=== PATIENT | female | born 1960 | race Caucasian/White ===

== ENCOUNTER 2018-04-14 14:31 | Emergency (ER) | payer OTHER, SELFPAY ==
[2018-04-14 14:46] VITALS: BP 150/86; PULSE 71; RESP 16; TEMP 36.5; O2SAT 99
--- NOTE | 2018-04-14 14:57 | ED_ITS ---
HPI - Abdominal Pain General Chief Complaint: Abdominal Pain Stated Complaint: vomiting/abd pain Time Seen by Provider: 04/14/18 14:50 Source: patient Mode of arrival: ambulatory Limitations: no limitations History of Present Illness HPI narrative: Patient is a 57-year-old female who presents with nausea vomiting on abdominal pain. She does have a history of cyclic vomiting gastroparesis. She is well known to this facility and to myself however however after review of records she has not been here since October of 2017. He said this episode started this morning around 9:00 a.m. she can't stop vomiting. He has diffuse overall abdominal pain. This is typical for 1 of her episodes. Related Data Home Medications Medication Instructions Recorded Confirmed Domperidone (#DOMPERIDONE) 10 mg PO ACHS #2 07/29/12 insulin lispro [Humalog U-100 0 unit SQ #0 07/29/12 Insulin] rosuvastatin [Crestor] 10 mg PO HS #0 07/29/12 pantoprazole [Protonix] 40 mg PO QDAY #0 10/06/12 duloxetine [Cymbalta] 20 mg PO BID #0 05/03/17 glucagon (human recombinant) 1 mg IJ SEE INSTRUCTIONS #0 05/03/17 [Glucagon Emergency Kit (human)] hydrocortisone 10 mg NG QDAY #0 05/03/17 insulin glargine [Lantus U-100 SQ #0 05/03/17 Insulin] mirtazapine 1.5 tab PO HS #0 05/03/17 promethazine 25 mg AK BIDP PRN #0 05/03/17 Previous Rx's Medication Instructions Recorded diazepam 5 mg PO TIDP #6 05/04/17 hydromorphone 4 mg PO BID PRN PRN #4 tab 05/04/17 ondansetron 4 mg SUBLINGUAL Q4HP PRN #30 odt 05/04/17 promethazine 25 mg PO Q6HP PRN #15 tab 11/10/17 promethazine [Phenergan] 25 mg R Q6HP PRN #20 11/10/17 Allergies Allergy/AdvReac Type Severity Reaction Status Date / Time amitriptyline Allergy Intermediate SEIZURES Verified 04/14/18 16:07 droperidol Allergy Intermediate CLONIC Verified 04/14/18 16:07 REACTION metoclopramide Allergy Intermediate CLONIC Verified 04/14/18 16:07 REACTION prochlorperazine Allergy Intermediate CLONIC Verified 04/14/18 16:07 REACTION azithromycin AdvReac Mild N/V Verified 04/14/18 16:07 ciprofloxacin AdvReac Mild N/V Verified 04/14/18 16:07 hydrocodone AdvReac Mild N/V Verified 04/14/18 16:07 ketorolac AdvReac Mild N/V Verified 04/14/18 16:07 Review of Systems Review of Systems All systems reviewed & are unremarkable except as noted in HPI and below Constitutional Denies chills, Denies fever(s), Denies lethargy and Denies weakness Cardiovascular Denies chest pain, Denies irregular heart rhythm, Denies lightheadedness, Denies palpitations, Denies dyspnea, Denies dyspnea on exertion and Denies orthopnea Respiratory Denies cough, Denies dyspnea, Denies dyspnea on exertion and Denies wheezing Gastrointestinal Gastrointestinal: Reports as per HPI Integumentary/Breasts Denies pruritus, Denies erythema, Denies rash and Denies wounds Neurologic Denies weakness Endocrine Denies palpitations Allergic/Immunologic Denies wheezing PFSH Medical History Chronic cholecystitis (Acute) Diabetes (Acute) Diabetic retinopathy (Acute) Hyperlipidemia (Acute) Hypothyroid (Acute) Osteomyelitis (Acute) Exam Initial Vital Signs Initial Vital Signs: Vital Signs Temperature 97.7 F 04/14/18 14:46 Pulse Rate 71 04/14/18 14:46 Respiratory Rate 16 04/14/18 14:46 Blood Pressure 150/86 H 04/14/18 14:46 Pulse Oximetry 99 04/14/18 14:46 GENERAL: Ill-appearing persistently nauseated for old in position moaning HEENT: Head atraumatic,EOMI, pupils reactive, dry mucous membranes, neck is supple no JVD CARDIOVASCULAR: Regular rate and rhythm without murmurs, rubs or gallops. RESPIRATORY: Breath sounds equal bilaterally, no wheezes rales or rhonchi. ABDOMEN: Diffuse tenderness, soft, distended EXTREMITIES: Normal range of motion, no clubbing or edema. Neurovascularly intact NEUROLOGICAL: Alert and oriented x4.Normal gait and speech. Cranial nerves II through XII grossly intact. SKIN: Warm, dry, no laceration, no petechiae, no rashes or lesions. Course Orders Ordered: Discontinued Medications Hydromorphone HCl (Dilaudid) 1 mg SUBCUT Q4H PRN PRN Reason: Pain, Severe (7-10) Last Admin: 04/14/18 15:13 Dose: 1 mg Hydromorphone HCl (Dilaudid) 1 mg IV NOW ONE Stop: 04/14/18 17:13 Last Admin: 04/14/18 17:51 Dose: 1 mg Hydromorphone HCl (Dilaudid) 1 mg IV NOW ONE Stop: 04/14/18 19:14 Last Admin: 04/14/18 19:25 Dose: 1 mg Sodium Chloride (Normal Saline 0.9%) 1,000 mls @ 1,000 mls/hr IV CONT ALEX Last Infusion: 04/14/18 17:46 Dose: 0 mls/hr Admin: 04/14/18 15:16 Dose: 1,000 mls/hr Sodium Chloride (Normal Saline 0.9%) 1,000 mls @ 1,000 mls/hr IV BOLUS ONE Stop: 04/14/18 18:02 Last Infusion: 04/14/18 19:53 Dose: 1,000 mls/hr Admin: 04/14/18 17:50 Dose: 1,000 mls/hr Lorazepam (Ativan) 1 mg IV NOW ONE Stop: 04/14/18 15:41 Last Admin: 04/14/18 16:14 Dose: 1 mg Ondansetron HCl (Zofran) 4 mg IV NOW ONE Stop: 04/14/18 15:11 Last Admin: 04/14/18 15:11 Dose: 4 mg Ondansetron HCl (Zofran) 4 mg IV NOW ONE Stop: 04/14/18 15:41 Last Admin: 04/14/18 16:15 Dose: 4 mg Ondansetron HCl (Zofran) 4 mg IV NOW ONE Stop: 04/14/18 19:14 Last Admin: 04/14/18 19:26 Dose: 4 mg Vital Signs - 8 hr 04/14/18 14:46 Temperature 97.7 F Pulse Rate 71 Respiratory Rate 16 Blood Pressure 150/86 H Pulse Oximetry 99 MDM - Abdominal Pain Medical Records Attestation: I reviewed the patient's medical records. Lab Data Attestation: I reviewed the patient's lab results. Result diagrams: 04/14/18 15:38 04/14/18 16:49 Lab Results 04/14/18 04/14/18 04/14/18 Range/Units 15:38 15:38 16:49 WBC 3.7 L (4.5-11.0) X10^3/uL RBC 3.07 L (4.0-5.2) X10^6/uL Hgb 9.4 L (12.0-16.0) g/dL Hct 27.8 L (36-46) % MCV 90.5 (80-100) fL MCH 30.7 (26-34) PG MCHC 33.9 (30-36) % RDW 13.2 (11.6-14.8) % Plt Count 129 L (150-400) X10^3/uL Neut % (Auto) 81.6 H (50-75) % Lymph % (Auto) 9.2 L (25-40) % Gonzales % (Auto) 7.2 (3-14) % Eos % (Auto) 1.5 L (2-4) % Baso % (Auto) 0.5 (0-2) % Neut # (Auto) 3000 (5760-7107) /uL Sodium Cancelled 146 H Potassium Cancelled 4.1 Chloride Cancelled 111 H Carbon Dioxide Cancelled 24 BUN Cancelled 14 Creatinine Cancelled 0.70 Estimated GFR Cancelled > 60.0 BUN/Creatinine Ratio Cancelled 20.0 Glucose Cancelled 129 H Calcium Cancelled 8.8 Total Bilirubin Cancelled 0.5 AST Cancelled 61 H ALT Cancelled 40 Alkaline Phosphatase Cancelled 108 Total Protein Cancelled 7.2 Albumin Cancelled 4.1 Globulin Cancelled 3.1 Albumin/Globulin Ratio Cancelled 1.3 Lipase Cancelled Point of care testing: Point of Care Testing Glucose POC 173 MDM Narrative Medical decision making narrative: Patient is beginning to feel better. She is able to tolerate ice chips and fluids overall feels that she can go home. She has anti nausea medication including suppository Phenergan and Zofran at home. Abdomen is reexamined and is soft and nontender Discharge Plan Departure Patient Disposition: Home Clinical Impression: Cyclic vomiting syndrome Discharge Date/Time: 04/14/18 19:58 Interventions: ED Discharge Assessment Last Done: 04/14/18 19:57 Instructions: DI for Vomiting -- Adult Activity Restrictions/Additional Instructions: *You have been diagnosed with vomiting, cyclic vomiting, gastroparesis *Continue to take medications as directed *Follow up with your primary care provider in 2-3 days *Return to ER if you should have any new, worsening or concerning symptoms Prescriptions: No Action insulin lispro [Humalog U-100 Insulin] 100 UNIT/1 ML solution SQ Qty: 0 RF: 0 Domperidone (#DOMPERIDONE) 10 mg PO ACHS Qty: 2 RF: 0 rosuvastatin [Crestor] 10 MG tablet 10 mg PO HS Qty: 0 RF: 0 pantoprazole [Protonix] 40 MG tablet,delayed release (DR/EC) 40 mg PO QDAY Qty: 0 RF: 0 promethazine 25 MG suppository 25 mg AK BIDP PRNQty: 0 RF: 0 mirtazapine 15 MG tablet 1.5 tab PO HS Qty: 0 RF: 0 duloxetine [Cymbalta] 20 MG capsule,delayed release(DR/EC) 20 mg PO BID Qty: 0 RF: 0 glucagon (human recombinant) [Glucagon Emergency Kit (human)] 1 MG kit 1 mg IJ SEE INSTRUCTIONS Qty: 0 RF: 0 insulin glargine [Lantus U-100 Insulin] 100 UNIT/1 ML solution SQ Qty: 0 RF: 0 hydrocortisone 10 MG tablet 10 mg NG QDAY Qty: 0 RF: 0 hydromorphone 4 MG tablet 4 mg PO BID PRN PRNQty: 4 RF: 0 diazepam 5 MG tablet 5 mg PO TIDP Qty: 6 RF: 0 ondansetron 4 MG tablet,disintegrating 4 mg Sublingual Q4HP PRNQty: 30 RF: 8 promethazine [Phenergan] 25 MG suppository 25 mg R Q6HP PRNQty: 20 RF: 0 promethazine 25 MG tablet 25 mg PO Q6HP PRNQty: 15 RF: 0 Referrals: Salvatore Villegas MD [Primary Care Provider] -
[2018-04-14] MEDS: ONDANSETRON 4 MG/2 ML INJ IV ×3 (15:11→19:26)
[2018-04-14] MEDS: HYDROMORPHONE 2 MG INJ 1 MG SUBCUT (15:13)
[2018-04-14] MEDS: SODIUM CHLORIDE 0.9% 1,000 ML 1000 ML IV ×2 (15:16→17:50)
[2018-04-14 15:50] LABS: Add Manual Diff / Slide Review NO; Basophils Percent Auto 0.5 % (0-2); Eosinophils Percent Auto 1.5 % (2-4); Hematocrit 27.8 % (36-46); Hemoglobin 9.4 g/dL (12.0-16.0); Lymphocytes Percent Auto 9.2 % (25-40); Mean Corpuscular HGB Conc 33.9 % (30-36); Mean Corpuscular Hemoglobin 30.7 PG (26-34); Mean Corpuscular Volume 90.5 fL (80-100); Monocytes Percent Auto 7.2 % (3-14); Neutrophils Absolute Auto 3000 /uL (3000-5900); Neutrophils Percent Auto 81.6 % (50-75); Platelet Count 129 X10^3/uL (150-400); Red Blood Cell Count 3.07 X10^6/uL (4.0-5.2); Red Cell Distribution Width 13.2 % (11.6-14.8); White Blood Cell Count 3.7 X10^3/uL (4.5-11.0)
[2018-04-14] MEDS: LORazepam 2 MG/ML SYRINGE 1 MG IV (16:14)
[2018-04-14 16:20] VITALS: BP 135/65; PULSE 65; RESP 19; TEMP 36.8; O2SAT 97
[2018-04-14 17:00] VITALS: BP 142/73; PULSE 63; RESP 18; O2SAT 98
[2018-04-14 17:13] LABS: Alanine Aminotransferase 40 IU/L (9-52); Albumin 4.1 g/dL (3.5-5.0); Albumin Globulin Ratio 1.3 (1.0-2.8); Alkaline Phosphatase 108 U/L (38-126); Aspartate Aminotransferase 61 IU/L (14-36); Bilirubin Total 0.5 mg/dL (0.2-1.3); Blood Urea Nitrogen 14 mg/dL (7-17); Calcium 8.8 mg/dL (8.4-10.2); Carbon Dioxide 24 mmol/L (22-32); Chloride 111 mmol/L (98-107); Estimated Glomerular Filt Rate > 60.0 mL/min (>60); Globulin 3.1 g/dL (1.7-4.1); Glucose 129 mg/dL (70-100); HEMOLYSIS 41 (0-50); Potassium 4.1 mmol/L (3.4-5.1); Sodium 146 mmol/L (137-145); Total Protein 7.2 g/dL (6.3-8.2)
[2018-04-14] MEDS: HYDROMORPHONE 2 MG INJ 1 MG IV ×2 (17:51→19:25)
[2018-04-14 18:02] VITALS: BP 120/57; PULSE 68; RESP 15; O2SAT 95
[2018-04-14 19:07] VITALS: BP 112/52; PULSE 64; RESP 15; O2SAT 95
== END 2018-04-14 19:58 | disposition home or self-care (01) ==
PROVIDERS: Emergency Provider Emergency Medicine; PCP Internal Medicine
DX: G43.A0 Cyclical vomiting, in migraine, not intractable (principal)
CPT/HCPCS: 80053; 82962; 85025; 96361; 96374; 96375; 96376; 99283; 99284; J1170; J2060; J2405

== ENCOUNTER → 2018-05-17 12:44 | Outpatient (CLI) | payer OTHER, SELFPAY ==
--- NOTE | 2018-05-17 | DI.MG.S_ITS ---
BILATERAL DIGITAL SCREENING MAMMOGRAM 3D/2D WITH CAD: 05/17/2018 CLINICAL: Routine screening. Comparison is made to exam dated: 01/03/2013 [facility]. The tissue of both breasts is heterogeneously dense. This may lower the sensitivity of mammography. Current study was also evaluated with a Computer Aided Detection (CAD) system. No significant masses, calcifications, or other findings are seen in either breast. There has been no significant interval change. IMPRESSION: NEGATIVE There is no mammographic evidence of malignancy. A 1 year screening mammogram is recommended.(05/18/2019) This exam was interpreted at Station ID: [id number]. NOTE: For mammograms, a report in lay terms will be sent to the patient. Approximately 15% of breast malignancies will not be visualized mammographically. In the management of a palpable breast mass, a negative mammogram must not discourage biopsy of a clinically suspicious lesion. Electronically Signed By: Carlos Alberto hernandez/elizabeth:05/17/2018 16:20:15 letter sent: Normal Exam ACR BI-RADS Category 1: Negative [id number]
== END ==
PROVIDERS: PCP Internal Medicine; Visit Provider Internal Medicine
DX: Z12.31 Encounter for screening mammogram for malignant neoplasm of breast (principal); M81.0 Age-related osteoporosis without current pathological fracture; Z78.0 Asymptomatic menopausal state; E07.9 Disorder of thyroid, unspecified; E11.9 Type 2 diabetes mellitus without complications; Z82.62 Family history of osteoporosis
CPT/HCPCS: 77063; 77067; 77080

== ENCOUNTER → 2018-06-10 11:53 | Outpatient (CLI) | payer OTHER, SELFPAY ==
--- NOTE | 2018-06-10 | DI.RAD.S_ITS ---
PROCEDURE: XR FOOT LT MIN 3V INDICATIONS: left foot injury TECHNIQUE: 3 views of the foot were acquired. COMPARISON: None. FINDINGS: Bones: Chronic appearing postsurgical and/or posttraumatic deformity at the second MTP joint. Fracture of the fourth metatarsal neck, although technically this is radiographically age-indeterminate recommend clinical correlation of point tenderness. There is also cortical irregularity involving the lateral cuboid. Mild first MTP joint degeneration. Soft tissues: No tibiotalar joint effusion. Achilles tendon appears normal. IMPRESSION: Age-indeterminate fracture of the distal fourth metatarsal. This is suspected to be acute. Please correlate clinically. Additional acute fracture of the lateral cortex of the cuboid. Chronic appearing postsurgical versus posttraumatic deformity involving the distal second metatarsal. Dictated by: Benjamin Patten M.D. on 06/10/2018 at 12:51 Approved by: Benjamin Patten M.D. on 06/10/2018 at 12:55
== END ==
PROVIDERS: PCP Internal Medicine; Visit Provider Internal Medicine
DX: S92.342A Displaced fracture of fourth metatarsal bone, left foot, initial encounter for closed fracture (principal); S92.212A Displaced fracture of cuboid bone of left foot, initial encounter for closed fracture; M19.072 Primary osteoarthritis, left ankle and foot
CPT/HCPCS: 73630

== ENCOUNTER 2018-06-10 17:57 | Emergency (ER) | payer OTHER, SELFPAY ==
[2018-06-10 18:05] VITALS: BP 159/79; PULSE 74; RESP 18; TEMP 37.1; O2SAT 97; BMI 22.2
--- NOTE | 2018-06-10 20:16 | ED.LOWEXIN ---
HPI - Extremity Injury (Lower) General Chief Complaint: Extremity Injury, Lower Stated Complaint: BROKEN LT FOOT Time Seen by Provider: 06/10/18 19:27 Source: patient and family Mode of arrival: wheelchair Limitations: no limitations History of Present Illness HPI Narrative: 57F non smoker presents at the request of her PCP whom had ordered an outpatient xray for evaluation of a foot injury. She was breaking down boxes and stepped down on a box and slipped, causing an injury to her Left foot. Her pain is worse with ambulation and weight bearing. She denies numbness, tingling or weakness. She denies other injuries. She has no history of left foot injury. She was told she had fractures and needed splinting in the ED> MD complaint: foot injury Onset (ago): hour(s) Type of Injury: inversion Place: home Severity: mild Relieving factors: immobilization Exacerbating factors: weight bearing and movement Context: fall and direct blow Associated symptoms: snap/pop sensation Other symptoms: none Related Data Home Medications Medication Instructions Recorded Confirmed Domperidone (#DOMPERIDONE) 10 mg PO ACHS #2 07/29/12 insulin lispro [Humalog U-100 0 unit SQ #0 07/29/12 Insulin] rosuvastatin [Crestor] 10 mg PO HS #0 07/29/12 pantoprazole [Protonix] 40 mg PO QDAY #0 10/06/12 duloxetine [Cymbalta] 20 mg PO BID #0 05/03/17 glucagon (human recombinant) 1 mg IJ SEE INSTRUCTIONS #0 05/03/17 [Glucagon Emergency Kit (human)] hydrocortisone 10 mg NG QDAY #0 05/03/17 insulin glargine [Lantus U-100 SQ #0 05/03/17 Insulin] mirtazapine 1.5 tab PO HS #0 05/03/17 promethazine 25 mg DC BIDP PRN #0 05/03/17 Previous Rx's Medication Instructions Recorded diazepam 5 mg PO TIDP #6 05/04/17 hydromorphone 4 mg PO BID PRN PRN #4 tab 05/04/17 ondansetron 4 mg SUBLINGUAL Q4HP PRN #30 odt 05/04/17 promethazine 25 mg PO Q6HP PRN #15 tab 11/10/17 promethazine [Phenergan] 25 mg R Q6HP PRN #20 11/10/17 Allergies Allergy/AdvReac Type Severity Reaction Status Date / Time amitriptyline Allergy Intermediate SEIZURES Verified 06/10/18 18:09 droperidol Allergy Intermediate CLONIC Verified 06/10/18 18:09 REACTION metoclopramide Allergy Intermediate CLONIC Verified 06/10/18 18:09 REACTION prochlorperazine Allergy Intermediate CLONIC Verified 06/10/18 18:09 REACTION azithromycin AdvReac Mild N/V Verified 06/10/18 18:09 ciprofloxacin AdvReac Mild N/V Verified 06/10/18 18:09 hydrocodone AdvReac Mild N/V Verified 06/10/18 18:09 ketorolac AdvReac Mild N/V Verified 06/10/18 18:09 Review of Systems Review of Systems All systems reviewed & are unremarkable except as noted in HPI and below Constitutional Denies chills, Denies fever(s), Denies lethargy and Denies weakness Eyes Denies change in vision, Denies eye discharge, Denies irritation and Denies loss of vision ENT Ears, Nose, Mouth, and Throat: Denies change in voice, Denies neck pain and Denies sore throat Cardiovascular Denies chest pain, Denies irregular heart rhythm, Denies lightheadedness, Denies palpitations, Denies dyspnea, Denies dyspnea on exertion and Denies orthopnea Respiratory Denies cough, Denies dyspnea, Denies dyspnea on exertion and Denies wheezing Gastrointestinal Gastrointestinal: Denies abdominal pain, Denies change in bowel habits, Denies diarrhea, Denies nausea and Denies vomiting Genitourinary Denies hematuria, Denies flank pain, Denies urinary incontinence and Denies urinary urgency Musculoskeletal Reports joint swelling, Reports limited range of motion and Denies neck pain Integumentary/Breasts Denies pruritus, Denies erythema, Denies rash and Denies wounds Neurologic Denies confusion, Denies loss of vision and Denies weakness Psychiatric Denies anxiety, Denies confusion, Denies depression, Denies homicidal ideation and Denies suicidal ideation Endocrine Denies palpitations Hematologic/Lymphatic Denies easy bruising Allergic/Immunologic Denies wheezing [facility] Medical History Chronic cholecystitis (Acute) Diabetes (Acute) Diabetic retinopathy (Acute) Hyperlipidemia (Acute) Hypothyroid (Acute) Osteomyelitis (Acute) Social History Smoking Status: Former smoker Exam Narrative Exam Narrative: GEN: AOx3 and in mild distress EYES: Pupils are equal, round, and reactive to light and accommodation. Extraoccular muscles are intact bilaterally. There is no subconjunctival hemorrhage or exudate. CHEST: Lungs are clear to auscultation bilaterally and free of wheezes, rales, or rhonchi. Heart rate is regular rhythm, there are no murmurs, clicks, rubs, or gallops. There is no chest wall tenderness. ABD: Abdomen is soft and nontender. There is no guarding or rebound. Bowel sounds are normal in all 4 quadrants. There is no mass or organomegaly. EXT: Full but painful ROM of L foot with noted ecchymosis at MTP of 3rd and 4th. SKIN: Warm, pink, and dry. No erythema or rash Initial Vital Signs Initial Vital Signs: Vital Signs Temperature 98.8 F 06/10/18 18:05 Pulse Rate 74 06/10/18 18:05 Respiratory Rate 18 06/10/18 18:05 Blood Pressure 159/79 H 06/10/18 18:05 Pulse Oximetry 97 06/10/18 18:05 Procedures Orthopedic Splinting/Casting Injury #1: Side: left Lower Extremity Injury Location: foot Lower Extremity Immobilizer: boot orthosis Other Orthopedic Equipment: crutches Course Orders Ordered: Discontinued Medications Hydromorphone HCl (Dilaudid) 1 mg IM NOW ONE Stop: 06/10/18 20:14 Last Admin: 06/10/18 20:29 Dose: 1 mg Consultations Consultation #1: call to Dr. Zuñiga (ortho) whom states she may weight bear as tolerated and be splinted in a boot orthosis with follow up Vital Signs - 8 hr 06/10/18 18:05 06/10/18 20:28 Temperature 98.8 F 98.7 F Pulse Rate 74 77 Respiratory Rate 18 16 Blood Pressure 159/79 H Blood Pressure [Left Arm] 114/61 Pulse Oximetry 97 99 MDM - Extremity Injury (Lower) Imaging Data Foot Xray: Radiologist's impression: PROCEDURE: XR FOOT LT MIN 3V INDICATIONS: left foot injury TECHNIQUE: 3 views of the foot were acquired. COMPARISON: None. FINDINGS: Bones: Chronic appearing postsurgical and/or posttraumatic deformity at the second MTP joint. Fracture of the fourth metatarsal neck, although technically this is radiographically age-indeterminate recommend clinical correlation of point tenderness. There is also cortical irregularity involving the lateral cuboid. Mild first MTP joint degeneration. Soft tissues: No tibiotalar joint effusion. Achilles tendon appears normal. IMPRESSION: Age-indeterminate fracture of the distal fourth metatarsal. This is suspected to be acute. Please correlate clinically. Additional acute fracture of the lateral cortex of the cuboid. Chronic appearing postsurgical versus posttraumatic deformity involving the distal second metatarsal. Dictated by: Benjamin Patten M.D. on 06/10/2018 at 12:51 Approved by: Benjamin Patten M.D. on 06/10/2018 at 12:55 Discharge Plan Departure Patient Disposition: Home Clinical Impression: Foot fracture, left Discharge Date/Time: 06/10/18 21:06 Interventions: ED Discharge Assessment Last Done: 06/10/18 21:06 Instructions: DI for Foot Fracture Activity Restrictions/Additional Instructions: *You have been diagnosed with [ left foot metatarsal fracture and cuboid bone fracture ] *What to do: I have spoken with Dr. Zuñiga with [facility] and she recommends the boot that we had given you and suggests weight-bearing as tolerated *Take medications as directed *Follow up with Dr. Zuñiga at [facility], call for an appointment. Let them know you were seen in the Emergency Department and that we ask that you be seen in follow up *Return to ER if you should have any new, worsening or concerning symptoms Prescriptions: No Action insulin lispro [Humalog U-100 Insulin] 100 UNIT/1 ML solution SQ Qty: 0 RF: 0 Domperidone (#DOMPERIDONE) 10 mg PO ACHS Qty: 2 RF: 0 rosuvastatin [Crestor] 10 MG tablet 10 mg PO HS Qty: 0 RF: 0 pantoprazole [Protonix] 40 MG tablet,delayed release (DR/EC) 40 mg PO QDAY Qty: 0 RF: 0 promethazine 25 MG suppository 25 mg DC BIDP PRNQty: 0 RF: 0 mirtazapine 15 MG tablet 1.5 tab PO HS Qty: 0 RF: 0 duloxetine [Cymbalta] 20 MG capsule,delayed release(DR/EC) 20 mg PO BID Qty: 0 RF: 0 glucagon (human recombinant) [Glucagon Emergency Kit (human)] 1 MG kit 1 mg IJ SEE INSTRUCTIONS Qty: 0 RF: 0 insulin glargine [Lantus U-100 Insulin] 100 UNIT/1 ML solution SQ Qty: 0 RF: 0 hydrocortisone 10 MG tablet 10 mg NG QDAY Qty: 0 RF: 0 hydromorphone 4 MG tablet 4 mg PO BID PRN PRNQty: 4 RF: 0 diazepam 5 MG tablet 5 mg PO TIDP Qty: 6 RF: 0 ondansetron 4 MG tablet,disintegrating 4 mg Sublingual Q4HP PRNQty: 30 RF: 8 promethazine [Phenergan] 25 MG suppository 25 mg R Q6HP PRNQty: 20 RF: 0 promethazine 25 MG tablet 25 mg PO Q6HP PRNQty: 15 RF: 0 Referrals: Lisa Zuñiga MD [Physician] - Salvatore Villegas MD [Primary Care Provider] -
[2018-06-10 20:28] VITALS: BP 114/61; PULSE 77; RESP 16; TEMP 37.1; O2SAT 99
[2018-06-10] MEDS: HYDROMORPHONE 2 MG INJ 1 MG IM (20:29)
== END 2018-06-10 21:06 | disposition home or self-care (01) ==
PROVIDERS: Emergency Provider Emergency Medicine; PCP Internal Medicine
DX: S92.902A Unspecified fracture of left foot, initial encounter for closed fracture (principal); W01.0XXA Fall on same level from slipping, tripping and stumbling without subsequent striking against object, initial encounter
CPT/HCPCS: 99283; J1170

== ENCOUNTER 2018-08-07 15:36 | Emergency (ER) | payer OTHER, SELFPAY ==
--- NOTE | 2018-08-07 15:51 | ED_ITS ---
HPI - Nausea/Vomiting/Diarrhea <Damon Beckeran, DO - Last Filed: 08/09/18 20:25> General Chief complaint: Nausea/Vomiting/Diarrhea Stated complaint: Throwing up Time Seen by Provider: 08/07/18 15:45 Source: patient and family Mode of arrival: ambulatory Limitations: no limitations History of Present Illness HPI Narrative: 58-year-old nonsmoking female, well known to myself and other staff presents under typical [place] stance is for her including nausea, vomiting and abdominal pain over the course of the day. She has recurrent episodes of cyclic vomiting the present very similar to this. She has taken multiple medications at home with little relief. She denies any significant provocation or palliation of her symptoms and denies any radiation. She has multiple medical allergies as noted. She denies recent travel, fever or chills MD complaint: nausea, vomiting and abdominal pain Onset (ago): hour(s) Description of Vomiting: food contents Associated Abdominal Pain: Yes Location of pain: diffuse Radiation: diffuse Quality: cramping and stabbing Pain Consistency: constant Relieving factors: none Exacerbating factors: none Associated symptoms: other (headache) Related Data Home Medications Medication Instructions Recorded Confirmed Domperidone (#DOMPERIDONE) 10 mg PO ACHS #2 07/29/12 insulin lispro [Humalog U-100 0 unit SQ #0 07/29/12 Insulin] rosuvastatin [Crestor] 10 mg PO HS #0 07/29/12 pantoprazole [Protonix] 40 mg PO QDAY #0 10/06/12 duloxetine [Cymbalta] 20 mg PO BID #0 05/03/17 glucagon (human recombinant) 1 mg IJ SEE INSTRUCTIONS #0 05/03/17 [Glucagon Emergency Kit (human)] hydrocortisone 10 mg NG QDAY #0 05/03/17 insulin glargine [Lantus U-100 SQ #0 05/03/17 Insulin] mirtazapine 1.5 tab PO HS #0 05/03/17 promethazine 25 mg [place] BIDP PRN #0 05/03/17 Previous Rx's Medication Instructions Recorded diazepam 5 mg PO TIDP #6 05/04/17 hydromorphone 4 mg PO BID PRN PRN #4 tab 05/04/17 ondansetron 4 mg SUBLINGUAL Q4HP PRN #30 odt 05/04/17 promethazine 25 mg PO Q6HP PRN #15 tab 11/10/17 promethazine [Phenergan] 25 mg R Q6HP PRN #20 11/10/17 Allergies Allergy/AdvReac Type Severity Reaction Status Date / Time amitriptyline Allergy Intermediate SEIZURES Verified 08/07/18 16:24 droperidol Allergy Intermediate CLONIC Verified 08/07/18 16:24 REACTION metoclopramide Allergy Intermediate CLONIC Verified 08/07/18 16:24 REACTION prochlorperazine Allergy Intermediate CLONIC Verified 08/07/18 16:24 REACTION azithromycin AdvReac Mild N/V Verified 08/07/18 16:24 ciprofloxacin AdvReac Mild N/V Verified 08/07/18 16:24 hydrocodone AdvReac Mild N/V Verified 08/07/18 16:24 ketorolac AdvReac Mild N/V Verified 08/07/18 16:24 Review of Systems <Damon Schreiber, - Last Filed: 08/09/18 20:25> Review of Systems All systems reviewed & are unremarkable except as noted in HPI and below Constitutional Denies chills, Reports fatigue, Denies fever(s), Reports headache(s), Denies lethargy and Denies weakness Eyes Denies change in vision, Denies eye discharge, Denies irritation and Denies loss of vision ENT Ears, Nose, Mouth, and Throat: Denies change in voice, Reports headache(s), Denies neck pain and Denies sore throat Cardiovascular Denies chest pain, Denies irregular heart rhythm, Denies lightheadedness, Denies palpitations, Denies dyspnea, Denies dyspnea on exertion and Denies orthopnea Respiratory Denies cough, Denies dyspnea, Denies dyspnea on exertion and Denies wheezing Gastrointestinal Gastrointestinal: Reports abdominal pain, Denies change in bowel habits, Denies diarrhea, Reports nausea and Reports vomiting Genitourinary Denies hematuria, Denies flank pain, Denies urinary incontinence and Denies urinary urgency Musculoskeletal Denies neck pain Integumentary/Breasts Denies pruritus, Denies erythema, Denies rash and Denies wounds Neurologic Denies confusion, Reports headache(s), Denies loss of vision and Denies weakness Psychiatric Denies anxiety, Denies confusion, Denies depression, Denies homicidal ideation and Denies suicidal ideation Endocrine Reports fatigue and Denies palpitations Hematologic/Lymphatic Denies easy bruising Allergic/Immunologic Denies wheezing Exam <Damon Schreiber DO - Last Filed: 08/09/18 20:25> Narrative Exam Narrative: GENERAL: 50-year-old female, in obvious distress, writhing in pain from her abdomen, sitting in a dark room rubbing her forehead HEAD: Atraumatic. Normocephalic. No temporal or scalp tenderness. EYES: Pupils equal round and reactive. Extraocular motions intact. No scleral icterus. No injection or drainage. ENT: Nose without bleeding, purulent drainage or septal hematoma. Throat without erythema, tonsillar hypertrophy or exudate. Uvula midline. Airway patent. NECK: Trachea midline. No JVD or lymphadenopathy. Supple, nontender, no meningeal signs. CARDIOVASCULAR: Regular rate and rhythm without murmurs, gallops, or rubs. RESPIRATORY: Clear to auscultation. Breath sounds equal bilaterally. No wheezes , rales, or rhonchi. GASTROINTESTINAL: Abdomen soft, non-tender, nondistended. No hepato-splenomegaly , or palpable masses. No guarding. EXTREMITIES: No clubbing, cyanosis, or edema. No joint tenderness, effusion, or edema noted. BACK: Nontender without deformity or crepitance. No flank tenderness. NEURO: AOx3. SKIN: No rash or erythema. Initial Vital Signs Initial Vital Signs: Vital Signs Temperature 97.8 F 08/07/18 16:18 Pulse Rate 72 08/07/18 16:18 Respiratory Rate 18 08/07/18 16:18 Blood Pressure 151/69 H 08/07/18 16:18 Pulse Oximetry 100 08/07/18 16:18 <Mary Ann De La Garza, DO - Last Filed: 08/07/18 21:07> Initial Vital Signs Initial Vital Signs: Vital Signs Temperature 97.8 F 08/07/18 16:18 Pulse Rate 72 08/07/18 16:18 Respiratory Rate 18 08/07/18 16:18 Blood Pressure 151/69 H 08/07/18 16:18 Pulse Oximetry 100 08/07/18 16:18 Course <Damon Schreiber DO - Last Filed: 08/09/18 20:25> Orders Ordered: Discontinued Medications Hydromorphone HCl (Dilaudid) 1 mg IV NOW ONE Stop: 08/07/18 16:45 Last Admin: 08/07/18 16:45 Dose: 1 mg Hydromorphone HCl (Dilaudid) 2 mg IV NOW ONE Stop: 08/07/18 17:37 Last Admin: 08/07/18 17:42 Dose: 2 mg Hydromorphone HCl (Dilaudid) 1 mg IV NOW ONE Stop: 08/07/18 19:39 Last Admin: 08/07/18 19:57 Dose: 1 mg Hydromorphone HCl (Dilaudid) 1 mg IV NOW ONE Stop: 08/07/18 19:41 Last Admin: 08/07/18 19:56 Dose: Not Given Sodium Chloride (Normal Saline 0.9%) 1,000 mls @ 1,000 mls/hr IV BOLUS ONE Stop: 08/07/18 16:44 Last Infusion: 08/07/18 18:21 Dose: 0 mls/hr Admin: 08/07/18 15:58 Dose: 1,000 mls/hr Lorazepam (Ativan) 2 mg IV NOW ONE Stop: 08/07/18 15:46 Last Admin: 08/07/18 15:58 Dose: 2 mg Ondansetron HCl (Zofran) 8 mg IV NOW ONE Stop: 08/07/18 16:03 Last Admin: 08/07/18 16:04 Dose: 8 mg Ondansetron HCl (Zofran) 4 mg IV Q4HR PRN PRN Reason: Nausea And Vomiting Ondansetron HCl (Zofran) 4 mg IV Q4HR PRN PRN Reason: Nausea And Vomiting Last Admin: 08/07/18 19:56 Dose: 4 mg Pantoprazole Sodium (Protonix) 40 mg IV NOW ONE Stop: 08/07/18 16:03 Last Admin: 08/07/18 16:04 Dose: 40 mg Reevaluation(s) Reevaluation #1: Minimal change in symptoms after 1st round of Ativan and Zofran , will add Dilaudid for pain control Reevaluation #2: Patient feeling minimal improvement will attempt 2nd round of medications Reevaluation #3: Patient still having symptoms, will sign out to Dr. Perez for final disposition which is expected discharge Vital Signs - 8 hr 08/07/18 16:18 08/07/18 17:02 08/07/18 18:33 Temperature 97.8 F Pulse Rate 72 69 69 Respiratory Rate 18 20 14 Blood Pressure 151/69 H Blood Pressure [Left Arm] 146/67 H 118/62 Pulse Oximetry 100 97 100 08/07/18 19:47 08/07/18 20:46 Temperature Pulse Rate 69 68 Respiratory Rate 16 16 Blood Pressure Blood Pressure [Left Arm] 141/63 H 134/59 L Pulse Oximetry 100 99 <Mary Ann De La Garza, - Last Filed: 08/07/18 21:07> Orders Ordered: Discontinued Medications Hydromorphone HCl (Dilaudid) 1 mg IV NOW ONE Stop: 08/07/18 16:45 Last Admin: 08/07/18 16:45 Dose: 1 mg Hydromorphone HCl (Dilaudid) 2 mg IV NOW ONE Stop: 08/07/18 17:37 Last Admin: 08/07/18 17:42 Dose: 2 mg Hydromorphone HCl (Dilaudid) 1 mg IV NOW ONE Stop: 08/07/18 19:39 Last Admin: 08/07/18 19:57 Dose: 1 mg Hydromorphone HCl (Dilaudid) 1 mg IV NOW ONE Stop: 08/07/18 19:41 Last Admin: 08/07/18 19:56 Dose: Not Given Sodium Chloride (Normal Saline 0.9%) 1,000 mls @ 1,000 mls/hr IV BOLUS ONE Stop: 08/07/18 16:44 Last Infusion: 08/07/18 18:21 Dose: 0 mls/hr Admin: 08/07/18 15:58 Dose: 1,000 mls/hr Lorazepam (Ativan) 2 mg IV NOW ONE Stop: 08/07/18 15:46 Last Admin: 08/07/18 15:58 Dose: 2 mg Ondansetron HCl (Zofran) 8 mg IV NOW ONE Stop: 08/07/18 16:03 Last Admin: 08/07/18 16:04 Dose: 8 mg Ondansetron HCl (Zofran) 4 mg IV Q4HR PRN PRN Reason: Nausea And Vomiting Ondansetron HCl (Zofran) 4 mg IV Q4HR PRN PRN Reason: Nausea And Vomiting Last Admin: 08/07/18 19:56 Dose: 4 mg Pantoprazole Sodium (Protonix) 40 mg IV NOW ONE Stop: 08/07/18 16:03 Last Admin: 08/07/18 16:04 Dose: 40 mg Vital Signs - 8 hr 08/07/18 16:18 08/07/18 17:02 08/07/18 18:33 Temperature 97.8 F Pulse Rate 72 69 69 Respiratory Rate 18 20 14 Blood Pressure 151/69 H Blood Pressure [Left Arm] 146/67 H 118/62 Pulse Oximetry 100 97 100 08/07/18 19:47 08/07/18 20:46 Temperature Pulse Rate 69 68 Respiratory Rate 16 16 Blood Pressure Blood Pressure [Left Arm] 141/63 H 134/59 L Pulse Oximetry 100 99 MDM - Nausea/Vomiting/Diarrhea <Damon Schreiber DO - Last Filed: 08/09/18 20:25> Lab Data Result diagrams: 08/07/18 15:40 08/07/18 15:40 Lab Results 08/07/18 08/07/18 Range/Units 15:40 15:40 WBC 7.0 (4.5-11.0) X10^3/uL RBC 4.42 (4.0-5.2) X10^6/uL Hgb 13.3 (12.0-16.0) g/dL Hct 40.6 (36-46) % MCV 91.9 (80-100) fL MCH 30.1 (26-34) PG MCHC 32.7 (30-36) % RDW 13.7 (11.6-14.8) % Plt Count 318 (150-400) X10^3/uL Neut % (Auto) 78.5 H (50-75) % Lymph % (Auto) 14.5 L (25-40) % [place] % (Auto) 5.2 (3-14) % Eos % (Auto) 1.4 L (2-4) % Baso % (Auto) 0.4 (0-2) % Neut # (Auto) 5500 (2057-0751) /uL Sodium 141 (137-145) mmol/L Potassium 4.8 (3.4-5.1) mmol/L Chloride 100 (98-107) mmol/L Carbon Dioxide 30 (22-32) mmol/L BUN 20 H (7-17) mg/dL Creatinine 0.70 (0.52-1.04) mg/dL Estimated GFR > 60.0 (>60) mL/min BUN/Creatinine Ratio 28.6 H (6-22) Glucose 151 H (70-100) mg/dL Calcium 9.5 (8.4-10.2) mg/dL Total Bilirubin 0.4 (0.2-1.3) mg/dL AST 41 H (14-36) IU/L ALT 23 (9-52) IU/L Alkaline Phosphatase 191 H (38-126) U/L Total Protein 8.2 (6.3-8.2) g/dL Albumin 4.5 (3.5-5.0) g/dL Globulin 3.7 (1.7-4.1) g/dL Albumin/Globulin Ratio 1.2 (1.0-2.8) <Mary Ann De La Garza, DO - Last Filed: 08/07/18 21:07> Lab Data Lab Results 08/07/18 08/07/18 Range/Units 15:40 15:40 WBC 7.0 (4.5-11.0) X10^3/uL RBC 4.42 (4.0-5.2) X10^6/uL Hgb 13.3 (12.0-16.0) g/dL Hct 40.6 (36-46) % MCV 91.9 (80-100) fL MCH 30.1 (26-34) PG MCHC 32.7 (30-36) % RDW 13.7 (11.6-14.8) % Plt Count 318 (150-400) X10^3/uL Neut % (Auto) 78.5 H (50-75) % Lymph % (Auto) 14.5 L (25-40) % [place] % (Auto) 5.2 (3-14) % Eos % (Auto) 1.4 L (2-4) % Baso % (Auto) 0.4 (0-2) % Neut # (Auto) 5500 (0679-4639) /uL Sodium 141 (137-145) mmol/L Potassium 4.8 (3.4-5.1) mmol/L Chloride 100 (98-107) mmol/L Carbon Dioxide 30 (22-32) mmol/L BUN 20 H (7-17) mg/dL Creatinine 0.70 (0.52-1.04) mg/dL Estimated GFR > 60.0 (>60) mL/min BUN/Creatinine Ratio 28.6 H (6-22) Glucose 151 H (70-100) mg/dL Calcium 9.5 (8.4-10.2) mg/dL Total Bilirubin 0.4 (0.2-1.3) mg/dL AST 41 H (14-36) IU/L ALT 23 (9-52) IU/L Alkaline Phosphatase 191 H (38-126) U/L Total Protein 8.2 (6.3-8.2) g/dL Albumin 4.5 (3.5-5.0) g/dL Globulin 3.7 (1.7-4.1) g/dL Albumin/Globulin Ratio 1.2 (1.0-2.8) MDM Narrative Medical decision making narrative: Patient signed out to myself by Dr. Schreiber, she is known to myself from prior visits also. Patient has not had any additional emesis and is tolerating ice chips. She has had several doses of diludid and ativan and is feeling improved. Labs are in appropriate ranges and patient feels better to return home. Plan to continue current home medications and follow with pcp. Discharge Plan Departure Patient Disposition: Home Clinical Impression: Cyclical vomiting Discharge Date/Time: 08/07/18 21:06 Interventions: ED Discharge Assessment Last Done: 08/07/18 20:55 Activity Restrictions/Additional Instructions: Follow-up with your primary care physician in the next 3-5 days for recheck. Continue home medications as prescribed. Return for fevers greater than 100.4, if you are unable to keep down your medications, persistent vomiting, new shortness of breath, chest pain, passing out or other new or concerning symptoms. Prescriptions: No Action insulin lispro [Humalog U-100 Insulin] 100 UNIT/1 ML solution SQ Qty: 0 RF: 0 Domperidone (#DOMPERIDONE) 10 mg PO ACHS Qty: 2 RF: 0 rosuvastatin [Crestor] 10 MG tablet 10 mg PO HS Qty: 0 RF: 0 pantoprazole [Protonix] 40 MG tablet,delayed release (DR/EC) 40 mg PO QDAY Qty: 0 RF: 0 promethazine 25 MG suppository 25 mg [place] BIDP PRNQty: 0 RF: 0 mirtazapine 15 MG tablet 1.5 tab PO HS Qty: 0 RF: 0 duloxetine [Cymbalta] 20 MG capsule,delayed release(DR/EC) 20 mg PO BID Qty: 0 RF: 0 glucagon (human recombinant) [Glucagon Emergency Kit (human)] 1 MG kit 1 mg IJ SEE INSTRUCTIONS Qty: 0 RF: 0 insulin glargine [Lantus U-100 Insulin] 100 UNIT/1 ML solution SQ Qty: 0 RF: 0 hydrocortisone 10 MG tablet 10 mg NG QDAY Qty: 0 RF: 0 hydromorphone 4 MG tablet 4 mg PO BID PRN PRNQty: 4 RF: 0 diazepam 5 MG tablet 5 mg PO TIDP Qty: 6 RF: 0 ondansetron 4 MG tablet,disintegrating 4 mg Sublingual Q4HP PRNQty: 30 RF: 8 promethazine [Phenergan] 25 MG suppository 25 mg R Q6HP PRNQty: 20 RF: 0 promethazine 25 MG tablet 25 mg PO Q6HP PRNQty: 15 RF: 0 Referrals: Salvatore Villegas MD [Primary Care Provider] -
[2018-08-07 15:56] LABS: Add Manual Diff / Slide Review NO; Basophils Percent Auto 0.4 % (0-2); Eosinophils Percent Auto 1.4 % (2-4); Hematocrit 40.6 % (36-46); Hemoglobin 13.3 g/dL (12.0-16.0); Lymphocytes Percent Auto 14.5 % (25-40); Mean Corpuscular HGB Conc 32.7 % (30-36); Mean Corpuscular Hemoglobin 30.1 PG (26-34); Mean Corpuscular Volume 91.9 fL (80-100); Monocytes Percent Auto 5.2 % (3-14); Neutrophils Absolute Auto 5500 /uL (1500-7000); Neutrophils Percent Auto 78.5 % (50-75); Platelet Count 318 X10^3/uL (150-400); Red Blood Cell Count 4.42 X10^6/uL (4.0-5.2); Red Cell Distribution Width 13.7 % (11.6-14.8)
[2018-08-07] MEDS: SODIUM CHLORIDE 0.9% 1,000 ML 1000 ML IV (15:58)
[2018-08-07] MEDS: LORazepam 2 MG/ML SYRINGE IV (15:58)
[2018-08-07] MEDS: ONDANSETRON 4 MG/2 ML INJ 8 MG IV (16:04)
[2018-08-07] MEDS: PANTOPRAZOLE 40 MG VIAL IV (16:04)
[2018-08-07 16:05] LABS: Alanine Aminotransferase 23 IU/L (9-52); Albumin 4.5 g/dL (3.5-5.0); Albumin Globulin Ratio 1.2 (1.0-2.8); Alkaline Phosphatase 191 U/L (38-126); Aspartate Aminotransferase 41 IU/L (14-36); BUN Creatinine Ratio 28.6 (6-22); Bilirubin Total 0.4 mg/dL (0.2-1.3); Blood Urea Nitrogen 20 mg/dL (7-17); Calcium 9.5 mg/dL (8.4-10.2); Carbon Dioxide 30 mmol/L (22-32); Chloride 100 mmol/L (98-107); Estimated Glomerular Filt Rate > 60.0 mL/min (>60); Globulin 3.7 g/dL (1.7-4.1); Glucose 151 mg/dL (70-100); Sodium 141 mmol/L (137-145); Total Protein 8.2 g/dL (6.3-8.2)
[2018-08-07 16:09] LABS: HEMOLYSIS 82 (0-50); Potassium 4.8 mmol/L (3.4-5.1)
[2018-08-07 16:18] VITALS: BP 151/69; PULSE 72; RESP 18; TEMP 36.6; O2SAT 100; BMI 28.4
[2018-08-07] MEDS: HYDROMORPHONE 1 MG INJ IV ×2 (16:45→19:57)
[2018-08-07 17:02] VITALS: BP 146/67; PULSE 69; RESP 20; O2SAT 97
[2018-08-07] MEDS: HYDROMORPHONE 1 MG INJ 2 MG IV (17:42)
[2018-08-07 18:33] VITALS: BP 118/62; PULSE 69; RESP 14; O2SAT 100
[2018-08-07 19:47] VITALS: BP 141/63; PULSE 69; RESP 16; O2SAT 100
[2018-08-07] MEDS: ONDANSETRON 4 MG/2 ML INJ IV (19:56)
--- NOTE | 2018-08-07 20:45 | PC.NURSE ---
Pt states feels ready to go home, sister is at bedside. Pt tolerated ice chips.
[2018-08-07 20:46] VITALS: BP 134/59; PULSE 68; RESP 16; O2SAT 99
== END 2018-08-07 21:06 | disposition home or self-care (01) ==
PROVIDERS: Emergency Medicine; Emergency Provider Emergency Medicine; PCP Internal Medicine
DX: G43.A0 Cyclical vomiting, in migraine, not intractable (principal)
CPT/HCPCS: 36591; 80053; 85025; 96361; 96374; 96375; 96376; 99283; 99284; C9113; J1170; J2060; J2405

== ENCOUNTER 2019-02-03 08:49 | Emergency (ER) | payer OTHER, SELFPAY ==
[2019-02-03 09:05] VITALS: BP 156/75; PULSE 70; RESP 20; TEMP 36.3; O2SAT 94
--- NOTE | 2019-02-03 09:31 | ED.NAVMDI ---
HPI - Nausea/Vomiting/Diarrhea General Chief complaint: Nausea/Vomiting/Diarrhea Stated complaint: diabetic gastroparisis,migrane Time Seen by Provider: 02/03/19 09:24 Source: patient Mode of arrival: ambulatory Limitations: no limitations History of Present Illness HPI Narrative: The patient is a 58-year-old female who presents with vomiting. She says this started around 3:00 a.m.. She has a history of gastroparesis and cyclic vomiting. She actually has not been here since July. She Zofran Dilaudid and Valium at home she says she has been able to keep any of that down. She has no diarrhea this feels typical to her previous episodes. No fever. He does have pain. MD complaint: nausea, vomiting and abdominal pain Related Data Home Medications Medication Instructions Recorded Confirmed Domperidone (#DOMPERIDONE) 30 mg PO ACHS #2 07/29/12 02/03/19 insulin lispro [Humalog U-100 0 unit CONTINUOUS IV INFUSION 07/29/12 Insulin] DAILY #0 rosuvastatin [Crestor] 10 mg PO BEDTIME #0 07/29/12 02/03/19 pantoprazole [Protonix] 40 mg PO DAILY #0 10/06/12 02/03/19 hydrocortisone 10 mg NG DAILY #0 05/03/17 02/03/19 promethazine 25 mg [place] BIDP PRN #0 05/03/17 02/03/19 alendronate 70 mg PO QWEEK 02/03/19 02/03/19 diazepam 5 mg PO TIDP PRN 02/03/19 02/03/19 glucagon (human recombinant) 1 dose SUBCUT DIRECTED 02/03/19 02/03/19 [Glucagon Emergency Kit (human)] hydromorphone 4 mg PO TID PRN 02/03/19 02/03/19 levothyroxine 75 mcg PO DAILY 02/03/19 02/03/19 ondansetron 4 mg SUBLINGUAL Q4HP PRN 02/03/19 02/03/19 Previous Rx's Medication Instructions Recorded promethazine 25 mg [place] Q6H PRN #12 each 02/03/19 Allergies Allergy/AdvReac Type Severity Reaction Status Date / Time amitriptyline Allergy Intermediate SEIZURES Verified 02/03/19 11:06 droperidol Allergy Intermediate CLONIC Verified 02/03/19 11:06 REACTION metoclopramide Allergy Intermediate CLONIC Verified 02/03/19 11:06 REACTION prochlorperazine Allergy Intermediate CLONIC Verified 02/03/19 11:06 REACTION azithromycin AdvReac Mild N/V Verified 02/03/19 11:06 ciprofloxacin AdvReac Mild N/V Verified 02/03/19 11:06 hydrocodone AdvReac Mild N/V Verified 02/03/19 11:06 ketorolac AdvReac Mild N/V Verified 02/03/19 11:06 Review of Systems Review of Systems ROS Unobtainable: All systems reviewed & are unremarkable except as noted in HPI and below Constitutional Denies chills, Denies fever(s), Denies lethargy and Denies weakness Eyes Denies change in vision, Denies eye discharge, Denies irritation and Denies loss of vision ENT Ears, Nose, Mouth, and Throat: Denies change in voice, Denies neck pain and Denies sore throat Cardiovascular Denies chest pain, Denies irregular heart rhythm, Denies lightheadedness, Denies palpitations, Denies dyspnea, Denies dyspnea on exertion and Denies orthopnea Respiratory Denies cough, Denies dyspnea, Denies dyspnea on exertion and Denies wheezing Gastrointestinal Gastrointestinal: Reports as per HPI Genitourinary Denies hematuria, Denies flank pain, Denies urinary incontinence and Denies urinary urgency Musculoskeletal Denies neck pain Integumentary/Breasts Denies pruritus, Denies erythema, Denies rash and Denies wounds Neurologic Denies loss of vision and Denies weakness Endocrine Denies palpitations Allergic/Immunologic Denies wheezing [facility] Medical History Chronic cholecystitis (Acute) Diabetes (Acute) Diabetic retinopathy (Acute) Hyperlipidemia (Acute) Hypothyroid (Acute) Osteomyelitis (Acute) Social History (Updated 02/03/19 @ 09:35 by Yoanna Watt DO) marital status: Smoking Status: Former smoker Social History marital status: Smoking Status: Former smoker Exam Initial Vital Signs Initial Vital Signs: Vital Signs Temperature 97.4 F L 02/03/19 09:05 Pulse Rate 70 02/03/19 09:05 Respiratory Rate 20 02/03/19 09:05 Blood Pressure 156/75 H 02/03/19 09:05 Pulse Oximetry 94 02/03/19 09:05 GENERAL: Appears in pain sunglasses on HEENT: Head atraumatic,EOMI, pupils reactive, face symmetric, [moist] mucous membranes CARDIOVASCULAR: Regular rate and rhythm without murmurs, rubs or gallops. RESPIRATORY: Breath sounds equal bilaterally, no wheezes rales or rhonchi. ABDOMEN: Soft, mild epigastric tenderness Normoactive bowel sounds all 4 quadrants. No guarding or rebound. EXTREMITIES: Normal range of motion, no clubbing or edema. Neurovascularly intact NEUROLOGICAL: Alert and oriented x4.Normal gait and speech. Cranial nerves II through XII grossly intact. SKIN: Warm, dry, no laceration, no petechiae, no rashes or lesions. Course Orders Ordered: Discontinued Medications Hydromorphone HCl (Dilaudid) 1 mg IV NOW ONE Stop: 02/03/19 09:30 Last Admin: 02/03/19 09:49 Dose: 1 mg Hydromorphone HCl (Dilaudid) 1 mg IV NOW ONE Stop: 02/03/19 12:03 Last Admin: 02/03/19 12:08 Dose: 1 mg Sodium Chloride (Normal Saline 0.9%) 1,000 mls @ 1,000 mls/hr IV BOLUS ONE Stop: 02/03/19 10:28 Last Infusion: 02/03/19 11:08 Dose: 0 mls/hr Admin: 02/03/19 09:49 Dose: 1,000 mls/hr Lorazepam (Ativan) 2 mg IV NOW ONE Stop: 02/03/19 10:11 Last Admin: 02/03/19 10:11 Dose: 2 mg Ondansetron HCl (Zofran) 4 mg IV NOW ONE Stop: 02/03/19 09:30 Last Admin: 02/03/19 09:49 Dose: 4 mg Vital Signs - 8 hr 02/03/19 12:10 02/03/19 13:11 Pulse Rate 74 64 Respiratory Rate 16 20 Blood Pressure 124/66 Blood Pressure [Left Arm] 119/64 Pulse Oximetry 96 97 MDM - Nausea/Vomiting/Diarrhea Lab Data Attestation: I reviewed the patient's lab results. Result diagrams: 02/03/19 09:30 06/21/19 09:30 Lab Results 02/03/19 02/03/19 Range/Units 09:30 09:30 WBC 5.4 (4.5-11.0) X10^3/uL RBC 4.63 (4.0-5.2) X10^6/uL Hgb 14.2 (12.0-16.0) g/dL Hct 43.2 (36-46) % MCV 93.3 (80-100) fL MCH 30.8 (26-34) PG MCHC 33.0 (30-36) % RDW 13.6 (11.6-14.8) % Plt Count 182 (150-400) X10^3/uL Neut % (Auto) 77.7 H (50-75) % Lymph % (Auto) 15.0 L (25-40) % [place] % (Auto) 6.2 (3-14) % Eos % (Auto) 0.6 L (2-4) % Baso % (Auto) 0.5 (0-2) % Neut # (Auto) 4200 (0514-1747) /uL Lymph # (Auto) 800 L (5532-9667) /uL [place] # (Auto) 300 (0-900) /uL Eos # (Auto) 0 (0-450) /uL Baso # (Auto) 0 (0-100) /uL Sodium 140 (137-145) mmol/L Potassium 4.5 (3.4-5.1) mmol/L Chloride 104 (98-107) mmol/L Carbon Dioxide 28 (22-32) mmol/L BUN 11 (7-17) mg/dL Creatinine 0.70 (0.52-1.04) mg/dL Estimated GFR > 60.0 (>60) mL/min BUN/Creatinine Ratio 15.7 (6-22) Glucose 231 H (70-100) mg/dL Calcium 9.4 (8.4-10.2) mg/dL Total Bilirubin 0.9 (0.2-1.3) mg/dL AST 63 H (14-36) IU/L ALT 43 (9-52) IU/L Alkaline Phosphatase 81 (38-126) U/L Total Protein 7.0 (6.3-8.2) g/dL Albumin 4.2 (3.5-5.0) g/dL Globulin 2.8 (1.7-4.1) g/dL Albumin/Globulin Ratio 1.5 (1.0-2.8) Lipase 13 L (23-300) U/L MDM Narrative Medical decision making narrative: Patient overall is feeling much better tolerating fluids. Requesting a prescription for Phenergan suppository. Feels ready and able to go home. Discharge Plan Departure Patient Disposition: Home Clinical Impression: Diabetic gastroparesis Discharge Date/Time: 02/03/19 13:12 Interventions: ED Discharge Assessment Last Done: 02/03/19 13:11 Instructions: Gastroparesis Activity Restrictions/Additional Instructions: *You have been diagnosed with gastroparesis *What to do: Increased fluid intake *Continue to take medications as directed Phenergan suppository every 6 hours if needed for persistent vomiting *Follow up with your primary care provider in 2-3 days *Return to ER if you should have persistent vomiting, increasing pain or any new, worsening or concerning symptoms Prescriptions: New promethazine 25 mg suppository 25 mg [place] Q6H PRN (Reason: nausea and vomiting) Qty: 12 RF: 0 No Action insulin lispro [Humalog U-100 Insulin] 100 UNIT/1 ML solution continuous IV infusion DAILY Qty: 0 RF: 0 Domperidone (#DOMPERIDONE) 30 mg PO ACHS Qty: 2 RF: 0 rosuvastatin [Crestor] 10 MG tablet 10 mg PO BEDTIME Qty: 0 RF: 0 pantoprazole [Protonix] 40 MG tablet,delayed release (DR/EC) 40 mg PO DAILY Qty: 0 RF: 0 promethazine 25 MG suppository 25 mg [place] BIDP PRN (Reason: Nausea) Qty: 0 RF: 0 hydrocortisone 10 MG tablet 10 mg NG DAILY Qty: 0 RF: 0 alendronate 70 mg Tablet 70 mg PO QWEEK RF: 0 levothyroxine 75 mcg Tablet 75 mcg PO DAILY RF: 0 Glucagon Emergency Kit (human) 1 mg Recon Soln 1 dose subcut DIRECTED RF: 0 hydromorphone 4 MG tablet 4 mg PO TID PRN (Reason: PAIN) RF: 0 ondansetron 4 MG tablet,disintegrating 4 mg Sublingual Q4HP PRN (Reason: Nausea) RF: 0 diazepam 5 MG tablet 5 mg PO TIDP PRN (Reason: Anxiety) RF: 0 Referrals: Salvatore Villegas MD [Primary Care Provider] -
--- NOTE | 2019-02-03 09:36 | ED_ITS ---
HPI - Nausea/Vomiting/Diarrhea General Chief complaint: Nausea/Vomiting/Diarrhea Stated complaint: diabetic gastroparisis,migrane Time Seen by Provider: 02/03/19 09:24 Source: patient Mode of arrival: ambulatory Limitations: no limitations History of Present Illness HPI Narrative: The patient is a 58-year-old female who presents with vomiting. She says this started around 3:00 a.m.. She has a history of gastroparesis and cyclic vomiting. She actually has not been here since July. She Zofran Dilaudid and Valium at home she says she has been able to keep any of that down. She has no diarrhea this feels typical to her previous episodes. No fever. He does have pain. MD complaint: nausea, vomiting and abdominal pain Related Data Home Medications Medication Instructions Recorded Confirmed Domperidone (#DOMPERIDONE) 30 mg PO ACHS #2 07/29/12 02/03/19 insulin lispro [Humalog U-100 0 unit CONTINUOUS IV INFUSION 07/29/12 Insulin] DAILY #0 rosuvastatin [Crestor] 10 mg PO BEDTIME #0 07/29/12 02/03/19 pantoprazole [Protonix] 40 mg PO DAILY #0 10/06/12 02/03/19 hydrocortisone 10 mg NG DAILY #0 05/03/17 02/03/19 promethazine 25 mg [place] BIDP PRN #0 05/03/17 02/03/19 alendronate 70 mg PO QWEEK 02/03/19 02/03/19 diazepam 5 mg PO TIDP PRN 02/03/19 02/03/19 glucagon (human recombinant) 1 dose SUBCUT DIRECTED 02/03/19 02/03/19 [Glucagon Emergency Kit (human)] hydromorphone 4 mg PO TID PRN 02/03/19 02/03/19 levothyroxine 75 mcg PO DAILY 02/03/19 02/03/19 ondansetron 4 mg SUBLINGUAL Q4HP PRN 02/03/19 02/03/19 Previous Rx's Medication Instructions Recorded promethazine 25 mg [place] Q6H PRN #12 each 02/03/19 Allergies Allergy/AdvReac Type Severity Reaction Status Date / Time amitriptyline Allergy Intermediate SEIZURES Verified 02/03/19 11:06 droperidol Allergy Intermediate CLONIC Verified 02/03/19 11:06 REACTION metoclopramide Allergy Intermediate CLONIC Verified 02/03/19 11:06 REACTION prochlorperazine Allergy Intermediate CLONIC Verified 02/03/19 11:06 REACTION azithromycin AdvReac Mild N/V Verified 02/03/19 11:06 ciprofloxacin AdvReac Mild N/V Verified 02/03/19 11:06 hydrocodone AdvReac Mild N/V Verified 02/03/19 11:06 ketorolac AdvReac Mild N/V Verified 02/03/19 11:06 Review of Systems Review of Systems ROS Unobtainable: All systems reviewed & are unremarkable except as noted in HPI and below Constitutional Denies chills, Denies fever(s), Denies lethargy and Denies weakness Eyes Denies change in vision, Denies eye discharge, Denies irritation and Denies loss of vision ENT Ears, Nose, Mouth, and Throat: Denies change in voice, Denies neck pain and Denies sore throat Cardiovascular Denies chest pain, Denies irregular heart rhythm, Denies lightheadedness, Denies palpitations, Denies dyspnea, Denies dyspnea on exertion and Denies orthopnea Respiratory Denies cough, Denies dyspnea, Denies dyspnea on exertion and Denies wheezing Gastrointestinal Gastrointestinal: Reports as per HPI Genitourinary Denies hematuria, Denies flank pain, Denies urinary incontinence and Denies urinary urgency Musculoskeletal Denies neck pain Integumentary/Breasts Denies pruritus, Denies erythema, Denies rash and Denies wounds Neurologic Denies loss of vision and Denies weakness Endocrine Denies palpitations Allergic/Immunologic Denies wheezing [facility] Medical History Chronic cholecystitis (Acute) Diabetes (Acute) Diabetic retinopathy (Acute) Hyperlipidemia (Acute) Hypothyroid (Acute) Osteomyelitis (Acute) Social History (Updated 02/03/19 @ 09:35 by Yoanna Watt DO) marital status: Smoking Status: Former smoker Social History marital status: Smoking Status: Former smoker Exam Initial Vital Signs Initial Vital Signs: Vital Signs Temperature 97.4 F L 02/03/19 09:05 Pulse Rate 70 02/03/19 09:05 Respiratory Rate 20 02/03/19 09:05 Blood Pressure 156/75 H 02/03/19 09:05 Pulse Oximetry 94 02/03/19 09:05 GENERAL: Appears in pain sunglasses on HEENT: Head atraumatic,EOMI, pupils reactive, face symmetric, [moist] mucous membranes CARDIOVASCULAR: Regular rate and rhythm without murmurs, rubs or gallops. RESPIRATORY: Breath sounds equal bilaterally, no wheezes rales or rhonchi. ABDOMEN: Soft, mild epigastric tenderness Normoactive bowel sounds all 4 quadrants. No guarding or rebound. EXTREMITIES: Normal range of motion, no clubbing or edema. Neurovascularly intact NEUROLOGICAL: Alert and oriented x4.Normal gait and speech. Cranial nerves II through XII grossly intact. SKIN: Warm, dry, no laceration, no petechiae, no rashes or lesions. Course Orders Ordered: Discontinued Medications Hydromorphone HCl (Dilaudid) 1 mg IV NOW ONE Stop: 02/03/19 09:30 Last Admin: 02/03/19 09:49 Dose: 1 mg Hydromorphone HCl (Dilaudid) 1 mg IV NOW ONE Stop: 02/03/19 12:03 Last Admin: 02/03/19 12:08 Dose: 1 mg Sodium Chloride (Normal Saline 0.9%) 1,000 mls @ 1,000 mls/hr IV BOLUS ONE Stop: 02/03/19 10:28 Last Infusion: 02/03/19 11:08 Dose: 0 mls/hr Admin: 02/03/19 09:49 Dose: 1,000 mls/hr Lorazepam (Ativan) 2 mg IV NOW ONE Stop: 02/03/19 10:11 Last Admin: 02/03/19 10:11 Dose: 2 mg Ondansetron HCl (Zofran) 4 mg IV NOW ONE Stop: 02/03/19 09:30 Last Admin: 02/03/19 09:49 Dose: 4 mg Vital Signs - 8 hr 02/03/19 12:10 02/03/19 13:11 Pulse Rate 74 64 Respiratory Rate 16 20 Blood Pressure 124/66 Blood Pressure [Left Arm] 119/64 Pulse Oximetry 96 97 MDM - Nausea/Vomiting/Diarrhea Lab Data Attestation: I reviewed the patient's lab results. Result diagrams: 02/03/19 09:30 06/21/19 09:30 Lab Results 02/03/19 02/03/19 Range/Units 09:30 09:30 WBC 5.4 (4.5-11.0) X10^3/uL RBC 4.63 (4.0-5.2) X10^6/uL Hgb 14.2 (12.0-16.0) g/dL Hct 43.2 (36-46) % MCV 93.3 (80-100) fL MCH 30.8 (26-34) PG MCHC 33.0 (30-36) % RDW 13.6 (11.6-14.8) % Plt Count 182 (150-400) X10^3/uL Neut % (Auto) 77.7 H (50-75) % Lymph % (Auto) 15.0 L (25-40) % Bath % (Auto) 6.2 (3-14) % Eos % (Auto) 0.6 L (2-4) % Baso % (Auto) 0.5 (0-2) % Neut # (Auto) 4200 (9210-5954) /uL Lymph # (Auto) 800 L (8930-7148) /uL Bath # (Auto) 300 (0-900) /uL Eos # (Auto) 0 (0-450) /uL Baso # (Auto) 0 (0-100) /uL Sodium 140 (137-145) mmol/L Potassium 4.5 (3.4-5.1) mmol/L Chloride 104 (98-107) mmol/L Carbon Dioxide 28 (22-32) mmol/L BUN 11 (7-17) mg/dL Creatinine 0.70 (0.52-1.04) mg/dL Estimated GFR > 60.0 (>60) mL/min BUN/Creatinine Ratio 15.7 (6-22) Glucose 231 H (70-100) mg/dL Calcium 9.4 (8.4-10.2) mg/dL Total Bilirubin 0.9 (0.2-1.3) mg/dL AST 63 H (14-36) IU/L ALT 43 (9-52) IU/L Alkaline Phosphatase 81 (38-126) U/L Total Protein 7.0 (6.3-8.2) g/dL Albumin 4.2 (3.5-5.0) g/dL Globulin 2.8 (1.7-4.1) g/dL Albumin/Globulin Ratio 1.5 (1.0-2.8) Lipase 13 L (23-300) U/L MDM Narrative Medical decision making narrative: Patient overall is feeling much better tolerating fluids. Requesting a prescription for Phenergan suppository. Feels ready and able to go home. Discharge Plan Departure Patient Disposition: Home Clinical Impression: Diabetic gastroparesis Discharge Date/Time: 02/03/19 13:12 Interventions: ED Discharge Assessment Last Done: 02/03/19 13:11 Instructions: Gastroparesis Activity Restrictions/Additional Instructions: *You have been diagnosed with gastroparesis *What to do: Increased fluid intake *Continue to take medications as directed Phenergan suppository every 6 hours if needed for persistent vomiting *Follow up with your primary care provider in 2-3 days *Return to ER if you should have persistent vomiting, increasing pain or any new, worsening or concerning symptoms Prescriptions: New promethazine 25 mg suppository 25 mg NH Q6H PRN (Reason: nausea and vomiting) Qty: 12 RF: 0 No Action insulin lispro [Humalog U-100 Insulin] 100 UNIT/1 ML solution continuous IV infusion DAILY Qty: 0 RF: 0 Domperidone (#DOMPERIDONE) 30 mg PO ACHS Qty: 2 RF: 0 rosuvastatin [Crestor] 10 MG tablet 10 mg PO BEDTIME Qty: 0 RF: 0 pantoprazole [Protonix] 40 MG tablet,delayed release (DR/EC) 40 mg PO DAILY Qty: 0 RF: 0 promethazine 25 MG suppository 25 mg NH BIDP PRN (Reason: Nausea) Qty: 0 RF: 0 hydrocortisone 10 MG tablet 10 mg NG DAILY Qty: 0 RF: 0 alendronate 70 mg Tablet 70 mg PO QWEEK RF: 0 levothyroxine 75 mcg Tablet 75 mcg PO DAILY RF: 0 Glucagon Emergency Kit (human) 1 mg Recon Soln 1 dose subcut DIRECTED RF: 0 hydromorphone 4 MG tablet 4 mg PO TID PRN (Reason: PAIN) RF: 0 ondansetron 4 MG tablet,disintegrating 4 mg Sublingual Q4HP PRN (Reason: Nausea) RF: 0 diazepam 5 MG tablet 5 mg PO TIDP PRN (Reason: Anxiety) RF: 0 Referrals: Salvatore Villegas MD [Primary Care Provider] -
[2019-02-03 09:38] LABS: Add Manual Diff / Slide Review NO; Basophils Absolute Auto 0 /uL (0-100); Basophils Percent Auto 0.5 % (0-2); Eosinophils Absolute Auto 0 /uL (0-450); Eosinophils Percent Auto 0.6 % (2-4); Hematocrit 43.2 % (36-46); Hemoglobin 14.2 g/dL (12.0-16.0); Lymphocytes Absolute Auto 800 /uL (1100-4500); Mean Corpuscular Hemoglobin 30.8 PG (26-34); Mean Corpuscular Volume 93.3 fL (80-100); Monocytes Absolute Auto 300 /uL (0-900); Monocytes Percent Auto 6.2 % (3-14); Neutrophils Absolute Auto 4200 /uL (1500-7000); Neutrophils Percent Auto 77.7 % (50-75); Platelet Count 182 X10^3/uL (150-400); Red Blood Cell Count 4.63 X10^6/uL (4.0-5.2); Red Cell Distribution Width 13.6 % (11.6-14.8); White Blood Cell Count 5.4 X10^3/uL (4.5-11.0)
[2019-02-03 09:48] LABS: Alanine Aminotransferase 43 IU/L (9-52); Albumin 4.2 g/dL (3.5-5.0); Albumin Globulin Ratio 1.5 (1.0-2.8); Alkaline Phosphatase 81 U/L (38-126); Aspartate Aminotransferase 63 IU/L (14-36); BUN Creatinine Ratio 15.7 (6-22); Bilirubin Total 0.9 mg/dL (0.2-1.3); Blood Urea Nitrogen 11 mg/dL (7-17); Calcium 9.4 mg/dL (8.4-10.2); Carbon Dioxide 28 mmol/L (22-32); Chloride 104 mmol/L (98-107); Estimated Glomerular Filt Rate > 60.0 mL/min (>60); Globulin 2.8 g/dL (1.7-4.1); Glucose 231 mg/dL (70-100); HEMOLYSIS 39 (0-50); Lipase 13 U/L (23-300); Potassium 4.5 mmol/L (3.4-5.1); Sodium 140 mmol/L (137-145)
[2019-02-03] MEDS: HYDROMORPHONE 1 MG INJ IV ×2 (09:49→12:08)
[2019-02-03] MEDS: ONDANSETRON 4 MG/2 ML INJ IV (09:49)
[2019-02-03] MEDS: SODIUM CHLORIDE 0.9% 1,000 ML 1000 ML IV (09:49)
[2019-02-03] MEDS: LORazepam 2 MG/ML INJ IV (10:11)
--- NOTE | 2019-02-03 10:30 | PC.NURSE ---
Desats to 82% and per MD placed on O2
[2019-02-03 10:31] VITALS: BP 126/83; PULSE 57; RESP 14; O2SAT 82
--- NOTE | 2019-02-03 11:09 | PC.NURSE ---
MD aware of pts pain and req for pain meds. On oxygen for low sats due to last doses of meds
[2019-02-03 12:10] VITALS: BP 119/64; PULSE 74; RESP 16; O2SAT 96
[2019-02-03 13:11] VITALS: BP 124/66; PULSE 64; RESP 20; O2SAT 97
== END 2019-02-03 13:12 | disposition home or self-care (01) ==
PROVIDERS: Emergency Provider Emergency Medicine; PCP Internal Medicine
DX: E11.43 Type 2 diabetes mellitus with diabetic autonomic (poly)neuropathy (principal)
CPT/HCPCS: 36591; 80053; 83690; 85025; 96361; 96374; 96375; 96376; 99283; 99284; J1170; J2060; J2405

== ENCOUNTER 2019-02-04 12:04 | Emergency (ER) | payer OTHER, SELFPAY ==
[2019-02-04 12:11] VITALS: BP 153/109; PULSE 72; RESP 20; TEMP 36.4; O2SAT 100
--- NOTE | 2019-02-04 12:49 | ED.ABDPAIN ---
HPI - Abdominal Pain General Chief Complaint: Abdominal Pain Stated Complaint: Diabetic Gastroparesis Time Seen by Provider: 02/04/19 12:17 Source: patient Mode of arrival: ambulatory Limitations: no limitations History of Present Illness HPI narrative: Patient is a 58-year-old female with diabetes in history of gastroparesis presenting with vomiting and abdominal pain today. She was here yesterday seen evaluated for the same thing. She was given a prescription of suppository Phenergan which she says she was unable to fill. She started having vomiting and pain again last night it has progressed she has been unable to keep anything down again. MD complaint: abdominal pain Related Data Home Medications Medication Instructions Recorded Confirmed Domperidone (#DOMPERIDONE) 30 mg PO ACHS #2 07/29/12 02/03/19 insulin lispro [Humalog U-100 0 unit CONTINUOUS IV INFUSION 07/29/12 Insulin] DAILY #0 rosuvastatin [Crestor] 10 mg PO BEDTIME #0 07/29/12 02/03/19 pantoprazole [Protonix] 40 mg PO DAILY #0 10/06/12 02/03/19 hydrocortisone 10 mg NG DAILY #0 05/03/17 02/03/19 promethazine 25 mg [place] BIDP PRN #0 05/03/17 02/03/19 alendronate 70 mg PO QWEEK 02/03/19 02/03/19 diazepam 5 mg PO TIDP PRN 02/03/19 02/03/19 glucagon (human recombinant) 1 dose SUBCUT DIRECTED 02/03/19 02/03/19 [Glucagon Emergency Kit (human)] hydromorphone 4 mg PO TID PRN 02/03/19 02/03/19 levothyroxine 75 mcg PO DAILY 02/03/19 02/03/19 ondansetron 4 mg SUBLINGUAL Q4HP PRN 02/03/19 02/03/19 Previous Rx's Medication Instructions Recorded promethazine 25 mg WA Q6H PRN #12 each 02/03/19 Allergies Allergy/AdvReac Type Severity Reaction Status Date / Time amitriptyline Allergy Intermediate SEIZURES Verified 02/04/19 12:13 droperidol Allergy Intermediate CLONIC Verified 02/04/19 12:13 REACTION metoclopramide Allergy Intermediate CLONIC Verified 02/04/19 12:13 REACTION prochlorperazine Allergy Intermediate CLONIC Verified 02/04/19 12:13 REACTION azithromycin AdvReac Mild N/V Verified 02/04/19 12:13 ciprofloxacin AdvReac Mild N/V Verified 02/04/19 12:13 hydrocodone AdvReac Mild N/V Verified 02/04/19 12:13 ketorolac AdvReac Mild N/V Verified 02/04/19 12:13 Review of Systems Review of Systems GENERAL: Denies chills, fatigue, malaise, fever, sweats, travel HEENT: Denies sinus pain, ear pain, sore throat, difficulty swallowing, neck pain RESPIRATORY: Denies dyspnea, cough, wheezing, hemoptysis, sputum. CARDIOVASCULAR: Denies chest pain, palpitations, orthopnea, edema GASTROINTESTINAL: See HPI : Denies dysuria, frequency, incontinence, hematuria, urinary retention, flank pain. MUSCULOSKELETAL: Denies weakness, joint pain, or bony pain SKIN: No rash, no erythema, no pruritus NEUROLOGIC: Denies weakness, dizziness, headache, numbness, change in speech, confusion PSYCHIATRIC: No concerning psychosocial issues. 12 point review of systems is negative except for those stated above and HPI [facility] Social History marital status: Smoking Status: Former smoker Exam Initial Vital Signs Initial Vital Signs: Vital Signs Temperature 97.5 F L 02/04/19 12:11 Pulse Rate 72 02/04/19 12:11 Respiratory Rate 20 02/04/19 12:11 Blood Pressure 153/109 H 02/04/19 12:11 Pulse Oximetry 100 02/04/19 12:11 GENERAL: Appears uncomfortable actively dry heaving appears in pain covering eye eyes sensitive to light HEENT: Head atraumatic,EOMI, pupils reactive CARDIOVASCULAR: Regular rate and rhythm without murmurs, rubs or gallops. RESPIRATORY: Breath sounds equal bilaterally, no wheezes rales or rhonchi. ABDOMEN: Soft, nontender. Normoactive bowel sounds all 4 quadrants. No guarding or rebound. EXTREMITIES: Normal range of motion, no clubbing or edema. Neurovascularly intact NEUROLOGICAL: Alert and oriented x4.Normal gait and speech. Cranial nerves II through XII grossly intact. SKIN: Warm, dry, no laceration, no petechiae, no rashes or lesions. Course Orders Ordered: Discontinued Medications Hydromorphone HCl (Dilaudid) 1 mg IV NOW ONE Stop: 02/04/19 12:18 Last Admin: 02/04/19 13:14 Dose: 1 mg Hydromorphone HCl (Dilaudid) 1 mg IV NOW ONE Stop: 02/04/19 14:16 Last Admin: 02/04/19 14:16 Dose: 1 mg Hydromorphone HCl (Dilaudid) 1 mg IV NOW ONE Stop: 02/04/19 16:59 Last Admin: 02/04/19 17:04 Dose: Not Given Hydromorphone HCl (Dilaudid) 1 mg IV NOW ONE Stop: 02/04/19 17:00 Last Admin: 02/04/19 17:04 Dose: 1 mg Hydroxyzine HCl (Vistaril) 50 mg IM NOW ONE Stop: 02/04/19 14:48 Last Admin: 02/04/19 15:18 Dose: 50 mg Sodium Chloride (Normal Saline 0.9%) 1,000 mls @ 1,000 mls/hr IV CONT ALEX Last Infusion: 02/04/19 15:00 Dose: 0 mls/hr Admin: 02/04/19 13:14 Dose: 1,000 mls/hr Sodium Chloride (Normal Saline 0.9%) 1,000 mls @ 1,000 mls/hr IV BOLUS ONE Stop: 02/04/19 16:09 Last Infusion: 02/04/19 16:23 Dose: 0 mls/hr Admin: 02/04/19 15:18 Dose: 1,000 mls/hr Lorazepam (Ativan) 1 mg IV NOW ONE Stop: 02/04/19 12:18 Last Admin: 02/04/19 13:15 Dose: 1 mg Lorazepam (Ativan) 1 mg IV NOW ONE Stop: 02/04/19 14:16 Last Admin: 02/04/19 14:16 Dose: 1 mg Ondansetron HCl (Zofran) 4 mg IV NOW ONE Stop: 02/04/19 12:18 Last Admin: 02/04/19 13:15 Dose: 4 mg Pantoprazole Sodium (Protonix) 40 mg IV NOW ONE Stop: 02/04/19 12:18 Last Admin: 02/04/19 13:15 Dose: 40 mg Vital Signs - 8 hr 02/04/19 12:11 02/04/19 13:27 02/04/19 15:10 Temperature 97.5 F L Pulse Rate 72 60 67 Respiratory Rate 20 16 18 Blood Pressure 153/109 H Blood Pressure [Left Arm] 157/66 H 121/55 L Pulse Oximetry 100 100 99 02/04/19 16:00 02/04/19 17:30 02/04/19 17:40 Temperature Pulse Rate 63 66 Respiratory Rate 14 Blood Pressure Blood Pressure [Left Arm] 119/58 L 136/68 Pulse Oximetry 100 100 MDM - Abdominal Pain MDM Narrative Medical decision making narrative: Patient is extremely hard stick. She actually did get an IV she is able to get IV fluids pain medication and nausea medication. However labs and myself tried with ultrasound-guided unable to get any blood work. At this time he is no longer vomiting her pain is under control. She had normal blood work yesterday. Her abdomen remains soft. She did request for 1 more dose of the Dilaudid after 2 doses already. He was given a dose of IM Vistaril which seem to have helped very much with her vomiting. I gave her a 3rd dose of Dilaudid she kept down ice chips and is feeling better. At this time I do not think it is imperative that patient have blood work redrawn. She overall is looking much better. Discharge Plan Departure Patient Disposition: Home Clinical Impression: Diabetic gastroparesis Discharge Date/Time: 02/04/19 17:30 Interventions: ED Discharge Assessment Last Done: 02/04/19 17:40 Instructions: Gastroparesis Activity Restrictions/Additional Instructions: 1) You have been diagnosed with gastroparesis 2) What to do: Drink frequent but small amounts of fluids. I recommend Gatorade or a Gatorade-like product, as it has small amounts of sugar and salts that improve fluid retention. 3) Take medications as directed 4) Follow up with your primary care provider in 2-3 days 5) Return to ER if you should have any new or worsening symptoms such as, unable to hold down fluids despite use of anti-nausea medications and the small volume oral rehydration strategy. Prescriptions: No Action insulin lispro [Humalog U-100 Insulin] 100 UNIT/1 ML solution continuous IV infusion DAILY Qty: 0 RF: 0 Domperidone (#DOMPERIDONE) 30 mg PO ACHS Qty: 2 RF: 0 rosuvastatin [Crestor] 10 MG tablet 10 mg PO BEDTIME Qty: 0 RF: 0 pantoprazole [Protonix] 40 MG tablet,delayed release (DR/EC) 40 mg PO DAILY Qty: 0 RF: 0 promethazine 25 MG suppository 25 mg [place] BIDP PRN (Reason: Nausea) Qty: 0 RF: 0 hydrocortisone 10 MG tablet 10 mg NG DAILY Qty: 0 RF: 0 alendronate 70 mg Tablet 70 mg PO QWEEK RF: 0 levothyroxine 75 mcg Tablet 75 mcg PO DAILY RF: 0 Glucagon Emergency Kit (human) 1 mg Recon Soln 1 dose subcut DIRECTED RF: 0 hydromorphone 4 MG tablet 4 mg PO TID PRN (Reason: PAIN) RF: 0 ondansetron 4 MG tablet,disintegrating 4 mg Sublingual Q4HP PRN (Reason: Nausea) RF: 0 diazepam 5 MG tablet 5 mg PO TIDP PRN (Reason: Anxiety) RF: 0 promethazine 25 mg suppository 25 mg WA Q6H PRN (Reason: nausea and vomiting) Qty: 12 RF: 0 Referrals: Salvatore Villegas MD [Primary Care Provider] -
--- NOTE | 2019-02-04 12:55 | ED_ITS ---
HPI - Abdominal Pain General Chief Complaint: Abdominal Pain Stated Complaint: Diabetic Gastroparesis Time Seen by Provider: 02/04/19 12:17 Source: patient Mode of arrival: ambulatory Limitations: no limitations History of Present Illness HPI narrative: Patient is a 58-year-old female with diabetes in history of gastroparesis presenting with vomiting and abdominal pain today. She was here yesterday seen evaluated for the same thing. She was given a prescription of suppository Phenergan which she says she was unable to fill. She started having vomiting and pain again last night it has progressed she has been unable to keep anything down again. MD complaint: abdominal pain Related Data Home Medications Medication Instructions Recorded Confirmed Domperidone (#DOMPERIDONE) 30 mg PO ACHS #2 07/29/12 02/03/19 insulin lispro [Humalog U-100 0 unit CONTINUOUS IV INFUSION 07/29/12 Insulin] DAILY #0 rosuvastatin [Crestor] 10 mg PO BEDTIME #0 07/29/12 02/03/19 pantoprazole [Protonix] 40 mg PO DAILY #0 10/06/12 02/03/19 hydrocortisone 10 mg NG DAILY #0 05/03/17 02/03/19 promethazine 25 mg VA BIDP PRN #0 05/03/17 02/03/19 alendronate 70 mg PO QWEEK 02/03/19 02/03/19 diazepam 5 mg PO TIDP PRN 02/03/19 02/03/19 glucagon (human recombinant) 1 dose SUBCUT DIRECTED 02/03/19 02/03/19 [Glucagon Emergency Kit (human)] hydromorphone 4 mg PO TID PRN 02/03/19 02/03/19 levothyroxine 75 mcg PO DAILY 02/03/19 02/03/19 ondansetron 4 mg SUBLINGUAL Q4HP PRN 02/03/19 02/03/19 Previous Rx's Medication Instructions Recorded promethazine 25 mg VA Q6H PRN #12 each 02/03/19 Allergies Allergy/AdvReac Type Severity Reaction Status Date / Time amitriptyline Allergy Intermediate SEIZURES Verified 02/04/19 12:13 droperidol Allergy Intermediate CLONIC Verified 02/04/19 12:13 REACTION metoclopramide Allergy Intermediate CLONIC Verified 02/04/19 12:13 REACTION prochlorperazine Allergy Intermediate CLONIC Verified 02/04/19 12:13 REACTION azithromycin AdvReac Mild N/V Verified 02/04/19 12:13 ciprofloxacin AdvReac Mild N/V Verified 02/04/19 12:13 hydrocodone AdvReac Mild N/V Verified 02/04/19 12:13 ketorolac AdvReac Mild N/V Verified 02/04/19 12:13 Review of Systems Review of Systems GENERAL: Denies chills, fatigue, malaise, fever, sweats, travel HEENT: Denies sinus pain, ear pain, sore throat, difficulty swallowing, neck p ain RESPIRATORY: Denies dyspnea, cough, wheezing, hemoptysis, sputum. CARDIOVASCULAR: Denies chest pain, palpitations, orthopnea, edema GASTROINTESTINAL: See HPI : Denies dysuria, frequency, incontinence, hematuria, urinary retention, flank pain. MUSCULOSKELETAL: Denies weakness, joint pain, or bony pain SKIN: No rash, no erythema, no pruritus NEUROLOGIC: Denies weakness, dizziness, headache, numbness, change in speech, confusion PSYCHIATRIC: No concerning psychosocial issues. 12 point review of systems is negative except for those stated above and HPI [facility] Social History marital status: Smoking Status: Former smoker Exam Initial Vital Signs Initial Vital Signs: Vital Signs Temperature 97.5 F L 02/04/19 12:11 Pulse Rate 72 02/04/19 12:11 Respiratory Rate 20 02/04/19 12:11 Blood Pressure 153/109 H 02/04/19 12:11 Pulse Oximetry 100 02/04/19 12:11 GENERAL: Appears uncomfortable actively dry heaving appears in pain covering eye eyes sensitive to light HEENT: Head atraumatic,EOMI, pupils reactive CARDIOVASCULAR: Regular rate and rhythm without murmurs, rubs or gallops. RESPIRATORY: Breath sounds equal bilaterally, no wheezes rales or rhonchi. ABDOMEN: Soft, nontender. Normoactive bowel sounds all 4 quadrants. No guarding or rebound. EXTREMITIES: Normal range of motion, no clubbing or edema. Neurovascularly intact NEUROLOGICAL: Alert and oriented x4.Normal gait and speech. Cranial nerves II through XII grossly intact. SKIN: Warm, dry, no laceration, no petechiae, no rashes or lesions. Course Orders Ordered: Discontinued Medications Hydromorphone HCl (Dilaudid) 1 mg IV NOW ONE Stop: 02/04/19 12:18 Last Admin: 02/04/19 13:14 Dose: 1 mg Hydromorphone HCl (Dilaudid) 1 mg IV NOW ONE Stop: 02/04/19 14:16 Last Admin: 02/04/19 14:16 Dose: 1 mg Hydromorphone HCl (Dilaudid) 1 mg IV NOW ONE Stop: 02/04/19 16:59 Last Admin: 02/04/19 17:04 Dose: Not Given Hydromorphone HCl (Dilaudid) 1 mg IV NOW ONE Stop: 02/04/19 17:00 Last Admin: 02/04/19 17:04 Dose: 1 mg Hydroxyzine HCl (Vistaril) 50 mg IM NOW ONE Stop: 02/04/19 14:48 Last Admin: 02/04/19 15:18 Dose: 50 mg Sodium Chloride (Normal Saline 0.9%) 1,000 mls @ 1,000 mls/hr IV CONT ALEX Last Infusion: 02/04/19 15:00 Dose: 0 mls/hr Admin: 02/04/19 13:14 Dose: 1,000 mls/hr Sodium Chloride (Normal Saline 0.9%) 1,000 mls @ 1,000 mls/hr IV BOLUS ONE Stop: 02/04/19 16:09 Last Infusion: 02/04/19 16:23 Dose: 0 mls/hr Admin: 02/04/19 15:18 Dose: 1,000 mls/hr Lorazepam (Ativan) 1 mg IV NOW ONE Stop: 02/04/19 12:18 Last Admin: 02/04/19 13:15 Dose: 1 mg Lorazepam (Ativan) 1 mg IV NOW ONE Stop: 02/04/19 14:16 Last Admin: 02/04/19 14:16 Dose: 1 mg Ondansetron HCl (Zofran) 4 mg IV NOW ONE Stop: 02/04/19 12:18 Last Admin: 02/04/19 13:15 Dose: 4 mg Pantoprazole Sodium (Protonix) 40 mg IV NOW ONE Stop: 02/04/19 12:18 Last Admin: 02/04/19 13:15 Dose: 40 mg Vital Signs - 8 hr 02/04/19 12:11 02/04/19 13:27 02/04/19 15:10 Temperature 97.5 F L Pulse Rate 72 60 67 Respiratory Rate 20 16 18 Blood Pressure 153/109 H Blood Pressure [Left Arm] 157/66 H 121/55 L Pulse Oximetry 100 100 99 02/04/19 16:00 02/04/19 17:30 02/04/19 17:40 Temperature Pulse Rate 63 66 Respiratory Rate 14 Blood Pressure Blood Pressure [Left Arm] 119/58 L 136/68 Pulse Oximetry 100 100 MDM - Abdominal Pain MDM Narrative Medical decision making narrative: Patient is extremely hard stick. She actually did get an IV she is able to get IV fluids pain medication and nausea medication. However labs and myself tried with ultrasound-guided unable to get any blood work. At this time he is no longer vomiting her pain is under control. She had normal blood work yesterday. Her abdomen remains soft. She did request for 1 more dose of the Dilaudid after 2 doses already. He was given a dose of IM Vistaril which seem to have helped very much with her vomiting. I gave her a 3rd dose of Dilaudid she kept down ice chips and is feeling better. At this time I do not think it is imperative that patient have blood work redrawn. She overall is looking much better. Discharge Plan Departure Patient Disposition: Home Clinical Impression: Diabetic gastroparesis Discharge Date/Time: 02/04/19 17:30 Interventions: ED Discharge Assessment Last Done: 02/04/19 17:40 Instructions: Gastroparesis Activity Restrictions/Additional Instructions: 1) You have been diagnosed with gastroparesis 2) What to do: Drink frequent but small amounts of fluids. I recommend Gatorade or a Gatorade-like product, as it has small amounts of sugar and salts that improve fluid retention. 3) Take medications as directed 4) Follow up with your primary care provider in 2-3 days 5) Return to ER if you should have any new or worsening symptoms such as, unable to hold down fluids despite use of anti-nausea medications and the small volume oral rehydration strategy. Prescriptions: No Action insulin lispro [Humalog U-100 Insulin] 100 UNIT/1 ML solution continuous IV infusion DAILY Qty: 0 RF: 0 Domperidone (#DOMPERIDONE) 30 mg PO ACHS Qty: 2 RF: 0 rosuvastatin [Crestor] 10 MG tablet 10 mg PO BEDTIME Qty: 0 RF: 0 pantoprazole [Protonix] 40 MG tablet,delayed release (DR/EC) 40 mg PO DAILY Qty: 0 RF: 0 promethazine 25 MG suppository 25 mg VA BIDP PRN (Reason: Nausea) Qty: 0 RF: 0 hydrocortisone 10 MG tablet 10 mg NG DAILY Qty: 0 RF: 0 alendronate 70 mg Tablet 70 mg PO QWEEK RF: 0 levothyroxine 75 mcg Tablet 75 mcg PO DAILY RF: 0 Glucagon Emergency Kit (human) 1 mg Recon Soln 1 dose subcut DIRECTED RF: 0 hydromorphone 4 MG tablet 4 mg PO TID PRN (Reason: PAIN) RF: 0 ondansetron 4 MG tablet,disintegrating 4 mg Sublingual Q4HP PRN (Reason: Nausea) RF: 0 diazepam 5 MG tablet 5 mg PO TIDP PRN (Reason: Anxiety) RF: 0 promethazine 25 mg suppository 25 mg VA Q6H PRN (Reason: nausea and vomiting) Qty: 12 RF: 0 Referrals: Salvatore Villegas MD [Primary Care Provider] -
[2019-02-04] MEDS: SODIUM CHLORIDE 0.9% 1,000 ML 1000 ML IV ×2 (13:14→15:18)
[2019-02-04] MEDS: HYDROMORPHONE 1 MG INJ IV ×3 (13:14→17:04)
[2019-02-04] MEDS: PANTOPRAZOLE 40 MG VIAL IV (13:15)
[2019-02-04] MEDS: LORazepam 2 MG/ML INJ 1 MG IV ×2 (13:15→14:16)
[2019-02-04] MEDS: ONDANSETRON 4 MG/2 ML INJ IV (13:15)
[2019-02-04 13:27] VITALS: BP 157/66; PULSE 60; RESP 16; O2SAT 100
--- NOTE | 2019-02-04 14:15 | PC.NURSE ---
Patient still in pain and nauseated. Lab was up to draw blood from patient, but unable to get any. Patient has been poked 10 times now. Provider aware.
[2019-02-04 15:10] VITALS: BP 121/55; PULSE 67; RESP 18; O2SAT 99
[2019-02-04] MEDS: hydrOXYzine 50 MG/ML INJ IM (15:18)
[2019-02-04 16:00] VITALS: BP 119/58; PULSE 63; O2SAT 100
[2019-02-04 17:30] VITALS: BP 136/68
[2019-02-04 17:40] VITALS: PULSE 66; RESP 14; O2SAT 100
== END 2019-02-04 17:30 | disposition home or self-care (01) ==
PROVIDERS: Emergency Provider Emergency Medicine; PCP Internal Medicine
DX: E11.43 Type 2 diabetes mellitus with diabetic autonomic (poly)neuropathy (principal)
CPT/HCPCS: 96361; 96372; 96374; 96375; 96376; 99283; 99284; C9113; J1170; J2060; J2405; J3410

== ENCOUNTER 2019-02-14 12:05 | Emergency (ER) | payer OTHER, SELFPAY ==
[2019-02-14 12:09] VITALS: BP 123/55; PULSE 71; RESP 18; TEMP 36.3; O2SAT 98
--- NOTE | 2019-02-14 12:50 | PC.NURSE ---
hx of diabetic gastroparesis, onset vomiting with abdominal pain. arrived photosensitive, dry heaving. doubled over, skin warm dry pink. noted red bruising left catholic. states, fall a month ago.
[2019-02-14] MEDS: SODIUM CHLORIDE 0.9% 1,000 ML 1000 ML IV (12:58)
[2019-02-14] MEDS: HYDROMORPHONE 1 MG INJ IV (12:59)
[2019-02-14] MEDS: ONDANSETRON 4 MG/2 ML INJ IV (12:59)
[2019-02-14 13:00] LABS: Add Manual Diff / Slide Review NO; Basophils Absolute Auto 100 /uL (0-100); Basophils Percent Auto 0.7 % (0-2); Eosinophils Absolute Auto 100 /uL (0-450); Eosinophils Percent Auto 0.7 % (2-4); Hematocrit 45.9 % (36-46); Hemoglobin 15.3 g/dL (12.0-16.0); Lymphocytes Absolute Auto 800 /uL (1100-4500); Lymphocytes Percent Auto 9.8 % (25-40); Mean Corpuscular HGB Conc 33.3 % (30-36); Mean Corpuscular Hemoglobin 31.1 PG (26-34); Mean Corpuscular Volume 93.4 fL (80-100); Monocytes Absolute Auto 400 /uL (0-900); Neutrophils Absolute Auto 6500 /uL (1500-7000); Neutrophils Percent Auto 83.8 % (50-75); Platelet Count 232 X10^3/uL (150-400); Red Blood Cell Count 4.92 X10^6/uL (4.0-5.2); Red Cell Distribution Width 13.7 % (11.6-14.8); White Blood Cell Count 7.8 X10^3/uL (4.5-11.0)
--- NOTE | 2019-02-14 13:14 | ED.ABDPAIN ---
HPI - Abdominal Pain General Chief Complaint: Abdominal Pain Stated Complaint: VOMITING Time Seen by Provider: 02/14/19 12:46 Source: patient and family Mode of arrival: ambulatory Limitations: no limitations History of Present Illness HPI narrative: Patient comes to the emergency department complaining of upper abdominal pain and vomiting since yesterday evening. Patient has a history of diabetic gastroparesis, and has been having more frequent episodes over the last month. Patient states that before this last month, her most recent episode was 6 months ago. Patient states her symptoms are exactly like what she has had before. She denies any fevers or chills. No diaphoresis. No chest pain or shortness of breath. Related Data Home Medications Medication Instructions Recorded Confirmed Domperidone (#DOMPERIDONE) 30 mg PO ACHS #2 07/29/12 02/14/19 insulin lispro [Humalog U-100 0 unit CONTINUOUS IV INFUSION 07/29/12 02/14/19 Insulin] DAILY #0 rosuvastatin [Crestor] 10 mg PO BEDTIME #0 07/29/12 02/14/19 pantoprazole [Protonix] 40 mg PO DAILY #0 10/06/12 02/14/19 hydrocortisone 10 mg NG DAILY #0 05/03/17 02/14/19 alendronate 70 mg PO QWEEK 02/03/19 02/14/19 diazepam 5 mg PO TIDP PRN 02/03/19 02/14/19 glucagon (human recombinant) 1 dose SUBCUT DIRECTED 02/03/19 02/14/19 [Glucagon Emergency Kit (human)] hydromorphone 4 mg PO TID PRN 02/03/19 02/14/19 levothyroxine 75 mcg PO DAILY 02/03/19 02/14/19 ondansetron 4 mg SUBLINGUAL Q4HP PRN 02/03/19 02/14/19 Previous Rx's Medication Instructions Recorded promethazine 25 mg MO Q6H PRN #12 each 02/03/19 ondansetron 4 mg PO Q6H PRN #14 tab 02/14/19 Allergies Allergy/AdvReac Type Severity Reaction Status Date / Time amitriptyline Allergy Intermediate SEIZURES Verified 02/04/19 12:13 droperidol Allergy Intermediate CLONIC Verified 02/04/19 12:13 REACTION metoclopramide Allergy Intermediate CLONIC Verified 02/04/19 12:13 REACTION prochlorperazine Allergy Intermediate CLONIC Verified 02/04/19 12:13 REACTION azithromycin AdvReac Mild N/V Verified 02/04/19 12:13 ciprofloxacin AdvReac Mild N/V Verified 02/04/19 12:13 hydrocodone AdvReac Mild N/V Verified 02/04/19 12:13 ketorolac AdvReac Mild N/V Verified 02/04/19 12:13 Review of Systems Constitutional Denies chills, Denies fever(s), Denies lethargy and Denies weakness Eyes Denies change in vision, Denies eye discharge, Denies irritation and Denies loss of vision ENT Ears, Nose, Mouth, and Throat: Denies change in voice, Denies neck pain and Denies sore throat Cardiovascular Denies chest pain, Denies irregular heart rhythm, Denies lightheadedness, Denies palpitations, Denies dyspnea, Denies dyspnea on exertion and Denies orthopnea Respiratory Denies cough, Denies dyspnea, Denies dyspnea on exertion and Denies wheezing Gastrointestinal Gastrointestinal: Reports abdominal pain, Denies change in bowel habits, Denies diarrhea, Reports nausea and Reports vomiting Genitourinary Denies hematuria, Denies flank pain, Denies urinary incontinence and Denies urinary urgency Musculoskeletal Denies neck pain Integumentary/Breasts Denies pruritus, Denies erythema, Denies rash and Denies wounds Neurologic Denies confusion, Denies loss of vision and Denies weakness Psychiatric Denies anxiety, Denies confusion, Denies depression, Denies homicidal ideation and Denies suicidal ideation Endocrine Denies palpitations Hematologic/Lymphatic Denies easy bruising Allergic/Immunologic Denies wheezing [facility] Medical History Chronic cholecystitis (Acute) Diabetes (Acute) Diabetic retinopathy (Acute) Hyperlipidemia (Acute) Hypothyroid (Acute) Osteomyelitis (Acute) Social History marital status: Smoking Status: Former smoker Exam Initial Vital Signs Initial Vital Signs: Vital Signs Temperature 97.3 F L 02/14/19 12:09 Pulse Rate 71 02/14/19 12:09 Respiratory Rate 18 02/14/19 12:09 Blood Pressure 123/55 L 02/14/19 12:09 Pulse Oximetry 98 02/14/19 12:09 Const General: cooperative and well developed Nutritional Appearance: well nourished Orientation: alert, awake, oriented x3 and not confused Other: Patient appears very uncomfortable, writhing in bed, clutching her emesis bag, and dry heaving. [facility] Head: normocephalic and atraumatic Ears: external ears normal and TM's normal bilaterally Nose: external nose normal and No nasal discharge Face and sinus: sinuses nontender, face symmetric, no sinus tenderness and No dry mucous membranes Mouth: oral mucosae normal and moist mucous membranes Teeth and gingiva: dentition normal Throat: tonsils normal and uvula midline Eyes General: appearance normal, both eyes and all related structures Eyelids: eyelids normal Conjunctivae: conjunctivae normal Sclera: sclerae normal Pupils: PERRL EOM: EOM intact bilaterally Neck Neck: normal visual inspection, trachea midline, No lymphadenopathy, No midline deformity and No JVD Lymphatic: No lymphedema Chest Chest: normal inspection of the chest Resp Effort & Inspection: normal respiratory effort, able to speak in complete sentences, no respiratory distress and no use of accessory muscles Auscultation: clear to auscultation bilaterally, no rales, no rhonchi and no wheezes Cardio Rate: regular rate Rhythm: regular rhythm Heart Sounds: no click, no gallops, no murmurs and no rubs Pulses: normal peripheral pulses GI Inspection: non-distended Palpation: soft, no hepatosplenomegaly, No guarding, No pulsatile mass and tender (Mild, diffuse) Back/Spine/Pelvis Back: No CVA tenderness Cervical Spine: cervical ROM normal and No pain with cervical ROM Thoracic/Lumbar Spine: thoracic and lumbar spine normal to inspection Skin General: no rashes or lesions noted, No jaundice and No petechiae Neuro General: alert, oriented x3, gait normal and no focal motor deficits Speech: speech normal Extrem General: full ROM, no clubbing, cyanosis or edema, no pedal edema and no calf tenderness Psych Appearance: well kempt Mental Status: mental status grossly normal Attitude: cooperative Thought Content: normal and suicidality Judgment: judgment good Course Course Narrative: Patient was worked up with laboratory studies and treated symptomatically with IV fluids and with Dilaudid, Zofran, and Vistaril. Patient reported feeling a little better but stated she was still in pain so she was given another dose of Dilaudid. This helped the pain but then patient stated she was nauseated. She stated that she had been able to hold down some ice chips, but still had this strong urge to vomit. I did discuss with her that we have given her a lot of medicine, and we need to pinpoint what will actually be helpful to her patient stated that lorazepam usually works in conjunction with the other meds we have given. I agreed to give her dose of lorazepam, but given that she has tolerated p.o. for the last 30 minutes, I did explain to her that she will be discharged after this. Patient felt that she was able to be discharged and well enough to go home. We have discussed the usual indications for return, as well as symptomatic management at home. Orders Ordered: ED Orders 02/14/19 12:46 Complete Blood Count AUTO DIFF Stat Comprehensive Metabolic Panel Stat Discontinued Medications Diphenhydramine HCl (Benadryl) 50 mg IV NOW ONE Stop: 02/14/19 12:48 Last Admin: 02/14/19 13:04 Dose: Not Given Hydromorphone HCl (Dilaudid) 1 mg IV NOW ONE Stop: 02/14/19 12:48 Last Admin: 02/14/19 12:59 Dose: 1 mg Hydromorphone HCl (Dilaudid) 2 mg IV NOW ONE Stop: 02/14/19 13:57 Last Admin: 02/14/19 14:32 Dose: 2 mg Hydroxyzine HCl (Vistaril) 25 mg IM NOW ONE Stop: 02/14/19 13:35 Last Admin: 02/14/19 13:49 Dose: 25 mg Sodium Chloride (Normal Saline 0.9%) 1,000 mls @ 1,000 mls/hr IV BOLUS ONE Stop: 02/14/19 13:46 Last Infusion: 02/14/19 14:37 Dose: 0 mls/hr Admin: 02/14/19 12:58 Dose: 1,000 mls/hr Lorazepam (Ativan) 2 mg IV NOW ONE Stop: 02/14/19 15:46 Last Admin: 02/14/19 16:22 Dose: 2 mg Ondansetron HCl (Zofran) 4 mg IV NOW ONE Stop: 02/14/19 12:48 Last Admin: 02/14/19 12:59 Dose: 4 mg Pantoprazole Sodium (Protonix) 40 mg IV NOW ONE Stop: 02/14/19 14:42 Last Admin: 02/14/19 14:43 Dose: 40 mg Vital Signs - 8 hr 02/14/19 13:30 02/14/19 14:30 02/14/19 15:30 Temperature Pulse Rate 68 98 H 69 Respiratory Rate 15 16 Blood Pressure Blood Pressure [Right Arm] 131/52 L 112/64 108/43 L Pulse Oximetry 100 98 98 02/14/19 16:00 02/14/19 16:29 Temperature 98.4 F Pulse Rate 88 88 Respiratory Rate 16 16 Blood Pressure 104/54 L Blood Pressure [Right Arm] 102/64 Pulse Oximetry 98 98 MDM - Abdominal Pain Medical Records Attestation: I reviewed the patient's medical records. Lab Data Attestation: I reviewed the patient's lab results. Result diagrams: 02/14/19 12:46 02/14/19 12:46 Lab Results 02/14/19 02/14/19 Range/Units 12:46 12:46 WBC 7.8 (4.5-11.0) X10^3/uL RBC 4.92 (4.0-5.2) X10^6/uL Hgb 15.3 (12.0-16.0) g/dL Hct 45.9 (36-46) % MCV 93.4 (80-100) fL MCH 31.1 (26-34) PG MCHC 33.3 (30-36) % RDW 13.7 (11.6-14.8) % Plt Count 232 (150-400) X10^3/uL Neut % (Auto) 83.8 H (50-75) % Lymph % (Auto) 9.8 L (25-40) % [place] % (Auto) 5.0 (3-14) % Eos % (Auto) 0.7 L (2-4) % Baso % (Auto) 0.7 (0-2) % Neut # (Auto) 6500 (2826-5976) /uL Lymph # (Auto) 800 L (2750-1218) /uL [place] # (Auto) 400 (0-900) /uL Eos # (Auto) 100 (0-450) /uL Baso # (Auto) 100 (0-100) /uL Sodium 143 (137-145) mmol/L Potassium 3.7 (3.4-5.1) mmol/L Chloride 103 (98-107) mmol/L Carbon Dioxide 30 (22-32) mmol/L BUN 11 (7-17) mg/dL Creatinine 0.80 (0.52-1.04) mg/dL Estimated GFR > 60.0 (>60) mL/min BUN/Creatinine Ratio 13.8 (6-22) Glucose 257 H (70-100) mg/dL Calcium 9.3 (8.4-10.2) mg/dL Total Bilirubin 0.6 (0.2-1.3) mg/dL AST 73 H (14-36) IU/L ALT 43 (9-52) IU/L Alkaline Phosphatase 114 (38-126) U/L Total Protein 8.1 (6.3-8.2) g/dL Albumin 4.7 (3.5-5.0) g/dL Globulin 3.4 (1.7-4.1) g/dL Albumin/Globulin Ratio 1.4 (1.0-2.8) Discharge Plan Departure Patient Disposition: Home Clinical Impression: Diabetic gastroparesis Vomiting Qualifiers: Vomiting type: unspecified Vomiting Intractability: non-intractable Nausea presence: with nausea Qualified Code(s): R11.2 - Nausea with vomiting, unspecified Discharge Date/Time: 02/14/19 16:42 Interventions: ED Discharge Assessment Last Done: 02/14/19 16:29 Instructions: DI for Vomiting -- Adult Prescriptions: New ondansetron 4 mg tablet,disintegrating 4 mg PO Q6H PRN (Reason: nausea and vomiting) Qty: 14 RF: 0 No Action insulin lispro [Humalog U-100 Insulin] 100 UNIT/1 ML solution continuous IV infusion DAILY Qty: 0 RF: 0 Domperidone (#DOMPERIDONE) 30 mg PO ACHS Qty: 2 RF: 0 rosuvastatin [Crestor] 10 MG tablet 10 mg PO BEDTIME Qty: 0 RF: 0 pantoprazole [Protonix] 40 MG tablet,delayed release (DR/EC) 40 mg PO DAILY Qty: 0 RF: 0 hydrocortisone 10 MG tablet 10 mg NG DAILY Qty: 0 RF: 0 alendronate 70 mg Tablet 70 mg PO QWEEK RF: 0 levothyroxine 75 mcg Tablet 75 mcg PO DAILY RF: 0 Glucagon Emergency Kit (human) 1 mg Recon Soln 1 dose subcut DIRECTED RF: 0 hydromorphone 4 MG tablet 4 mg PO TID PRN (Reason: PAIN) RF: 0 ondansetron 4 MG tablet,disintegrating 4 mg Sublingual Q4HP PRN (Reason: Nausea) RF: 0 diazepam 5 MG tablet 5 mg PO TIDP PRN (Reason: Anxiety) RF: 0 promethazine 25 mg suppository 25 mg MO Q6H PRN (Reason: nausea and vomiting) Qty: 12 RF: 0 Referrals: Salvatore Villegas MD [Primary Care Provider] -
[2019-02-14 13:20] LABS: Alanine Aminotransferase 43 IU/L (9-52); Albumin 4.7 g/dL (3.5-5.0); Albumin Globulin Ratio 1.4 (1.0-2.8); Alkaline Phosphatase 114 U/L (38-126); Aspartate Aminotransferase 73 IU/L (14-36); BUN Creatinine Ratio 13.8 (6-22); Bilirubin Total 0.6 mg/dL (0.2-1.3); Blood Urea Nitrogen 11 mg/dL (7-17); Calcium 9.3 mg/dL (8.4-10.2); Carbon Dioxide 30 mmol/L (22-32); Chloride 103 mmol/L (98-107); Estimated Glomerular Filt Rate > 60.0 mL/min (>60); Globulin 3.4 g/dL (1.7-4.1); Glucose 257 mg/dL (70-100); HEMOLYSIS < 15 (0-50); Potassium 3.7 mmol/L (3.4-5.1); Sodium 143 mmol/L (137-145); Total Protein 8.1 g/dL (6.3-8.2)
[2019-02-14 13:30] VITALS: BP 131/52; PULSE 68; RESP 15; O2SAT 100
[2019-02-14] MEDS: hydrOXYzine 50 MG/ML INJ 25 MG IM (13:49)
[2019-02-14 14:30] VITALS: BP 112/64; PULSE 98; RESP 16; O2SAT 98
[2019-02-14] MEDS: HYDROMORPHONE 1 MG INJ 2 MG IV (14:32)
[2019-02-14] MEDS: PANTOPRAZOLE 40 MG VIAL IV (14:43)
[2019-02-14 15:30] VITALS: BP 108/43; PULSE 69; O2SAT 98
[2019-02-14 16:00] VITALS: BP 102/64; PULSE 88; RESP 16; O2SAT 98
[2019-02-14] MEDS: LORazepam 2 MG/ML INJ IV (16:22)
[2019-02-14 16:29] VITALS: BP 104/54; PULSE 88; RESP 16; TEMP 36.9; O2SAT 98
--- NOTE | 2019-02-14 16:32 | PC.NURSE ---
Patient tolerating ice chips;
== END 2019-02-14 16:42 | disposition home or self-care (01) ==
PROVIDERS: Emergency Provider Emergency Medicine; PCP Internal Medicine
DX: E11.43 Type 2 diabetes mellitus with diabetic autonomic (poly)neuropathy (principal); R11.2 Nausea with vomiting, unspecified; Z79.4 Long term (current) use of insulin
CPT/HCPCS: 36591; 80053; 85025; 96361; 96372; 96374; 96375; 96376; 99283; 99284; C9113; J1170; J1200; J2060; J2405; J3410

== ENCOUNTER 2019-02-18 10:58 | Observation (INO) | payer OTHER, SELFPAY ==
[2019-02-18 11:14] VITALS: BP 162/73; PULSE 74; RESP 20; O2SAT 98; BMI 22.6
[2019-02-18] MEDS: ONDANSETRON 4 MG/2 ML INJ IV ×3 (11:54→22:19)
[2019-02-18] MEDS: HYDROMORPHONE 1 MG INJ IV ×3 (11:54→20:58)
[2019-02-18] MEDS: SODIUM CHLORIDE 0.9% 1,000 ML 1000 ML IV (11:54)
[2019-02-18 13:21] LABS: Add Manual Diff / Slide Review NO; Basophils Absolute Auto 0 /uL (0-100); Basophils Percent Auto 0.3 % (0-2); Eosinophils Absolute Auto 0 /uL (0-450); Eosinophils Percent Auto 0.8 % (2-4); Hemoglobin 13.8 g/dL (12.0-16.0); Lymphocytes Absolute Auto 1100 /uL (1100-4500); Lymphocytes Percent Auto 17.1 % (25-40); Mean Corpuscular HGB Conc 33.7 % (30-36); Mean Corpuscular Hemoglobin 31.5 PG (26-34); Mean Corpuscular Volume 93.7 fL (80-100); Monocytes Absolute Auto 400 /uL (0-900); Monocytes Percent Auto 6.9 % (3-14); Neutrophils Absolute Auto 4700 /uL (1500-7000); Neutrophils Percent Auto 74.9 % (50-75); Platelet Count 228 X10^3/uL (150-400); Red Blood Cell Count 4.37 X10^6/uL (4.0-5.2); Red Cell Distribution Width 13.6 % (11.6-14.8); White Blood Cell Count 6.3 X10^3/uL (4.5-11.0)
[2019-02-18 13:33] LABS: Alanine Aminotransferase 55 IU/L (9-52); Albumin 4.1 g/dL (3.5-5.0); Albumin Globulin Ratio 1.4 (1.0-2.8); Alkaline Phosphatase 95 U/L (38-126); Aspartate Aminotransferase 52 IU/L (14-36); BUN Creatinine Ratio 17.1 (6-22); Bilirubin Total 0.6 mg/dL (0.2-1.3); Blood Urea Nitrogen 12 mg/dL (7-17); Calcium 9.3 mg/dL (8.4-10.2); Carbon Dioxide 33 mmol/L (22-32); Chloride 104 mmol/L (98-107); Estimated Glomerular Filt Rate > 60.0 mL/min (>60); Globulin 2.9 g/dL (1.7-4.1); Glucose 159 mg/dL (70-100); HEMOLYSIS < 15 (0-50); Potassium 4.3 mmol/L (3.4-5.1); Sodium 142 mmol/L (137-145)
[2019-02-18] MEDS: LORazepam 2 MG/ML INJ 1 MG IV ×2 (13:50→18:32)
[2019-02-18] MEDS: hydrOXYzine 50 MG/ML INJ IM (13:50)
[2019-02-18 14:26] VITALS: BP 137/76; PULSE 70; RESP 17; O2SAT 96
--- NOTE | 2019-02-18 15:04 | ED_ITS ---
HPI - Nausea/Vomiting/Diarrhea General Chief complaint: Nausea/Vomiting/Diarrhea Stated complaint: Vomiting Time Seen by Provider: 02/18/19 11:25 Source: patient Mode of arrival: ambulatory Limitations: no limitations History of Present Illness HPI Narrative: Patient is a 58-year-old female well known to myself history of gastro paresis. This is now her 4th visit in the about the last 2 weeks. She tried to use a Phenergan suppository at home when this started this morning. However she says it did not work. She has vomited numerous times she has extreme pain. She was seen 2 days ago and really has not felt any better since then. He continues to have abdominal pain and vomiting. This feels similar to all of her previous episodes. Related Data Home Medications Medication Instructions Recorded Confirmed Domperidone (#DOMPERIDONE) 30 mg PO ACHS #2 07/29/12 02/18/19 insulin lispro [Humalog U-100 0 unit CONTINUOUS IV INFUSION 07/29/12 02/18/19 Insulin] DAILY #0 rosuvastatin [Crestor] 10 mg PO BEDTIME #0 07/29/12 02/18/19 pantoprazole [Protonix] 40 mg PO DAILY #0 10/06/12 02/18/19 hydrocortisone 10 mg PO DAILY #0 05/03/17 02/18/19 alendronate 70 mg PO QWEEK 02/03/19 02/18/19 diazepam 5 mg PO TIDP PRN 02/03/19 02/18/19 glucagon (human recombinant) 1 dose SUBCUT DIRECTED 02/03/19 02/18/19 [Glucagon Emergency Kit (human)] hydromorphone 4 mg PO TID PRN 02/03/19 02/18/19 levothyroxine 75 mcg PO DAILY 02/03/19 02/18/19 ondansetron 4 mg SUBLINGUAL Q4HP PRN 02/03/19 02/18/19 Previous Rx's Medication Instructions Recorded promethazine 25 mg SC Q6H PRN #12 each 02/03/19 ondansetron 4 mg PO Q6H PRN #14 tab 02/14/19 Allergies Allergy/AdvReac Type Severity Reaction Status Date / Time amitriptyline Allergy Intermediate SEIZURES Verified 02/18/19 11:17 droperidol Allergy Intermediate CLONIC Verified 02/18/19 11:17 REACTION metoclopramide Allergy Intermediate CLONIC Verified 02/18/19 11:17 REACTION prochlorperazine Allergy Intermediate CLONIC Verified 02/18/19 11:17 REACTION azithromycin AdvReac Mild N/V Verified 02/18/19 11:17 ciprofloxacin AdvReac Mild N/V Verified 02/18/19 11:17 hydrocodone AdvReac Mild N/V Verified 02/18/19 11:17 ketorolac AdvReac Mild N/V Verified 02/18/19 11:17 Review of Systems Review of Systems GENERAL: Denies chills, fatigue, malaise, fever, sweats, travel HEENT: Denies sinus pain, ear pain, sore throat, difficulty swallowing, neck pain RESPIRATORY: Denies dyspnea, cough, wheezing, hemoptysis, sputum. CARDIOVASCULAR: Denies chest pain, palpitations, orthopnea, edema GASTROINTESTINAL: See HPI : Denies dysuria, frequency, incontinence, hematuria, urinary retention, flank pain. MUSCULOSKELETAL: Denies weakness, joint pain, or bony pain SKIN: No rash, no erythema, no pruritus NEUROLOGIC: Denies weakness, dizziness, headache, numbness, change in speech, confusion PSYCHIATRIC: No concerning psychosocial issues. 12 point review of systems is negative except for those stated above and HPI PFSH Medical History Chronic cholecystitis (Acute) Diabetes (Acute) Diabetic retinopathy (Acute) Hyperlipidemia (Acute) Hypothyroid (Acute) Osteomyelitis (Acute) Family History (Updated 02/18/19 @ 17:30 by Ursula Reed MD) Mother Non Hodgkin's lymphoma Social History marital status: household members: spouse Smoking Status: Former smoker Family History Mother Non Hodgkin's lymphoma Social History marital status: household members: spouse Smoking Status: Former smoker Exam Initial Vital Signs Initial Vital Signs: Vital Signs Pulse Rate 74 02/18/19 11:14 Respiratory Rate 20 02/18/19 11:14 Blood Pressure 162/73 H 02/18/19 11:14 Pulse Oximetry 98 02/18/19 11:14 GENERAL: Female appears to be in pain actively dry heaving HEENT: Head atraumatic,EOMI, pupils reactive, face symmetric, dry mucous membranes neck is supple CARDIOVASCULAR: Regular rate and rhythm without murmurs, rubs or gallops. RESPIRATORY: Breath sounds equal bilaterally, no wheezes rales or rhonchi. ABDOMEN: Soft, diffusely tender no distention no guarding no rebound EXTREMITIES: Normal range of motion, no clubbing or edema. Neurovascularly intact NEUROLOGICAL: Alert and oriented x4.Normal gait and speech. Cranial nerves II through XII grossly intact. SKIN: Warm, dry, no laceration, no petechiae, no rashes or lesions. Course Orders Ordered: ED Orders 02/18/19 13:10 Complete Blood Count AUTO DIFF Stat Comprehensive Metabolic Panel Stat Hemoglobin A1C% w Est Avg Glu Routine Lipase Stat 02/18/19 17:13 Consult to Dietitian, Adult Routine Consult to Pastoral Services Routine 02/18/19 17:19 Education, smoking cessation ONGOING 02/18/19 17:36 US abdomen complete Urgent Education, smoking cessation ONGOING 02/19/19 05:00 Complete Blood Count AUTO DIFF Routine Comprehensive Metabolic Panel Routine Dextrose (D50w) 25 gm IV PRN PRN PRN Reason: Hypoglycemia Heparin Sodium (Porcine) (Heparin) 5,000 unit SUBCUT BID ALEX Hydromorphone HCl (Dilaudid) 1 mg IV Q4HRWA PRN PRN Reason: pain Hydroxyzine HCl (Vistaril) 25 mg IM Q4HR PRN PRN Reason: Nausea Dextrose/Sodium Chloride (Dextrose 5%-0.45% Ns) 1,000 mls @ 100 mls/hr IV CONT ALEX Last Admin: 02/18/19 17:35 Dose: 100 mls/hr Insulin Aspart (Novolog Flexpen) 0 unit SUBCUT ACHS ALEX; Protocol Insulin Glargine (Lantus Solostar (Pen)) 8 unit SUBCUT 2100 ALEX Ketorolac Tromethamine (Toradol) 30 mg IV Q6HR PRN PRN Reason: pain Stop: 02/23/19 17:21 Lorazepam (Ativan) 1 mg IV Q4HR PRN PRN Reason: nausea Ondansetron HCl (Zofran) 4 mg IV Q6HR PRN PRN Reason: Nausea And Vomiting Pantoprazole Sodium (Protonix) 40 mg IV DAILY ALEX Last Admin: 02/18/19 17:35 Dose: 40 mg Promethazine HCl (Phenadoz) 25 mg SC Q6HR PRN PRN Reason: Nausea Discontinued Medications Hydromorphone HCl (Dilaudid) 1 mg IV NOW ONE Stop: 02/18/19 11:21 Last Admin: 02/18/19 11:54 Dose: 1 mg Hydromorphone HCl (Dilaudid) 1 mg IV NOW ONE Stop: 02/18/19 14:26 Last Admin: 02/18/19 14:52 Dose: 1 mg Hydromorphone HCl (Dilaudid) 1 mg IV NOW ONE Stop: 02/18/19 17:05 Last Admin: 02/18/19 17:05 Dose: 1 mg Hydroxyzine HCl (Vistaril) 50 mg IM NOW ONE Stop: 02/18/19 12:35 Last Admin: 02/18/19 13:50 Dose: 50 mg Sodium Chloride (Normal Saline 0.9%) 1,000 mls @ 1,000 mls/hr IV BOLUS ONE Stop: 02/18/19 12:18 Last Infusion: 02/18/19 13:58 Dose: 0 mls/hr Admin: 02/18/19 11:54 Dose: 1,000 mls/hr Lorazepam (Ativan) 1 mg IV NOW ONE Stop: 02/18/19 12:35 Last Admin: 02/18/19 13:50 Dose: 1 mg Ondansetron HCl (Zofran) 4 mg IV NOW ONE Stop: 02/18/19 11:20 Last Admin: 02/18/19 11:54 Dose: 4 mg Ondansetron HCl (Zofran) 4 mg IV NOW ONE Stop: 02/18/19 14:26 Last Admin: 02/18/19 14:53 Dose: 4 mg Vital Signs - 8 hr 02/18/19 11:14 02/18/19 14:26 02/18/19 16:26 Temperature Pulse Rate 74 70 59 L Respiratory Rate 20 17 17 Blood Pressure 162/73 H 101/43 L Blood Pressure [Right Arm] 137/76 Pulse Oximetry 98 96 100 02/18/19 16:53 Temperature 97.2 F L Pulse Rate 65 Respiratory Rate 12 Blood Pressure 128/72 Blood Pressure [Right Arm] Pulse Oximetry 100 MDM - Nausea/Vomiting/Diarrhea Lab Data Attestation: I reviewed the patient's lab results. Result diagrams: 02/18/19 13:10 02/18/19 13:10 Lab Results 02/18/19 02/18/19 02/18/19 Range/Units 13:10 13:10 13:10 WBC 6.3 (4.5-11.0) X10^3/uL RBC 4.37 (4.0-5.2) X10^6/uL Hgb 13.8 (12.0-16.0) g/dL Hct 41.0 (36-46) % MCV 93.7 (80-100) fL MCH 31.5 (26-34) PG MCHC 33.7 (30-36) % RDW 13.6 (11.6-14.8) % Plt Count 228 (150-400) X10^3/uL Neut % (Auto) 74.9 (50-75) % Lymph % (Auto) 17.1 L (25-40) % [place] % (Auto) 6.9 (3-14) % Eos % (Auto) 0.8 L (2-4) % Baso % (Auto) 0.3 (0-2) % Neut # (Auto) 4700 (5148-9495) /uL Lymph # (Auto) 1100 (1237-8797) /uL [place] # (Auto) 400 (0-900) /uL Eos # (Auto) 0 (0-450) /uL Baso # (Auto) 0 (0-100) /uL Sodium 142 (137-145) mmol/L Potassium 4.3 (3.4-5.1) mmol/L Chloride 104 (98-107) mmol/L Carbon Dioxide 33 H (22-32) mmol/L BUN 12 (7-17) mg/dL Creatinine 0.70 (0.52-1.04) mg/dL Estimated GFR > 60.0 (>60) mL/min BUN/Creatinine Ratio 17.1 (6-22) Glucose 159 H (70-100) mg/dL Hemoglobin A1c (4.0-6.0) % Calcium 9.3 (8.4-10.2) mg/dL Total Bilirubin 0.6 (0.2-1.3) mg/dL AST 52 H (14-36) IU/L ALT 55 H (9-52) IU/L Alkaline Phosphatase 95 (38-126) U/L Total Protein 7.0 (6.3-8.2) g/dL Albumin 4.1 (3.5-5.0) g/dL Globulin 2.9 (1.7-4.1) g/dL Albumin/Globulin Ratio 1.4 (1.0-2.8) Lipase 17 L (23-300) U/L 02/18/19 Range/Units 13:10 WBC (4.5-11.0) X10^3/uL RBC (4.0-5.2) X10^6/uL Hgb (12.0-16.0) g/dL Hct (36-46) % MCV (80-100) fL MCH (26-34) PG MCHC (30-36) % RDW (11.6-14.8) % Plt Count (150-400) X10^3/uL Neut % (Auto) (50-75) % Lymph % (Auto) (25-40) % [place] % (Auto) (3-14) % Eos % (Auto) (2-4) % Baso % (Auto) (0-2) % Neut # (Auto) (3607-8633) /uL Lymph # (Auto) (1206-4460) /uL [place] # (Auto) (0-900) /uL Eos # (Auto) (0-450) /uL Baso # (Auto) (0-100) /uL Sodium (137-145) mmol/L Potassium (3.4-5.1) mmol/L Chloride (98-107) mmol/L Carbon Dioxide (22-32) mmol/L BUN (7-17) mg/dL Creatinine (0.52-1.04) mg/dL Estimated GFR (>60) mL/min BUN/Creatinine Ratio (6-22) Glucose (70-100) mg/dL Hemoglobin A1c 6.7 H (4.0-6.0) % Calcium (8.4-10.2) mg/dL Total Bilirubin (0.2-1.3) mg/dL AST (14-36) IU/L ALT (9-52) IU/L Alkaline Phosphatase (38-126) U/L Total Protein (6.3-8.2) g/dL Albumin (3.5-5.0) g/dL Globulin (1.7-4.1) g/dL Albumin/Globulin Ratio (1.0-2.8) Lipase (23-300) U/L Point of Care Testing Glucose POC 55 MDM Narrative Medical decision making narrative: Patient has a multiple doses of anti nausea medication and pain medication. She does not appear to be in DKA. Epigastric pain similar to previous episodes. At this time I do not think imaging is requi red. However this is her 4th time not able to keep anything down. Typically she starts resolving at this time. I recommend admission for IV hydration and intractable nausea vomiting. Dr. Reed updated patient's symptoms test results and agrees. Discharge Plan Departure Patient Disposition: Admitted as Observation Clinical Impression: Diabetic gastroparesis Discharge Date/Time: 02/18/19 16:45 Interventions: ED Discharge Assessment Last Done: 02/18/19 16:26 Admit Date/Time: 02/18/19 15:42 Admit Provider: Ursula Reed
[2019-02-18 15:39] LABS: Lipase 17 U/L (23-300)
[2019-02-18 16:26] VITALS: BP 101/43; PULSE 59; RESP 17; O2SAT 100
[2019-02-18 16:40] VITALS: BMI 21.4
[2019-02-18 16:53] VITALS: BP 128/72; PULSE 65; RESP 12; TEMP 36.2; O2SAT 100
[2019-02-18] MEDS: HYDROMORPHONE 2 MG INJ 1 MG IV (17:05)
--- NOTE | 2019-02-18 17:21 | PC.NURSE ---
Addendum entered by Kerri Hoffman R.N. 02/18/19 22:55: Pt rechecks own blood sugar with own monitor and reports value @ 370. Requests insulin as ordered until ANNA Harry sees pt. Administered 2 units novolog at pt's request. ANNA Harry in to see patient shortly thereafter. States pt may use own insulin pump and we are to co-monitor pt. Addendum entered by Kerri Hoffman R.N. 02/18/19 21:24: Pt states feels measurable better since admission to hospital. Rates abdominal and headache pain 04/25. Given 1 mg iv dilaudid as ordered. Discussed with pt meds ordered to treat nausea. Pt reports IM vistaril works best. This was given to pt's right deltoid. Pt's spouse returned and then left again for evening. Pt has ice packs x 3 to back of neck to treat headache pain. Now opens eyes and converses with staff. Blood sugar @ this hour 330. Pt verbalizes displeasure with sliding scale as ordered. States discussed use of own insulin pump with Dr. Reed and pt reports Dr. Reed not agreeable to this use. Pt reports has been diabetic x 50 years and has great knowledge of how to manage own blood sugars. Plan to discuss with ANNA Harry when hospitalist is available. Pt remains NPO. No emesis this shift. Addendum entered by Kerri Hoffman R.N. 02/18/19 19:21: States allergy to toradol and will not accept. Ice to back of neck to treat headache with darkened room. Ativan for nausea per pt request. Now resting quietly in bed with eyes closed. No signs of distress or discomfort. Tele placed as ordered. Addendum entered by Kerri Hoffman R.N. 02/18/19 17:40: Now resting quietly in bed on left side without any signs of restlessness. Eyes closed. Protonix infusing via pump. Spouse has left momentarily. Pt was instructed prior to administration of dilaudid iv not to attempt out of bed without calling for assistance. Bed alarm set. Original Note: Pt to room 211 from E.R. via stretcher with spouse accompanying pt. Pt keeps towel over eyes and emesis bag close. Able to move self fro stretcher into bed. Blood sugar checked and is 55. Dr. Reed informed. Pt's spouse suspends pt's insulin pump. Dr. Reed in to see patient. 1 mg iv dilaudid given for c/o headache and abdominal pain 03/25.
--- NOTE | 2019-02-18 17:22 | PC.ADMIT ---
[id number] [facility] [address] Admission Note: The patient,Jeny Evans,58 y/o, was given written information regarding hospital policies, unit procedures and contact persons. Patient's smoking status: Former smoker. Vital Signs - 8 hr 02/18/19 11:14 02/18/19 14:26 02/18/19 16:26 Temperature Pulse Rate 74 70 59 L Respiratory Rate 20 17 17 Blood Pressure 162/73 H 101/43 L Blood Pressure [Right Arm] 137/76 Pulse Oximetry 98 96 100 02/18/19 16:53 Temperature 97.2 F L Pulse Rate 65 Respiratory Rate 12 Blood Pressure 128/72 Blood Pressure [Right Arm] Pulse Oximetry 100 Pt with spouse at bedside for admission. Oriented to room/call light. A/O, pain reported in head/abdomen. Dr Reed at bedside and orders for 1mg IV dilaudid received/given. Cool cloth to forehead. Insulin pump present, asked pt/spouse to suspend infusion as pt CBG was 55. Iv infusing w/o complications.
--- NOTE | 2019-02-18 17:26 | PM.HP.1 ---
History of Present Illness Date Patient Seen: 02/18/19 Chief complaint: Vomiting Narrative: The patient is a 58-year-old female with a history of type 1 diabetes, hypothyroidism, hyperlipidemia, gastroesophageal reflux disease, adrenal insufficiency with complications to include diabetic gastroparesis. The patient reports no episodes of gastroparesis for at least 6 months. She and her were traveling in December and she developed an episode of nausea vomiting and abdominal pain that resolved. Since that time she has been in the emergency department on 4 separate occasions. Twice at the end of January, and then 2 days ago. The patient reports when she was in the hospital 2 days ago she was discharged home and had no further vomiting but never felt back to normal. She had continued nausea, she has inability to sleep, she was unable to eat. She now has a severe migraine headache. She took sublingual Phenergan which caused her to have nausea and recurrent nausea and vomiting. She was given multiple doses of Zofran, Ativan, Vistaril in the emergency room. Despite that she continued to feel nauseated and have abdominal pain with vomiting. She reports the pain in her abdomen is midepigastric. It does not radiate. It is worse with eating. It gets better when she lies down in with pain and nausea medications. She has not had any hematemesis, melena, or bright red blood per rectum. She denies any fever or chills. She denies any dysuria hematuria or pyuria. She has no joint pains or rashes. Her main complaint is headache nausea vomiting and abdominal pain. Further review of systems is negative. Despite multiple treatments in the emergency room she continues to be symptomatic and she is admitted to the hospital for further evaluation. Patient History Medical History Chronic cholecystitis (Acute) Diabetes (Acute) Diabetic retinopathy (Acute) Hyperlipidemia (Acute) Hypothyroid (Acute) Osteomyelitis (Acute) Social History marital status: household members: spouse Smoking Status: Former smoker Family & Social History Family History (Updated 02/18/19 @ 17:30 by Ursula Reed MD) Mother Non Hodgkin's lymphoma Social History: household members spouse Prior Living Arrangements House Safety & Behavioral: Feels Safe in Current Yes Environment Been Physically Hurt or No Threatened By a Person Suicidal Ideation Description None Tobacco & Substance use: Smoking Status Former smoker alcohol intake frequency holiday/special occasion Substance Use Type does not use Meds Home Medications Medication Instructions Recorded Confirmed Type Domperidone (#DOMPERIDONE) 30 mg PO ACHS #2 07/29/12 02/14/19 History insulin lispro [Humalog U-100 0 unit CONTINUOUS IV INFUSION 07/29/12 02/14/19 History Insulin] DAILY #0 rosuvastatin [Crestor] 10 mg PO BEDTIME #0 07/29/12 02/14/19 History pantoprazole [Protonix] 40 mg PO DAILY #0 10/06/12 02/14/19 History hydrocortisone 10 mg NG DAILY #0 05/03/17 02/14/19 History alendronate 70 mg PO QWEEK 02/03/19 02/14/19 History diazepam 5 mg PO TIDP PRN 02/03/19 02/14/19 History glucagon (human recombinant) 1 dose SUBCUT DIRECTED 02/03/19 02/14/19 History [Glucagon Emergency Kit (human)] hydromorphone 4 mg PO TID PRN 02/03/19 02/14/19 History levothyroxine 75 mcg PO DAILY 02/03/19 02/14/19 History ondansetron 4 mg SUBLINGUAL Q4HP PRN 02/03/19 02/14/19 History promethazine 25 mg PA Q6H PRN #12 each 02/03/19 02/14/19 Rx ondansetron 4 mg PO Q6H PRN #14 tab 02/14/19 Rx Allergies Allergy/AdvReac Type Severity Reaction Status Date / Time amitriptyline Allergy Intermediate SEIZURES Verified 02/18/19 11:17 droperidol Allergy Intermediate CLONIC Verified 02/18/19 11:17 REACTION metoclopramide Allergy Intermediate CLONIC Verified 02/18/19 11:17 REACTION prochlorperazine Allergy Intermediate CLONIC Verified 02/18/19 11:17 REACTION azithromycin AdvReac Mild N/V Verified 02/18/19 11:17 ciprofloxacin AdvReac Mild N/V Verified 02/18/19 11:17 hydrocodone AdvReac Mild N/V Verified 02/18/19 11:17 ketorolac AdvReac Mild N/V Verified 02/18/19 11:17 Review of Systems Review of Systems All systems reviewed & are unremarkable except as noted in HPI and below Exam Vital Signs (past 8 hours): - 02/18/19 11:14 02/18/19 14:26 02/18/19 16:26 Temperature Pulse Rate 74 70 59 L Respiratory Rate 20 17 17 Blood Pressure 162/73 H 101/43 L Blood Pressure [Right Arm] 137/76 Pulse Oximetry 98 96 100 02/18/19 16:53 Temperature 97.2 F L Pulse Rate 65 Respiratory Rate 12 Blood Pressure 128/72 Blood Pressure [Right Arm] Pulse Oximetry 100 Oxygen Delivery Method Nasal Cannula Oxygen Flow Rate 2 Narrative Exam Narrative: Ill-appearing female lying in bed with her eyes covered HEENT: Normocephalic atraumatic, extraocular muscles are intact, oropharynx is clear with moist mucous membranes, her neck is supple without adenopathy Lungs: Clear to auscultation Cardiac exam: Regular rate rhythm normal S1-S2 with a 2/6 systolic ejection murmur Abdomen: Soft, nondistended, without palpable masses, there is no board-like rigidity, there is no specific tenderness, her belly is scaphoid Extremities: No edema Neuro exam: Nonfocal Skin exam: No lesions noted Psychiatric exam: She is awake alert and appropriate, no hallucinations, no obvious tics or delusions Objective Labs Result Diagrams: 02/18/19 13:10 02/18/19 13:10 Labs: Laboratory Results - last 24 hr 02/18/19 02/18/19 02/18/19 13:10 13:10 13:10 WBC 6.3 RBC 4.37 Hgb 13.8 Hct 41.0 MCV 93.7 MCH 31.5 MCHC 33.7 RDW 13.6 Plt Count 228 Neut % (Auto) 74.9 Lymph % (Auto) 17.1 L [place] % (Auto) 6.9 Eos % (Auto) 0.8 L Baso % (Auto) 0.3 Neut # (Auto) 4700 Lymph # (Auto) 1100 [place] # (Auto) 400 Eos # (Auto) 0 Baso # (Auto) 0 Sodium 142 Potassium 4.3 Chloride 104 Carbon Dioxide 33 H BUN 12 Creatinine 0.70 Estimated GFR > 60.0 BUN/Creatinine Ratio 17.1 Glucose 159 H Calcium 9.3 Total Bilirubin 0.6 AST 52 H ALT 55 H Alkaline Phosphatase 95 Total Protein 7.0 Albumin 4.1 Globulin 2.9 Albumin/Globulin Ratio 1.4 Lipase 17 L Assessment & Plan Assessment & Plan narrative: 1. Type 1 diabetes, complicated by diabetic gastroparesis. The patient has had multiple antiemetics including Ativan, Vistaril, Zofran without significant relief. Her white count remains normal. Her LFTs are mildly elevated. She does have a history of chronic cholecystitis. Will repeat abdominal ultrasound given her recurrent symptoms to rule out the possibility of acalculous cholecystitis. The patient has an insulin pump. This is been disconnected. She typically takes 12 units of insulin during the day. She will be started on 8 units at night. The patient will be given D5 half-normal saline, and a very low-dose sliding scale will be administered as well. The patient will remain NPO given her significant nausea. 2. Migraine headache-will continue IV hydration pain medications and antiemetics 3. Hypothyroidism-will hold levothyroxine will resume once patient is able to take p.o. 4. Gastroesophageal reflux disease the patient will continue on IV Protonix. Will resume p.o. Protonix once she is able to take oral again. 5. Hyperlipidemia will hold her statin at this time will resume when she is able to take p.o. 6. History of adrenal insufficiency. Will defer hydrocortisone at this time patient was on 10 mg daily which is sub therapeutic. If she becomes hypotensive with start her on 50 mg IV q.8 of IV hydrocortisone. Patient is here under observation status. She reports she is DNR will note that her record accordingly. Quality VTE Deep Vein Thrombosis/Pulmonary Embolism Present on Admission: No
[2019-02-18] MEDS: PANTOPRAZOLE 40 MG VIAL IV (17:35)
[2019-02-18] MEDS: DEXTROSE 5%-0.45% NS 1,000 ML 100 ML IV (17:35)
[2019-02-18 17:58] LABS: Hemoglobin A1C% w Est Avg Glu 6.7 % (4.0-6.0)
[2019-02-18] MEDS: hydrOXYzine 50 MG/ML INJ 25 MG IM (21:02)
[2019-02-18] MEDS: HEPARIN 5,000 UNIT/ML VIAL 5000 UNIT SUBCUT (21:06)
[2019-02-18 21:33] VITALS: BP 103/52; PULSE 78; RESP 18; TEMP 36.4; O2SAT 96
[2019-02-18] MEDS: INSULIN ASPART 100 UNIT/ML INSULN PEN SUBCUT ×2 (22:26→22:33)
[2019-02-19] VITALS (7 sets, daily range): BP systolic 86–114; BP diastolic 43–59; PULSE 54–64; RESP 16; TEMP 36.5–37; O2SAT 95–99
[2019-02-19] MEDS: HYDROMORPHONE 1 MG INJ IV ×2 (00:43→05:20)
[2019-02-19] MEDS: LORazepam 2 MG/ML INJ 1 MG IV ×2 (03:04→08:04)
[2019-02-19] MEDS: DEXTROSE 5%-0.45% NS 1,000 ML 100 ML IV (03:23)
[2019-02-19 05:45] LABS: Add Manual Diff / Slide Review NO; Basophils Absolute Auto 0 /uL (0-100); Basophils Percent Auto 0.7 % (0-2); Eosinophils Absolute Auto 100 /uL (0-450); Eosinophils Percent Auto 2.2 % (2-4); Hematocrit 37.9 % (36-46); Hemoglobin 12.3 g/dL (12.0-16.0); Lymphocytes Absolute Auto 1900 /uL (1100-4500); Lymphocytes Percent Auto 37.7 % (25-40); Mean Corpuscular HGB Conc 32.5 % (30-36); Mean Corpuscular Hemoglobin 30.7 PG (26-34); Mean Corpuscular Volume 94.3 fL (80-100); Monocytes Absolute Auto 400 /uL (0-900); Monocytes Percent Auto 7.2 % (3-14); Neutrophils Absolute Auto 2600 /uL (1500-7000); Neutrophils Percent Auto 52.2 % (50-75); Platelet Count 196 X10^3/uL (150-400); Red Blood Cell Count 4.02 X10^6/uL (4.0-5.2); Red Cell Distribution Width 13.7 % (11.6-14.8)
[2019-02-19 06:01] LABS: Alanine Aminotransferase 33 IU/L (9-52); Albumin 3.3 g/dL (3.5-5.0); Albumin Globulin Ratio 1.3 (1.0-2.8); Alkaline Phosphatase 51 U/L (38-126); Aspartate Aminotransferase 55 IU/L (14-36); Bilirubin Total 0.6 mg/dL (0.2-1.3); Blood Urea Nitrogen 15 mg/dL (7-17); Carbon Dioxide 27 mmol/L (22-32); Chloride 105 mmol/L (98-107); Estimated Glomerular Filt Rate > 60.0 mL/min (>60); Globulin 2.5 g/dL (1.7-4.1); Glucose 119 mg/dL (70-100); HEMOLYSIS 35 (0-50); Potassium 3.6 mmol/L (3.4-5.1); Sodium 138 mmol/L (137-145); Total Protein 5.8 g/dL (6.3-8.2)
[2019-02-19] MEDS: HEPARIN 5,000 UNIT/ML VIAL 5000 UNIT SUBCUT (09:21)
--- NOTE | 2019-02-19 09:21 | CM.DANOTE ---
DCP: Case received, EMR reviewed and met with patient. Introduced self and role. Obtained baseline health information from patient. DCP template assessment completed with information currently available. Patient is a 58 year old female who admitted yesterday afternoon to the care of the hospitalist team. PCP: Dr. Villegas. [facility] Patient came to the hospital via family vehicle secondary to vomiting and abdominal pain. Patient has history of Diabetes type 1, and wears an insulin pump. She holds diagnosis of diabetic gastroparesis. Met with patient briefly in room, was laying in bed, alert. She resides in [place] with her spouse, Herbert. She is independent at home. P: DCP to continue to follow closely, and will continue to be available for any resources that patient may need before discharge. Ruby Latham RN/Display Fabrication Supervisor
[2019-02-19] MEDS: HYDROMORPHONE 2 MG TABLET 4 MG PO (09:22)
--- NOTE | 2019-02-19 10:27 | PC.NURSE ---
Addendum entered by Ava Hanson R.N. 02/19/19 12:06: DC - pt showered, pain, n/v managed with earlier medications, clear liq tolerated, reviewed dc instructions, no new scripts, belongings gathered, including bag, shoes, clothing, fence installer foreman assisted to wc and escorted to spouse's car. Addendum entered by Ava Hanson R.N. 02/19/19 11:33: GI/CBG-pt has paola water,tea,juice w/o incr nausea, cbg recheck 262 and pt is admin her own bolus via her insulin pump, has rate 4.5 contin that is less than her usual of 5.4/hr. New order rec'd to dc home, ptivf heplocked, plan for fence installer foreman to assist w/shower prior to home, spouse now at bedside. Original Note: AM NOTE - pt is alert, ongoing nausea, abd and headache discomfort, pt cbg checked and 79, has her own monitor and her check was 85, pt suspended her insulin pump, later in and discussed her insulin pump, monitoring and pt will start clear liq and if no addl nausea, vomiting will probably dc home later today as pt is insistent on using her insulin pump, recheck next interval and pt is at 169, taking tea, apple juice, water w/o incr nausea or emesis at this time and will continue to monitor cbg frequently, given 4mg po dilaudid for abd and headache discomfort, ativan earlier to control nausea.
--- NOTE | 2019-02-19 10:58 | P.DS_ITS ---
History of Present Illness Chief complaint: Vomiting Narrative: The patient is a 58-year-old female with a history of type 1 diabetes, hypothyroidism, hyperlipidemia, gastroesophageal reflux disease, adrenal insufficiency with complications to include diabetic gastroparesis. The patient reports no episodes of gastroparesis for at least 6 months. She and her were traveling in December and she developed an episode of nausea vomiting and abdominal pain that resolved. Since that time she has been in the emergency department on 4 separate occasions. Twice at the end of January, and then 2 days ago. The patient reports when she was in the hospital 2 days ago she was discharged home and had no further vomiting but never felt back to normal. She had continued nausea, she has inability to sleep, she was unable to eat. She now has a severe migraine headache. She took sublingual Phenergan which caused her to have nausea and recurrent nausea and vomiting. She was given multiple doses of Zofran, Ativan, Vistaril in the emergency room. Despite that she continued to feel nauseated and have abdominal pain with vomiting. She reports the pain in her abdomen is midepigastric. It does not radiate. It is worse with eating. It gets better when she lies down in with pain and nausea medications. She has not had any hematemesis, melena, or bright red blood per rectum. She denies any fever or chills. She denies any dysuria hematuria or pyuria. She has no joint pains or rashes. Her main complaint is headache nausea vomiting and abdominal pain. Further review of systems is negative. Despite multiple treatments in the emergency room she continues to be symptomatic and she is admitted to the hospital for further evaluation. Discharge Providers Date of admission: 02/18/19 15:42 Discharge Date: 02/19/19 Primary care physician: Salvatore Villegas MD Consults: 02/18/19 17:13 Consult to Dietitian, Adult Routine Comment: Reason For Exam: loss of 10+ lbs Consult to Pastoral Services Routine Comment: would like to talk John Yee if available Discharge provider: Ursula Reed MD Summary Discharge Diagnosis: 1. Diabetic gastroparesis 2. Type 1 diabetes, on an insulin pump 3. Migraine headache 4. Intractable nausea and vomiting 5. Hypothyroidism 6. GERD 7. Hyperlipidemia Hospital Course: The patient is a 58-year-old female who was admitted to the hospital for diabetic gastroparesis. She was made NPO, given antiemetics, and IV fluids. Patient had improvement of her migraine headache. Her insulin pump was resumed and blood sugars were within normal range. The patient was able to tolerate a clear liquid diet. Her abdominal pain nausea and vomiting resolved. She felt significantly improved and was deemed appropriate to discharge home. Status at Discharge Cognitive/behavioral status at discharge: oriented Functional status at discharge: independent ambulation Overall status at discharge: patient is back to baseline Time Spent with Patient Less than 30 minutes Exam Vital Signs (past 8 hours): - 02/19/19 04:30 02/19/19 05:04 02/19/19 06:00 Temperature 98.4 F Pulse Rate 54 L Respiratory Rate 16 Blood Pressure 86/47 L 99/43 L 99/51 L Pulse Oximetry 95 02/19/19 07:00 02/19/19 07:55 Temperature 97.7 F Pulse Rate 61 Respiratory Rate 16 Blood Pressure 100/54 L Pulse Oximetry 99 98 Oxygen Delivery Method Room Air Oxygen Flow Rate 0 Narrative Exam Narrative: Pleasant female resting comfort Lungs: Clear to auscultation Cardiac exam: Regular rate and rhythm normal S1-S2 Abdomen: Soft and nontender Extremities: No edema Objective Labs Result Diagrams: 02/19/19 05:19 02/19/19 05:19 Labs: Laboratory Results - last 24 hr 02/18/19 02/18/19 02/18/19 13:10 13:10 13:10 WBC 6.3 RBC 4.37 Hgb 13.8 Hct 41.0 MCV 93.7 MCH 31.5 MCHC 33.7 RDW 13.6 Plt Count 228 Neut % (Auto) 74.9 Lymph % (Auto) 17.1 L [place] % (Auto) 6.9 Eos % (Auto) 0.8 L Baso % (Auto) 0.3 Neut # (Auto) 4700 Lymph # (Auto) 1100 [place] # (Auto) 400 Eos # (Auto) 0 Baso # (Auto) 0 Sodium 142 Potassium 4.3 Chloride 104 Carbon Dioxide 33 H BUN 12 Creatinine 0.70 Estimated GFR > 60.0 BUN/Creatinine Ratio 17.1 Glucose 159 H Hemoglobin A1c Calcium 9.3 Total Bilirubin 0.6 AST 52 H ALT 55 H Alkaline Phosphatase 95 Total Protein 7.0 Albumin 4.1 Globulin 2.9 Albumin/Globulin Ratio 1.4 Lipase 17 L 02/18/19 02/19/19 02/19/19 13:10 05:19 05:19 WBC 5.0 RBC 4.02 Hgb 12.3 Hct 37.9 MCV 94.3 MCH 30.7 MCHC 32.5 RDW 13.7 Plt Count 196 Neut % (Auto) 52.2 D Lymph % (Auto) 37.7 D [place] % (Auto) 7.2 Eos % (Auto) 2.2 Baso % (Auto) 0.7 Neut # (Auto) 2600 Lymph # (Auto) 1900 [place] # (Auto) 400 Eos # (Auto) 100 Baso # (Auto) 0 Sodium 138 Potassium 3.6 Chloride 105 Carbon Dioxide 27 BUN 15 Creatinine 0.60 Estimated GFR > 60.0 BUN/Creatinine Ratio 25.0 H Glucose 119 H Hemoglobin A1c 6.7 H Calcium 8.0 L Total Bilirubin 0.6 AST 55 H ALT 33 Alkaline Phosphatase 51 Total Protein 5.8 L Albumin 3.3 L Globulin 2.5 Albumin/Globulin Ratio 1.3 Lipase Discharge Plan Discharge Plan Discharge Problem: Diabetic gastroparesis Patient Disposition: Home Discharge Med Rec/Prescriptions Prescriptions: Continued insulin lispro [Humalog U-100 Insulin] 100 UNIT/1 ML solution continuous IV infusion DAILY Qty: 0 RF: 0 Domperidone (#DOMPERIDONE) 30 mg PO ACHS Qty: 2 RF: 0 rosuvastatin [Crestor] 10 MG tablet 10 mg PO BEDTIME Qty: 0 RF: 0 pantoprazole [Protonix] 40 MG tablet,delayed release (DR/EC) 40 mg PO DAILY Qty: 0 RF: 0 hydrocortisone 10 MG tablet 10 mg PO DAILY Qty: 0 RF: 0 alendronate 70 mg Tablet 70 mg PO QWEEK RF: 0 levothyroxine 75 mcg Tablet 75 mcg PO DAILY RF: 0 Glucagon Emergency Kit (human) 1 mg Recon Soln 1 dose subcut DIRECTED RF: 0 hydromorphone 4 MG tablet 4 mg PO TID PRN (Reason: PAIN) RF: 0 ondansetron 4 MG tablet,disintegrating 4 mg Sublingual Q4HP PRN (Reason: Nausea) RF: 0 diazepam 5 MG tablet 5 mg PO TIDP PRN (Reason: Anxiety) RF: 0 promethazine 25 mg suppository 25 mg MT Q6H PRN (Reason: nausea and vomiting) Qty: 12 RF: 0 ondansetron 4 mg tablet,disintegrating 4 mg PO Q6H PRN (Reason: nausea and vomiting) Qty: 14 RF: 0 Follow up/Referrals: Salvatore Villegas MD [Primary Care Provider] - Provider Discharge Instructions Diet: Diet as Tolerated Activity: aS tolerated Discharge Data Primary Care Provider: Salvatore Villegas Attending Provider: Ursula Reed Admit Date/Time: 02/18/19 15:42 Quality VTE Deep Vein Thrombosis/Pulmonary Embolism Present on Admission: No
== END 2019-02-19 12:10 | disposition home or self-care (01) ==
LOC: ED 15:21 → AC 15:42
PROVIDERS: Admitting Provider Internal Medicine; Emergency Provider Emergency Medicine; PCP Internal Medicine; Visit Provider Internal Medicine
DX: E10.43 Type 1 diabetes mellitus with diabetic autonomic (poly)neuropathy (principal); K31.84 Gastroparesis; R11.2 Nausea with vomiting, unspecified; E10.319 Type 1 diabetes mellitus with unspecified diabetic retinopathy without macular edema; R19.7 Diarrhea, unspecified; E03.9 Hypothyroidism, unspecified; E78.5 Hyperlipidemia, unspecified; Z79.4 Long term (current) use of insulin; Z87.891 Personal history of nicotine dependence; K21.9 Gastro-esophageal reflux disease without esophagitis; E27.40 Unspecified adrenocortical insufficiency; E86.0 Dehydration; G43.909 Migraine, unspecified, not intractable, without status migrainosus
CPT/HCPCS: 36415; 80053; 82962; 83036; 83690; 85025; 96361; 96372; 96374; 96375; 96376; 99283; 99284; G0378; C9113; J1170; J1644; J2060; J2405; J3410

== ENCOUNTER 2019-03-21 12:53 | Emergency (ER) | payer OTHER, SELFPAY ==
[2019-03-21 13:03] VITALS: BP 164/72; PULSE 24; RESP 59; TEMP 36.7; O2SAT 97
--- NOTE | 2019-03-21 13:20 | ED.GENADULT ---
HPI - General Adult General Chief complaint: Diabetic Problem Stated complaint: DIABETIC NAUSEA Time Seen by Provider: 03/21/19 13:15 Source: patient Mode of arrival: ambulatory Limitations: no limitations History of Present Illness HPI narrative: 58-year-old female. Is an insulin-dependent diabetic also with a diagnosis of gastroparesis here for evaluation of her usual gastroparesis situation. States she woke up this morning and took her blood sugar and it was low. States she was not feeling well at the time. She stop the insulin pump. She drank some juice. She then had an elevated blood sugar and redosed herself with insulin. She is here with nausea and vomiting and abdominal pain. Related Data Home Medications Medication Instructions Recorded Confirmed Domperidone (#DOMPERIDONE) 30 mg PO ACHS #2 07/29/12 03/21/19 insulin lispro [Humalog U-100 0 unit CONTINUOUS IV INFUSION 07/29/12 03/21/19 Insulin] DAILY #0 rosuvastatin [Crestor] 10 mg PO BEDTIME #0 07/29/12 03/21/19 pantoprazole [Protonix] 40 mg PO DAILY #0 10/06/12 03/21/19 hydrocortisone 10 mg PO DAILY #0 05/03/17 03/21/19 Glucagon Emergency Kit (human) 1 dose SUBCUT DIRECTED 02/03/19 03/21/19 alendronate 70 mg PO QWEEK 02/03/19 03/21/19 diazepam 5 mg PO TIDP PRN 02/03/19 03/21/19 hydromorphone 4 mg PO TID PRN 02/03/19 03/21/19 levothyroxine 75 mcg PO DAILY 02/03/19 03/21/19 ondansetron 4 mg SUBLINGUAL Q4HP PRN 02/03/19 03/21/19 Previous Rx's Medication Instructions Recorded promethazine 25 mg NJ Q6H PRN #12 each 02/03/19 Allergies Allergy/AdvReac Type Severity Reaction Status Date / Time amitriptyline Allergy Intermediate SEIZURES Verified 02/18/19 11:17 droperidol Allergy Intermediate CLONIC Verified 02/18/19 11:17 REACTION metoclopramide Allergy Intermediate CLONIC Verified 02/18/19 11:17 REACTION prochlorperazine Allergy Intermediate CLONIC Verified 02/18/19 11:17 REACTION azithromycin AdvReac Mild N/V Verified 02/18/19 11:17 ciprofloxacin AdvReac Mild N/V Verified 02/18/19 11:17 hydrocodone AdvReac Mild N/V Verified 02/18/19 11:17 ketorolac AdvReac Mild N/V Verified 02/18/19 11:17 Review of Systems Constitutional Denies fever(s) and Reports headache(s) ENT Ears, Nose, Mouth, and Throat: Reports headache(s) Cardiovascular Denies chest pain and Denies dyspnea Respiratory Denies dyspnea Gastrointestinal Gastrointestinal: Reports abdominal pain, Denies change in stool character, Reports nausea and Reports vomiting Genitourinary Denies dysuria Musculoskeletal Denies abnormal gait, Denies back pain and Denies arthralgias Integumentary/Breasts Denies new lesions and Denies rash Neurologic Denies abnormal gait and Reports headache(s) Hematologic/Lymphatic Denies easy bleeding and Denies easy bruising Allergic/Immunologic Denies urticaria FOR[facility]LY [facility] Medical History Chronic cholecystitis (Acute) Diabetes (Acute) Diabetic retinopathy (Acute) Hyperlipidemia (Acute) Hypothyroid (Acute) Osteomyelitis (Acute) Social History marital status: household members: spouse Smoking Status: Former smoker Exam Initial Vital Signs Initial Vital Signs: Vital Signs Temperature 98.1 F 03/21/19 13:03 Pulse Rate 24 L 03/21/19 13:03 Respiratory Rate 59 H 03/21/19 13:03 Blood Pressure 164/72 H 03/21/19 13:03 Pulse Oximetry 97 03/21/19 13:03 Const General: cooperative, healthy appearing, well developed and well groomed Orientation: alert and awake [facility] Head: normal to inspection and normocephalic Resp Effort & Inspection: normal respiratory effort Auscultation: clear to auscultation bilaterally Cardio Rate: regular rate Pulses: radial pulses present GI Inspection: non-distended Palpation: soft, No firm and tender (Diffusely tender without rebound or guarding) Skin Lesions: no lesions Rashes: no rashes Neuro General: alert and awake Cognition: normal cognition Speech: speech normal Extrem General: normal to inspection and capillary refill normal Psych Appearance: grossly normal and well kempt Course Orders Ordered: ED Orders 03/21/19 13:07 EKG-12 Lead Stat 03/21/19 13:29 VBG [Venous Blood Gas] Stat 03/21/19 13:35 Complete Blood Count AUTO DIFF Stat Comprehensive Metabolic Panel Stat Ketones (Beta-Hydroxybutyrate) Stat Lactate (Lactic Acid) Stat Magnesium Stat Phosphorous Stat Procalcitonin Stat 03/21/19 14:05 Blood Culture Stat Discontinued Medications Hydromorphone HCl (Dilaudid) 1 mg IV NOW ONE Stop: 03/21/19 13:22 Last Admin: 03/21/19 13:33 Dose: 1 mg Hydromorphone HCl (Dilaudid) 1 mg IV NOW ONE Stop: 03/21/19 14:47 Last Admin: 03/21/19 14:55 Dose: 1 mg Hydromorphone HCl (Dilaudid) 0.5 mg IV NOW ONE Stop: 03/21/19 16:30 Last Admin: 03/21/19 16:58 Dose: 0.5 mg Hydroxyzine HCl (Vistaril) 25 mg IM NOW ONE Stop: 03/21/19 17:21 Last Admin: 03/21/19 17:46 Dose: 25 mg Sodium Chloride (Normal Saline 0.9%) 1,000 mls @ 1,000 mls/hr IV BOLUS ONE Stop: 03/21/19 14:05 Last Infusion: 03/21/19 14:40 Dose: 0 mls/hr Admin: 03/21/19 13:33 Dose: 1,000 mls/hr Sodium Chloride (Normal Saline 0.9%) 1,000 mls @ 1,000 mls/hr IV BOLUS ONE Stop: 03/21/19 15:45 Last Infusion: 03/21/19 16:03 Dose: 0 mls/hr Admin: 03/21/19 14:58 Dose: 1,000 mls/hr Lorazepam (Ativan) 1 mg IV NOW ONE Stop: 03/21/19 13:22 Last Admin: 03/21/19 13:33 Dose: 1 mg Lorazepam (Ativan) 1 mg IV NOW ONE Stop: 03/21/19 14:07 Last Admin: 03/21/19 14:40 Dose: 1 mg Ondansetron HCl (Zofran) 4 mg IV NOW ONE Stop: 03/21/19 13:21 Last Admin: 03/21/19 13:33 Dose: 4 mg Ondansetron HCl (Zofran) 4 mg IV NOW ONE Stop: 03/21/19 14:19 Last Admin: 03/21/19 14:40 Dose: 4 mg Pantoprazole Sodium (Protonix) 40 mg IV NOW ONE Stop: 03/21/19 14:47 Last Admin: 03/21/19 14:55 Dose: 40 mg Vital Signs - 8 hr 03/21/19 13:03 03/21/19 13:46 03/21/19 15:05 Temperature 98.1 F Pulse Rate 24 L 64 63 Respiratory Rate 59 H 18 20 Blood Pressure 164/72 H Blood Pressure [Right Arm] 135/74 158/71 H Pulse Oximetry 97 97 98 03/21/19 16:13 03/21/19 17:58 Temperature Pulse Rate 64 65 Respiratory Rate 18 16 Blood Pressure Blood Pressure [Right Arm] 113/70 133/78 Pulse Oximetry 100 97 Medical Decision Making Medical Records Medical records reviewed: Yes I reviewed the patient's medical records. Lab Data Lab results reviewed: Yes I reviewed the patient's lab results. Result diagrams: 03/21/19 13:35 03/21/19 13:35 Lab Results 03/21/19 03/21/19 03/21/19 Range/Units 13:29 13:35 13:35 WBC 5.6 (4.5-11.0) X10^3/uL RBC 4.31 (4.0-5.2) X10^6/uL Hgb 13.4 (12.0-16.0) g/dL Hct 40.1 (36-46) % MCV 93.1 (80-100) fL MCH 31.2 (26-34) PG MCHC 33.5 (30-36) % RDW 13.2 (11.6-14.8) % Plt Count 194 (150-400) X10^3/uL Neut % (Auto) 79.4 H (50-75) % Lymph % (Auto) 14.2 L (25-40) % [place] % (Auto) 4.7 (3-14) % Eos % (Auto) 1.3 L (2-4) % Baso % (Auto) 0.4 (0-2) % Neut # (Auto) 4500 (6998-4908) /uL Lymph # (Auto) 800 L (4243-8528) /uL [place] # (Auto) 300 (0-900) /uL Eos # (Auto) 100 (0-450) /uL Baso # (Auto) 0 (0-100) /uL VBG pH 7.44 H (7.33-7.43) VBG pCO2 36.2 L (45-50) mmHg VBG pO2 49 H (35-45) mmHg VBG HCO3 25 (23-28) mmol/L VBG Total CO2 26 (24-29) mmol/L VBG O2 Saturation 86 H (70-75) % VBG Base Excess 0.0 (0-4) mmol/L Sodium (137-145) mmol/L Potassium (3.4-5.1) mmol/L Chloride (98-107) mmol/L Carbon Dioxide (22-32) mmol/L BUN (7-17) mg/dL Creatinine (0.52-1.04) mg/dL Estimated GFR (>60) mL/min BUN/Creatinine Ratio (6-22) Glucose (70-100) mg/dL Lactate (0.7-2.1) mmol/L Calcium (8.4-10.2) mg/dL Phosphorus (2.5-4.5) mg/dL Magnesium (1.6-2.3) mg/dL Total Bilirubin (0.2-1.3) mg/dL AST (14-36) IU/L ALT (9-52) IU/L Alkaline Phosphatase (38-126) U/L Total Protein (6.3-8.2) g/dL Albumin (3.5-5.0) g/dL Globulin (1.7-4.1) g/dL Albumin/Globulin Ratio (1.0-2.8) Procalcitonin < 0.05 (<0.5) ng/mL Ketones (<0.27) mmol/L 03/21/19 03/21/19 Range/Units 13:35 13:35 WBC (4.5-11.0) X10^3/uL RBC (4.0-5.2) X10^6/uL Hgb (12.0-16.0) g/dL Hct (36-46) % MCV (80-100) fL MCH (26-34) PG MCHC (30-36) % RDW (11.6-14.8) % Plt Count (150-400) X10^3/uL Neut % (Auto) (50-75) % Lymph % (Auto) (25-40) % [place] % (Auto) (3-14) % Eos % (Auto) (2-4) % Baso % (Auto) (0-2) % Neut # (Auto) (4005-6144) /uL Lymph # (Auto) (4741-6326) /uL [place] # (Auto) (0-900) /uL Eos # (Auto) (0-450) /uL Baso # (Auto) (0-100) /uL VBG pH (7.33-7.43) VBG pCO2 (45-50) mmHg VBG pO2 (35-45) mmHg VBG HCO3 (23-28) mmol/L VBG Total CO2 (24-29) mmol/L VBG O2 Saturation (70-75) % VBG Base Excess (0-4) mmol/L Sodium 136 L (137-145) mmol/L Potassium 4.1 (3.4-5.1) mmol/L Chloride 103 (98-107) mmol/L Carbon Dioxide 28 (22-32) mmol/L BUN 10 (7-17) mg/dL Creatinine 0.70 (0.52-1.04) mg/dL Estimated GFR > 60.0 (>60) mL/min BUN/Creatinine Ratio 14.3 (6-22) Glucose 309 H (70-100) mg/dL Lactate 1.1 (0.7-2.1) mmol/L Calcium 9.1 (8.4-10.2) mg/dL Phosphorus 2.6 (2.5-4.5) mg/dL Magnesium 1.8 (1.6-2.3) mg/dL Total Bilirubin 0.7 (0.2-1.3) mg/dL AST 40 H (14-36) IU/L ALT 31 (9-52) IU/L Alkaline Phosphatase 91 (38-126) U/L Total Protein 6.9 (6.3-8.2) g/dL Albumin 4.0 (3.5-5.0) g/dL Globulin 2.9 (1.7-4.1) g/dL Albumin/Globulin Ratio 1.4 (1.0-2.8) Procalcitonin (<0.5) ng/mL Ketones 0.49 H (<0.27) mmol/L Point of Care Testing Glucose POC 192 Point of care testing: Point of Care Testing Glucose POC 192 ECG Data Attestation: I personally reviewed and interpreted this ECG as follows: Prior ECG tracings: not available for review Interpretation: Sinus rhythm Ventricular rate is 62 Normal axis Normal QRS Normal QTC No ST T wave changes MDM Narrative Medical decision making narrative: Patient is here with which he describes as her normal gastroparesis pain was given multiple doses of medications which did seem to improve her symptoms somewhat. She did tolerate small amounts of ice chips. Patient initially was okay with going home however then was asking for admission. I discussed the case with Dr. Campa who stated that since the patient has been given 2 L of fluid, is tolerating small amounts of intake and also has medications at home to include Phenergan suppositories and sublingual Zofran that the patient would not meet admission criteria. I did discuss this with the patient. Both her and her expressed understanding and agreement. Patient not in DKA. Hold on further workup for now. Patient was given return precautions and follow-up instructions. She expressed understanding and agreement with plan. Discharge Plan Departure Patient Disposition: Home Clinical Impression: Diabetic gastroparesis Discharge Date/Time: 03/21/19 17:59 Interventions: ED Discharge Assessment Last Done: 03/21/19 17:59 Instructions: DI for Gastroparesis Activity Restrictions/Additional Instructions: Continue all of your medications as directed. Recommend you contact your primary provider for follow-up. Return to the emergency department for any new or worsening symptoms Prescriptions: No Action insulin lispro [Humalog U-100 Insulin] 100 UNIT/1 ML solution continuous IV infusion DAILY Qty: 0 RF: 0 Domperidone (#DOMPERIDONE) 30 mg PO ACHS Qty: 2 RF: 0 rosuvastatin [Crestor] 10 MG tablet 10 mg PO BEDTIME Qty: 0 RF: 0 pantoprazole [Protonix] 40 MG tablet,delayed release (DR/EC) 40 mg PO DAILY Qty: 0 RF: 0 hydrocortisone 10 MG tablet 10 mg PO DAILY Qty: 0 RF: 0 alendronate 70 mg Tablet 70 mg PO QWEEK RF: 0 levothyroxine 75 mcg Tablet 75 mcg PO DAILY RF: 0 Glucagon Emergency Kit (human) 1 mg Recon Soln 1 dose subcut DIRECTED RF: 0 hydromorphone 4 MG tablet 4 mg PO TID PRN (Reason: PAIN) RF: 0 ondansetron 4 MG tablet,disintegrating 4 mg Sublingual Q4HP PRN (Reason: Nausea) RF: 0 diazepam 5 MG tablet 5 mg PO TIDP PRN (Reason: Anxiety) RF: 0 promethazine 25 mg suppository 25 mg [place] Q6H PRN (Reason: nausea and vomiting) Qty: 12 RF: 0 Referrals: Salvatore Villegas MD [Primary Care Provider] -
[2019-03-21] MEDS: LORazepam 2 MG/ML INJ 1 MG IV ×2 (13:33→14:40)
[2019-03-21] MEDS: SODIUM CHLORIDE 0.9% 1,000 ML 1000 ML IV ×2 (13:33→14:58)
[2019-03-21] MEDS: HYDROMORPHONE 1 MG INJ IV ×2 (13:33→14:55)
[2019-03-21] MEDS: ONDANSETRON 4 MG/2 ML INJ IV ×2 (13:33→14:40)
[2019-03-21 13:46] VITALS: BP 135/74; PULSE 64; RESP 18; O2SAT 97
[2019-03-21 13:54] LABS: Add Manual Diff / Slide Review NO; Basophils Absolute Auto 0 /uL (0-100); Basophils Percent Auto 0.4 % (0-2); Eosinophils Absolute Auto 100 /uL (0-450); Eosinophils Percent Auto 1.3 % (2-4); Hematocrit 40.1 % (36-46); Hemoglobin 13.4 g/dL (12.0-16.0); Lymphocytes Absolute Auto 800 /uL (1100-4500); Lymphocytes Percent Auto 14.2 % (25-40); Mean Corpuscular HGB Conc 33.5 % (30-36); Mean Corpuscular Hemoglobin 31.2 PG (26-34); Mean Corpuscular Volume 93.1 fL (80-100); Monocytes Absolute Auto 300 /uL (0-900); Monocytes Percent Auto 4.7 % (3-14); Neutrophils Absolute Auto 4500 /uL (1500-7000); Neutrophils Percent Auto 79.4 % (50-75); Platelet Count 194 X10^3/uL (150-400); Red Blood Cell Count 4.31 X10^6/uL (4.0-5.2); Red Cell Distribution Width 13.2 % (11.6-14.8); White Blood Cell Count 5.6 X10^3/uL (4.5-11.0)
[2019-03-21 13:59] LABS: HCO3 VBG 25 mmol/L (23-28); PCO2 VBG 36.2 mmHg (45-50); PO2 VBG 49 mmHg (35-45); Total CO2 VBG 26 mmol/L (24-29); pH VBG 7.44 (7.33-7.43)
[2019-03-21 14:00] LABS: Oxygen Saturation VBG 86 % (70-75)
[2019-03-21 14:06] LABS: Alanine Aminotransferase 31 IU/L (9-52); Albumin Globulin Ratio 1.4 (1.0-2.8); Alkaline Phosphatase 91 U/L (38-126); Aspartate Aminotransferase 40 IU/L (14-36); BUN Creatinine Ratio 14.3 (6-22); Bilirubin Total 0.7 mg/dL (0.2-1.3); Blood Urea Nitrogen 10 mg/dL (7-17); Calcium 9.1 mg/dL (8.4-10.2); Carbon Dioxide 28 mmol/L (22-32); Chloride 103 mmol/L (98-107); Estimated Glomerular Filt Rate > 60.0 mL/min (>60); Globulin 2.9 g/dL (1.7-4.1); Glucose 309 mg/dL (70-100); HEMOLYSIS < 15 (0-50); Lactate (Lactic Acid) 1.1 mmol/L (0.7-2.1); Magnesium 1.8 mg/dL (1.6-2.3); Phosphorous 2.6 mg/dL (2.5-4.5); Potassium 4.1 mmol/L (3.4-5.1); Sodium 136 mmol/L (137-145); Total Protein 6.9 g/dL (6.3-8.2)
[2019-03-21 14:35] LABS: Procalcitonin < 0.05 ng/mL (<0.5)
[2019-03-21 14:47] LABS: Ketones (Beta-Hydroxybutyrate) 0.49 mmol/L (<0.27)
[2019-03-21] MEDS: PANTOPRAZOLE 40 MG VIAL IV (14:55)
[2019-03-21 15:05] VITALS: BP 158/71; PULSE 63; RESP 20; O2SAT 98
[2019-03-21 16:13] VITALS: BP 113/70; PULSE 64; RESP 18; O2SAT 100
[2019-03-21] MEDS: HYDROMORPHONE 1 MG INJ 0.5 MG IV (16:58)
[2019-03-21] MEDS: hydrOXYzine 50 MG/ML INJ 25 MG IM (17:46)
[2019-03-21 17:58] VITALS: BP 133/78; PULSE 65; RESP 16; O2SAT 97
== END 2019-03-21 17:59 | disposition home or self-care (01) ==
PROVIDERS: Emergency Provider Emergency Medicine; PCP Internal Medicine
DX: E11.43 Type 2 diabetes mellitus with diabetic autonomic (poly)neuropathy (principal)
CPT/HCPCS: 36415; 80053; 82009; 82805; 82962; 83605; 83735; 84100; 84145; 85025; 87040; 93005; 93010; 96361; 96372; 96374; 96375; 99284; C9113; J1170; J2060; J2405; J3410

== ENCOUNTER 2019-03-22 13:46 | Emergency (ER) | payer OTHER, SELFPAY ==
[2019-03-22 13:53] VITALS: BP 151/69; PULSE 67; RESP 20; TEMP 36.9; O2SAT 99
[2019-03-22 14:11] LABS: Add Manual Diff / Slide Review NO; Basophils Absolute Auto 0 /uL (0-100); Basophils Percent Auto 0.4 % (0-2); Eosinophils Absolute Auto 100 /uL (0-450); Eosinophils Percent Auto 1.5 % (2-4); Hematocrit 40.1 % (36-46); Hemoglobin 13.5 g/dL (12.0-16.0); Lymphocytes Absolute Auto 900 /uL (1100-4500); Lymphocytes Percent Auto 13.9 % (25-40); Mean Corpuscular HGB Conc 33.6 % (30-36); Mean Corpuscular Hemoglobin 31.6 PG (26-34); Mean Corpuscular Volume 94.1 fL (80-100); Monocytes Absolute Auto 400 /uL (0-900); Monocytes Percent Auto 6.1 % (3-14); Neutrophils Absolute Auto 5100 /uL (1500-7000); Neutrophils Percent Auto 78.1 % (50-75); Platelet Count 200 X10^3/uL (150-400); Red Blood Cell Count 4.26 X10^6/uL (4.0-5.2); Red Cell Distribution Width 13.6 % (11.6-14.8); White Blood Cell Count 6.6 X10^3/uL (4.5-11.0)
[2019-03-22 14:12] LABS: Prothrombin Time 11.1 SECONDS (10.1-12.7)
[2019-03-22 14:15] LABS: PTT Partial Thromboplastin Tim 29 SECONDS (26.4-36.2)
[2019-03-22 14:17] LABS: Lactate (Lactic Acid) 0.9 mmol/L (0.7-2.1)
[2019-03-22 14:33] LABS: Alanine Aminotransferase 30 IU/L (9-52); Albumin 4.2 g/dL (3.5-5.0); Albumin Globulin Ratio 1.5 (1.0-2.8); Alkaline Phosphatase 79 U/L (38-126); Aspartate Aminotransferase 42 IU/L (14-36); Bilirubin Total 0.8 mg/dL (0.2-1.3); Blood Urea Nitrogen 7 mg/dL (7-17); Calcium 9.7 mg/dL (8.4-10.2); Carbon Dioxide 28 mmol/L (22-32); Chloride 104 mmol/L (98-107); Estimated Glomerular Filt Rate > 60.0 mL/min (>60); Globulin 2.8 g/dL (1.7-4.1); Glucose 154 mg/dL (70-100); Lipase 19 U/L (23-300); Sodium 140 mmol/L (137-145)
[2019-03-22] MEDS: SODIUM CHLORIDE 0.9% 1,000 ML 1000 ML IV ×2 (14:38→17:05)
[2019-03-22] MEDS: ONDANSETRON 4 MG/2 ML INJ IV (14:38)
[2019-03-22] MEDS: LORazepam 2 MG/ML INJ 1 MG IV ×2 (14:38→18:09)
[2019-03-22] MEDS: hydrOXYzine 50 MG/ML INJ 25 MG IM (14:38)
[2019-03-22 15:00] LABS: HEMOLYSIS < 15 (0-50)
[2019-03-22] MEDS: HYDROMORPHONE 1 MG INJ IV ×3 (15:41→18:34)
[2019-03-22 16:08] LABS: Procalcitonin < 0.05 ng/mL (<0.5)
[2019-03-22 16:27] VITALS: BP 154/52; PULSE 71; RESP 17; O2SAT 99
[2019-03-22] MEDS: PANTOPRAZOLE 40 MG VIAL IV (17:04)
[2019-03-22 18:00] VITALS: BP 112/46; PULSE 61; RESP 16; O2SAT 97
[2019-03-22 19:46] VITALS: BP 140/69; PULSE 66; O2SAT 100
--- NOTE | 2019-03-22 20:23 | ED.NAVMDI ---
HPI - Nausea/Vomiting/Diarrhea <Mary Ann Guerrero, [employer] - Last Filed: 03/22/19 20:28> General Chief complaint: Nausea/Vomiting/Diarrhea Stated complaint: diabetic gastroperisis Time Seen by Provider: 03/22/19 14:07 Source: patient and family Mode of arrival: ambulatory Limitations: no limitations History of Present Illness HPI Narrative: The patient is a 58-year-old female former smoker with history of diabetes who presents with her for chief complaint of nausea and vomiting. She has a history of gastroparesis, and was seen at this facility yesterday for the same. She denies any fevers. She states that she woke up at noon, with a migraine and started vomiting. She states she last took her Phenergan suppository at 10:00 a.m.. She states her blood sugar was on 170s prior to arrival. She states her abdominal pain is generalized. She denies any chest pain, cough, shortness of breath. She states that her headache is usual for her. She states that this is a common occurrence for her, which correlates with her presented medical history. Related Data Home Medications Medication Instructions Recorded Confirmed Domperidone (#DOMPERIDONE) 30 mg PO ACHS #2 07/29/12 03/22/19 insulin lispro [Humalog U-100 0 unit CONTINUOUS IV INFUSION 07/29/12 03/22/19 Insulin] DAILY #0 rosuvastatin [Crestor] 10 mg PO BEDTIME #0 07/29/12 03/22/19 pantoprazole [Protonix] 40 mg PO DAILY #0 10/06/12 03/22/19 hydrocortisone 10 mg PO DAILY #0 05/03/17 03/22/19 Glucagon Emergency Kit (human) 1 dose SUBCUT DIRECTED 02/03/19 03/22/19 alendronate 70 mg PO QWEEK 02/03/19 03/22/19 diazepam 5 mg PO TIDP PRN 02/03/19 03/22/19 hydromorphone 4 mg PO TID PRN 02/03/19 03/22/19 levothyroxine 75 mcg PO DAILY 02/03/19 03/22/19 ondansetron HCl [Zofran] 8 mg PO TID PRN 03/22/19 03/22/19 Previous Rx's Medication Instructions Recorded promethazine 25 mg ME Q6H PRN #12 each 02/03/19 Allergies Allergy/AdvReac Type Severity Reaction Status Date / Time amitriptyline Allergy Intermediate SEIZURES Verified 02/18/19 11:17 droperidol Allergy Intermediate CLONIC Verified 02/18/19 11:17 REACTION metoclopramide Allergy Intermediate CLONIC Verified 02/18/19 11:17 REACTION prochlorperazine Allergy Intermediate CLONIC Verified 02/18/19 11:17 REACTION azithromycin AdvReac Mild N/V Verified 02/18/19 11:17 ciprofloxacin AdvReac Mild N/V Verified 02/18/19 11:17 hydrocodone AdvReac Mild N/V Verified 02/18/19 11:17 ketorolac AdvReac Mild N/V Verified 02/18/19 11:17 Review of Systems <MARLEEN Ibrahim - Last Filed: 03/22/19 20:28> Review of Systems GENERAL: Denies chills, fatigue, malaise, fever, sweats. HEENT: Denies sinus pain, ear pain, sore throat, difficulty swallowing, dizziness. RESPIRATORY: Denies dyspnea, cough, wheezing, hemoptysis, sputum. CARDIOVASCULAR: Denies chest pain, palpitations, orthopnea, edema, GASTROINTESTINAL: See HPI : Denies dysuria, frequency, incontinence, hematuria, urinary retention. MUSCULOSKELETAL: denies weakness, joint pain, or bony pain SKIN: Denies rash, skin lesions, or other NEUROLOGIC: See HPI PSYCHIATRIC: No concerning psychosocial issues. 12 point review of systems is negative except for those stated above PFSH <MARLEEN Ibrahim - Last Filed: 03/22/19 20:28> Medical History Chronic cholecystitis (Acute) Diabetes (Acute) Diabetic retinopathy (Acute) Hyperlipidemia (Acute) Hypothyroid (Acute) Osteomyelitis (Acute) Family History Mother Non Hodgkin's lymphoma Social History marital status: household members: spouse Smoking Status: Former smoker Family History Mother Non Hodgkin's lymphoma Social History marital status: household members: spouse Smoking Status: Former smoker Exam <MARLEEN Ibrahim - Last Filed: 03/22/19 20:28> Narrative Exam Narrative: GENERAL: Female lying on stretcher with a vomit bag HEAD: Atraumatic. Normocephalic. No temporal or scalp tenderness. EYES: Pupils equal round and reactive. Extraocular motions intact. No scleral icterus. No injection or drainage. ENT: Nose without bleeding, purulent drainage or septal hematoma. Throat without erythema, tonsillar hypertrophy or exudate. Uvula midline. Airway patent. NECK: Trachea midline. No JVD or lymphadenopathy. Supple, nontender, no meningeal signs. CARDIOVASCULAR: Regular rate and rhythm without murmurs, gallops, or rubs. RESPIRATORY: Clear to auscultation. Breath sounds equal bilaterally. No wheezes, rales, or rhonchi. GASTROINTESTINAL: Abdomen soft, diffusely tender, nondistended. No hepato-splenomegaly, or palpable masses. No guarding. Active bowel sounds all 4 quadrants EXTREMITIES: No clubbing, cyanosis, or edema. No joint tenderness, effusion, or edema noted. BACK: Nontender without deformity or crepitance. No flank tenderness. NEURO: AOx3. SKIN: No rash or erythema. Initial Vital Signs Initial Vital Signs: Vital Signs Temperature 98.4 F 03/22/19 13:53 Pulse Rate 67 03/22/19 13:53 Respiratory Rate 20 03/22/19 13:53 Blood Pressure 151/69 H 03/22/19 13:53 Pulse Oximetry 99 03/22/19 13:53 <Mary Ann De La Garza DO - Last Filed: 03/23/19 07:39> Initial Vital Signs Initial Vital Signs: Vital Signs Temperature 98.4 F 03/22/19 13:53 Pulse Rate 67 03/22/19 13:53 Respiratory Rate 20 03/22/19 13:53 Blood Pressure 151/69 H 03/22/19 13:53 Pulse Oximetry 99 03/22/19 13:53 Course <MARLEEN Ibrahim - Last Filed: 03/22/19 20:28> Orders Ordered: Discontinued Medications Hydromorphone HCl (Dilaudid) 1 mg IV NOW ONE Stop: 03/22/19 15:37 Last Admin: 03/22/19 15:41 Dose: 1 mg Hydromorphone HCl (Dilaudid) 1 mg IV NOW ONE Stop: 03/22/19 16:37 Last Admin: 03/22/19 17:04 Dose: 1 mg Hydromorphone HCl (Dilaudid) 1 mg IV NOW ONE Stop: 03/22/19 18:28 Last Admin: 03/22/19 18:34 Dose: 1 mg Hydroxyzine HCl (Vistaril) 25 mg IM NOW ONE Stop: 03/22/19 14:33 Last Admin: 03/22/19 14:38 Dose: 25 mg Sodium Chloride (Normal Saline 0.9%) 1,000 mls @ 1,000 mls/hr IV BOLUS ONE Stop: 03/22/19 15:26 Last Infusion: 03/22/19 15:35 Dose: 0 mls/hr Admin: 03/22/19 14:38 Dose: 1,000 mls/hr Sodium Chloride (Normal Saline 0.9%) 1,000 mls @ 1,000 mls/hr IV BOLUS ONE Stop: 03/22/19 16:37 Last Infusion: 03/22/19 18:35 Dose: 0 mls/hr Admin: 03/22/19 17:05 Dose: 1,000 mls/hr Lorazepam (Ativan) 1 mg IV NOW ONE Stop: 03/22/19 14:28 Last Admin: 03/22/19 14:38 Dose: 1 mg Lorazepam (Ativan) 1 mg IV NOW ONE Stop: 03/22/19 18:01 Last Admin: 03/22/19 18:09 Dose: 1 mg Ondansetron HCl (Zofran) 4 mg IV NOW ONE Stop: 03/22/19 14:04 Last Admin: 03/22/19 14:38 Dose: 4 mg Pantoprazole Sodium (Protonix) 40 mg IV NOW ONE Stop: 03/22/19 16:37 Last Admin: 03/22/19 17:04 Dose: 40 mg Vital Signs - 8 hr 03/22/19 13:53 03/22/19 16:27 03/22/19 18:00 Temperature 98.4 F Pulse Rate 67 71 61 Respiratory Rate 20 17 16 Blood Pressure 151/69 H Blood Pressure [Left Arm] 154/52 H 112/46 L Pulse Oximetry 99 99 97 03/22/19 19:46 Temperature Pulse Rate 66 Respiratory Rate Blood Pressure Blood Pressure [Left Arm] 140/69 Pulse Oximetry 100 <Mary Ann De La Garza, - Last Filed: 03/23/19 07:39> Orders Ordered: Discontinued Medications Hydromorphone HCl (Dilaudid) 1 mg IV NOW ONE Stop: 03/22/19 15:37 Last Admin: 03/22/19 15:41 Dose: 1 mg Hydromorphone HCl (Dilaudid) 1 mg IV NOW ONE Stop: 03/22/19 16:37 Last Admin: 03/22/19 17:04 Dose: 1 mg Hydromorphone HCl (Dilaudid) 1 mg IV NOW ONE Stop: 03/22/19 18:28 Last Admin: 03/22/19 18:34 Dose: 1 mg Hydroxyzine HCl (Vistaril) 25 mg IM NOW ONE Stop: 03/22/19 14:33 Last Admin: 03/22/19 14:38 Dose: 25 mg Sodium Chloride (Normal Saline 0.9%) 1,000 mls @ 1,000 mls/hr IV BOLUS ONE Stop: 03/22/19 15:26 Last Infusion: 03/22/19 15:35 Dose: 0 mls/hr Admin: 03/22/19 14:38 Dose: 1,000 mls/hr Sodium Chloride (Normal Saline 0.9%) 1,000 mls @ 1,000 mls/hr IV BOLUS ONE Stop: 03/22/19 16:37 Last Infusion: 03/22/19 18:35 Dose: 0 mls/hr Admin: 03/22/19 17:05 Dose: 1,000 mls/hr Lorazepam (Ativan) 1 mg IV NOW ONE Stop: 03/22/19 14:28 Last Admin: 03/22/19 14:38 Dose: 1 mg Lorazepam (Ativan) 1 mg IV NOW ONE Stop: 03/22/19 18:01 Last Admin: 03/22/19 18:09 Dose: 1 mg Ondansetron HCl (Zofran) 4 mg IV NOW ONE Stop: 03/22/19 14:04 Last Admin: 08/07/19 14:38 Dose: 4 mg Pantoprazole Sodium (Protonix) 40 mg IV NOW ONE Stop: 03/22/19 16:37 Last Admin: 03/22/19 17:04 Dose: 40 mg Vital Signs - 8 hr 03/22/19 13:53 03/22/19 16:27 03/22/19 18:00 Temperature 98.4 F Pulse Rate 67 71 61 Respiratory Rate 20 17 16 Blood Pressure 151/69 H Blood Pressure [Left Arm] 154/52 H 112/46 L Pulse Oximetry 99 99 97 03/22/19 19:46 Temperature Pulse Rate 66 Respiratory Rate Blood Pressure Blood Pressure [Left Arm] 140/69 Pulse Oximetry 100 MDM - Nausea/Vomiting/Diarrhea <OSKAR Ibrahim- - Last Filed: 03/22/19 20:28> Lab Data Result diagrams: 03/22/19 14:00 03/22/19 14:00 Lab Results 03/22/19 03/22/19 03/22/19 Range/Units 14:00 14:00 14:00 WBC 6.6 (4.5-11.0) X10^3/uL RBC 4.26 (4.0-5.2) X10^6/uL Hgb 13.5 (12.0-16.0) g/dL Hct 40.1 (36-46) % MCV 94.1 (80-100) fL MCH 31.6 (26-34) PG MCHC 33.6 (30-36) % RDW 13.6 (11.6-14.8) % Plt Count 200 (150-400) X10^3/uL Neut % (Auto) 78.1 H (50-75) % Lymph % (Auto) 13.9 L (25-40) % Bath % (Auto) 6.1 (3-14) % Eos % (Auto) 1.5 L (2-4) % Baso % (Auto) 0.4 (0-2) % Neut # (Auto) 5100 (2664-0223) /uL Lymph # (Auto) 900 L (6221-9023) /uL Bath # (Auto) 400 (0-900) /uL Eos # (Auto) 100 (0-450) /uL Baso # (Auto) 0 (0-100) /uL PT 11.1 (10.1-12.7) SECONDS INR 1.0 (0.9-1.3) APTT 29 (26.4-36.2) SECONDS Sodium 140 (137-145) mmol/L Potassium 4.0 (3.4-5.1) mmol/L Chloride 104 (98-107) mmol/L Carbon Dioxide 28 (22-32) mmol/L BUN 7 (7-17) mg/dL Creatinine 0.70 (0.52-1.04) mg/dL Estimated GFR > 60.0 (>60) mL/min BUN/Creatinine Ratio 10.0 (6-22) Glucose 154 H D (70-100) mg/dL Lactate (0.7-2.1) mmol/L Calcium 9.7 (8.4-10.2) mg/dL Total Bilirubin 0.8 (0.2-1.3) mg/dL AST 42 H (14-36) IU/L ALT 30 (9-52) IU/L Alkaline Phosphatase 79 (38-126) U/L Total Protein 7.0 (6.3-8.2) g/dL Albumin 4.2 (3.5-5.0) g/dL Globulin 2.8 (1.7-4.1) g/dL Albumin/Globulin Ratio 1.5 (1.0-2.8) Lipase 19 L (23-300) U/L Procalcitonin (<0.5) ng/mL Ketones 0.50 H (<0.27) mmol/L 03/22/19 03/22/19 Range/Units 14:00 14:00 WBC (4.5-11.0) X10^3/uL RBC (4.0-5.2) X10^6/uL Hgb (12.0-16.0) g/dL Hct (36-46) % MCV (80-100) fL MCH (26-34) PG MCHC (30-36) % RDW (11.6-14.8) % Plt Count (150-400) X10^3/uL Neut % (Auto) (50-75) % Lymph % (Auto) (25-40) % Bath % (Auto) (3-14) % Eos % (Auto) (2-4) % Baso % (Auto) (0-2) % Neut # (Auto) (8704-2363) /uL Lymph # (Auto) (3137-6539) /uL Bath # (Auto) (0-900) /uL Eos # (Auto) (0-450) /uL Baso # (Auto) (0-100) /uL PT (10.1-12.7) SECONDS INR (0.9-1.3) APTT (26.4-36.2) SECONDS Sodium (137-145) mmol/L Potassium (3.4-5.1) mmol/L Chloride (98-107) mmol/L Carbon Dioxide (22-32) mmol/L BUN (7-17) mg/dL Creatinine (0.52-1.04) mg/dL Estimated GFR (>60) mL/min BUN/Creatinine Ratio (6-22) Glucose (70-100) mg/dL Lactate 0.9 (0.7-2.1) mmol/L Calcium (8.4-10.2) mg/dL Total Bilirubin (0.2-1.3) mg/dL AST (14-36) IU/L ALT (9-52) IU/L Alkaline Phosphatase (38-126) U/L Total Protein (6.3-8.2) g/dL Albumin (3.5-5.0) g/dL Globulin (1.7-4.1) g/dL Albumin/Globulin Ratio (1.0-2.8) Lipase (23-300) U/L Procalcitonin < 0.05 (<0.5) ng/mL Ketones (<0.27) mmol/L Urine Dip Bedside Urine Glucose 100 mg/dl Bedside Urine Bilirubin - Negative Bedside Urine Ketone - Negative Urine Specific Spreckels 1.015 Bedside Urine Occult Blood - Negative Bedside Urine pH 7.5 Bedside Urine Protein - Negative Bedside Urine Urobilinogen - Negative Bedside Urine Nitrite - Negative Bedside Urine Leukocytes - Negative Esterase MDM Narrative Medical decision making narrative: The patient is a 58-year-old female with history of gastroparesis related to type 1 diabetes who presents with a chief complaint of cyclic vomiting. She received IV medications in the emergency department, as well as IV fluids. She is not in DKA as carbon dioxide is 28 on her lab work and her electrolytes are within normal limits. Her blood sugars are in the 170s. Her lactate is 0.9. She has a negative procalcitonin. After receiving IV fluids and medications, the patient was able to tolerate p.o. trial. I discussed that she is a bounce-back, and offered to try to arrange admission. She declined this and states she wants to go home. The patient repeatedly stated she did not want to be admitted would prefer to go home. I encouraged her to follow up with her PCP. Discussed at length return precautions the emergency department including fever with abdominal pain, inability keep down fluids etc. No questions or concerns upon discharge. <Mary Ann De La Garza, DO - Last Filed: 03/23/19 07:39> Lab Data Lab Results 03/22/19 03/22/19 03/22/19 Range/Units 14:00 14:00 14:00 WBC 6.6 (4.5-11.0) X10^3/uL RBC 4.26 (4.0-5.2) X10^6/uL Hgb 13.5 (12.0-16.0) g/dL Hct 40.1 (36-46) % MCV 94.1 (80-100) fL MCH 31.6 (26-34) PG MCHC 33.6 (30-36) % RDW 13.6 (11.6-14.8) % Plt Count 200 (150-400) X10^3/uL Neut % (Auto) 78.1 H (50-75) % Lymph % (Auto) 13.9 L (25-40) % Bath % (Auto) 6.1 (3-14) % Eos % (Auto) 1.5 L (2-4) % Baso % (Auto) 0.4 (0-2) % Neut # (Auto) 5100 (0203-1379) /uL Lymph # (Auto) 900 L (2823-8519) /uL Bath # (Auto) 400 (0-900) /uL Eos # (Auto) 100 (0-450) /uL Baso # (Auto) 0 (0-100) /uL PT 11.1 (10.1-12.7) SECONDS INR 1.0 (0.9-1.3) APTT 29 (26.4-36.2) SECONDS Sodium 140 (137-145) mmol/L Potassium 4.0 (3.4-5.1) mmol/L Chloride 104 (98-107) mmol/L Carbon Dioxide 28 (22-32) mmol/L BUN 7 (7-17) mg/dL Creatinine 0.70 (0.52-1.04) mg/dL Estimated GFR > 60.0 (>60) mL/min BUN/Creatinine Ratio 10.0 (6-22) Glucose 154 H D (70-100) mg/dL Lactate (0.7-2.1) mmol/L Calcium 9.7 (8.4-10.2) mg/dL Total Bilirubin 0.8 (0.2-1.3) mg/dL AST 42 H (14-36) IU/L ALT 30 (9-52) IU/L Alkaline Phosphatase 79 (38-126) U/L Total Protein 7.0 (6.3-8.2) g/dL Albumin 4.2 (3.5-5.0) g/dL Globulin 2.8 (1.7-4.1) g/dL Albumin/Globulin Ratio 1.5 (1.0-2.8) Lipase 19 L (23-300) U/L Procalcitonin (<0.5) ng/mL Ketones 0.50 H (<0.27) mmol/L 03/22/19 03/22/19 Range/Units 14:00 14:00 WBC (4.5-11.0) X10^3/uL RBC (4.0-5.2) X10^6/uL Hgb (12.0-16.0) g/dL Hct (36-46) % MCV (80-100) fL MCH (26-34) PG MCHC (30-36) % RDW (11.6-14.8) % Plt Count (150-400) X10^3/uL Neut % (Auto) (50-75) % Lymph % (Auto) (25-40) % Bath % (Auto) (3-14) % Eos % (Auto) (2-4) % Baso % (Auto) (0-2) % Neut # (Auto) (2226-8798) /uL Lymph # (Auto) (5529-0769) /uL Bath # (Auto) (0-900) /uL Eos # (Auto) (0-450) /uL Baso # (Auto) (0-100) /uL PT (10.1-12.7) SECONDS INR (0.9-1.3) APTT (26.4-36.2) SECONDS Sodium (137-145) mmol/L Potassium (3.4-5.1) mmol/L Chloride (98-107) mmol/L Carbon Dioxide (22-32) mmol/L BUN (7-17) mg/dL Creatinine (0.52-1.04) mg/dL Estimated GFR (>60) mL/min BUN/Creatinine Ratio (6-22) Glucose (70-100) mg/dL Lactate 0.9 (0.7-2.1) mmol/L Calcium (8.4-10.2) mg/dL Total Bilirubin (0.2-1.3) mg/dL AST (14-36) IU/L ALT (9-52) IU/L Alkaline Phosphatase (38-126) U/L Total Protein (6.3-8.2) g/dL Albumin (3.5-5.0) g/dL Globulin (1.7-4.1) g/dL Albumin/Globulin Ratio (1.0-2.8) Lipase (23-300) U/L Procalcitonin < 0.05 (<0.5) ng/mL Ketones (<0.27) mmol/L Urine Dip Bedside Urine Glucose 100 mg/dl Bedside Urine Bilirubin - Negative Bedside Urine Ketone - Negative Urine Specific Spreckels 1.015 Bedside Urine Occult Blood - Negative Bedside Urine pH 7.5 Bedside Urine Protein - Negative Bedside Urine Urobilinogen - Negative Bedside Urine Nitrite - Negative Bedside Urine Leukocytes - Negative Esterase Discharge Plan Departure Patient Disposition: Home Clinical Impression: Diabetic gastroparesis Abdominal pain Qualifiers: Abdominal location: generalized Qualified Code(s): R10.84 - Generalized abdominal pain Discharge Date/Time: 03/22/19 20:09 Interventions: ED Discharge Assessment Last Done: 03/22/19 20:09 Instructions: DI for Nausea -- Adult, DI for Vomiting -- Adult, DI for Gastroparesis Activity Restrictions/Additional Instructions: Today we gave you fluids and nausea medication. Please follow up with your primary care provider. Please come back to the emergency department for any acute concerns such as inability keep down fluids. Prescriptions: No Action insulin lispro [Humalog U-100 Insulin] 100 UNIT/1 ML solution continuous IV infusion DAILY Qty: 0 RF: 0 Domperidone (#DOMPERIDONE) 30 mg PO ACHS Qty: 2 RF: 0 rosuvastatin [Crestor] 10 MG tablet 10 mg PO BEDTIME Qty: 0 RF: 0 pantoprazole [Protonix] 40 MG tablet,delayed release (DR/EC) 40 mg PO DAILY Qty: 0 RF: 0 hydrocortisone 10 MG tablet 10 mg PO DAILY Qty: 0 RF: 0 alendronate 70 mg Tablet 70 mg PO QWEEK RF: 0 levothyroxine 75 mcg Tablet 75 mcg PO DAILY RF: 0 Glucagon Emergency Kit (human) 1 mg Recon Soln 1 dose subcut DIRECTED RF: 0 hydromorphone 4 MG tablet 4 mg PO TID PRN (Reason: PAIN) RF: 0 diazepam 5 MG tablet 5 mg PO TIDP PRN (Reason: Anxiety) RF: 0 promethazine 25 mg suppository 25 mg ME Q6H PRN (Reason: nausea and vomiting) Qty: 12 RF: 0 ondansetron HCl [Zofran] 8 mg Tablet 8 mg PO TID PRN (Reason: Nausea) RF: 0 Referrals: Salvatore Villegas MD [Primary Care Provider] - <Mary Ann De La Garza DO - Last Filed: 03/23/19 07:39> Cosign ED Attending Cosignature Attestation: I was immediately available in the department for consultation. This documentation has been reviewed and I agree with assessment and plan. Supervised by Mary Ann De La Garza DO
--- NOTE | 2019-03-22 20:28 | ED_ITS ---
HPI - Nausea/Vomiting/Diarrhea <Mary Ann Guerrero, MANAGER [employer] - Last Filed: 03/22/19 20:28> General Chief complaint: Nausea/Vomiting/Diarrhea Stated complaint: diabetic gastroperisis Time Seen by Provider: 03/22/19 14:07 Source: patient and family Mode of arrival: ambulatory Limitations: no limitations History of Present Illness HPI Narrative: The patient is a 58-year-old female former smoker with history of diabetes who presents with her for chief complaint of nausea and vomiting. She has a history of gastroparesis, and was seen at this facility yesterday for the same. She denies any fevers. She states that she woke up at noon, with a migraine and started vomiting. She states she last took her Phenergan suppository at 10:00 a.m.. She states her blood sugar was on 170s prior to arrival. She states her abdominal pain is generalized. She denies any chest pain, cough, shortness of breath. She states that her headache is usual for her. She states that this is a common occurrence for her, which correlates with her presented medical history. Related Data Home Medications Medication Instructions Recorded Confirmed Domperidone (#DOMPERIDONE) 30 mg PO ACHS #2 07/29/12 03/22/19 insulin lispro [Humalog U-100 0 unit CONTINUOUS IV INFUSION 07/29/12 03/22/19 Insulin] DAILY #0 rosuvastatin [Crestor] 10 mg PO BEDTIME #0 07/29/12 03/22/19 pantoprazole [Protonix] 40 mg PO DAILY #0 10/06/12 03/22/19 hydrocortisone 10 mg PO DAILY #0 05/03/17 03/22/19 Glucagon Emergency Kit (human) 1 dose SUBCUT DIRECTED 02/03/19 03/22/19 alendronate 70 mg PO QWEEK 02/03/19 03/22/19 diazepam 5 mg PO TIDP PRN 02/03/19 03/22/19 hydromorphone 4 mg PO TID PRN 02/03/19 03/22/19 levothyroxine 75 mcg PO DAILY 02/03/19 03/22/19 ondansetron HCl [Zofran] 8 mg PO TID PRN 03/22/19 03/22/19 Previous Rx's Medication Instructions Recorded promethazine 25 mg ND Q6H PRN #12 each 02/03/19 Allergies Allergy/AdvReac Type Severity Reaction Status Date / Time amitriptyline Allergy Intermediate SEIZURES Verified 02/18/19 11:17 droperidol Allergy Intermediate CLONIC Verified 02/18/19 11:17 REACTION metoclopramide Allergy Intermediate CLONIC Verified 02/18/19 11:17 REACTION prochlorperazine Allergy Intermediate CLONIC Verified 02/18/19 11:17 REACTION azithromycin AdvReac Mild N/V Verified 02/18/19 11:17 ciprofloxacin AdvReac Mild N/V Verified 02/18/19 11:17 hydrocodone AdvReac Mild N/V Verified 02/18/19 11:17 ketorolac AdvReac Mild N/V Verified 02/18/19 11:17 Review of Systems <MARLEEN Ibrahim - Last Filed: 03/22/19 20:28> Review of Systems GENERAL: Denies chills, fatigue, malaise, fever, sweats. HEENT: Denies sinus pain, ear pain, sore throat, difficulty swallowing, dizziness. RESPIRATORY: Denies dyspnea, cough, wheezing, hemoptysis, sputum. CARDIOVASCULAR: Denies chest pain, palpitations, orthopnea, edema, GASTROINTESTINAL: See HPI : Denies dysuria, frequency, incontinence, hematuria, urinary retention. MUSCULOSKELETAL: denies weakness, joint pain, or bony pain SKIN: Denies rash, skin lesions, or other NEUROLOGIC: See HPI PSYCHIATRIC: No concerning psychosocial issues. 12 point review of systems is negative except for those stated above PFSH <MARLEEN Ibrahim - Last Filed: 03/22/19 20:28> Medical History Chronic cholecystitis (Acute) Diabetes (Acute) Diabetic retinopathy (Acute) Hyperlipidemia (Acute) Hypothyroid (Acute) Osteomyelitis (Acute) Family History Mother Non Hodgkin's lymphoma Social History marital status: household members: spouse Smoking Status: Former smoker Family History Mother Non Hodgkin's lymphoma Social History marital status: household members: spouse Smoking Status: Former smoker Exam <MARLEEN Ibrahim - Last Filed: 03/22/19 20:28> Narrative Exam Narrative: GENERAL: Female lying on stretcher with a vomit bag HEAD: Atraumatic. Normocephalic. No temporal or scalp tenderness. EYES: Pupils equal round and reactive. Extraocular motions intact. No scleral icterus. No injection or drainage. ENT: Nose without bleeding, purulent drainage or septal hematoma. Throat without erythema, tonsillar hypertrophy or exudate. Uvula midline. Airway patent. NECK: Trachea midline. No JVD or lymphadenopathy. Supple, nontender, no meningeal signs. CARDIOVASCULAR: Regular rate and rhythm without murmurs, gallops, or rubs. RESPIRATORY: Clear to auscultation. Breath sounds equal bilaterally. No wheezes, rales, or rhonchi. GASTROINTESTINAL: Abdomen soft, diffusely tender, nondistended. No hepato- splenomegaly, or palpable masses. No guarding. Active bowel sounds all 4 quadrants EXTREMITIES: No clubbing, cyanosis, or edema. No joint tenderness, effusion, or edema noted. BACK: Nontender without deformity or crepitance. No flank tenderness. NEURO: AOx3. SKIN: No rash or erythema. Initial Vital Signs Initial Vital Signs: Vital Signs Temperature 98.4 F 03/22/19 13:53 Pulse Rate 67 03/22/19 13:53 Respiratory Rate 20 03/22/19 13:53 Blood Pressure 151/69 H 03/22/19 13:53 Pulse Oximetry 99 03/22/19 13:53 <Mary Ann De La Garza DO - Last Filed: 03/23/19 07:39> Initial Vital Signs Initial Vital Signs: Vital Signs Temperature 98.4 F 03/22/19 13:53 Pulse Rate 67 03/22/19 13:53 Respiratory Rate 20 03/22/19 13:53 Blood Pressure 151/69 H 03/22/19 13:53 Pulse Oximetry 99 03/22/19 13:53 Course <MARLEEN Ibrahim - Last Filed: 03/22/19 20:28> Orders Ordered: Discontinued Medications Hydromorphone HCl (Dilaudid) 1 mg IV NOW ONE Stop: 03/22/19 15:37 Last Admin: 03/22/19 15:41 Dose: 1 mg Hydromorphone HCl (Dilaudid) 1 mg IV NOW ONE Stop: 03/22/19 16:37 Last Admin: 03/22/19 17:04 Dose: 1 mg Hydromorphone HCl (Dilaudid) 1 mg IV NOW ONE Stop: 03/22/19 18:28 Last Admin: 03/22/19 18:34 Dose: 1 mg Hydroxyzine HCl (Vistaril) 25 mg IM NOW ONE Stop: 03/22/19 14:33 Last Admin: 03/22/19 14:38 Dose: 25 mg Sodium Chloride (Normal Saline 0.9%) 1,000 mls @ 1,000 mls/hr IV BOLUS ONE Stop: 03/22/19 15:26 Last Infusion: 03/22/19 15:35 Dose: 0 mls/hr Admin: 03/22/19 14:38 Dose: 1,000 mls/hr Sodium Chloride (Normal Saline 0.9%) 1,000 mls @ 1,000 mls/hr IV BOLUS ONE Stop: 03/22/19 16:37 Last Infusion: 03/22/19 18:35 Dose: 0 mls/hr Admin: 03/22/19 17:05 Dose: 1,000 mls/hr Lorazepam (Ativan) 1 mg IV NOW ONE Stop: 03/22/19 14:28 Last Admin: 03/22/19 14:38 Dose: 1 mg Lorazepam (Ativan) 1 mg IV NOW ONE Stop: 03/22/19 18:01 Last Admin: 03/22/19 18:09 Dose: 1 mg Ondansetron HCl (Zofran) 4 mg IV NOW ONE Stop: 03/22/19 14:04 Last Admin: 03/22/19 14:38 Dose: 4 mg Pantoprazole Sodium (Protonix) 40 mg IV NOW ONE Stop: 03/22/19 16:37 Last Admin: 03/22/19 17:04 Dose: 40 mg Vital Signs - 8 hr 03/22/19 13:53 03/22/19 16:27 03/22/19 18:00 Temperature 98.4 F Pulse Rate 67 71 61 Respiratory Rate 20 17 16 Blood Pressure 151/69 H Blood Pressure [Left Arm] 154/52 H 112/46 L Pulse Oximetry 99 99 97 03/22/19 19:46 Temperature Pulse Rate 66 Respiratory Rate Blood Pressure Blood Pressure [Left Arm] 140/69 Pulse Oximetry 100 <Mary Ann De La Garza, - Last Filed: 03/23/19 07:39> Orders Ordered: Discontinued Medications Hydromorphone HCl (Dilaudid) 1 mg IV NOW ONE Stop: 03/22/19 15:37 Last Admin: 03/22/19 15:41 Dose: 1 mg Hydromorphone HCl (Dilaudid) 1 mg IV NOW ONE Stop: 03/22/19 16:37 Last Admin: 03/22/19 17:04 Dose: 1 mg Hydromorphone HCl (Dilaudid) 1 mg IV NOW ONE Stop: 03/22/19 18:28 Last Admin: 03/22/19 18:34 Dose: 1 mg Hydroxyzine HCl (Vistaril) 25 mg IM NOW ONE Stop: 03/22/19 14:33 Last Admin: 03/22/19 14:38 Dose: 25 mg Sodium Chloride (Normal Saline 0.9%) 1,000 mls @ 1,000 mls/hr IV BOLUS ONE Stop: 03/22/19 15:26 Last Infusion: 03/22/19 15:35 Dose: 0 mls/hr Admin: 03/22/19 14:38 Dose: 1,000 mls/hr Sodium Chloride (Normal Saline 0.9%) 1,000 mls @ 1,000 mls/hr IV BOLUS ONE Stop: 03/22/19 16:37 Last Infusion: 03/22/19 18:35 Dose: 0 mls/hr Admin: 03/22/19 17:05 Dose: 1,000 mls/hr Lorazepam (Ativan) 1 mg IV NOW ONE Stop: 03/22/19 14:28 Last Admin: 03/22/19 14:38 Dose: 1 mg Lorazepam (Ativan) 1 mg IV NOW ONE Stop: 03/22/19 18:01 Last Admin: 03/22/19 18:09 Dose: 1 mg Ondansetron HCl (Zofran) 4 mg IV NOW ONE Stop: 03/22/19 14:04 Last Admin: 08/07/19 14:38 Dose: 4 mg Pantoprazole Sodium (Protonix) 40 mg IV NOW ONE Stop: 03/22/19 16:37 Last Admin: 03/22/19 17:04 Dose: 40 mg Vital Signs - 8 hr 03/22/19 13:53 03/22/19 16:27 03/22/19 18:00 Temperature 98.4 F Pulse Rate 67 71 61 Respiratory Rate 20 17 16 Blood Pressure 151/69 H Blood Pressure [Left Arm] 154/52 H 112/46 L Pulse Oximetry 99 99 97 03/22/19 19:46 Temperature Pulse Rate 66 Respiratory Rate Blood Pressure Blood Pressure [Left Arm] 140/69 Pulse Oximetry 100 MDM - Nausea/Vomiting/Diarrhea <OSKAR Ibrahim- - Last Filed: 03/22/19 20:28> Lab Data Result diagrams: 03/22/19 14:00 03/22/19 14:00 Lab Results 03/22/19 03/22/19 03/22/19 Range/Units 14:00 14:00 14:00 WBC 6.6 (4.5-11.0) X10^3/uL RBC 4.26 (4.0-5.2) X10^6/uL Hgb 13.5 (12.0-16.0) g/dL Hct 40.1 (36-46) % MCV 94.1 (80-100) fL MCH 31.6 (26-34) PG MCHC 33.6 (30-36) % RDW 13.6 (11.6-14.8) % Plt Count 200 (150-400) X10^3/uL Neut % (Auto) 78.1 H (50-75) % Lymph % (Auto) 13.9 L (25-40) % [place] % (Auto) 6.1 (3-14) % Eos % (Auto) 1.5 L (2-4) % Baso % (Auto) 0.4 (0-2) % Neut # (Auto) 5100 (2473-6106) /uL Lymph # (Auto) 900 L (9702-2907) /uL [place] # (Auto) 400 (0-900) /uL Eos # (Auto) 100 (0-450) /uL Baso # (Auto) 0 (0-100) /uL PT 11.1 (10.1-12.7) SECONDS INR 1.0 (0.9-1.3) APTT 29 (26.4-36.2) SECONDS Sodium 140 (137-145) mmol/L Potassium 4.0 (3.4-5.1) mmol/L Chloride 104 (98-107) mmol/L Carbon Dioxide 28 (22-32) mmol/L BUN 7 (7-17) mg/dL Creatinine 0.70 (0.52-1.04) mg/dL Estimated GFR > 60.0 (>60) mL/min BUN/Creatinine Ratio 10.0 (6-22) Glucose 154 H D (70-100) mg/dL Lactate (0.7-2.1) mmol/L Calcium 9.7 (8.4-10.2) mg/dL Total Bilirubin 0.8 (0.2-1.3) mg/dL AST 42 H (14-36) IU/L ALT 30 (9-52) IU/L Alkaline Phosphatase 79 (38-126) U/L Total Protein 7.0 (6.3-8.2) g/dL Albumin 4.2 (3.5-5.0) g/dL Globulin 2.8 (1.7-4.1) g/dL Albumin/Globulin Ratio 1.5 (1.0-2.8) Lipase 19 L (23-300) U/L Procalcitonin (<0.5) ng/mL Ketones 0.50 H (<0.27) mmol/L 03/22/19 03/22/19 Range/Units 14:00 14:00 WBC (4.5-11.0) X10^3/uL RBC (4.0-5.2) X10^6/uL Hgb (12.0-16.0) g/dL Hct (36-46) % MCV (80-100) fL MCH (26-34) PG MCHC (30-36) % RDW (11.6-14.8) % Plt Count (150-400) X10^3/uL Neut % (Auto) (50-75) % Lymph % (Auto) (25-40) % [place] % (Auto) (3-14) % Eos % (Auto) (2-4) % Baso % (Auto) (0-2) % Neut # (Auto) (5278-6819) /uL Lymph # (Auto) (3972-2472) /uL [place] # (Auto) (0-900) /uL Eos # (Auto) (0-450) /uL Baso # (Auto) (0-100) /uL PT (10.1-12.7) SECONDS INR (0.9-1.3) APTT (26.4-36.2) SECONDS Sodium (137-145) mmol/L Potassium (3.4-5.1) mmol/L Chloride (98-107) mmol/L Carbon Dioxide (22-32) mmol/L BUN (7-17) mg/dL Creatinine (0.52-1.04) mg/dL Estimated GFR (>60) mL/min BUN/Creatinine Ratio (6-22) Glucose (70-100) mg/dL Lactate 0.9 (0.7-2.1) mmol/L Calcium (8.4-10.2) mg/dL Total Bilirubin (0.2-1.3) mg/dL AST (14-36) IU/L ALT (9-52) IU/L Alkaline Phosphatase (38-126) U/L Total Protein (6.3-8.2) g/dL Albumin (3.5-5.0) g/dL Globulin (1.7-4.1) g/dL Albumin/Globulin Ratio (1.0-2.8) Lipase (23-300) U/L Procalcitonin < 0.05 (<0.5) ng/mL Ketones (<0.27) mmol/L Urine Dip Bedside Urine Glucose 100 mg/dl Bedside Urine Bilirubin - Negative Bedside Urine Ketone - Negative Urine Specific [place] 1.015 Bedside Urine Occult Blood - Negative Bedside Urine pH 7.5 Bedside Urine Protein - Negative Bedside Urine Urobilinogen - Negative Bedside Urine Nitrite - Negative Bedside Urine Leukocytes - Negative Esterase MDM Narrative Medical decision making narrative: The patient is a 58-year-old female with history of gastroparesis related to type 1 diabetes who presents with a chief complaint of cyclic vomiting. She received IV medications in the emergency department, as well as IV fluids. She is not in DKA as carbon dioxide is 28 on her lab work and her electrolytes are within normal limits. Her blood sugars are in the 170s. Her lactate is 0.9. She has a negative procalcitonin. After receiving IV fluids and medications, the patient was able to tolerate p.o. trial. I discussed that she is a bounce-back, and offered to try to arrange admission. She declined this and states she wants to go home. The patient repeatedly stated she did not want to be admitted would prefer to go home. I encouraged her to follow up with her PCP. Discussed at length return precautions the emergency department including fever with abdominal pain, inability keep down fluids etc. No questions or concerns upon discharge. <Mary Ann De La Garza, DO - Last Filed: 03/23/19 07:39> Lab Data Lab Results 03/22/19 03/22/19 03/22/19 Range/Units 14:00 14:00 14:00 WBC 6.6 (4.5-11.0) X10^3/uL RBC 4.26 (4.0-5.2) X10^6/uL Hgb 13.5 (12.0-16.0) g/dL Hct 40.1 (36-46) % MCV 94.1 (80-100) fL MCH 31.6 (26-34) PG MCHC 33.6 (30-36) % RDW 13.6 (11.6-14.8) % Plt Count 200 (150-400) X10^3/uL Neut % (Auto) 78.1 H (50-75) % Lymph % (Auto) 13.9 L (25-40) % [place] % (Auto) 6.1 (3-14) % Eos % (Auto) 1.5 L (2-4) % Baso % (Auto) 0.4 (0-2) % Neut # (Auto) 5100 (7514-6534) /uL Lymph # (Auto) 900 L (6464-5682) /uL [place] # (Auto) 400 (0-900) /uL Eos # (Auto) 100 (0-450) /uL Baso # (Auto) 0 (0-100) /uL PT 11.1 (10.1-12.7) SECONDS INR 1.0 (0.9-1.3) APTT 29 (26.4-36.2) SECONDS Sodium 140 (137-145) mmol/L Potassium 4.0 (3.4-5.1) mmol/L Chloride 104 (98-107) mmol/L Carbon Dioxide 28 (22-32) mmol/L BUN 7 (7-17) mg/dL Creatinine 0.70 (0.52-1.04) mg/dL Estimated GFR > 60.0 (>60) mL/min BUN/Creatinine Ratio 10.0 (6-22) Glucose 154 H D (70-100) mg/dL Lactate (0.7-2.1) mmol/L Calcium 9.7 (8.4-10.2) mg/dL Total Bilirubin 0.8 (0.2-1.3) mg/dL AST 42 H (14-36) IU/L ALT 30 (9-52) IU/L Alkaline Phosphatase 79 (38-126) U/L Total Protein 7.0 (6.3-8.2) g/dL Albumin 4.2 (3.5-5.0) g/dL Globulin 2.8 (1.7-4.1) g/dL Albumin/Globulin Ratio 1.5 (1.0-2.8) Lipase 19 L (23-300) U/L Procalcitonin (<0.5) ng/mL Ketones 0.50 H (<0.27) mmol/L 03/22/19 03/22/19 Range/Units 14:00 14:00 WBC (4.5-11.0) X10^3/uL RBC (4.0-5.2) X10^6/uL Hgb (12.0-16.0) g/dL Hct (36-46) % MCV (80-100) fL MCH (26-34) PG MCHC (30-36) % RDW (11.6-14.8) % Plt Count (150-400) X10^3/uL Neut % (Auto) (50-75) % Lymph % (Auto) (25-40) % [place] % (Auto) (3-14) % Eos % (Auto) (2-4) % Baso % (Auto) (0-2) % Neut # (Auto) (4895-4653) /uL Lymph # (Auto) (4046-5392) /uL [place] # (Auto) (0-900) /uL Eos # (Auto) (0-450) /uL Baso # (Auto) (0-100) /uL PT (10.1-12.7) SECONDS INR (0.9-1.3) APTT (26.4-36.2) SECONDS Sodium (137-145) mmol/L Potassium (3.4-5.1) mmol/L Chloride (98-107) mmol/L Carbon Dioxide (22-32) mmol/L BUN (7-17) mg/dL Creatinine (0.52-1.04) mg/dL Estimated GFR (>60) mL/min BUN/Creatinine Ratio (6-22) Glucose (70-100) mg/dL Lactate 0.9 (0.7-2.1) mmol/L Calcium (8.4-10.2) mg/dL Total Bilirubin (0.2-1.3) mg/dL AST (14-36) IU/L ALT (9-52) IU/L Alkaline Phosphatase (38-126) U/L Total Protein (6.3-8.2) g/dL Albumin (3.5-5.0) g/dL Globulin (1.7-4.1) g/dL Albumin/Globulin Ratio (1.0-2.8) Lipase (23-300) U/L Procalcitonin < 0.05 (<0.5) ng/mL Ketones (<0.27) mmol/L Urine Dip Bedside Urine Glucose 100 mg/dl Bedside Urine Bilirubin - Negative Bedside Urine Ketone - Negative Urine Specific [place] 1.015 Bedside Urine Occult Blood - Negative Bedside Urine pH 7.5 Bedside Urine Protein - Negative Bedside Urine Urobilinogen - Negative Bedside Urine Nitrite - Negative Bedside Urine Leukocytes - Negative Esterase Discharge Plan Departure Patient Disposition: Home Clinical Impression: Diabetic gastroparesis Abdominal pain Qualifiers: Abdominal location: generalized Qualified Code(s): R10.84 - Generalized abdominal pain Discharge Date/Time: 03/22/19 20:09 Interventions: ED Discharge Assessment Last Done: 03/22/19 20:09 Instructions: DI for Nausea -- Adult, DI for Vomiting -- Adult, DI for Gastroparesis Activity Restrictions/Additional Instructions: Today we gave you fluids and nausea medication. Please follow up with your primary care provider. Please come back to the emergency department for any acute concerns such as inability keep down fluids. Prescriptions: No Action insulin lispro [Humalog U-100 Insulin] 100 UNIT/1 ML solution continuous IV infusion DAILY Qty: 0 RF: 0 Domperidone (#DOMPERIDONE) 30 mg PO ACHS Qty: 2 RF: 0 rosuvastatin [Crestor] 10 MG tablet 10 mg PO BEDTIME Qty: 0 RF: 0 pantoprazole [Protonix] 40 MG tablet,delayed release (DR/EC) 40 mg PO DAILY Qty: 0 RF: 0 hydrocortisone 10 MG tablet 10 mg PO DAILY Qty: 0 RF: 0 alendronate 70 mg Tablet 70 mg PO QWEEK RF: 0 levothyroxine 75 mcg Tablet 75 mcg PO DAILY RF: 0 Glucagon Emergency Kit (human) 1 mg Recon Soln 1 dose subcut DIRECTED RF: 0 hydromorphone 4 MG tablet 4 mg PO TID PRN (Reason: PAIN) RF: 0 diazepam 5 MG tablet 5 mg PO TIDP PRN (Reason: Anxiety) RF: 0 promethazine 25 mg suppository 25 mg ND Q6H PRN (Reason: nausea and vomiting) Qty: 12 RF: 0 ondansetron HCl [Zofran] 8 mg Tablet 8 mg PO TID PRN (Reason: Nausea) RF: 0 Referrals: Salvatore Villegas MD [Primary Care Provider] - <Mary Ann De La Garza DO - Last Filed: 03/23/19 07:39> Cosign ED Attending Cosignature Attestation: I was immediately available in the department for consultation. This doc umentation has been reviewed and I agree with assessment and plan. Supervised by Mary Ann De La Garza DO
== END 2019-03-22 20:09 | disposition home or self-care (01) ==
PROVIDERS: Emergency Medicine; Emergency Provider Nurse Practitioner Family; PCP Internal Medicine
DX: E11.43 Type 2 diabetes mellitus with diabetic autonomic (poly)neuropathy (principal); K31.84 Gastroparesis; R10.84 Generalized abdominal pain
CPT/HCPCS: 36591; 80053; 81003; 82009; 83605; 83690; 84145; 85025; 85610; 85730; 96361; 96372; 96374; 96375; 96376; 99283; 99284; C9113; J1170; J2060; J2405; J3410

== ENCOUNTER → 2019-06-19 13:56 | Outpatient (CLI) | payer OTHER, SELFPAY ==
--- NOTE | 2019-06-19 | DI.MG.S_ITS ---
BILATERAL DIGITAL SCREENING MAMMOGRAM 3D/2D WITH CAD: 06/19/2019 CLINICAL: Routine screening. Comparison is made to exams dated: 05/17/2018 mammogram and 01/03/2013 mammogram - [facility]. The tissue of both breasts is heterogeneously dense. This may lower the sensitivity of mammography. Current study was also evaluated with a Computer Aided Detection (CAD) system. No significant masses, calcifications, or other findings are seen in either breast. There has been no significant interval change. IMPRESSION: NEGATIVE There is no mammographic evidence of malignancy. A 1 year screening mammogram is recommended. This exam was interpreted at Station ID: [id number]. NOTE: For mammograms, a report in lay terms will be sent to the patient. Approximately 15% of breast malignancies will not be visualized mammographically. In the management of a palpable breast mass, a negative mammogram must not discourage biopsy of a clinically suspicious lesion. Electronically Signed By: Breezy bledsoe/elizabeth:06/19/2019 14:31:54 letter sent: Normal Exam ACR BI-RADS Category 1: Negative [id number]
== END ==
PROVIDERS: PCP Internal Medicine; Visit Provider Internal Medicine
DX: Z12.31 Encounter for screening mammogram for malignant neoplasm of breast (principal); M81.0 Age-related osteoporosis without current pathological fracture; Z78.0 Asymptomatic menopausal state; E07.9 Disorder of thyroid, unspecified; E11.9 Type 2 diabetes mellitus without complications; K92.9 Disease of digestive system, unspecified; Z82.62 Family history of osteoporosis
CPT/HCPCS: 77063; 77067; 77080; 77081

== ENCOUNTER 2019-08-31 04:26 | Emergency (ER) | payer OTHER, SELFPAY ==
[2019-08-31 04:37] VITALS: BP 133/86; PULSE 75; RESP 15; TEMP 36.8; O2SAT 99; BMI 21.7
--- NOTE | 2019-08-31 04:43 | ED.NAVMDI ---
HPI - Nausea/Vomiting/Diarrhea <Mary Ann De La Garza, - Last Filed: 08/31/19 07:02> General Chief complaint: Nausea/Vomiting/Diarrhea Stated complaint: N/V, migraine Time Seen by Provider: 08/31/19 04:29 Source: patient, family and old records reviewed Mode of arrival: Family Vehicle Limitations: no limitations History of Present Illness HPI Narrative: This is a 59-year-old female who comes in with complaint of nausea and vomiting, abdominal pain as well as migraine. Patient has a history of diabetic gastroparesis. She has had multiple visits in the past for this. She states and her is at bedside and also states that symptoms started about 11:00 a.m. this evening. Patient began feeling nauseated. She states that her symptoms feel similar to her gastroparesis. She has been having bowel movements and states they have been normal. She has been afebrile. About an hour prior to arrival she developed migraine. She does have a history of migraine and states that the pattern is typical. She does have photophobia. Patient denies any chest pain or shortness of breath. She has had fevers a couple weeks ago with some upper respiratory nasal congestion which has been resolving. She has not had any fevers for least 1 week. Patient denies any numbness, weakness or other neurologic symptoms. She states no new medications or dosage changes. Patient follows with Dr. Villegas is her primary care. She is accompanied by her . Related Data Home Medications Medication Instructions Recorded Confirmed Domperidone (#DOMPERIDONE) 30 mg PO ACHS #2 07/29/12 03/22/19 insulin lispro [Humalog U-100 0 unit CONTINUOUS IV INFUSION 07/29/12 03/22/19 Insulin] DAILY #0 rosuvastatin [Crestor] 10 mg PO BEDTIME #0 07/29/12 03/22/19 pantoprazole [Protonix] 40 mg PO DAILY #0 10/06/12 03/22/19 hydrocortisone 10 mg PO DAILY #0 05/03/17 03/22/19 Glucagon Emergency Kit (human) 1 dose SUBCUT DIRECTED 02/03/19 03/22/19 alendronate 70 mg PO QWEEK 02/03/19 03/22/19 diazepam 5 mg PO TIDP PRN 02/03/19 03/22/19 hydromorphone 4 mg PO TID PRN 02/03/19 03/22/19 levothyroxine 75 mcg PO DAILY 02/03/19 03/22/19 ondansetron HCl [Zofran] 8 mg PO TID PRN 03/22/19 03/22/19 Previous Rx's Medication Instructions Recorded promethazine 25 mg CO Q6H PRN #12 each 02/03/19 promethazine 25 mg CO Q4-6H PRN #1 each 08/31/19 Allergies Allergy/AdvReac Type Severity Reaction Status Date / Time amitriptyline Allergy Intermediate SEIZURES Verified 02/18/19 11:17 droperidol Allergy Intermediate CLONIC Verified 02/18/19 11:17 REACTION metoclopramide Allergy Intermediate CLONIC Verified 02/18/19 11:17 REACTION prochlorperazine Allergy Intermediate CLONIC Verified 02/18/19 11:17 REACTION azithromycin AdvReac Mild N/V Verified 02/18/19 11:17 ciprofloxacin AdvReac Mild N/V Verified 02/18/19 11:17 hydrocodone AdvReac Mild N/V Verified 02/18/19 11:17 ketorolac AdvReac Mild N/V Verified 02/18/19 11:17 Review of Systems <Mary Ann De La Garza DO - Last Filed: 08/31/19 07:02> Review of Systems ROS Unobtainable: All systems reviewed & are unremarkable except as noted in HPI and below Patient History <Mary Ann De La Garza DO - Last Filed: 08/31/19 07:02> Medical History Chronic cholecystitis (Acute) Diabetes (Acute) Diabetic retinopathy (Acute) Hyperlipidemia (Acute) Hypothyroid (Acute) Osteomyelitis (Acute) Social History marital status: household members: spouse Smoking Status: Former smoker Smoking Status: Former smoker alcohol intake frequency: a few times a week Substance Use Type: does not use Exam <Mary Ann De La Garza DO - Last Filed: 08/31/19 07:02> Narrative Exam Narrative: GEN: well nourished, female, alert and oriented x 3, patient appears to be in moderate distress. HEENT: Atraumatic, pupils are equal round reactive to light, extraocular movements are intact, positive for photophobia, nares are clear. No facial droop. No meningeal signs. HEART: Regular rate and rhythm without murmur, clicks, rubs. LUNGS:Lungs clear to auscultation, no wheezes, rales, crackles, chest moves symmetrically. No tachypnea or accessory muscle use. ABD:bowel sounds normal, soft, generalized tenderness, no guarding, rebound, rigidity, no masses noted, no hepatosplenomegaly :No CVA tenderness. MSCL: Non-tender, no muscle atrophy, muscles strength 5/5 upper and lower extremities, full range of motion. NEURO:CN 2-12 intact, sensation normal SKIN: No rash, erythema or other skin changes. Initial Vital Signs Initial Vital Signs: Vital Signs Temperature 98.3 F 08/31/19 04:37 Pulse Rate 75 08/31/19 04:37 Respiratory Rate 15 08/31/19 04:37 Blood Pressure 133/86 08/31/19 04:37 Pulse Oximetry 99 08/31/19 04:37 <Dory Sanabria MD - Last Filed: 08/31/19 19:37> Initial Vital Signs Initial Vital Signs: Vital Signs Temperature 98.3 F 08/31/19 04:37 Pulse Rate 75 08/31/19 04:37 Respiratory Rate 15 08/31/19 04:37 Blood Pressure 133/86 08/31/19 04:37 Pulse Oximetry 99 08/31/19 04:37 Scores <Mary Ann De La Garza DO - Last Filed: 08/31/19 07:02> GCS [place] coma scale eye opening: Spontaneous [place] coma scale verbal response: Orientated [place] coma scale motor response: Obey commands [place] coma scale total score: 15 Course <Mary Ann De La Garza DO - Last Filed: 08/31/19 07:02> Orders Ordered: Discontinued Medications Hydromorphone HCl (Dilaudid) 1 mg IV NOW ONE Stop: 08/31/19 04:40 Last Admin: 08/31/19 04:48 Dose: 1 mg Documented by: MMCFARL Hydromorphone HCl (Dilaudid) 1 mg IV NOW ONE Stop: 08/31/19 05:32 Last Admin: 08/31/19 05:36 Dose: 1 mg Documented by: MMCFARL Hydromorphone HCl (Dilaudid) 1 mg IV NOW ONE Stop: 08/31/19 08:16 Last Admin: 08/31/19 08:55 Dose: 0.5 mg Documented by: ZAHIDA Hydroxyzine HCl (Vistaril) 25 mg IM NOW ONE Stop: 08/31/19 04:40 Last Admin: 08/31/19 04:49 Dose: 25 mg Documented by: YAHAIRA Sodium Chloride (Normal Saline 0.9%) 1,000 mls @ 1,000 mls/hr IV BOLUS ONE Stop: 08/31/19 05:38 Last Infusion: 08/31/19 06:08 Dose: 550 mls/hr Documented by: Admin: 08/31/19 04:49 Dose: 1,000 mls/hr Documented by: YAHAIRA Sodium Chloride (Normal Saline 0.9%) 1,000 mls @ 1,000 mls/hr IV BOLUS ONE Stop: 08/31/19 07:21 Last Infusion: 08/31/19 09:00 Dose: 0 mls/hr Documented by: Admin: 08/31/19 06:30 Dose: 1,000 mls/hr Documented by: YAHAIRA Lorazepam (Ativan) 1 mg IV NOW ONE Stop: 08/31/19 05:32 Last Admin: 08/31/19 05:36 Dose: 1 mg Documented by: YAHAIRA Lorazepam (Ativan) 1 mg IV NOW ONE Stop: 08/31/19 08:16 Last Admin: 08/31/19 08:56 Dose: 0.5 mg Documented by: ZAHIDA Ondansetron HCl (Zofran) 4 mg IV NOW ONE Stop: 08/31/19 04:40 Last Admin: 08/31/19 04:49 Dose: 4 mg Documented by: YAHAIRA Pantoprazole Sodium (Protonix) 40 mg IV NOW ONE Stop: 08/31/19 04:40 Last Admin: 08/31/19 04:49 Dose: 40 mg Documented by: YAHAIRA Vital Signs Vital signs: Vital Signs - 8 hr 08/31/19 04:37 08/31/19 05:30 Temperature 98.3 F Pulse Rate 75 70 Respiratory Rate 15 13 Blood Pressure 133/86 Blood Pressure [Right Arm] 110/79 Pulse Oximetry 99 97 <Dory Sanabria MD - Last Filed: 08/31/19 19:37> Course Course Narrative: Elly note: Patient was signed out to me by Dr. De La Garza, pending symptomatic relief after presenting for an exacerbation of her diabetic gastroparesis. The patient had been treated extensively already with Dilaudid and Ativan, as well as Vistaril, Protonix, IV fluids, and Zofran. The patient was found to be feeling somewhat better, but did still complain of some nausea and headache. However, she was somewhat drowsy. I discussed with her that I would give her 1.5 mg of Dilaudid and the same of Ativan. However, this would be the last of the medication doses in the emergency department, as patient has not vomited a single time but since sign-out of the patient to me. The patient did state that because of the snow, she was unable to get her medication refills. However, she does have an appointment her primary care physician's office to get her medications refilled. Patient was deemed stable for discharge home, and was found to be doing much better overall. Orders Ordered: Discontinued Medications Hydromorphone HCl (Dilaudid) 1 mg IV NOW ONE Stop: 08/31/19 04:40 Last Admin: 08/31/19 04:48 Dose: 1 mg Documented by: MMCFARL Hydromorphone HCl (Dilaudid) 1 mg IV NOW ONE Stop: 08/31/19 05:32 Last Admin: 08/31/19 05:36 Dose: 1 mg Documented by: MMCFARL Hydromorphone HCl (Dilaudid) 1 mg IV NOW ONE Stop: 08/31/19 08:16 Last Admin: 08/31/19 08:55 Dose: 0.5 mg Documented by: MEISENB Hydroxyzine HCl (Vistaril) 25 mg IM NOW ONE Stop: 08/31/19 04:40 Last Admin: 08/31/19 04:49 Dose: 25 mg Documented by: MMCFARL Sodium Chloride (Normal Saline 0.9%) 1,000 mls @ 1,000 mls/hr IV BOLUS ONE Stop: 08/31/19 05:38 Last Infusion: 08/31/19 06:08 Dose: 550 mls/hr Documented by: Admin: 08/31/19 04:49 Dose: 1,000 mls/hr Documented by: YAHAIRA Sodium Chloride (Normal Saline 0.9%) 1,000 mls @ 1,000 mls/hr IV BOLUS ONE Stop: 08/31/19 07:21 Last Infusion: 08/31/19 09:00 Dose: 0 mls/hr Documented by: Admin: 08/31/19 06:30 Dose: 1,000 mls/hr Documented by: YAHAIRA Lorazepam (Ativan) 1 mg IV NOW ONE Stop: 08/31/19 05:32 Last Admin: 08/31/19 05:36 Dose: 1 mg Documented by: YAHAIRA Lorazepam (Ativan) 1 mg IV NOW ONE Stop: 08/31/19 08:16 Last Admin: 08/31/19 08:56 Dose: 0.5 mg Documented by: ZAHIDA Ondansetron HCl (Zofran) 4 mg IV NOW ONE Stop: 08/31/19 04:40 Last Admin: 08/31/19 04:49 Dose: 4 mg Documented by: YAHAIRA Pantoprazole Sodium (Protonix) 40 mg IV NOW ONE Stop: 08/31/19 04:40 Last Admin: 08/31/19 04:49 Dose: 40 mg Documented by: YAHAIRA Vital Signs Vital signs: Vital Signs - 8 hr 08/31/19 04:37 08/31/19 05:30 Temperature 98.3 F Pulse Rate 75 70 Respiratory Rate 15 13 Blood Pressure 133/86 Blood Pressure [Right Arm] 110/79 Pulse Oximetry 99 97 MDM - Nausea/Vomiting/Diarrhea <Mary Ann De La Garza DO - Last Filed: 08/31/19 07:02> Lab Data Result diagrams: 08/31/19 04:58 08/31/19 04:58 Labs: Lab Results 08/31/19 08/31/19 08/31/19 Range/Units 04:58 04:58 04:58 WBC 5.8 (4.5-11.0) X10^3/uL RBC 4.47 (4.0-5.2) X10^6/uL Hgb 13.9 (12.0-16.0) g/dL Hct 41.0 (36-46) % MCV 91.7 (80-100) fL MCH 31.1 (26-34) PG MCHC 33.9 (30-36) % RDW 13.5 (11.6-14.8) % Plt Count 280 (150-400) X10^3/uL Neut % (Auto) 66.1 (50-75) % Lymph % (Auto) 24.0 L (25-40) % [place] % (Auto) 5.5 (3-14) % Eos % (Auto) 3.6 (2-4) % Baso % (Auto) 0.8 (0-2) % Neut # (Auto) 3800 (3369-4961) /uL Lymph # (Auto) 1400 (5041-0127) /uL [place] # (Auto) 300 (0-900) /uL Eos # (Auto) 200 (0-450) /uL Baso # (Auto) 0 (0-100) /uL Sodium 139 (137-145) mmol/L Potassium 4.3 (3.4-5.1) mmol/L Chloride 101 (98-107) mmol/L Carbon Dioxide 31 (22-32) mmol/L BUN 16 (7-17) mg/dL Creatinine 0.90 (0.52-1.04) mg/dL Estimated GFR > 60.0 (>60) mL/min BUN/Creatinine Ratio 17.8 (6-22) Glucose 146 H (70-100) mg/dL Calcium 10.2 (8.4-10.2) mg/dL Total Bilirubin 0.7 (0.2-1.3) mg/dL AST 59 H (14-36) IU/L ALT 65 H (<35) IU/L Alkaline Phosphatase 102 (38-126) U/L Total Protein 7.9 (6.3-8.2) g/dL Albumin 4.6 (3.5-5.0) g/dL Globulin 3.3 (1.7-4.1) g/dL Albumin/Globulin Ratio 1.4 (1.0-2.8) Lipase 20 L (23-300) U/L Urine RBC (0-5/HPF) Urine WBC (0-5/HPF) Amorphous Sediment Urine Bacteria (None) Ur Culture Indicated? 08/31/19 Range/Units 06:50 WBC (4.5-11.0) X10^3/uL RBC (4.0-5.2) X10^6/uL Hgb (12.0-16.0) g/dL Hct (36-46) % MCV (80-100) fL MCH (26-34) PG MCHC (30-36) % RDW (11.6-14.8) % Plt Count (150-400) X10^3/uL Neut % (Auto) (50-75) % Lymph % (Auto) (25-40) % [place] % (Auto) (3-14) % Eos % (Auto) (2-4) % Baso % (Auto) (0-2) % Neut # (Auto) (6610-4455) /uL Lymph # (Auto) (2384-8210) /uL [place] # (Auto) (0-900) /uL Eos # (Auto) (0-450) /uL Baso # (Auto) (0-100) /uL Sodium (137-145) mmol/L Potassium (3.4-5.1) mmol/L Chloride (98-107) mmol/L Carbon Dioxide (22-32) mmol/L BUN (7-17) mg/dL Creatinine (0.52-1.04) mg/dL Estimated GFR (>60) mL/min BUN/Creatinine Ratio (6-22) Glucose (70-100) mg/dL Calcium (8.4-10.2) mg/dL Total Bilirubin (0.2-1.3) mg/dL AST (14-36) IU/L ALT (<35) IU/L Alkaline Phosphatase (38-126) U/L Total Protein (6.3-8.2) g/dL Albumin (3.5-5.0) g/dL Globulin (1.7-4.1) g/dL Albumin/Globulin Ratio (1.0-2.8) Lipase (23-300) U/L Urine RBC None seen (0-5/HPF) Urine WBC None seen (0-5/HPF) Amorphous Sediment 2+ Urine Bacteria Many (>30) H (None) Ur Culture Indicated? Specimen cultured Urine Dip Bedside Urine Glucose Negative Bedside Urine Bilirubin - Negative Bedside Urine Ketone - Negative Urine Specific [place] 1.015 Bedside Urine Occult Blood - Negative Bedside Urine pH 8.0 Bedside Urine Protein - Negative Bedside Urine Urobilinogen - Negative Bedside Urine Nitrite - Negative Bedside Urine Leukocytes +/- 15 Esterase MDM Narrative Medical decision making narrative: Patient arrives with complaint of nausea and vomiting and diabetic gastroparesis as the most likely cause. Patient has been seen multiple times in the past for this. She states that about an hour prior to arrival she then developed a migraine. She has had these in the past and it feels similar in she is unable to keep any medication down. Patient was given fluids, pain medication and antinausea medication. Labs show no anion gap, no signs of DKA on labs. Bicarb is normal. AST and ALT are mildly elevated. Glucose is 146. CBC shops no leukocytosis, normal hemoglobin. Patient still quite nauseated and uncomfortable after first round of medications. No active vomiting. Given second dose. Patient signed out to Dr. Sanabria for final disposition while awaiting urine and second liter of fluids to finish. <Dory Sanabria MD - Last Filed: 08/31/19 19:37> Lab Data Labs: Lab Results 08/31/19 08/31/19 08/31/19 Range/Units 04:58 04:58 04:58 WBC 5.8 (4.5-11.0) X10^3/uL RBC 4.47 (4.0-5.2) X10^6/uL Hgb 13.9 (12.0-16.0) g/dL Hct 41.0 (36-46) % MCV 91.7 (80-100) fL MCH 31.1 (26-34) PG MCHC 33.9 (30-36) % RDW 13.5 (11.6-14.8) % Plt Count 280 (150-400) X10^3/uL Neut % (Auto) 66.1 (50-75) % Lymph % (Auto) 24.0 L (25-40) % [place] % (Auto) 5.5 (3-14) % Eos % (Auto) 3.6 (2-4) % Baso % (Auto) 0.8 (0-2) % Neut # (Auto) 3800 (2315-3291) /uL Lymph # (Auto) 1400 (6667-3216) /uL [place] # (Auto) 300 (0-900) /uL Eos # (Auto) 200 (0-450) /uL Baso # (Auto) 0 (0-100) /uL Sodium 139 (137-145) mmol/L Potassium 4.3 (3.4-5.1) mmol/L Chloride 101 (98-107) mmol/L Carbon Dioxide 31 (22-32) mmol/L BUN 16 (7-17) mg/dL Creatinine 0.90 (0.52-1.04) mg/dL Estimated GFR > 60.0 (>60) mL/min BUN/Creatinine Ratio 17.8 (6-22) Glucose 146 H (70-100) mg/dL Calcium 10.2 (8.4-10.2) mg/dL Total Bilirubin 0.7 (0.2-1.3) mg/dL AST 59 H (14-36) IU/L ALT 65 H (<35) IU/L Alkaline Phosphatase 102 (38-126) U/L Total Protein 7.9 (6.3-8.2) g/dL Albumin 4.6 (3.5-5.0) g/dL Globulin 3.3 (1.7-4.1) g/dL Albumin/Globulin Ratio 1.4 (1.0-2.8) Lipase 20 L (23-300) U/L Urine RBC (0-5/HPF) Urine WBC (0-5/HPF) Amorphous Sediment Urine Bacteria (None) Ur Culture Indicated? 08/31/19 Range/Units 06:50 WBC (4.5-11.0) X10^3/uL RBC (4.0-5.2) X10^6/uL Hgb (12.0-16.0) g/dL Hct (36-46) % MCV (80-100) fL MCH (26-34) PG MCHC (30-36) % RDW (11.6-14.8) % Plt Count (150-400) X10^3/uL Neut % (Auto) (50-75) % Lymph % (Auto) (25-40) % [place] % (Auto) (3-14) % Eos % (Auto) (2-4) % Baso % (Auto) (0-2) % Neut # (Auto) (9467-7684) /uL Lymph # (Auto) (2665-3816) /uL [place] # (Auto) (0-900) /uL Eos # (Auto) (0-450) /uL Baso # (Auto) (0-100) /uL Sodium (137-145) mmol/L Potassium (3.4-5.1) mmol/L Chloride (98-107) mmol/L Carbon Dioxide (22-32) mmol/L BUN (7-17) mg/dL Creatinine (0.52-1.04) mg/dL Estimated GFR (>60) mL/min BUN/Creatinine Ratio (6-22) Glucose (70-100) mg/dL Calcium (8.4-10.2) mg/dL Total Bilirubin (0.2-1.3) mg/dL AST (14-36) IU/L ALT (<35) IU/L Alkaline Phosphatase (38-126) U/L Total Protein (6.3-8.2) g/dL Albumin (3.5-5.0) g/dL Globulin (1.7-4.1) g/dL Albumin/Globulin Ratio (1.0-2.8) Lipase (23-300) U/L Urine RBC None seen (0-5/HPF) Urine WBC None seen (0-5/HPF) Amorphous Sediment 2+ Urine Bacteria Many (>30) H (None) Ur Culture Indicated? Specimen cultured Urine Dip Bedside Urine Glucose Negative Bedside Urine Bilirubin - Negative Bedside Urine Ketone - Negative Urine Specific [place] 1.015 Bedside Urine Occult Blood - Negative Bedside Urine pH 8.0 Bedside Urine Protein - Negative Bedside Urine Urobilinogen - Negative Bedside Urine Nitrite - Negative Bedside Urine Leukocytes +/- 15 Esterase Discharge Plan Departure Patient Disposition: Home Clinical Impression: Diabetic gastroparesis Discharge Date/Time: 08/31/19 09:19 Instructions: DI for Gastroparesis Activity Restrictions/Additional Instructions: Please keep your appointment at 2:00 a.m. this afternoon with your primary care doctor's office. Prescriptions: New promethazine 25 mg suppository 25 mg CO Q4-6H PRN (Reason: nausea and vomiting) Qty: 1 RF: 0 No Action insulin lispro [Humalog U-100 Insulin] 100 UNIT/1 ML solution 0 unit continuous IV infusion DAILY Qty: 0 RF: 0 Domperidone (#DOMPERIDONE) 30 mg PO ACHS Qty: 2 RF: 0 rosuvastatin [Crestor] 10 MG tablet 10 mg PO BEDTIME Qty: 0 RF: 0 pantoprazole [Protonix] 40 MG tablet,delayed release (DR/EC) 40 mg PO DAILY Qty: 0 RF: 0 hydrocortisone 10 MG tablet 10 mg PO DAILY Qty: 0 RF: 0 alendronate 70 mg Tablet 70 mg PO QWEEK RF: 0 levothyroxine 75 mcg Tablet 75 mcg PO DAILY RF: 0 Glucagon Emergency Kit (human) 1 mg Recon Soln 1 dose subcut DIRECTED RF: 0 hydromorphone 4 MG tablet 4 mg PO TID PRN (Reason: PAIN) RF: 0 diazepam 5 MG tablet 5 mg PO TIDP PRN (Reason: Anxiety) RF: 0 promethazine 25 mg suppository 25 mg CO Q6H PRN (Reason: nausea and vomiting) Qty: 12 RF: 0 ondansetron HCl [Zofran] 8 mg Tablet 8 mg PO TID PRN (Reason: Nausea) RF: 0 Referrals: Salvatore Villegas MD [Primary Care Provider] -
[2019-08-31] MEDS: HYDROMORPHONE 1 MG INJ IV ×3 (04:48→08:55)
[2019-08-31] MEDS: ONDANSETRON 4 MG/2 ML INJ IV (04:49)
[2019-08-31] MEDS: hydrOXYzine 50 MG/ML INJ 25 MG IM (04:49)
[2019-08-31] MEDS: SODIUM CHLORIDE 0.9% 1,000 ML 1000 ML IV ×2 (04:49→06:30)
[2019-08-31] MEDS: PANTOPRAZOLE 40 MG VIAL IV (04:49)
[2019-08-31 05:18] LABS: Add Manual Diff / Slide Review NO; Basophils Absolute Auto 0 /uL (0-100); Basophils Percent Auto 0.8 % (0-2); Eosinophils Absolute Auto 200 /uL (0-450); Eosinophils Percent Auto 3.6 % (2-4); Hemoglobin 13.9 g/dL (12.0-16.0); Lymphocytes Absolute Auto 1400 /uL (1100-4500); Mean Corpuscular HGB Conc 33.9 % (30-36); Mean Corpuscular Hemoglobin 31.1 PG (26-34); Mean Corpuscular Volume 91.7 fL (80-100); Monocytes Absolute Auto 300 /uL (0-900); Monocytes Percent Auto 5.5 % (3-14); Neutrophils Absolute Auto 3800 /uL (1500-7000); Neutrophils Percent Auto 66.1 % (50-75); Platelet Count 280 X10^3/uL (150-400); Red Blood Cell Count 4.47 X10^6/uL (4.0-5.2); Red Cell Distribution Width 13.5 % (11.6-14.8); White Blood Cell Count 5.8 X10^3/uL (4.5-11.0)
[2019-08-31 05:23] LABS: Alanine Aminotransferase 65 IU/L (<35); Albumin 4.6 g/dL (3.5-5.0); Albumin Globulin Ratio 1.4 (1.0-2.8); Alkaline Phosphatase 102 U/L (38-126); Aspartate Aminotransferase 59 IU/L (14-36); BUN Creatinine Ratio 17.8 (6-22); Bilirubin Total 0.7 mg/dL (0.2-1.3); Blood Urea Nitrogen 16 mg/dL (7-17); Calcium 10.2 mg/dL (8.4-10.2); Carbon Dioxide 31 mmol/L (22-32); Chloride 101 mmol/L (98-107); Estimated Glomerular Filt Rate > 60.0 mL/min (>60); Globulin 3.3 g/dL (1.7-4.1); Glucose 146 mg/dL (70-100); HEMOLYSIS 22 (0-50); Lipase 20 U/L (23-300); Potassium 4.3 mmol/L (3.4-5.1); Sodium 139 mmol/L (137-145); Total Protein 7.9 g/dL (6.3-8.2)
[2019-08-31 05:30] VITALS: BP 110/79; PULSE 70; RESP 13; O2SAT 97
[2019-08-31] MEDS: LORazepam 2 MG/ML INJ 1 MG IV ×2 (05:36→08:56)
[2019-08-31 06:51] LABS: RBC Urine None Seen (0-5/HPF); WBC Urine None Seen (0-5/HPF)
[2019-08-31 07:02] LABS: Amorphous Sediment Urine 2+; Bacteria Urine Many (>30)
[2019-08-31 07:03] LABS: Culture Indicated Urine Specimen Cultured
[2019-08-31 07:27] VITALS: BP 121/61; PULSE 63; RESP 18; O2SAT 97
[2019-08-31 09:10] VITALS: BP 139/75; PULSE 63; RESP 18; O2SAT 100
--- NOTE | 2019-08-31 09:18 | PC.NURSE ---
to soon to given , its only been 4 hours. pt verbal understanding, will follow up with her appt today at 1400. spouse at bs.
== END 2019-08-31 09:19 | disposition home or self-care (01) ==
PROVIDERS: Emergency Medicine; Emergency Provider Emergency Medicine; PCP Internal Medicine
DX: E11.43 Type 2 diabetes mellitus with diabetic autonomic (poly)neuropathy (principal); K31.84 Gastroparesis; R11.2 Nausea with vomiting, unspecified; G43.909 Migraine, unspecified, not intractable, without status migrainosus
CPT/HCPCS: 36415; 80053; 81003; 81015; 83690; 85025; 87086; 96361; 96372; 96374; 96375; 96376; 99284; 99285; C9113; J1170; J2060; J2405; J3410

== ENCOUNTER → 2019-09-04 16:18 | Outpatient (CLI) | payer OTHER, SELFPAY ==
[2019-09-04 17:31] LABS: Add Manual Diff / Slide Review NO; Basophils Absolute Auto 0 /uL (0-100); Basophils Percent Auto 0.8 % (0-2); Eosinophils Absolute Auto 200 /uL (0-450); Eosinophils Percent Auto 3.3 % (2-4); Hematocrit 40.4 % (36-46); Hemoglobin 13.5 g/dL (12.0-16.0); Lymphocytes Absolute Auto 1600 /uL (1100-4500); Lymphocytes Percent Auto 29.4 % (25-40); Mean Corpuscular HGB Conc 33.5 % (30-36); Mean Corpuscular Volume 92.6 fL (80-100); Monocytes Absolute Auto 400 /uL (0-900); Monocytes Percent Auto 7.8 % (3-14); Neutrophils Absolute Auto 3300 /uL (1500-7000); Neutrophils Percent Auto 58.7 % (50-75); Platelet Count 232 X10^3/uL (150-400); Red Blood Cell Count 4.36 X10^6/uL (4.0-5.2); Red Cell Distribution Width 13.4 % (11.6-14.8); White Blood Cell Count 5.6 X10^3/uL (4.5-11.0)
[2019-09-04 17:42] LABS: Hemoglobin A1C% w Est Avg Glu 7.5 % (4.0-6.0)
[2019-09-04 18:28] LABS: Alanine Aminotransferase 36 IU/L (<35); Albumin 4.4 g/dL (3.5-5.0); Albumin Globulin Ratio 1.4 (1.0-2.8); Alkaline Phosphatase 102 U/L (38-126); Aspartate Aminotransferase 38 IU/L (14-36); BUN Creatinine Ratio 26.7 (6-22); Bilirubin Total 0.5 mg/dL (0.2-1.3); Blood Urea Nitrogen 16 mg/dL (7-17); Calcium 9.2 mg/dL (8.4-10.2); Carbon Dioxide 29 mmol/L (22-32); Chloride 100 mmol/L (98-107); Cholesterol 174 mg/dL (140-199); Estimated Glomerular Filt Rate > 60.0 mL/min (>60); Globulin 3.1 g/dL (1.7-4.1); Glucose 168 mg/dL (70-100); HEMOLYSIS < 15 (0-50); Potassium 4.8 mmol/L (3.4-5.1); Sodium 137 mmol/L (137-145); Total Protein 7.5 g/dL (6.3-8.2); Triglycerides 78 mg/dL (35-150)
[2019-09-04 18:37] LABS: HDL Cholesterol 115 mg/dL (40-60); LDL Cholesterol Calculated 43 mg/dL (<100)
[2019-09-04 18:59] LABS: TSH w/ Reflex to FT4 1.54 uIU/mL (0.47-4.68)
== END ==
PROVIDERS: PCP Internal Medicine; Visit Provider Internal Medicine
DX: E10.311 Type 1 diabetes mellitus with unspecified diabetic retinopathy with macular edema (principal); I10 Essential (primary) hypertension
CPT/HCPCS: 36415; 80053; 80061; 83036; 84443; 85025

== ENCOUNTER 2019-10-28 18:41 | Emergency (ER) | payer OTHER, SELFPAY ==
[2019-10-28 18:58] VITALS: BP 148/71; PULSE 67; RESP 20; TEMP 36.7; O2SAT 99
--- NOTE | 2019-10-28 19:01 | ED_ITS ---
HPI - General Adult General Chief complaint: Nausea/Vomiting/Diarrhea Stated complaint: Migraine, gastroparesis, vomiting Time Seen by Provider: 10/28/19 18:58 Source: patient Mode of arrival: Ambulatory Limitations: no limitations History of Present Illness HPI narrative: Patient is a 59-year-old female. Is an insulin-dependent diabetic. Also has a history of gastroparesis. Also has a history of migraine headaches. Here for evaluation of vomiting that started this afternoon in progressed throughout the rest of the day triggering a migraine headache. Patient states that headache is she is having now is 1 of her typical migraines. It is not uncommon for her to get migraines when she starts having quite a bit of vomiting. No recent travel. No recent antibiotic use. No urinary symptoms. No changes in bowel habits. Tried her her nausea medication at home without any improvement. Related Data Home Medications Medication Instructions Recorded Confirmed Domperidone (#DOMPERIDONE) 30 mg PO ACHS #2 07/29/12 03/22/19 insulin lispro [Humalog U-100 0 unit CONTINUOUS IV INFUSION 07/29/12 03/22/19 Insulin] DAILY #0 rosuvastatin [Crestor] 10 mg PO BEDTIME #0 07/29/12 03/22/19 pantoprazole [Protonix] 40 mg PO DAILY #0 10/06/12 03/22/19 hydrocortisone 10 mg PO DAILY #0 05/03/17 03/22/19 Glucagon Emergency Kit (human) 1 dose SUBCUT DIRECTED 02/03/19 03/22/19 alendronate 70 mg PO QWEEK 02/03/19 03/22/19 diazepam 5 mg PO TIDP PRN 02/03/19 03/22/19 hydromorphone 4 mg PO TID PRN 02/03/19 03/22/19 levothyroxine 75 mcg PO DAILY 02/03/19 03/22/19 ondansetron HCl [Zofran] 8 mg PO TID PRN 03/22/19 03/22/19 Previous Rx's Medication Instructions Recorded promethazine 25 mg ME Q6H PRN #12 each 02/03/19 promethazine 25 mg ME Q4-6H PRN #1 each 08/31/19 Allergies Allergy/AdvReac Type Severity Reaction Status Date / Time amitriptyline Allergy Intermediate SEIZURES Verified 03/14/20 19:02 droperidol Allergy Intermediate CLONIC Verified 10/28/19 19:02 REACTION metoclopramide Allergy Intermediate CLONIC Verified 10/28/19 19:02 REACTION prochlorperazine Allergy Intermediate CLONIC Verified 10/28/19 19:02 REACTION azithromycin AdvReac Mild N/V Verified 10/28/19 19:02 ciprofloxacin AdvReac Mild N/V Verified 10/28/19 19:02 hydrocodone AdvReac Mild N/V Verified 10/28/19 19:02 ketorolac AdvReac Mild N/V Verified 10/28/19 19:02 Review of Systems Constitutional Constitutional: Denies fever(s) and Reports headache(s) Eyes Eyes: Reports photophobia ENT Ears, Nose, Mouth, and Throat: Reports headache(s) and Denies disequilibrium Cardiovascular Cardiovascular: Denies chest pain and Denies dyspnea Respiratory Respiratory: Denies dyspnea Gastrointestinal Gastrointestinal: Reports abdominal pain, Denies change in stool character, R eports nausea and Reports vomiting Genitourinary Genitourinary: Denies dysuria and Denies vaginal discharge Musculoskeletal Musculoskeletal: Denies myalgias and Denies arthralgias Integumentary/Breasts Skin/Breast: Denies lesions and Denies rash Neurologic Neurologic: Denies behavioral changes, Reports headache(s) and Denies disequilibrium Psychiatric Psychiatric: Denies behavioral changes Hematologic/Lymphatic Hematologic/Lymphatic: Denies easy bleeding and Denies easy bruising Patient History Medical History Chronic cholecystitis (Acute) Diabetes (Acute) Diabetic retinopathy (Acute) Hyperlipidemia (Acute) Hypothyroid (Acute) Osteomyelitis (Acute) Social History marital status: household members: spouse Smoking Status: Former smoker Smoking Status: Former smoker alcohol intake frequency: a few times a week Substance Use Type: does not use Exam Initial Vital Signs Initial Vital Signs: Vital Signs Temperature 98.1 F 10/28/19 18:58 Pulse Rate 67 10/28/19 18:58 Respiratory Rate 20 10/28/19 18:58 Blood Pressure 148/71 H 10/28/19 18:58 Pulse Oximetry 99 10/28/19 18:58 Const General: No comfortable (Uncomfortable) and well groomed Limitations: mental status not altered HENAZ Head: normal to inspection and normocephalic Resp Effort & Inspection: normal respiratory effort Cardio Rate: regular rate GI Palpation: soft and tender (Diffuse) Skin Lesions: no lesions Rashes: no rashes Neuro General: alert, awake and oriented x3 Speech: speech normal Extrem General: normal to inspection and capillary refill normal Psych Appearance: grossly normal and well kempt Course Orders Ordered: ED Orders 10/28/19 20:20 Comprehensive Metabolic Panel Stat Ethanol (ETOH) Stat Ketones (Beta-Hydroxybutyrate) Stat Lipase Stat Magnesium Stat Partial Thromboplastin Time Stat Phosphorous Stat Prothrombin Time INR Stat 10/28/19 20:24 Complete Blood Count AUTO DIFF Stat 10/28/19 22:23 Consult After Hours PICC Line RN Stat 10/28/19 23:06 CT head/brain wo con Stat Discontinued Medications Diphenhydramine HCl (Benadryl) 25 mg IV NOW ONE Stop: 10/28/19 20:33 Last Admin: 10/28/19 20:44 Dose: 25 mg Documented by: LYNETTE Haloperidol (Haldol) 2.5 mg IV NOW ONE Stop: 10/28/19 23:07 Last Admin: 10/28/19 23:24 Dose: 2.5 mg Documented by: KRISTEN Hydromorphone HCl (Dilaudid) 1 mg IV NOW ONE Stop: 10/28/19 20:33 Last Admin: 10/28/19 20:40 Dose: 1 mg Documented by: LYNETTE Hydromorphone HCl (Dilaudid) 1 mg IV NOW ONE Stop: 10/28/19 21:47 Last Admin: 10/28/19 22:07 Dose: 1 mg Documented by: THONY Hydroxyzine HCl (Vistaril) 25 mg IM NOW ONE Stop: 10/28/19 23:07 Last Admin: 10/28/19 23:25 Dose: 25 mg Documented by: KRISTEN Sodium Chloride (Normal Saline 0.9%) 1,000 mls @ 1,000 mls/hr IV BOLUS ONE Stop: 10/28/19 20:01 Last Infusion: 10/29/19 00:44 Dose: 0 mls/hr Documented by: Admin: 10/28/19 20:17 Dose: 1,000 mls/hr Documented by: LYNETTE Lorazepam (Ativan) 1 mg IV NOW ONE Stop: 10/28/19 21:47 Last Admin: 10/28/19 22:08 Dose: 1 mg Documented by: THONY Metoclopramide HCl (Reglan) 10 mg IV NOW ONE Stop: 10/28/19 20:33 Last Admin: 10/29/19 01:14 Dose: Not Given Documented by: KRISTEN Ondansetron HCl (Zofran) 4 mg IV NOW ONE Stop: 10/28/19 19:03 Last Admin: 10/28/19 20:17 Dose: 4 mg Documented by: LYNETTE Pantoprazole Sodium (Protonix) 40 mg IV NOW ONE Stop: 10/28/19 19:03 Last Admin: 10/28/19 20:17 Dose: 40 mg Documented by: LYNETTE Vital Signs Vital signs: Vital Signs - 8 hr 10/28/19 21:00 10/28/19 22:00 10/29/19 00:51 Pulse Rate 72 74 77 Respiratory Rate 12 Blood Pressure [Left Arm] 153/72 H 152/69 H 185/74 H Pulse Oximetry 97 97 98 10/29/19 01:00 Pulse Rate 64 Respiratory Rate 18 Blood Pressure [Left Arm] 151/73 H Pulse Oximetry 94 Medical Decision Making Medical Records Medical records reviewed: Yes I reviewed the patient's medical records. Lab Data Lab results reviewed: Yes I reviewed the patient's lab results. Result diagrams: 10/28/19 20:24 10/28/19 20:20 Labs: Lab Results 10/28/19 10/28/19 10/28/19 Range/Units 20:20 20:20 20:20 WBC (4.5-11.0) X10^3/uL RBC (4.0-5.2) X10^6/uL Hgb (12.0-16.0) g/dL Hct (36-46) % MCV (80-100) fL MCH (26-34) PG MCHC (30-36) % RDW (11.6-14.8) % Plt Count (150-400) X10^3/uL Neut % (Auto) (50-75) % Lymph % (Auto) (25-40) % [place] % (Auto) (3-14) % Eos % (Auto) (2-4) % Baso % (Auto) (0-2) % Neut # (Auto) (8859-7068) /uL Lymph # (Auto) (5321-6602) /uL [place] # (Auto) (0-900) /uL Eos # (Auto) (0-450) /uL Baso # (Auto) (0-100) /uL PT 11.1 (10.1-12.7) SECONDS INR 1.0 (0.9-1.3) APTT 29 (26.4-36.2) SECONDS Sodium 137 (137-145) mmol/L Potassium 4.0 (3.4-5.1) mmol/L Chloride 105 (98-107) mmol/L Carbon Dioxide 27 (22-32) mmol/L BUN 13 (7-17) mg/dL Creatinine 0.82 (0.52-1.04) mg/dL Estimated GFR > 60.0 (>60) mL/min BUN/Creatinine Ratio 15.9 (6-22) Glucose 186 H (70-100) mg/dL Calcium 9.5 (8.4-10.2) mg/dL Phosphorus 2.9 (2.5-4.5) mg/dL Magnesium 2.1 (1.6-2.3) mg/dL Total Bilirubin 0.6 (0.2-1.3) mg/dL AST 40 H (14-36) IU/L ALT 32 (<35) IU/L Alkaline Phosphatase 107 (38-126) U/L Total Protein 8.1 (6.3-8.2) g/dL Albumin 4.6 (3.5-5.0) g/dL Globulin 3.5 (1.7-4.1) g/dL Albumin/Globulin Ratio 1.3 (1.0-2.8) Lipase < 10 L (23-300) U/L Ethyl Alcohol < 10 ( - 10) mg/dL Ketones (<0.27) mmol/L 10/28/19 10/28/19 Range/Units 20:20 20:24 WBC 6.5 (4.5-11.0) X10^3/uL RBC 4.74 (4.0-5.2) X10^6/uL Hgb 14.6 (12.0-16.0) g/dL Hct 43.5 (36-46) % MCV 91.8 (80-100) fL MCH 30.9 (26-34) PG MCHC 33.6 (30-36) % RDW 12.7 (11.6-14.8) % Plt Count 247 (150-400) X10^3/uL Neut % (Auto) 80.1 H (50-75) % Lymph % (Auto) 13.3 L (25-40) % [place] % (Auto) 4.9 (3-14) % Eos % (Auto) 1.2 L (2-4) % Baso % (Auto) 0.5 (0-2) % Neut # (Auto) 5200 (4622-0634) /uL Lymph # (Auto) 900 L (2299-9221) /uL [place] # (Auto) 300 (0-900) /uL Eos # (Auto) 100 (0-450) /uL Baso # (Auto) 0 (0-100) /uL PT (10.1-12.7) SECONDS INR (0.9-1.3) APTT (26.4-36.2) SECONDS Sodium (137-145) mmol/L Potassium (3.4-5.1) mmol/L Chloride (98-107) mmol/L Carbon Dioxide (22-32) mmol/L BUN (7-17) mg/dL Creatinine (0.52-1.04) mg/dL Estimated GFR (>60) mL/min BUN/Creatinine Ratio (6-22) Glucose (70-100) mg/dL Calcium (8.4-10.2) mg/dL Phosphorus (2.5-4.5) mg/dL Magnesium (1.6-2.3) mg/dL Total Bilirubin (0.2-1.3) mg/dL AST (14-36) IU/L ALT (<35) IU/L Alkaline Phosphatase (38-126) U/L Total Protein (6.3-8.2) g/dL Albumin (3.5-5.0) g/dL Globulin (1.7-4.1) g/dL Albumin/Globulin Ratio (1.0-2.8) Lipase (23-300) U/L Ethyl Alcohol ( - 10) mg/dL Ketones 0.43 H (<0.27) mmol/L Point of Care Testing Glucose POC 177 Point of care testing: Point of Care Testing Glucose POC [address] scan - head: Radiologist's Impression: No acute intracranial process Acute right maxillary sinusitis. Nonspecific sphenoid, ethmoid, and left maxillary sinus disease Nonspecific white matter changes likely sequela of a road small vessel disease ECG Data Attestation: I personally reviewed and interpreted this ECG as follows: Prior ECG tracings: not available for review Interpretation: Sinus rhythm Ventricular rate is 69 Normal QRS Normal QTC No ST T wave changes MDM Narrative Medical decision making narrative: Patient has been seen in the emergency department multiple times in the past for same symptoms that she comes in with today. Has multiple allergies to most of the conventional medications used to treat gastroparesis and also migraine headaches. Patient lab results not consistent with DKA. Patient received multiple doses of medication for which she initially stated she was getting no relief. I informed the patient that since she was not getting any relief with pain medication and other remedies for her headache up felt that a CT scan was warranted to evaluate for other etiologies. This CT scan was unremarkable for acute pathology. Patient has multiple times for pain and nausea medication. She stated that other ER providers in the past have provided her with ?as much Dilaudid as I needed ?to help her headaches. I informed her that it was not my practice to keep dosing patients with multiple rounds of pain medication especially since it did not seem to be working in her scenario. Patient stated that she had a ?tolerance ?to pain medication and needed more event. I informed her that I was not willing to give her more opioid pain medication than what I have already given her. Informed her that we would try 1 other medication and if this did not help her symptoms that we would eat to admit her to the hospital for uncontrolled migraine headache. I gave her 2.5 mg of Haldol. This is when she left for the CT scan when she came back from the CT scan she stated that her headache felt much better. She stated that she was still feeling nauseous however she had no actual vomiting while here in the ER. Informed patient that she should continue to take all of her medications as directed. In the future I would very much limit the amount of opioid pain medication that the patient receives in the emergency department. Discharge Plan Departure Patient Disposition: Home Clinical Impression: Nausea Migraine Qualifiers: Migraine type: unspecified Status migrainosus presence: without status migrainosus Intractability: not intractable Qualified Code(s): G43.909 - Migraine, unspecified, not intractable, without status migrainosus Abdominal pain Qualifiers: Abdominal location: unspecified location Qualified Code(s): R10.9 - Unspecified abdominal pain Discharge Date/Time: 10/29/19 01:16 Instructions: DI for Nausea -- Adult, DI for Headache Activity Restrictions/Additional Instructions: Recommend you take all of your medications as directed. On Wednesday contact your primary provider for a follow-up. Return to the emergency department for any new symptoms Prescriptions: No Action insulin lispro [Humalog U-100 Insulin] 100 UNIT/1 ML solution 0 unit continuous IV infusion DAILY Qty: 0 RF: 0 Domperidone (#DOMPERIDONE) 30 mg PO ACHS Qty: 2 RF: 0 rosuvastatin [Crestor] 10 MG tablet 10 mg PO BEDTIME Qty: 0 RF: 0 pantoprazole [Protonix] 40 MG tablet,delayed release (DR/EC) 40 mg PO DAILY Qty: 0 RF: 0 hydrocortisone 10 MG tablet 10 mg PO DAILY Qty: 0 RF: 0 alendronate 70 mg Tablet 70 mg PO QWEEK RF: 0 levothyroxine 75 mcg Tablet 75 mcg PO DAILY RF: 0 Glucagon Emergency Kit (human) 1 mg Recon Soln 1 dose subcut DIRECTED RF: 0 hydromorphone 4 MG tablet 4 mg PO TID PRN (Reason: PAIN) RF: 0 diazepam 5 MG tablet 5 mg PO TIDP PRN (Reason: Anxiety) RF: 0 promethazine 25 mg suppository 25 mg ME Q6H PRN (Reason: nausea and vomiting) Qty: 12 RF: 0 promethazine 25 mg suppository 25 mg ME Q4-6H PRN (Reason: nausea and vomiting) Qty: 1 RF: 0 ondansetron HCl [Zofran] 8 mg Tablet 8 mg PO TID PRN (Reason: Nausea) RF: 0 Referrals: Salvatore Villegas MD [Primary Care Provider] -
[2019-10-28 19:30] VITALS: BP 148/70; PULSE 69; RESP 22; O2SAT 99
[2019-10-28] MEDS: PANTOPRAZOLE 40 MG VIAL IV (20:17)
[2019-10-28] MEDS: SODIUM CHLORIDE 0.9% 1,000 ML 1000 ML IV (20:17)
[2019-10-28] MEDS: ONDANSETRON 4 MG/2 ML INJ IV (20:17)
--- NOTE | 2019-10-28 20:29 | PC.NURSE ---
states vomiting started about 1000 which is not unusual for patient. patient's states they can usually get the vomiting under conrtoll with out it turning into a headache. Today the headache started at 1600 and and around 1900 states he knew they would not get this dealt with at home and brought patient into Ed.
[2019-10-28] MEDS: HYDROMORPHONE 1 MG INJ IV ×2 (20:40→22:07)
[2019-10-28] MEDS: diphenhydrAMINE 50 MG/ML VIAL 25 MG IV (20:44)
[2019-10-28 20:54] LABS: Add Manual Diff / Slide Review NO; Basophils Absolute Auto 0 /uL (0-100); Basophils Percent Auto 0.5 % (0-2); Eosinophils Absolute Auto 100 /uL (0-450); Eosinophils Percent Auto 1.2 % (2-4); Hematocrit 43.5 % (36-46); Hemoglobin 14.6 g/dL (12.0-16.0); Lymphocytes Absolute Auto 900 /uL (1100-4500); Lymphocytes Percent Auto 13.3 % (25-40); Mean Corpuscular HGB Conc 33.6 % (30-36); Mean Corpuscular Hemoglobin 30.9 PG (26-34); Mean Corpuscular Volume 91.8 fL (80-100); Monocytes Absolute Auto 300 /uL (0-900); Monocytes Percent Auto 4.9 % (3-14); Neutrophils Absolute Auto 5200 /uL (1500-7000); Neutrophils Percent Auto 80.1 % (50-75); Platelet Count 247 X10^3/uL (150-400); Red Blood Cell Count 4.74 X10^6/uL (4.0-5.2); Red Cell Distribution Width 12.7 % (11.6-14.8); White Blood Cell Count 6.5 X10^3/uL (4.5-11.0)
--- NOTE | 2019-10-28 20:54 | PC.NURSE ---
patient monitor alarmed for tachy, ekg notified and at bedside. Provider aware. Patient now resting calmly with medications on board.
[2019-10-28 20:57] LABS: Ethanol (ETOH) < 10 mg/dL; Magnesium 2.1 mg/dL (1.6-2.3); Phosphorous 2.9 mg/dL (2.5-4.5)
[2019-10-28 21:00] VITALS: BP 153/72; PULSE 72; O2SAT 97
[2019-10-28 21:02] LABS: Prothrombin Time 11.1 SECONDS (10.1-12.7)
[2019-10-28 21:05] LABS: PTT Partial Thromboplastin Tim 29 SECONDS (26.4-36.2)
[2019-10-28 21:17] LABS: Alanine Aminotransferase 32 IU/L (<35); Albumin 4.6 g/dL (3.5-5.0); Albumin Globulin Ratio 1.3 (1.0-2.8); Alkaline Phosphatase 107 U/L (38-126); Aspartate Aminotransferase 40 IU/L (14-36); BUN Creatinine Ratio 15.9 (6-22); Bilirubin Total 0.6 mg/dL (0.2-1.3); Blood Urea Nitrogen 13 mg/dL (7-17); Calcium 9.5 mg/dL (8.4-10.2); Carbon Dioxide 27 mmol/L (22-32); Chloride 105 mmol/L (98-107); Estimated Glomerular Filt Rate > 60.0 mL/min (>60); Globulin 3.5 g/dL (1.7-4.1); Glucose 186 mg/dL (70-100); HEMOLYSIS 18 (0-50); Lipase < 10 U/L (23-300); Sodium 137 mmol/L (137-145); Total Protein 8.1 g/dL (6.3-8.2)
[2019-10-28 21:19] LABS: Ketones (Beta-Hydroxybutyrate) 0.43 mmol/L (<0.27)
[2019-10-28 22:00] VITALS: BP 152/69; PULSE 74; O2SAT 97
[2019-10-28] MEDS: LORazepam 2 MG/ML INJ 1 MG IV (22:08)
--- NOTE | 2019-10-28 22:25 | PC.NURSE ---
after hours PICC nurse at bedside. Provider asking for a midline. PICC nurse to place midline.
--- NOTE | 2019-10-28 23:06 | DI.CT.S_ITS ---
PROCEDURE: CT HEAD/BRAIN WO CON INDICATIONS: Intractable migraine TECHNIQUE: Noncontrast 4.5 mm thick angled axial sections acquired from the foramen magnum to the vertex, with coronal and sagittal reformats. For radiation dose reduction, the following was used: automated exposure control, adjustment of mA and/or kV according to patient size. COMPARISON: [facility], CT, HEAD WITHOUT CONTRAST, 05/06/2011, 17:18. FINDINGS: Image quality: Excellent. CSF spaces: Basal cisterns are patent. No extra-axial fluid collections. The ventricles are symmetric in size and shape. Brain: No intracranial bleeds or masses. There is cerebral volume loss for age, with resultant ventricular and sulcal prominence. There are mild periventricular and deep white matter chronic small vessel ischemic changes. There is intracranial internal carotid artery atherosclerosis. Skull and face: Calvarium and visualized facial bones appear intact, without suspicious lesions. Sinuses: Air-fluid level, right maxillary sinus. Left maxillary sinus mucosal thickening. Patchy bilateral ethmoid disease. IMPRESSION: 1. Acute right maxillary sinusitis, chronic sinus disease. 2. Age related volume loss and mild small vessel ischemic change. 3. No evidence acute stroke, hemorrhage, or mass. Comment: Final report is concordant with preliminary interpretation provided by [facility]. Dictated by: Andre Chase M.D. on 10/29/2019 at 7:02 Approved by: Andre Chase M.D. on 10/29/2019 at 7:04
[2019-10-28] MEDS: HALOPERIDOL 5 MG/ML VIAL 2.5 MG IV (23:24)
[2019-10-28] MEDS: hydrOXYzine 50 MG/ML INJ 25 MG IM (23:25)
[2019-10-29 00:51] VITALS: BP 185/74; PULSE 77; RESP 12; O2SAT 98
[2019-10-29 01:00] VITALS: BP 151/73; PULSE 64; RESP 18; O2SAT 94
== END 2019-10-29 01:16 | disposition home or self-care (01) ==
PROVIDERS: Emergency Provider Emergency Medicine; PCP Internal Medicine; Referring Provider Internal Medicine
DX: G43.909 Migraine, unspecified, not intractable, without status migrainosus (principal); R10.9 Unspecified abdominal pain; R11.0 Nausea; E11.43 Type 2 diabetes mellitus with diabetic autonomic (poly)neuropathy; Z79.4 Long term (current) use of insulin; K31.84 Gastroparesis
CPT/HCPCS: 36415; 70450; 80053; 80320; 82009; 82962; 83690; 83735; 84100; 85025; 85610; 85730; 93005; 93010; 96361; 96372; 96374; 96375; 96376; 99284; C9113; J1170; J1200; J1630; J2060; J2405; J3410

== ENCOUNTER 2020-07-14 03:52 | Emergency (ER) | payer OTHER, SELFPAY ==
--- NOTE | 2020-07-14 04:01 | ED_ITS ---
HPI - Abdominal Pain General Chief Complaint: Abdominal Pain Stated Complaint: Vomitting with headache x 9 hours Time Seen by Provider: 07/14/20 03:53 Source: patient and family Mode of arrival: Ambulatory Limitations: no limitations History of Present Illness HPI narrative: 60-year-old female former smoker with extensive history complications of diabetes including abdominal pain, gastroparesis and headaches presents with a chief complaint of multiple episodes of vomiting over the past 6 or 7 hours despite using her normal regimen of home medications including pain control antiemetics etc.. She denies any medication change or change in diet. She has become a bit fatigued and lightheaded with all of the vomiting. She denies any runny nose, sore throat or cough. She has had no chest pain or shortness of breath. She denies any fever or chills. She started with generalized abdominal pain and vomiting and over the course of night has developed a headache. She denies any focal neurologic findings such as blurred vision, trouble speech nor numbness, tingling or weakness. She has had some episodes of blood-tinged emesis as the night has wore on. She takes no blood thinners MD complaint: abdominal pain Onset (ago): hour(s) Pain Consistency: constant Location: diffuse Severity: moderate Quality: cramping and aching Radiation: none Relieving factors: nothing Exacerbating factors: nothing Associated symptoms: nausea and vomiting Related Data Patient : No Home Medications Medication Instructions Recorded Confirmed Domperidone (#DOMPERIDONE) 30 mg PO ACHS #2 07/29/12 03/22/19 insulin lispro [Humalog U-100 0 unit CONTINUOUS IV INFUSION 07/29/12 03/22/19 Insulin] DAILY #0 rosuvastatin [Crestor] 10 mg PO BEDTIME #0 07/29/12 03/22/19 pantoprazole [Protonix] 40 mg PO DAILY #0 10/06/12 03/22/19 hydrocortisone 10 mg PO DAILY #0 05/03/17 03/22/19 Glucagon Emergency Kit (human) 1 dose SUBCUT DIRECTED 02/03/19 03/22/19 alendronate 70 mg PO QWEEK 02/03/19 03/22/19 diazepam 5 mg PO TIDP PRN 02/03/19 03/22/19 hydromorphone 4 mg PO TID PRN 02/03/19 03/22/19 levothyroxine 75 mcg PO DAILY 02/03/19 03/22/19 ondansetron HCl [Zofran] 8 mg PO TID PRN 03/22/19 03/22/19 Previous Rx's Medication Instructions Recorded promethazine 25 mg AR Q6H PRN #12 each 02/03/19 promethazine 25 mg AR Q4-6H PRN #1 each 08/31/19 Allergies Allergy/AdvReac Type Severity Reaction Status Date / Time amitriptyline Allergy Intermediate SEIZURES Verified 10/28/19 19:02 droperidol Allergy Intermediate CLONIC Verified 10/28/19 19:02 REACTION metoclopramide Allergy Intermediate CLONIC Verified 10/28/19 19:02 REACTION prochlorperazine Allergy Intermediate CLONIC Verified 10/28/19 19:02 REACTION azithromycin AdvReac Mild N/V Verified 10/28/19 19:02 ciprofloxacin AdvReac Mild N/V Verified 10/28/19 19:02 hydrocodone AdvReac Mild N/V Verified 10/28/19 19:02 ketorolac AdvReac Mild N/V Verified 10/28/19 19:02 Review of Systems Constitutional Constitutional: Denies chills, Denies fatigue, Denies fever(s), Denies frequent falls, Reports headache(s), Denies lethargy and Reports weakness Eyes Eyes: Denies change in vision, Denies eye discharge, Denies irritation and Denie s loss of vision ENT Ears, Nose, Mouth, and Throat: Denies change in voice, Denies dizziness, Reports headache(s), Denies neck pain, Denies sore throat and Denies throat swelling Cardiovascular Cardiovascular: Denies chest pain, Denies irregular heart rhythm, Denies lighthe adedness, Denies palpitations, Denies dyspnea, Denies dyspnea on exertion and Denies orthopnea Respiratory Respiratory: Denies cough, Denies dyspnea, Denies dyspnea on exertion and Denies wheezing Gastrointestinal Gastrointestinal: Reports abdominal pain, Denies change in bowel habits, Denies diarrhea, Reports nausea and Reports vomiting Musculoskeletal Musculoskeletal: Denies neck pain and Denies numbness Integumentary/Breasts Skin/Breast: Denies pruritus, Denies erythema, Denies rash and Denies wounds Neurologic Neurologic: Denies behavioral changes, Denies confusion, Denies dizziness, Denies frequent falls, Reports headache(s), Denies loss of vision, Denies numbness and Reports weakness Psychiatric Psychiatric: Denies anxiety, Denies behavioral changes, Denies confusion, Denies depression, Denies homicidal ideation and Denies suicidal ideation Endocrine Endocrine: Denies fatigue, Denies flushing and Denies palpitations Hematologic/Lymphatic Hematologic/Lymphatic: Denies easy bruising Allergic/Immunologic Allergic/Immunologic: Denies urticaria, Denies throat swelling and Denies wh eezing Patient History Medical History (Updated 07/14/20 @ 06:12 by Damon Schreiber DO) Chronic cholecystitis Diabetes Diabetic retinopathy Hyperlipidemia Hypothyroid Osteomyelitis Family History Mother Non Hodgkin's lymphoma Social History marital status: household members: spouse Smoking Status: Former smoker Smoking Status: Former smoker alcohol intake frequency: a few times a week Substance Use Type: does not use Exam Narrative Exam Narrative: GENERAL: [60] year old patient appears stated age. Well- nourished, well-developed patient, in no obvious distress, clutching her abdomen and holding an emesis bag HEAD: Atraumatic. Normocephalic. EYES: Pupils equal round and reactive. Extraocular motions intact. No scleral icterus. No injection or drainage. ENT: Nose without bleeding, purulent drainage. Throat without erythema, tonsillar hypertrophy or exudate. Airway patent. NECK: Trachea midline. Non tender CARDIOVASCULAR: Regular rate and rhythm without murmurs, gallops, or rubs. RESPIRATORY: Clear to auscultation. Breath sounds equal bilaterally. No wheezes, rales, or rhonchi. GASTROINTESTINAL: Abdomen soft, generalized tenderness, nondistended. EXTREMITIES: No edema or joint tenderness. BACK: Nontender without deformity or crepitance. No flank tenderness. NEURO: AOx3. SKIN: No rash or erythema of visible areas Initial Vital Signs Initial Vital Signs: Vital Signs Temperature 97.7 F 07/14/20 04:03 Pulse Rate 73 07/14/20 04:03 Respiratory Rate 15 07/14/20 04:03 Blood Pressure 148/73 H 07/14/20 04:03 Pulse Oximetry 99 07/14/20 04:03 Course Orders Ordered: Discontinued Medications Diphenhydramine HCl (Diphenhydramine 50 Mg/Ml Vial) 25 mg IV NOW ONE Stop: 07/14/20 06:50 Last Admin: 07/14/20 06:52 Dose: 25 mg Documented by: DWIGHT Haloperidol (Haloperidol 5 Mg/Ml Vial) 2 mg IV NOW ONE Stop: 07/14/20 04:57 Last Admin: 07/14/20 05:04 Dose: 2 mg Documented by: DWIGHT Hydromorphone HCl (Hydromorphone 0.5 Mg Inj) 0.5 mg IV NOW ONE Stop: 07/14/20 04:02 Last Admin: 07/14/20 04:16 Dose: 0.5 mg Documented by: DWIGHT Hydroxyzine HCl (Hydroxyzine 50 Mg/Ml Inj) 25 mg IM NOW ONE Stop: 07/14/20 05:34 Last Admin: 07/14/20 05:42 Dose: 25 mg Documented by: DWIGHT Sodium Chloride (Normal Saline 0.9%) 1,000 mls @ 1,000 mls/hr IV BOLUS ONE Stop: 07/14/20 05:00 Last Infusion: 07/14/20 05:20 Dose: 0 mls/hr Documented by: Admin: 07/14/20 04:16 Dose: 1,000 mls/hr Documented by: DWIGHT Sodium Chloride (Normal Saline 0.9%) 1,000 mls @ 1,000 mls/hr IV BOLUS ONE Stop: 07/14/20 06:32 Last Infusion: 07/14/20 06:57 Dose: 0 mls/hr Documented by: Admin: 07/14/20 05:47 Dose: 1,000 mls/hr Documented by: DWIGHT Lorazepam (Lorazepam 2 Mg/Ml Inj) 1 mg IV NOW ONE Stop: 07/14/20 04:02 Last Admin: 07/14/20 04:17 Dose: 1 mg Documented by: DWIGHT Ondansetron HCl (Ondansetron 4 Mg/2 Ml Inj) 4 mg IV Q4HR PRN PRN Reason: Nausea And Vomiting Last Admin: 07/14/20 06:52 Dose: 4 mg Documented by: Admin: 07/14/20 04:16 Dose: 4 mg Documented by: DWIGHT Pantoprazole Sodium (Pantoprazole 40 Mg Vial) 40 mg IV NOW ONE Stop: 07/14/20 04:02 Last Admin: 07/14/20 04:16 Dose: 40 mg Documented by: DWIGHT Reevaluation(s) Reevaluation #1: patient no longer vomiting, but reports little change in pain after initial round of medications (Dilaudid, Ativan, Protonix) Reevaluation #2: patient resting quietly after Haldol 2.0mg, still reporting pain. Reevaluation #3: patient feeling better, now resting, able to fall asleep Vital Signs Vital signs: Vital Signs - 8 hr 07/14/20 04:03 07/14/20 04:30 07/14/20 05:31 Temperature 97.7 F Pulse Rate 73 82 Respiratory Rate 15 Blood Pressure 148/73 H 154/72 H 142/67 H Pulse Oximetry 99 97 07/14/20 06:00 Temperature Pulse Rate Respiratory Rate Blood Pressure 150/74 H Pulse Oximetry MDM - Abdominal Pain Lab Data Result diagrams: 07/14/20 04:15 07/14/20 04:15 Labs: Lab Results 07/14/20 07/14/20 07/14/20 Range/Units 04:11 04:15 04:15 WBC 5.7 (4.5-11.0) X10^3/uL RBC 4.48 (4.0-5.2) X10^6/uL Hgb 13.6 (12.0-16.0) g/dL Hct 40.3 (36-46) % MCV 89.9 (80-100) fL MCH 30.4 (26-34) PG MCHC 33.8 (30-36) % RDW 12.8 (11.6-14.8) % Plt Count 217 (150-400) X10^3/uL Neut % (Auto) 83.3 H (50-75) % Lymph % (Auto) 11.6 L (25-40) % [place] % (Auto) 3.9 (3-14) % Eos % (Auto) 0.7 L (2-4) % Baso % (Auto) 0.5 (0-2) % Neut # (Auto) 4700 (3439-6852) /uL Lymph # (Auto) 700 L (5290-2002) /uL [place] # (Auto) 200 (0-900) /uL Eos # (Auto) 0 (0-450) /uL Baso # (Auto) 0 (0-100) /uL VBG pH 7.45 H (7.33-7.43) VBG pCO2 39.0 L (45-50) mmHg VBG pO2 57 H (35-45) mmHg VBG HCO3 27 (23-28) mmol/L VBG Total CO2 28 (24-29) mmol/L VBG O2 Saturation 90 H (70-75) % VBG Base Excess 3.0 (0-4) mmol/L Sodium (137-145) mmol/L Potassium (3.4-5.1) mmol/L Chloride (98-107) mmol/L Carbon Dioxide (22-32) mmol/L BUN (7-17) mg/dL Creatinine (0.52-1.04) mg/dL Estimated GFR (>60) mL/min BUN/Creatinine Ratio (6-22) Glucose (80-110) mg/dL Calcium (8.4-10.2) mg/dL Total Bilirubin (0.2-1.3) mg/dL AST (14-36) IU/L ALT (<35) IU/L Alkaline Phosphatase (38-126) U/L Total Protein (6.3-8.2) g/dL Albumin (3.5-5.0) g/dL Globulin (1.7-4.1) g/dL Albumin/Globulin Ratio (1.0-2.8) Ketones 0.91 H (<0.27) mmol/L 07/14/ Range/Units 04:15 WBC (4.5-11.0) X10^3/uL RBC (4.0-5.2) X10^6/uL Hgb (12.0-16.0) g/dL Hct (36-46) % MCV (80-100) fL MCH (26-34) PG MCHC (30-36) % RDW (11.6-14.8) % Plt Count (150-400) X10^3/uL Neut % (Auto) (50-75) % Lymph % (Auto) (25-40) % [place] % (Auto) (3-14) % Eos % (Auto) (2-4) % Baso % (Auto) (0-2) % Neut # (Auto) (7082-3875) /uL Lymph # (Auto) (8519-6123) /uL [place] # (Auto) (0-900) /uL Eos # (Auto) (0-450) /uL Baso # (Auto) (0-100) /uL VBG pH (7.33-7.43) VBG pCO2 (45-50) mmHg VBG pO2 (35-45) mmHg VBG HCO3 (23-28) mmol/L VBG Total CO2 (24-29) mmol/L VBG O2 Saturation (70-75) % VBG Base Excess (0-4) mmol/L Sodium 137 (137-145) mmol/L Potassium 4.1 (3.4-5.1) mmol/L Chloride 104 (98-107) mmol/L Carbon Dioxide 29 (22-32) mmol/L BUN 16 (7-17) mg/dL Creatinine 0.88 (0.52-1.04) mg/dL Estimated GFR > 60.0 (>60) mL/min BUN/Creatinine Ratio 18.2 (6-22) Glucose 235 H (80-110) mg/dL Calcium 9.6 (8.4-10.2) mg/dL Total Bilirubin 0.7 (0.2-1.3) mg/dL AST 108 H (14-36) IU/L ALT 77 H (<35) IU/L Alkaline Phosphatase 104 (38-126) U/L Total Protein 7.4 (6.3-8.2) g/dL Albumin 4.2 (3.5-5.0) g/dL Globulin 3.2 (1.7-4.1) g/dL Albumin/Globulin Ratio 1.3 (1.0-2.8) Ketones (<0.27) mmol/L MDM Narrative Medical decision making narrative: Patient with significant history of cyclic vomiting, gastroparesis and migraine headaches presents under similar circumstances to prior visits. Her labs are very reassuring as is her physical exam there is no indication of sepsis diabetic ketoacidosis. No indication for advanced imaging. Return precautions given. Questions answered to apparent satisfaction Discharge Plan Departure Patient Disposition: Home Clinical Impression: Diabetic gastroparesis Instructions: DI for Gastroparesis Activity Restrictions/Additional Instructions: *You have been diagnosed with [abdominal pain due to gastroparesis.] *What to do: *Take medications as directed *Follow up with your primary care provider in 2-3 days, call for an appointment. Let them know you were seen in the Emergency Department and that we ask that you be seen in follow up *Return to ER if you should have any new, worsening or concerning symptoms Prescriptions: No Action insulin lispro [Humalog U-100 Insulin] 100 UNIT/1 ML solution 0 unit continuous IV infusion DAILY Qty: 0 RF: 0 Domperidone (#DOMPERIDONE) 30 mg PO ACHS Qty: 2 RF: 0 rosuvastatin [Crestor] 10 MG tablet 10 mg PO BEDTIME Qty: 0 RF: 0 pantoprazole [Protonix] 40 MG tablet,delayed release (DR/EC) 40 mg PO DAILY Qty: 0 RF: 0 hydrocortisone 10 MG tablet 10 mg PO DAILY Qty: 0 RF: 0 alendronate 70 mg Tablet 70 mg PO QWEEK RF: 0 levothyroxine 75 mcg Tablet 75 mcg PO DAILY RF: 0 Glucagon Emergency Kit (human) 1 mg Recon Soln 1 dose subcut DIRECTED RF: 0 hydromorphone 4 MG tablet 4 mg PO TID PRN (Reason: PAIN) RF: 0 diazepam 5 MG tablet 5 mg PO TIDP PRN (Reason: Anxiety) RF: 0 promethazine 25 mg suppository 25 mg AR Q6H PRN (Reason: nausea and vomiting) Qty: 12 RF: 0 promethazine 25 mg suppository 25 mg AR Q4-6H PRN (Reason: nausea and vomiting) Qty: 1 RF: 0 ondansetron HCl [Zofran] 8 mg Tablet 8 mg PO TID PRN (Reason: Nausea) RF: 0 Referrals: Salvatore Villegas MD [Primary Care Provider] -
[2020-07-14 04:03] VITALS: BP 148/73; PULSE 73; RESP 15; TEMP 36.5; O2SAT 99; BMI 21.3
[2020-07-14] MEDS: HYDROMORPHONE 0.5 MG INJ IV (04:16)
[2020-07-14] MEDS: SODIUM CHLORIDE 0.9% 1,000 ML 1000 ML IV ×2 (04:16→05:47)
[2020-07-14] MEDS: PANTOPRAZOLE 40 MG VIAL IV (04:16)
[2020-07-14] MEDS: ONDANSETRON 4 MG/2 ML INJ IV ×2 (04:16→06:52)
[2020-07-14] MEDS: LORazepam 2 MG/ML INJ 1 MG IV (04:17)
[2020-07-14 04:25] LABS: Add Manual Diff / Slide Review NO; Basophils Absolute Auto 0 /uL (0-100); Basophils Percent Auto 0.5 % (0-2); Eosinophils Absolute Auto 0 /uL (0-450); Eosinophils Percent Auto 0.7 % (2-4); Hematocrit 40.3 % (36-46); Hemoglobin 13.6 g/dL (12.0-16.0); Lymphocytes Absolute Auto 700 /uL (1100-4500); Lymphocytes Percent Auto 11.6 % (25-40); Mean Corpuscular HGB Conc 33.8 % (30-36); Mean Corpuscular Hemoglobin 30.4 PG (26-34); Mean Corpuscular Volume 89.9 fL (80-100); Monocytes Absolute Auto 200 /uL (0-900); Monocytes Percent Auto 3.9 % (3-14); Neutrophils Absolute Auto 4700 /uL (1500-7000); Neutrophils Percent Auto 83.3 % (50-75); Platelet Count 217 X10^3/uL (150-400); Red Blood Cell Count 4.48 X10^6/uL (4.0-5.2); Red Cell Distribution Width 12.8 % (11.6-14.8); White Blood Cell Count 5.7 X10^3/uL (4.5-11.0)
[2020-07-14 04:30] VITALS: BP 154/72; PULSE 82; O2SAT 97
[2020-07-14 04:31] LABS: pH VBG 7.45 (7.33-7.43)
[2020-07-14 04:32] LABS: HCO3 VBG 27 mmol/L (23-28); Oxygen Saturation VBG 90 % (70-75); PO2 VBG 57 mmHg (35-45); Total CO2 VBG 28 mmol/L (24-29)
[2020-07-14 04:34] LABS: Alanine Aminotransferase 77 IU/L (<35); Albumin 4.2 g/dL (3.5-5.0); Albumin Globulin Ratio 1.3 (1.0-2.8); Alkaline Phosphatase 104 U/L (38-126); Aspartate Aminotransferase 108 IU/L (14-36); BUN Creatinine Ratio 18.2 (6-22); Bilirubin Total 0.7 mg/dL (0.2-1.3); Blood Urea Nitrogen 16 mg/dL (7-17); Calcium 9.6 mg/dL (8.4-10.2); Carbon Dioxide 29 mmol/L (22-32); Chloride 104 mmol/L (98-107); Estimated Glomerular Filt Rate > 60.0 mL/min (>60); Globulin 3.2 g/dL (1.7-4.1); Glucose 235 mg/dL (80-110); HEMOLYSIS 15 (0-50); Potassium 4.1 mmol/L (3.4-5.1); Sodium 137 mmol/L (137-145); Total Protein 7.4 g/dL (6.3-8.2)
[2020-07-14 04:37] LABS: Ketones (Beta-Hydroxybutyrate) 0.91 mmol/L (<0.27)
[2020-07-14] MEDS: HALOPERIDOL 5 MG/ML VIAL 2 MG IV (05:04)
[2020-07-14 05:31] VITALS: BP 142/67
[2020-07-14] MEDS: hydrOXYzine 50 MG/ML INJ 25 MG IM (05:42)
[2020-07-14 06:00] VITALS: BP 150/74
--- NOTE | 2020-07-14 06:04 | PC.NURSE ---
After Haldol and Vistaril admin patient is now sleeping and no longer dry-heaving
[2020-07-14] MEDS: diphenhydrAMINE 50 MG/ML VIAL 25 MG IV (06:52)
[2020-07-14 06:57] VITALS: BP 142/68; PULSE 71; RESP 16; O2SAT 98
== END 2020-07-14 06:57 | disposition home or self-care (01) ==
PROVIDERS: Emergency Provider Emergency Medicine; PCP Internal Medicine
DX: E11.43 Type 2 diabetes mellitus with diabetic autonomic (poly)neuropathy (principal); K31.84 Gastroparesis; Z79.4 Long term (current) use of insulin; R51.9 Headache, unspecified; R10.9 Unspecified abdominal pain; R11.2 Nausea with vomiting, unspecified
CPT/HCPCS: 36415; 80053; 82009; 82805; 85025; 96361; 96372; 96374; 96375; 99283; 99284; STOP; C9113; J1170; J1200; J1630; J2060; J2405; J3410

== ENCOUNTER 2021-07-02 15:59 | Emergency (ER) | payer OTHER, SELFPAY ==
[2021-07-02 16:05] VITALS: BP 147/98; PULSE 95; RESP 20; TEMP 36.3; O2SAT 99; BMI 20.9
[2021-07-02] MEDS: SODIUM CHLORIDE 0.9% 1,000 ML 1000 ML IV (18:33)
[2021-07-02] MEDS: ONDANSETRON 4 MG/2 ML INJ IV (18:39)
--- NOTE | 2021-07-02 18:49 | ED_ITS ---
HPI - Headache General Chief Complaint: Headache Stated Complaint: vominting, diabetic Time Seen by Provider: 07/02/21 18:10 Mode of arrival: Ambulatory Limitations: no limitations History of Present Illness HPI Narrative: 60F former smoker known well to myself and other staff with frequent visits for diabetic gastroparesis and cyclic vomiting. She has been taking her medications as directed and denies any dietary change. This afternoon she started having generalized abdominal pain with nausea and vomiting in the aftermath started g etting 1 of her typical generalized headaches. Her headache seems to be worse when actively vomiting. She denies any focal neurologic findings such as blurred vision, trouble speech or ambulation difficulty. Her abdominal pain is generalized and without obvious provocation or palliation. She has had no fever or chills, denies any neck pain or trauma. She has no focal neurologic findings such as numbness, tingling or weakness. She has taken her medications at home which have provided little relief Related Data Home Medications Medication Instructions Recorded Confirmed Domperidone (#DOMPERIDONE) 30 mg PO ACHS #2 07/29/12 03/22/19 insulin lispro 100 unit/mL 0 unit CONTINUOUS IV INFUSION 07/29/12 03/22/19 subcutaneous solution (Humalog DAILY #0 U-100 Insulin) rosuvastatin 10 mg tablet (Crestor) 10 mg PO BEDTIME #0 07/29/12 03/22/19 pantoprazole 40 mg tablet,delayed 40 mg PO DAILY #0 10/06/12 03/22/19 release (Protonix) hydrocortisone 10 mg tablet 10 mg PO DAILY #0 05/03/17 03/22/19 alendronate 70 mg tablet 70 mg PO QWEEK 02/03/19 03/22/19 diazepam 5 mg tablet 5 mg PO TIDP PRN 02/03/19 03/22/19 glucagon (human recombinant) 1 mg 1 dose SUBCUT DIRECTED 02/03/19 03/22/19 solution for injection (Glucagon Emergency Kit) hydromorphone 4 mg tablet 4 mg PO TID PRN 02/03/19 03/22/19 levothyroxine 75 mcg tablet 75 mcg PO DAILY 02/03/19 03/22/19 ondansetron HCl 8 mg tablet 8 mg PO TID PRN 03/22/19 03/22/19 (Zofran) Previous Rx's Medication Instructions Recorded promethazine 25 mg rectal 25 mg KS Q6H PRN #12 each 02/03/19 suppository promethazine 25 mg rectal 25 mg KS Q4-6H PRN #1 each 08/31/19 suppository Allergies Allergy/AdvReac Type Severity Reaction Status Date / Time amitriptyline Allergy Intermediate SEIZURES Verified 07/02/21 16:05 droperidol Allergy Intermediate CLONIC Verified 07/02/21 16:05 REACTION metoclopramide Allergy Intermediate CLONIC Verified 07/02/21 16:05 REACTION prochlorperazine Allergy Intermediate CLONIC Verified 07/02/21 16:05 REACTION azithromycin AdvReac Mild N/V Verified 07/02/21 16:05 ciprofloxacin AdvReac Mild N/V Verified 07/02/21 16:05 hydrocodone AdvReac Mild N/V Verified 07/02/21 16:05 ketorolac AdvReac Mild N/V Verified 07/02/21 16:05 Review of Systems Review of Systems Narrative: GENERAL: See HPI HEENT: Denies sinus pain, ear pain, sore throat, difficulty swallowing, dizziness. RESPIRATORY: Denies dyspnea, cough, wheezing, hemoptysis, sputum. CARDIOVASCULAR: Denies chest pain, palpitations, orthopnea, edema, GASTROINTESTINAL: See HPI : Denies dysuria, frequency, incontinence, hematuria, urinary retention. MUSCULOSKELETAL: denies weakness, joint pain, or bony pain SKIN: Denies rash, skin lesions, or other NEUROLOGIC: See HPI PSYCHIATRIC: No concerning psychosocial issues. 12 point review of systems is negative except for those stated above Patient History Medical History Chronic cholecystitis Diabetes Diabetic retinopathy Hyperlipidemia Hypothyroid Osteomyelitis Family History Mother Non Hodgkin's lymphoma Social History marital status: household members: spouse Smoking Status: Former smoker Smoking Status: Former smoker alcohol intake frequency: holidays/special occasions only Substance Use Type: does not use Exam Narrative Exam Narrative: GENERAL: [60 year old patient appears stated age. Well-developed patient, in mild distress. Lying on her side, rubbing her abdomen HEAD: Atraumatic. Normocephalic. EYES: Pupils equal round and reactive. Extraocular motions intact. No scleral icterus. No injection or drainage. ENT: Nose without bleeding, purulent drainage. Throat without erythema, tonsillar hypertrophy or exudate. Airway patent. NECK: Trachea midline. Non tender CARDIOVASCULAR: Regular rate and rhythm without murmurs, gallops, or rubs. RESPIRATORY: Clear to auscultation. Breath sounds equal bilaterally. No wheezes, rales, or rhonchi. GASTROINTESTINAL: Abdomen soft, non-tender, nondistended. EXTREMITIES: No edema or joint tenderness. BACK: Nontender without deformity or crepitance. No flank tenderness. NEURO: AOx3. SKIN: No rash or erythema of visible areas Initial Vital Signs Initial Vital Signs: Vital Signs Temperature 97.4 F L 07/02/21 16:05 Pulse Rate 95 H 07/02/21 16:05 Respiratory Rate 20 07/02/21 16:05 Blood Pressure 147/98 H 07/02/21 16:05 Pulse Oximetry 99 07/02/21 16:05 Course Orders Ordered: ED Orders 07/02/21 18:41 COVID19 - ADMIT ([employer]ELOPER swab/PCR) Stat 07/02/21 19:29 Complete Blood Count AUTO DIFF Stat Comprehensive Metabolic Panel Stat Discontinued Medications Haloperidol (Haloperidol 5 Mg/Ml Vial) 2 mg IV NOW ONE Stop: 07/02/21 20:43 Last Admin: 07/02/21 21:12 Dose: 2 mg Documented by: SAWYER Hydromorphone HCl (Hydromorphone 1 Mg Inj) 1 mg IV NOW ONE Stop: 07/02/21 18:54 Last Admin: 07/02/21 19:16 Dose: 1 mg Documented by: SAWYER Sodium Chloride (Normal Saline 0.9%) 1,000 mls @ 1,000 mls/hr IV BOLUS ONE Stop: 07/02/21 19:11 Last Infusion: 07/02/21 19:34 Dose: 0 mls/hr Documented by: Admin: 07/02/21 18:33 Dose: 1,000 mls/hr Documented by: CRISPIN Ondansetron HCl (Ondansetron 4 Mg/2 Ml Inj) 4 mg IV NOW ONE Stop: 07/02/21 18:37 Last Admin: 07/02/21 18:39 Dose: 4 mg Documented by: CRISPIN Pantoprazole Sodium (Pantoprazole 40 Mg Vial) 40 mg IV NOW ONE Stop: 07/02/21 18:54 Last Admin: 07/02/21 19:16 Dose: 40 mg Documented by: SAWYER Vital Signs Vital signs: Vital Signs - 8 hr 07/02/21 16:05 Temperature 97.4 F L Pulse Rate 95 H Respiratory Rate 20 Blood Pressure 147/98 H Pulse Oximetry 99 MDM - Headache Lab Data Result diagrams: 07/02/21 19:29 07/02/21 19:29 Labs: Lab Results 07/02/21 07/02/21 07/02/21 Range/Units 18:41 19:29 19:29 WBC 7.4 (4.5-11.0) X10^3/uL RBC 4.67 (4.0-5.2) X10^6/uL Hgb 13.8 (12.0-16.0) g/dL Hct 41.7 (36-46) % MCV 89.3 (80-100) fL MCH 29.7 (26-34) PG MCHC 33.2 (30-36) % RDW 13.5 (11.6-14.8) % Plt Count 259 (150-400) X10^3/uL Neut % (Auto) 89.0 H (50-75) % Lymph % (Auto) 6.7 L (25-40) % [place] % (Auto) 3.9 (3-14) % Eos % (Auto) 0.1 L (2-4) % Baso % (Auto) 0.3 (0-2) % Neut # (Auto) 6600 (9266-4307) /uL Lymph # (Auto) 500 L (1085-1517) /uL [place] # (Auto) 300 (0-900) /uL Eos # (Auto) 0 (0-450) /uL Baso # (Auto) 0 (0-100) /uL Sodium 140 (137-145) mmol/L Potassium 4.1 (3.4-5.1) mmol/L Chloride 102 (98-107) mmol/L Carbon Dioxide 29 (22-32) mmol/L BUN 16 (7-17) mg/dL Creatinine 0.90 (0.52-1.04) mg/dL Estimated GFR > 60.0 (>60) mL/min BUN/Creatinine Ratio 17.8 (6-22) Glucose 283 H (80-110) mg/dL Calcium 10.4 H (8.4-10.2) mg/dL Total Bilirubin 0.8 (0.2-1.3) mg/dL AST 30 (14-36) IU/L ALT 24 (<35) IU/L Alkaline Phosphatase 76 (38-126) U/L Total Protein 7.6 (6.3-8.2) g/dL Albumin 4.5 (3.5-5.0) g/dL Globulin 3.1 (1.7-4.1) g/dL Albumin/Globulin Ratio 1.5 (1.0-2.8) SARS-CoV-2 (PCR) Negative (Negative) Discharge Plan Departure Patient Disposition: Left Against Medical Advice Clinical Impression: Left against medical advice Prescriptions: No Action insulin lispro [Humalog U-100 Insulin] 100 UNIT/1 ML solution 0 unit continuous IV infusion DAILY Qty: 0 0RF Domperidone (#DOMPERIDONE) 30 mg PO ACHS Qty: 2 0RF Label Comments: NOT ON PATIENT HOME MED LIST PROVIDED BY SPOUSE 02/14/19 rosuvastatin [Crestor] 10 MG tablet 10 mg PO BEDTIME Qty: 0 0RF pantoprazole [Protonix] 40 MG tablet,delayed release (DR/EC) 40 mg PO DAILY Qty: 0 0RF hydrocortisone 10 MG tablet 10 mg PO DAILY Qty: 0 0RF alendronate 70 mg Tablet 70 mg PO QWEEK 0RF levothyroxine 75 mcg Tablet 75 mcg PO DAILY 0RF Glucagon Emergency Kit (human) 1 mg Recon Soln 1 dose subcut DIRECTED 0RF hydromorphone 4 MG tablet 4 mg PO TID PRN (Reason: PAIN) 0RF diazepam 5 MG tablet 5 mg PO TIDP PRN (Reason: Anxiety) 0RF Label Comments: spouse states probably took this am but vomited after. 02/14/19 promethazine 25 mg suppository 25 mg KS Q6H PRN (Reason: nausea and vomiting) Qty: 12 0RF promethazine 25 mg suppository 25 mg KS Q4-6H PRN (Reason: nausea and vomiting) Qty: 1 0RF ondansetron HCl [Zofran] 8 mg Tablet 8 mg PO TID PRN (Reason: Nausea) 0RF Referrals: Salvatore Villegas MD [Primary Care Provider] -
[2021-07-02] MEDS: HYDROMORPHONE 1 MG INJ IV (19:16)
[2021-07-02] MEDS: PANTOPRAZOLE 40 MG VIAL IV (19:16)
[2021-07-02 19:37] LABS: Add Manual Diff / Slide Review NO; Basophils Absolute Auto 0 /uL (0-100); Basophils Percent Auto 0.3 % (0-2); Eosinophils Absolute Auto 0 /uL (0-450); Eosinophils Percent Auto 0.1 % (2-4); Hematocrit 41.7 % (36-46); Hemoglobin 13.8 g/dL (12.0-16.0); Lymphocytes Absolute Auto 500 /uL (1100-4500); Lymphocytes Percent Auto 6.7 % (25-40); Mean Corpuscular HGB Conc 33.2 % (30-36); Mean Corpuscular Hemoglobin 29.7 PG (26-34); Mean Corpuscular Volume 89.3 fL (80-100); Monocytes Absolute Auto 300 /uL (0-900); Monocytes Percent Auto 3.9 % (3-14); Neutrophils Absolute Auto 6600 /uL (1500-7000); Platelet Count 259 X10^3/uL (150-400); Red Blood Cell Count 4.67 X10^6/uL (4.0-5.2); Red Cell Distribution Width 13.5 % (11.6-14.8); White Blood Cell Count 7.4 X10^3/uL (4.5-11.0)
[2021-07-02 19:44] LABS: Alanine Aminotransferase 24 IU/L (<35); Albumin 4.5 g/dL (3.5-5.0); Albumin Globulin Ratio 1.5 (1.0-2.8); Alkaline Phosphatase 76 U/L (38-126); Aspartate Aminotransferase 30 IU/L (14-36); BUN Creatinine Ratio 17.8 (6-22); Bilirubin Total 0.8 mg/dL (0.2-1.3); Blood Urea Nitrogen 16 mg/dL (7-17); Calcium 10.4 mg/dL (8.4-10.2); Carbon Dioxide 29 mmol/L (22-32); Chloride 102 mmol/L (98-107); Estimated Glomerular Filt Rate > 60.0 mL/min (>60); Globulin 3.1 g/dL (1.7-4.1); Glucose 283 mg/dL (80-110); HEMOLYSIS < 15 (0-50); Potassium 4.1 mmol/L (3.4-5.1); Sodium 140 mmol/L (137-145); Total Protein 7.6 g/dL (6.3-8.2)
[2021-07-02 19:49] LABS: COVID19 - ADMIT (NP swab/PCR) Negative (Negative)
[2021-07-02] MEDS: HALOPERIDOL 5 MG/ML VIAL 2 MG IV (21:12)
== END 2021-07-02 21:29 | disposition left against medical advice (07) ==
PROVIDERS: Emergency Provider Emergency Medicine; PCP Internal Medicine
DX: R10.84 Generalized abdominal pain (principal); R11.2 Nausea with vomiting, unspecified; Z20.822 Contact with and (suspected) exposure to COVID-19; Z53.29 Procedure and treatment not carried out because of patient's decision for other reasons
CPT/HCPCS: 36415; 80053; 85025; 87635; 96361; 96374; 96375; 99283; 99284; C9803; C9113; J1170; J1630; J2405

== ENCOUNTER 2021-09-09 03:55 | Emergency (ER) | payer OTHER, SELFPAY ==
[2021-09-09 04:09] VITALS: BP 177/74; PULSE 93; RESP 25; TEMP 36.4; O2SAT 99; BMI 20.6
--- NOTE | 2021-09-09 04:31 | ED_ITS ---
HPI - Nausea/Vomiting/Diarrhea <Santosh Fishman MD - Last Filed: 09/10/21 00:26> General Chief complaint: Nausea/Vomiting/Diarrhea Stated complaint: vomiting x6 hours Time Seen by Provider: 09/09/21 04:24 Source: patient and family Mode of arrival: Ambulatory History of Present Illness HPI Narrative: Patient here with . Complaints of exacerbation of gastroparesis. Onset 6 hours ago with nausea and vomiting. No diarrhea. Has associated typical abdominal pain with this. No recent illness fever chills. Usually gets Dilaudid Zofran Benadryl Ativan for these episodes. Patient has been worked up by [facility] for endoscopy in the past. Otherwise no new foods or medications Related Data Home Medications Medication Instructions Recorded Confirmed Domperidone (#DOMPERIDONE) 30 mg PO ACHS #2 07/29/12 03/22/19 insulin lispro 100 unit/mL 0 unit CONTINUOUS IV INFUSION 07/29/12 03/22/19 subcutaneous solution (Humalog DAILY #0 U-100 Insulin) rosuvastatin 10 mg tablet (Crestor) 10 mg PO BEDTIME #0 07/29/12 03/22/19 pantoprazole 40 mg tablet,delayed 40 mg PO DAILY #0 10/06/12 03/22/19 release (Protonix) hydrocortisone 10 mg tablet 10 mg PO DAILY #0 05/03/17 03/22/19 alendronate 70 mg tablet 70 mg PO QWEEK 02/03/19 03/22/19 diazepam 5 mg tablet 5 mg PO TIDP PRN 02/03/19 03/22/19 glucagon (human recombinant) 1 mg 1 dose SUBCUT DIRECTED 02/03/19 03/22/19 solution for injection (Glucagon Emergency Kit) hydromorphone 4 mg tablet 4 mg PO TID PRN 02/03/19 03/22/19 levothyroxine 75 mcg tablet 75 mcg PO DAILY 02/03/19 03/22/19 ondansetron HCl 8 mg tablet 8 mg PO TID PRN 03/22/19 03/22/19 (Zofran) Previous Rx's Medication Instructions Recorded promethazine 25 mg rectal 25 mg OK Q6H PRN #12 each 02/03/19 suppository promethazine 25 mg rectal 25 mg OK Q4-6H PRN #1 each 08/31/19 suppository Allergies Allergy/AdvReac Type Severity Reaction Status Date / Time amitriptyline Allergy Intermediate SEIZURES Verified 07/02/21 16:05 droperidol Allergy Intermediate CLONIC Verified 07/02/21 16:05 REACTION metoclopramide Allergy Intermediate CLONIC Verified 07/02/21 16:05 REACTION prochlorperazine Allergy Intermediate CLONIC Verified 07/02/21 16:05 REACTION azithromycin AdvReac Mild N/V Verified 07/02/21 16:05 ciprofloxacin AdvReac Mild N/V Verified 07/02/21 16:05 hydrocodone AdvReac Mild N/V Verified 07/02/21 16:05 ketorolac AdvReac Mild N/V Verified 07/02/21 16:05 Review of Systems <Santosh Fishman MD - Last Filed: 09/10/21 00:26> Review of Systems Narrative: GENERAL: Denies chills, fatigue, malaise, fever, sweats. HEENT: Denies sinus pain, ear pain, sore throat RESPIRATORY: Denies dyspnea, cough CARDIOVASCULAR: Denies chest pain, palpitations GASTROINTESTINAL: Positive nausea, vomiting, abdominal pain : Denies dysuria, frequency, hematuria MUSCULOSKELETAL: denies muscle or bony pain SKIN: Denies rash, skin lesions NEUROLOGIC: Denies weakness, numbness ROS Unobtainable: All systems reviewed & are unremarkable except as noted in HPI and below Patient History <Santosh Fishman MD - Last Filed: 09/10/21 00:26> Medical History (Updated 09/09/21 @ 10:25 by Yoanna Hernandez DO) Chronic cholecystitis Diabetes Diabetic retinopathy Hyperlipidemia Hypothyroid Osteomyelitis Family History Mother Non Hodgkin's lymphoma Social History marital status: household members: spouse Smoking Status: Former smoker Smoking Status: Former smoker alcohol intake frequency: holidays/special occasions only Substance Use Type: does not use Exam <Santosh Fishman MD - Last Filed: 09/10/21 00:26> Narrative Exam Narrative: GENERAL: in no distress, not toxic not dyspneic, does appear uncomfortable HEAD: Normocephalic. NECK: Trachea midline. CARDIOVASCULAR: Regular rate and rhythm without murmurs RESPIRATORY: Clear to auscultation. Breath sounds equal bilaterally. No wheezes, rales, or rhonchi. GASTROINTESTINAL: Abdomen soft, mild diffuse tenderness but no peritoneal signs bowel sounds present EXTREMITIES: No gross deformities. NEURO: AOx4. SKIN: Warm and dry PSYCH: Slightly anxious, is cooperative Initial Vital Signs Initial Vital Signs: Vital Signs Temperature 97.5 F L 09/09/21 04:09 Pulse Rate 93 H 09/09/21 04:09 Respiratory Rate 25 H 09/09/21 04:09 Blood Pressure 177/74 H 09/09/21 04:09 Pulse Oximetry 99 09/09/21 04:09 <Yoanna Hernandez DO - Last Filed: 09/09/21 10:28> Initial Vital Signs Initial Vital Signs: Vital Signs Temperature 97.5 F L 09/09/21 04:09 Pulse Rate 93 H 09/09/21 04:09 Respiratory Rate 25 H 09/09/21 04:09 Blood Pressure 177/74 H 09/09/21 04:09 Pulse Oximetry 99 09/09/21 04:09 Course <Santosh Fishman MD - Last Filed: 09/10/21 00:26> Course Course Narrative: 7:00 a.m.. Sign out to Dr hernandez, labs pending Orders Ordered: Discontinued Medications Diphenhydramine HCl (Diphenhydramine 50 Mg/Ml Vial) 25 mg IV NOW ONE Stop: 09/09/21 04:31 Last Admin: 09/09/21 04:38 Dose: 25 mg Documented by: JOSELIN Haloperidol (Haloperidol 5 Mg/Ml Vial) 2 mg IV NOW ONE Stop: 09/09/21 06:53 Last Admin: 09/09/21 07:04 Dose: 2 mg Documented by: JOSELIN Hydromorphone HCl (Hydromorphone 1 Mg Inj) 1 mg IV Q15MIN PRN PRN Reason: Pain, Severe (7-10) Last Admin: 09/09/21 04:52 Dose: 1 mg Documented by: Admin: 09/09/21 04:38 Dose: 1 mg Documented by: JOSELIN Hydromorphone HCl (Hydromorphone 1 Mg Inj) 1 mg IV NOW ONE Stop: 09/09/21 06:53 Last Admin: 09/09/21 07:04 Dose: 1 mg Documented by: JOSELIN Hydroxyzine HCl (Hydroxyzine 50 Mg/Ml Inj) 50 mg IM NOW ONE Stop: 09/09/21 06:15 Last Admin: 09/09/21 06:40 Dose: 50 mg Documented by: JOSELIN Sodium Chloride (Normal Saline 0.9%) 1,000 mls @ 1,000 mls/hr IV BOLUS ONE Stop: 09/09/21 05:29 Last Infusion: 09/09/21 06:15 Dose: 0 mls/hr Documented by: Admin: 09/09/21 04:38 Dose: 1,000 mls/hr Documented by: JOSELIN Sodium Chloride (Normal Saline 0.9%) 1,000 mls @ 1,000 mls/hr IV BOLUS ONE Stop: 09/09/21 09:40 Last Infusion: 09/09/21 10:19 Dose: 0 mls/hr Documented by: Admin: 09/09/21 09:14 Dose: 1,000 mls/hr Documented by: SANIYA Lorazepam (Lorazepam 2 Mg/Ml Inj) 1 mg IV NOW ONE Stop: 09/09/21 05:15 Last Admin: 09/09/21 05:19 Dose: 1 mg Documented by: JOSELIN Ondansetron HCl (Ondansetron 4 Mg/2 Ml Inj) 4 mg IV NOW ONE Stop: 09/09/21 04:31 Last Admin: 09/09/21 04:38 Dose: 4 mg Documented by: JOSELIN Pantoprazole Sodium (Pantoprazole 40 Mg Vial) 40 mg IV NOW ONE Stop: 09/09/21 05:56 Last Admin: 09/09/21 06:08 Dose: 40 mg Documented by: JOSELIN Vital Signs Vital signs: Vital Signs - 8 hr 09/09/21 04:09 09/09/21 06:41 Temperature 97.5 F L Pulse Rate 93 H 75 Respiratory Rate 25 H 16 Blood Pressure 177/74 H 143/77 H Pulse Oximetry 99 98 <Yoanna Hernandez DO - Last Filed: 09/09/21 10:28> Orders Ordered: Discontinued Medications Diphenhydramine HCl (Diphenhydramine 50 Mg/Ml Vial) 25 mg IV NOW ONE Stop: 09/09/21 04:31 Last Admin: 09/09/21 04:38 Dose: 25 mg Documented by: JOSELIN Haloperidol (Haloperidol 5 Mg/Ml Vial) 2 mg IV NOW ONE Stop: 09/09/21 06:53 Last Admin: 09/09/21 07:04 Dose: 2 mg Documented by: JOSELIN Hydromorphone HCl (Hydromorphone 1 Mg Inj) 1 mg IV Q15MIN PRN PRN Reason: Pain, Severe (7-10) Last Admin: 09/09/21 04:52 Dose: 1 mg Documented by: Admin: 09/09/21 04:38 Dose: 1 mg Documented by: JOSELIN Hydromorphone HCl (Hydromorphone 1 Mg Inj) 1 mg IV NOW ONE Stop: 09/09/21 06:53 Last Admin: 09/09/21 07:04 Dose: 1 mg Documented by: JOSELIN Hydroxyzine HCl (Hydroxyzine 50 Mg/Ml Inj) 50 mg IM NOW ONE Stop: 09/09/21 06:15 Last Admin: 09/09/21 06:40 Dose: 50 mg Documented by: JOSELIN Sodium Chloride (Normal Saline 0.9%) 1,000 mls @ 1,000 mls/hr IV BOLUS ONE Stop: 09/09/21 05:29 Last Infusion: 09/09/21 06:15 Dose: 0 mls/hr Documented by: Admin: 09/09/21 04:38 Dose: 1,000 mls/hr Documented by: JOSELIN Sodium Chloride (Normal Saline 0.9%) 1,000 mls @ 1,000 mls/hr IV BOLUS ONE Stop: 09/09/21 09:40 Last Infusion: 09/09/21 10:19 Dose: 0 mls/hr Documented by: Admin: 09/09/21 09:14 Dose: 1,000 mls/hr Documented by: SANIYA Lorazepam (Lorazepam 2 Mg/Ml Inj) 1 mg IV NOW ONE Stop: 09/09/21 05:15 Last Admin: 09/09/21 05:19 Dose: 1 mg Documented by: JOSELIN Ondansetron HCl (Ondansetron 4 Mg/2 Ml Inj) 4 mg IV NOW ONE Stop: 09/09/21 04:31 Last Admin: 01/25/22 04:38 Dose: 4 mg Documented by: JOSELIN Pantoprazole Sodium (Pantoprazole 40 Mg Vial) 40 mg IV NOW ONE Stop: 09/09/21 05:56 Last Admin: 09/09/21 06:08 Dose: 40 mg Documented by: JOSELIN Vital Signs Vital signs: Vital Signs - 8 hr 09/09/21 04:09 09/09/21 06:41 Temperature 97.5 F L Pulse Rate 93 H 75 Respiratory Rate 25 H 16 Blood Pressure 177/74 H 143/77 H Pulse Oximetry 99 98 MDM - Nausea/Vomiting/Diarrhea <Santosh Fishman MD - Last Filed: 09/10/21 00:26> Lab Data Result diagrams: 09/09/21 07:40 09/09/21 07:40 Labs: Lab Results 09/09/21 09/09/21 Range/Units 07:40 07:40 WBC 6.3 (4.5-11.0) X10^3/uL RBC 4.21 (4.0-5.2) X10^6/uL Hgb 12.5 (12.0-16.0) g/dL Hct 37.5 (36-46) % MCV 89.1 (80-100) fL MCH 29.7 (26-34) PG MCHC 33.3 (30-36) % RDW 12.5 (11.6-14.8) % Plt Count TNP Neut % (Auto) 88.6 H (50-75) % Lymph % (Auto) 7.8 L (25-40) % Carlton % (Auto) 2.9 L (3-14) % Eos % (Auto) 0.3 L (2-4) % Baso % (Auto) 0.4 (0-2) % Neut # (Auto) 5600 (7601-2976) /uL Lymph # (Auto) 500 L (6379-1817) /uL Carlton # (Auto) 200 (0-900) /uL Eos # (Auto) 0 (0-450) /uL Baso # (Auto) 0 (0-100) /uL Platelet Estimate Adequate on smear RBC Morphology Normal morphology Sodium 134 L (137-145) mmol/L Potassium 4.5 (3.4-5.1) mmol/L Chloride 102 (98-107) mmol/L Carbon Dioxide 29 (22-32) mmol/L BUN 13 (7-17) mg/dL Creatinine 0.56 (0.52-1.04) mg/dL Estimated GFR > 60.0 (>60) mL/min BUN/Creatinine Ratio 23.2 H (6-22) Glucose 257 H (80-110) mg/dL Calcium 9.2 (8.4-10.2) mg/dL Total Bilirubin 0.6 (0.2-1.3) mg/dL AST 34 (14-36) IU/L ALT 31 (<35) IU/L Alkaline Phosphatase 75 (38-126) U/L Total Protein 6.6 (6.3-8.2) g/dL Albumin 3.8 (3.5-5.0) g/dL Globulin 2.8 (1.7-4.1) g/dL Albumin/Globulin Ratio 1.4 (1.0-2.8) Lipase 22 L (23-300) U/L <Yoanna Hernandez, DO - Last Filed: 09/09/21 10:28> Lab Data Labs: Lab Results 09/09/21 09/09/21 Range/Units 07:40 07:40 WBC 6.3 (4.5-11.0) X10^3/uL RBC 4.21 (4.0-5.2) X10^6/uL Hgb 12.5 (12.0-16.0) g/dL Hct 37.5 (36-46) % MCV 89.1 (80-100) fL MCH 29.7 (26-34) PG MCHC 33.3 (30-36) % RDW 12.5 (11.6-14.8) % Plt Count TNP Neut % (Auto) 88.6 H (50-75) % Lymph % (Auto) 7.8 L (25-40) % Carlton % (Auto) 2.9 L (3-14) % Eos % (Auto) 0.3 L (2-4) % Baso % (Auto) 0.4 (0-2) % Neut # (Auto) 5600 (9047-0686) /uL Lymph # (Auto) 500 L (0467-8495) /uL Carlton # (Auto) 200 (0-900) /uL Eos # (Auto) 0 (0-450) /uL Baso # (Auto) 0 (0-100) /uL Platelet Estimate Adequate on smear RBC Morphology Normal morphology Sodium 134 L (137-145) mmol/L Potassium 4.5 (3.4-5.1) mmol/L Chloride 102 (98-107) mmol/L Carbon Dioxide 29 (22-32) mmol/L BUN 13 (7-17) mg/dL Creatinine 0.56 (0.52-1.04) mg/dL Estimated GFR > 60.0 (>60) mL/min BUN/Creatinine Ratio 23.2 H (6-22) Glucose 257 H (80-110) mg/dL Calcium 9.2 (8.4-10.2) mg/dL Total Bilirubin 0.6 (0.2-1.3) mg/dL AST 34 (14-36) IU/L ALT 31 (<35) IU/L Alkaline Phosphatase 75 (38-126) U/L Total Protein 6.6 (6.3-8.2) g/dL Albumin 3.8 (3.5-5.0) g/dL Globulin 2.8 (1.7-4.1) g/dL Albumin/Globulin Ratio 1.4 (1.0-2.8) Lipase 22 L (23-300) U/L MDM Narrative Medical decision making narrative: I received sign-out from Dr. Fishman Patient is well-known to myself and this facility. Requesting more pain medication she has already see 2 mg of Dilaudid but is chronically on Dilaudid. She is given 1 mg of Dilaudid and 2 mg of Haldol and is now currently sleeping Patient awake tolerating fluids overall feels better ready and able to go home. There is no evidence of DKA or severe dehydration. Discharge Plan Departure Patient Disposition: Home Clinical Impression: Diabetic gastroparesis Instructions: Type 1 Diabetes Activity Restrictions/Additional Instructions: *You have been diagnosed with gastroparesis secondary to diabetes *What to do: Increase fluids as tolerated. Take medications as directed *Continue to take medications as directed *Follow up with your primary care provider in 2-3 days or call [phone] *Return to ER if you should have persistent vomiting, increasing abdominal pain any new, worsening or concerning symptoms Prescriptions: No Action insulin lispro [Humalog U-100 Insulin] 100 UNIT/1 ML solution 0 unit continuous IV infusion DAILY Qty: 0 0RF Domperidone (#DOMPERIDONE) 30 mg PO ACHS Qty: 2 0RF Label Comments: NOT ON PATIENT HOME MED LIST PROVIDED BY SPOUSE 02/14/19 rosuvastatin [Crestor] 10 MG tablet 10 mg PO BEDTIME Qty: 0 0RF pantoprazole [Protonix] 40 MG tablet,delayed release (DR/EC) 40 mg PO DAILY Qty: 0 0RF hydrocortisone 10 MG tablet 10 mg PO DAILY Qty: 0 0RF alendronate 70 mg Tablet 70 mg PO QWEEK 0RF levothyroxine 75 mcg Tablet 75 mcg PO DAILY 0RF Glucagon Emergency Kit (human) 1 mg Recon Soln 1 dose subcut DIRECTED 0RF hydromorphone 4 MG tablet 4 mg PO TID PRN (Reason: PAIN) 0RF diazepam 5 MG tablet 5 mg PO TIDP PRN (Reason: Anxiety) 0RF Label Comments: spouse states probably took this am but vomited after. 02/14/19 promethazine 25 mg suppository 25 mg OK Q6H PRN (Reason: nausea and vomiting) Qty: 12 0RF promethazine 25 mg suppository 25 mg OK Q4-6H PRN (Reason: nausea and vomiting) Qty: 1 0RF ondansetron HCl [Zofran] 8 mg Tablet 8 mg PO TID PRN (Reason: Nausea) 0RF Referrals: Salvatore Villegas MD [Primary Care Provider] -
[2021-09-09] MEDS: ONDANSETRON 4 MG/2 ML INJ IV (04:38)
[2021-09-09] MEDS: SODIUM CHLORIDE 0.9% 1,000 ML 1000 ML IV ×2 (04:38→09:14)
[2021-09-09] MEDS: HYDROMORPHONE 1 MG INJ IV ×3 (04:38→07:04)
[2021-09-09] MEDS: diphenhydrAMINE 50 MG/ML VIAL 25 MG IV (04:38)
[2021-09-09] MEDS: LORazepam 2 MG/ML INJ 1 MG IV (05:19)
[2021-09-09] MEDS: PANTOPRAZOLE 40 MG VIAL IV (06:08)
[2021-09-09] MEDS: hydrOXYzine 50 MG/ML INJ IM (06:40)
[2021-09-09 06:41] VITALS: BP 143/77; PULSE 75; RESP 16; O2SAT 98
[2021-09-09] MEDS: HALOPERIDOL 5 MG/ML VIAL 2 MG IV (07:04)
[2021-09-09 08:00] LABS: Basophils Absolute Auto 0 /uL (0-100); Basophils Percent Auto 0.4 % (0-2); Eosinophils Absolute Auto 0 /uL (0-450); Eosinophils Percent Auto 0.3 % (2-4); Hematocrit 37.5 % (36-46); Hemoglobin 12.5 g/dL (12.0-16.0); Lymphocytes Absolute Auto 500 /uL (1100-4500); Lymphocytes Percent Auto 7.8 % (25-40); Mean Corpuscular HGB Conc 33.3 % (30-36); Mean Corpuscular Hemoglobin 29.7 PG (26-34); Mean Corpuscular Volume 89.1 fL (80-100); Monocytes Absolute Auto 200 /uL (0-900); Monocytes Percent Auto 2.9 % (3-14); Neutrophils Absolute Auto 5600 /uL (1500-7000); Neutrophils Percent Auto 88.6 % (50-75); Red Blood Cell Count 4.21 X10^6/uL (4.0-5.2); Red Cell Distribution Width 12.5 % (11.6-14.8); White Blood Cell Count 6.3 X10^3/uL (4.5-11.0)
[2021-09-09 08:03] LABS: Alanine Aminotransferase 31 IU/L (<35); Albumin 3.8 g/dL (3.5-5.0); Albumin Globulin Ratio 1.4 (1.0-2.8); Alkaline Phosphatase 75 U/L (38-126); Aspartate Aminotransferase 34 IU/L (14-36); BUN Creatinine Ratio 23.2 (6-22); Bilirubin Total 0.6 mg/dL (0.2-1.3); Blood Urea Nitrogen 13 mg/dL (7-17); Calcium 9.2 mg/dL (8.4-10.2); Carbon Dioxide 29 mmol/L (22-32); Chloride 102 mmol/L (98-107); Estimated Glomerular Filt Rate > 60.0 mL/min (>60); Globulin 2.8 g/dL (1.7-4.1); Glucose 257 mg/dL (80-110); HEMOLYSIS 25 (0-50); Lipase 22 U/L (23-300); Potassium 4.5 mmol/L (3.4-5.1); Sodium 134 mmol/L (137-145); Total Protein 6.6 g/dL (6.3-8.2)
[2021-09-09 08:11] LABS: Add Manual Diff / Slide Review SLIDE REVIEW
[2021-09-09 08:36] LABS: RBC Morphology Normal Morphology
[2021-09-09 08:37] LABS: Platelet Estimate Adequate on smear
[2021-09-09 10:29] VITALS: BP 117/61; PULSE 75; O2SAT 97
== END 2021-09-09 10:30 | disposition home or self-care (01) ==
PROVIDERS: Emergency Medicine; Emergency Provider Emergency Medicine; PCP Internal Medicine
DX: E11.43 Type 2 diabetes mellitus with diabetic autonomic (poly)neuropathy (principal); Z79.4 Long term (current) use of insulin
CPT/HCPCS: 36415; 80053; 83690; 85025; 96361; 96372; 96374; 96375; 96376; 99284; C9113; J1170; J1200; J1630; J2060; J2405; J3410

== ENCOUNTER 2021-10-05 19:16 | Emergency (ER) | payer OTHER, SELFPAY ==
[2021-10-05 19:24] VITALS: BP 170/98; PULSE 98; RESP 24; TEMP 36.6; O2SAT 99
--- NOTE | 2021-10-05 19:32 | ED.NAVMDI ---
HPI - Nausea/Vomiting/Diarrhea General Chief complaint: Nausea/Vomiting/Diarrhea Stated complaint: severe vomitimg Time Seen by Provider: 10/05/21 19:21 Source: patient and family Mode of arrival: Ambulatory History of Present Illness HPI Narrative: 61-year-old female former smoker with history of diabetic gastroparesis and cyclic vomiting presents with a chief complaint of generalized abdominal pain and persistent nausea and vomiting over the course of the day. She denies any change in her medications or diet at home. Her pain is worse when she moves in with vomiting. She denies any fever chills. She has had no runny nose, sore throat or cough. She denies any chest pain shortness of breath, dizziness. Related Data Home Medications Medication Instructions Recorded Confirmed Domperidone (#DOMPERIDONE) 30 mg PO ACHS #2 07/29/12 03/22/19 insulin lispro 100 unit/mL 0 unit CONTINUOUS IV INFUSION 07/29/12 03/22/19 subcutaneous solution (Humalog DAILY #0 U-100 Insulin) rosuvastatin 10 mg tablet (Crestor) 10 mg PO BEDTIME #0 07/29/12 03/22/19 pantoprazole 40 mg tablet,delayed 40 mg PO DAILY #0 10/06/12 03/22/19 release (Protonix) hydrocortisone 10 mg tablet 10 mg PO DAILY #0 05/03/17 03/22/19 alendronate 70 mg tablet 70 mg PO QWEEK 02/03/19 03/22/19 diazepam 5 mg tablet 5 mg PO TIDP PRN 02/03/19 03/22/19 glucagon (human recombinant) 1 mg 1 dose SUBCUT DIRECTED 02/03/19 03/22/19 solution for injection (Glucagon Emergency Kit) hydromorphone 4 mg tablet 4 mg PO TID PRN 02/03/19 03/22/19 levothyroxine 75 mcg tablet 75 mcg PO DAILY 02/03/19 03/22/19 ondansetron HCl 8 mg tablet 8 mg PO TID PRN 03/22/19 03/22/19 (Zofran) Previous Rx's Medication Instructions Recorded promethazine 25 mg rectal 25 mg AZ Q6H PRN #12 each 02/03/19 suppository promethazine 25 mg rectal 25 mg AZ Q4-6H PRN #1 each 08/31/19 suppository Allergies Allergy/AdvReac Type Severity Reaction Status Date / Time amitriptyline Allergy Intermediate SEIZURES Verified 07/02/21 16:05 droperidol Allergy Intermediate CLONIC Verified 07/02/21 16:05 REACTION metoclopramide Allergy Intermediate CLONIC Verified 07/02/21 16:05 REACTION prochlorperazine Allergy Intermediate CLONIC Verified 07/02/21 16:05 REACTION azithromycin AdvReac Mild N/V Verified 07/02/21 16:05 ciprofloxacin AdvReac Mild N/V Verified 07/02/21 16:05 hydrocodone AdvReac Mild N/V Verified 07/02/21 16:05 ketorolac AdvReac Mild N/V Verified 07/02/21 16:05 Review of Systems Review of Systems Narrative: GENERAL: Denies chills, fatigue, malaise, fever, sweats. HEENT: Denies sinus pain, ear pain, sore throat, difficulty swallowing, dizziness. RESPIRATORY: Denies dyspnea, cough, wheezing, hemoptysis, sputum. CARDIOVASCULAR: Denies chest pain, palpitations, orthopnea, edema, GASTROINTESTINAL: See HPI : Denies dysuria, frequency, incontinence, hematuria, urinary retention. MUSCULOSKELETAL: denies weakness, joint pain, or bony pain SKIN: Denies rash, skin lesions, or other NEUROLOGIC: Denies weakness, headache, numbness, change in speech, confusion, seizures, incoordination. PSYCHIATRIC: No concerning psychosocial issues. 12 point review of systems is negative except for those stated above Patient History Medical History (Updated 10/06/21 @ 01:49 by Damon Schreiber DO) Chronic cholecystitis Diabetes Diabetic retinopathy Hyperlipidemia Hypothyroid Osteomyelitis Family History Mother Non Hodgkin's lymphoma Social History marital status: household members: spouse Smoking Status: Former smoker Smoking Status: Former smoker alcohol intake frequency: holidays/special occasions only Substance Use Type: does not use Exam Narrative Exam Narrative: GENERAL: [61 year old patient appears stated age. Well-developed patient, in obvious distress, clearly uncomfortable, holding an emesis bag HEAD: Atraumatic. Normocephalic. EYES: Pupils equal round and reactive. Extraocular motions intact. No scleral icterus. No injection or drainage. ENT: Nose without bleeding, purulent drainage. Throat without erythema, tonsillar hypertrophy or exudate. Airway patent. NECK: Trachea midline. Non tender CARDIOVASCULAR: Regular rate and rhythm without murmurs, gallops, or rubs. RESPIRATORY: Clear to auscultation. Breath sounds equal bilaterally. No wheezes, rales, or rhonchi. GASTROINTESTINAL: Abdomen soft, generalized tenderness, nondistended. EXTREMITIES: No edema or joint tenderness. BACK: Nontender without deformity or crepitance. No flank tenderness. NEURO: AOx3. SKIN: No rash or erythema of visible areas Initial Vital Signs Initial Vital Signs: Vital Signs Temperature 97.8 F 10/05/21 19:24 Pulse Rate 98 H 10/05/21 19:24 Respiratory Rate 24 10/05/21 19:24 Blood Pressure 170/98 H 10/05/21 19:24 Pulse Oximetry 99 10/05/21 19:24 Course Orders Ordered: Discontinued Medications Diphenhydramine HCl (Diphenhydramine 50 Mg/Ml Vial) 25 mg IV NOW ONE Stop: 10/05/21 22:04 Last Admin: 10/05/21 22:30 Dose: 25 mg Documented by: MARCO Haloperidol (Haloperidol 5 Mg/Ml Vial) 2 mg IV NOW ONE Stop: 10/05/21 19:30 Last Admin: 10/05/21 20:18 Dose: 2 mg Documented by: LILIAN Hydromorphone HCl (Hydromorphone 0.5 Mg Inj) 0.5 mg IV NOW ONE Stop: 10/05/21 20:55 Last Admin: 10/05/21 21:01 Dose: 0.5 mg Documented by: MARCO Hydromorphone HCl (Hydromorphone 0.5 Mg Inj) 0.5 mg IV NOW ONE Stop: 10/06/21 01:46 Last Admin: 10/06/21 01:50 Dose: 0.5 mg Documented by: LILIAN Hydroxyzine HCl (Hydroxyzine 50 Mg/Ml Inj) 50 mg IM NOW ONE Stop: 10/05/21 21:20 Last Admin: 10/05/21 21:31 Dose: 50 mg Documented by: MARCO Sodium Chloride (Normal Saline 0.9%) 1,000 mls @ 1,000 mls/hr IV BOLUS ONE Stop: 10/05/21 20:23 Last Infusion: 10/05/21 21:31 Dose: 0 mls/hr Documented by: Admin: 10/05/21 20:20 Dose: 1,000 mls/hr Documented by: LILIAN Lorazepam (Lorazepam 2 Mg/Ml Inj) 0.5 mg IV NOW ONE Stop: 10/05/21 23:06 Last Admin: 10/05/21 23:10 Dose: 0.5 mg Documented by: LILIAN Ondansetron HCl (Ondansetron 4 Mg/2 Ml Inj) 4 mg IV NOW ONE Stop: 10/05/21 22:04 Last Admin: 10/05/21 22:30 Dose: 4 mg Documented by: MARCO Pantoprazole Sodium (Pantoprazole 40 Mg Vial) 40 mg IV NOW ONE Stop: 10/05/21 19:30 Last Admin: 10/05/21 20:18 Dose: 40 mg Documented by: LILIAN Vital Signs Vital signs: Vital Signs - 8 hr 10/05/21 19:24 Temperature 97.8 F Pulse Rate 98 H Respiratory Rate 24 Blood Pressure 170/98 H Pulse Oximetry 99 MDM - Nausea/Vomiting/Diarrhea Lab Data Result diagrams: 10/05/21 19:45 10/05/21 19:45 Labs: Lab Results 10/05/21 10/05/21 10/06/21 Range/Units 19:45 19:45 00:45 WBC 5.6 (4.5-11.0) X10^3/uL RBC 4.71 (4.0-5.2) X10^6/uL Hgb 13.9 (12.0-16.0) g/dL Hct 41.5 (36-46) % MCV 88.1 (80-100) fL MCH 29.6 (26-34) PG MCHC 33.6 (30-36) % RDW 13.1 (11.6-14.8) % Plt Count 249 (150-400) X10^3/uL Neut % (Auto) 83.9 H (50-75) % Lymph % (Auto) 11.1 L (25-40) % [place] % (Auto) 4.4 (3-14) % Eos % (Auto) 0.1 L (2-4) % Baso % (Auto) 0.5 (0-2) % Neut # (Auto) 4700 (2646-5136) /uL Lymph # (Auto) 600 L (5807-6544) /uL [place] # (Auto) 200 (0-900) /uL Eos # (Auto) 0 (0-450) /uL Baso # (Auto) 0 (0-100) /uL Sodium 138 (137-145) mmol/L Potassium 4.1 (3.4-5.1) mmol/L Chloride 101 (98-107) mmol/L Carbon Dioxide 32 (22-32) mmol/L BUN 20 H (7-17) mg/dL Creatinine 0.88 (0.52-1.04) mg/dL Estimated GFR > 60.0 (>60) mL/min BUN/Creatinine Ratio 22.7 H (6-22) Glucose 198 H (80-110) mg/dL Calcium 9.5 (8.4-10.2) mg/dL Total Bilirubin 1.0 (0.2-1.3) mg/dL AST 44 H (14-36) IU/L ALT 45 H (<35) IU/L Alkaline Phosphatase 111 (38-126) U/L Total Protein 8.6 H (6.3-8.2) g/dL Albumin 4.9 (3.5-5.0) g/dL Globulin 3.7 (1.7-4.1) g/dL Albumin/Globulin Ratio 1.3 (1.0-2.8) Urine Color Yellow Urine Appearance Cloudy Urine pH 8.5 H (4.5-8.0) Ur Specific [place] 1.015 (1.000-1.035) Urine Protein Negative (Negative) Urine Glucose (UA) 1+ H (Negative) g/dL Urine Ketones 1+ H (NEGATIVE) Urine Occult Blood 1+ H (Negative) Urine Nitrate Negative (Negative) Urine Bilirubin Negative (NEGATIVE) Urine Urobilinogen 0.2 (0.2) E.U./dL Ur Leukocyte Esterase Negative (NEGATIVE) Urine RBC 0-1/hpf (0-5/HPF) Urine WBC 0-1/hpf (0-5/HPF) Ur Squamous Epith Cells 0-1 /hpf (0-5/HPF) Amorphous Sediment 4+ Urine Bacteria None seen (None) Ur Culture Indicated? Cult not indicated MDM Narrative Medical decision making narrative: Patient well known to myself and the facility presents under similar presentation. Her history and physical are well known to her. Labs are reassuring. Eventually pain is well controlled and patient is tolerating orals. She requests discharge for access to medications that she has at home that we do not have here. Extensive return precautions are discussed and questions have been answered to her apparent satisfaction Discharge Plan Departure Patient Disposition: Home Clinical Impression: Diabetic gastroparesis, Abdominal pain, Cyclic vomiting syndrome Instructions: DI for Abdominal Pain-Adult, Nausea and Vomiting-Adult Activity Restrictions/Additional Instructions: *You have been diagnosed with [diabetic gastroparesis ] *What to do: *Please continue to take your regular medications as directed. [ ] New medication prescriptions sent to your pharmacy: [ ] [ ] New medication written as a paper prescription [ ] No new medications given *Please follow up with your primary care provider in 2-3 days, call for an appointment. Let them know you were seen in the Emergency Department and that we ask that you be seen in follow up. We will electronically transmit a record of today's note if your PCP is in our system *If you do not have a primary care provider please contact the [facility] Resource line at [phone]. They will ask some questions about your medical history and help get you set up with a doctor in the community. *Return to Emergency Department if you should have any new, worsening or concerning symptoms Prescriptions: No Action insulin lispro [Humalog U-100 Insulin] 100 UNIT/1 ML solution 0 unit continuous IV infusion DAILY Qty: 0 0RF Domperidone (#DOMPERIDONE) 30 mg PO ACHS Qty: 2 0RF Label Comments: NOT ON PATIENT HOME MED LIST PROVIDED BY SPOUSE 02/14/19 rosuvastatin [Crestor] 10 MG tablet 10 mg PO BEDTIME Qty: 0 0RF pantoprazole [Protonix] 40 MG tablet,delayed release (DR/EC) 40 mg PO DAILY Qty: 0 0RF hydrocortisone 10 MG tablet 10 mg PO DAILY Qty: 0 0RF alendronate 70 mg Tablet 70 mg PO QWEEK 0RF levothyroxine 75 mcg Tablet 75 mcg PO DAILY 0RF Glucagon Emergency Kit (human) 1 mg Recon Soln 1 dose subcut DIRECTED 0RF hydromorphone 4 MG tablet 4 mg PO TID PRN (Reason: PAIN) 0RF diazepam 5 MG tablet 5 mg PO TIDP PRN (Reason: Anxiety) 0RF Label Comments: spouse states probably took this am but vomited after. 02/14/19 promethazine 25 mg suppository 25 mg AZ Q6H PRN (Reason: nausea and vomiting) Qty: 12 0RF promethazine 25 mg suppository 25 mg AZ Q4-6H PRN (Reason: nausea and vomiting) Qty: 1 0RF ondansetron HCl [Zofran] 8 mg Tablet 8 mg PO TID PRN (Reason: Nausea) 0RF Referrals: Salvatore Villegas MD [Primary Care Provider] -
--- NOTE | 2021-10-05 19:50 | PC.NURSE ---
PIV attempted x 3. Blood obtained for lab, but unable to place IV line.
--- NOTE | 2021-10-05 19:53 | PC.NURSE ---
pt states typical gastroparesis, no vomiting at this time
--- NOTE | 2021-10-05 19:54 | PC.NURSE ---
IV access attempted per SNEHA Gurbbs unsuccessfully another nurse will attempt
[2021-10-05 19:57] LABS: Add Manual Diff / Slide Review NO; Basophils Absolute Auto 0 /uL (0-100); Basophils Percent Auto 0.5 % (0-2); Eosinophils Absolute Auto 0 /uL (0-450); Eosinophils Percent Auto 0.1 % (2-4); Hematocrit 41.5 % (36-46); Hemoglobin 13.9 g/dL (12.0-16.0); Lymphocytes Absolute Auto 600 /uL (1100-4500); Lymphocytes Percent Auto 11.1 % (25-40); Mean Corpuscular HGB Conc 33.6 % (30-36); Mean Corpuscular Hemoglobin 29.6 PG (26-34); Mean Corpuscular Volume 88.1 fL (80-100); Monocytes Absolute Auto 200 /uL (0-900); Monocytes Percent Auto 4.4 % (3-14); Neutrophils Absolute Auto 4700 /uL (1500-7000); Neutrophils Percent Auto 83.9 % (50-75); Platelet Count 249 X10^3/uL (150-400); Red Blood Cell Count 4.71 X10^6/uL (4.0-5.2); Red Cell Distribution Width 13.1 % (11.6-14.8); White Blood Cell Count 5.6 X10^3/uL (4.5-11.0)
[2021-10-05 20:06] LABS: Alanine Aminotransferase 45 IU/L (<35); Albumin 4.9 g/dL (3.5-5.0); Albumin Globulin Ratio 1.3 (1.0-2.8); Alkaline Phosphatase 111 U/L (38-126); Aspartate Aminotransferase 44 IU/L (14-36); BUN Creatinine Ratio 22.7 (6-22); Blood Urea Nitrogen 20 mg/dL (7-17); Calcium 9.5 mg/dL (8.4-10.2); Carbon Dioxide 32 mmol/L (22-32); Chloride 101 mmol/L (98-107); Estimated Glomerular Filt Rate > 60.0 mL/min (>60); Globulin 3.7 g/dL (1.7-4.1); Glucose 198 mg/dL (80-110); Potassium 4.1 mmol/L (3.4-5.1); Sodium 138 mmol/L (137-145); Total Protein 8.6 g/dL (6.3-8.2)
[2021-10-05 20:16] LABS: HEMOLYSIS 81 (0-50)
[2021-10-05] MEDS: HALOPERIDOL 5 MG/ML VIAL 2 MG IV (20:18)
[2021-10-05] MEDS: PANTOPRAZOLE 40 MG VIAL IV (20:18)
[2021-10-05] MEDS: SODIUM CHLORIDE 0.9% 1,000 ML 1000 ML IV (20:20)
[2021-10-05] MEDS: HYDROMORPHONE 0.5 MG INJ IV (21:01)
[2021-10-05] MEDS: hydrOXYzine 50 MG/ML INJ IM (21:31)
--- NOTE | 2021-10-05 22:00 | PC.NURSE ---
pt c/o medication not working, medications being given, no active vomiting noted
[2021-10-05] MEDS: ONDANSETRON 4 MG/2 ML INJ IV (22:30)
[2021-10-05] MEDS: diphenhydrAMINE 50 MG/ML VIAL 25 MG IV (22:30)
[2021-10-05 22:34] VITALS: BP 152/69; PULSE 76; RESP 16; O2SAT 99
[2021-10-05] MEDS: LORazepam 2 MG/ML INJ 0.5 MG IV (23:10)
[2021-10-05 23:17] VITALS: PULSE 72; O2SAT 96
[2021-10-05 23:30] VITALS: PULSE 70; O2SAT 97
[2021-10-06] VITALS: PULSE 68; O2SAT 97
[2021-10-06 00:30] VITALS: PULSE 69; O2SAT 98
[2021-10-06 00:43] VITALS: BP 166/77; PULSE 77; O2SAT 99
[2021-10-06 00:55] LABS: Appearance Urine UA CLOUDY; Bilirubin Urine UA NEGATIVE (NEGATIVE); Color Urine UA YELLOW; Glucose Urine UA 1+ g/dL (Negative); Ketones Urine UA 1+ (NEGATIVE); Leukocyte Esterase Urine UA NEGATIVE (NEGATIVE); Nitrite Urine UA NEGATIVE (Negative); Occult Blood Urine UA 1+ (Negative); Protein Urine UA NEGATIVE (Negative); Specific Gravity Urine UA 1.015 (1.000-1.035); Urobilinogen Urine UA 0.2 E.U./dL (0.2)
[2021-10-06 00:58] LABS: pH Urine UA 8.5 (4.5-8.0)
[2021-10-06 01:00] VITALS: BP 160/74; PULSE 72; RESP 18; O2SAT 99
[2021-10-06 01:02] LABS: RBC Urine 0-1/HPF (0-5/HPF); Squamous Epithelial Cell Urine 0-1 /HPF (0-5/HPF); WBC Urine 0-1/HPF (0-5/HPF)
[2021-10-06 01:03] LABS: Amorphous Sediment Urine 4+; Bacteria Urine None Seen; Culture Indicated Urine Cult Not Indicated
[2021-10-06] MEDS: HYDROMORPHONE 0.5 MG INJ IV (01:50)
== END 2021-10-06 02:27 | disposition home or self-care (01) ==
PROVIDERS: Emergency Provider Emergency Medicine; PCP Internal Medicine
DX: E11.43 Type 2 diabetes mellitus with diabetic autonomic (poly)neuropathy (principal); K31.84 Gastroparesis; Z79.4 Long term (current) use of insulin; R10.84 Generalized abdominal pain; R11.15 Cyclical vomiting syndrome unrelated to migraine; Z87.891 Personal history of nicotine dependence; Z88.5 Allergy status to narcotic agent; Z88.8 Allergy status to other drugs, medicaments and biological substances
CPT/HCPCS: 36415; 80053; 81001; 85025; 96361; 96372; 96374; 96375; 96376; 99284; C9113; J1170; J1200; J1630; J2060; J2405; J3410

== ENCOUNTER 2021-10-18 18:41 | Emergency (ER) | payer OTHER, SELFPAY ==
[2021-10-18] VITALS (12 sets, daily range): BP systolic 95–142; BP diastolic 50–82; PULSE 63–90; RESP 16–27; TEMP 36.6; O2SAT 94–98; BMI 21.9
[2021-10-18] MEDS: HYDROMORPHONE 1 MG INJ IV (18:59)
[2021-10-18] MEDS: SODIUM CHLORIDE 0.9% 1,000 ML 1000 ML IV ×2 (18:59→22:20)
[2021-10-18] MEDS: ONDANSETRON 4 MG/2 ML INJ IV (18:59)
--- NOTE | 2021-10-18 19:23 | PC.NURSE ---
iv took 3 attempts,pt very difficult IV start
[2021-10-18] MEDS: PANTOPRAZOLE 40 MG VIAL IV (19:31)
[2021-10-18 19:54] LABS: HCO3 VBG 33 mmol/L (23-28); PCO2 VBG 50.2 mmHg (45-50); PO2 VBG 33 mmHg (35-45); pH VBG 7.43 (7.33-7.43)
[2021-10-18 19:55] LABS: Oxygen Saturation VBG 64 % (70-75); Total CO2 VBG 35 mmol/L (24-29)
--- NOTE | 2021-10-18 20:38 | ED_ITS ---
HPI - General Adult General Chief complaint: Diabetic Problem Stated complaint: Stomach Issues, Vomiting, Diabetic Time Seen by Provider: 10/18/21 18:50 Source: patient Mode of arrival: Ambulatory Limitations: no limitations History of Present Illness HPI narrative: 61-year-old female. History of diabetes. Has had multiple issues with diabetic gastroparesis. Is here for evaluation of vomiting and abdominal pain. This is been going on for the past 12-24 hours. It feels very similar to her prior issues with gastroparesis. Related Data Home Medications Medication Instructions Recorded Confirmed Domperidone (#DOMPERIDONE) 30 mg PO ACHS #2 07/29/12 03/22/19 insulin lispro 100 unit/mL 0 unit CONTINUOUS IV INFUSION 07/29/12 03/22/19 subcutaneous solution (Humalog DAILY #0 U-100 Insulin) rosuvastatin 10 mg tablet (Crestor) 10 mg PO BEDTIME #0 07/29/12 03/22/19 pantoprazole 40 mg tablet,delayed 40 mg PO DAILY #0 10/06/12 03/22/19 release (Protonix) hydrocortisone 10 mg tablet 10 mg PO DAILY #0 05/03/17 03/22/19 alendronate 70 mg tablet 70 mg PO QWEEK 02/03/19 03/22/19 diazepam 5 mg tablet 5 mg PO TIDP PRN 02/03/19 03/22/19 glucagon (human recombinant) 1 mg 1 dose SUBCUT DIRECTED 02/03/19 03/22/19 solution for injection (Glucagon Emergency Kit) hydromorphone 4 mg tablet 4 mg PO TID PRN 02/03/19 03/22/19 levothyroxine 75 mcg tablet 75 mcg PO DAILY 02/03/19 03/22/19 ondansetron HCl 8 mg tablet 8 mg PO TID PRN 03/22/19 03/22/19 (Zofran) Previous Rx's Medication Instructions Recorded promethazine [address] Q6H PRN #12 each 02/03/19 suppository promethazine 25 mg [address] Q4-6H PRN #1 each 08/31/19 suppository Allergies Allergy/AdvReac Type Severity Reaction Status Date / Time amitriptyline Allergy Intermediate SEIZURES Verified 10/18/21 18:50 droperidol Allergy Intermediate CLONIC Verified 10/18/21 18:50 REACTION metoclopramide Allergy Intermediate CLONIC Verified 10/18/21 18:50 REACTION prochlorperazine Allergy Intermediate CLONIC Verified 10/18/21 18:50 REACTION azithromycin AdvReac Mild N/V Verified 10/18/21 18:50 ciprofloxacin AdvReac Mild N/V Verified 10/18/21 18:50 hydrocodone AdvReac Mild N/V Verified 10/18/21 18:50 ketorolac AdvReac Mild N/V Verified 10/18/21 18:50 Review of Systems Constitutional Constitutional: Denies fever(s) Cardiovascular Cardiovascular: Denies chest pain and Denies dyspnea Respiratory Respiratory: Denies dyspnea Gastrointestinal Gastrointestinal: Reports abdominal pain, Reports nausea and Reports vomiting Genitourinary Genitourinary: Denies dysuria Integumentary/Breasts Skin/Breast: Reports system reviewed and no additional complaints, except as documented Neurologic Neurologic: Reports system reviewed and no additional complaints, except as documented Hematologic/Lymphatic On Anticoagulants: No Patient History Medical History Chronic cholecystitis Diabetes Diabetic retinopathy Hyperlipidemia Hypothyroid Osteomyelitis Family History Mother Non Hodgkin's lymphoma Social History marital status: household members: spouse Smoking Status: Former smoker Smoking Status: Former smoker alcohol intake frequency: holidays/special occasions only Substance Use Type: does not use Exam Initial Vital Signs Initial Vital Signs: Vital Signs Temperature 97.8 F 10/18/21 18:50 Pulse Rate 87 10/18/21 18:50 Respiratory Rate 17 10/18/21 18:50 Blood Pressure 132/82 10/18/21 18:50 Pulse Oximetry 98 10/18/21 18:50 Const General: cooperative and well developed HENMT Head: normal to inspection and normocephalic Resp Effort & Inspection: normal respiratory effort Auscultation: clear to auscultation bilaterally Cardio Rate: regular rate Rhythm: regular rhythm GI Inspection: normal to inspection and non-distended Palpation: tender Skin General: no rashes or lesions noted Neuro General: patient alert, patient awake and moves all extremities Extrem General: normal to inspection and capillary refill normal Psych Appearance: grossly normal Course Orders Ordered: ED Orders 10/18/21 19:25 Venous Blood Gas Stat 10/18/21 20:38 Complete Blood Count AUTO DIFF Stat Comprehensive Metabolic Panel Stat Ethanol (ETOH) Stat Ketones (Beta-Hydroxybutyrate) Stat Lactate (Lactic Acid) Stat Lipase Stat Magnesium Stat Phosphorous Stat Procalcitonin Stat Discontinued Medications Diphenhydramine HCl (Diphenhydramine 50 Mg/Ml Vial) 25 mg IV NOW ONE Stop: 10/18/21 20:40 Last Admin: 10/18/21 20:54 Dose: 25 mg Documented by: LIZA Hydromorphone HCl (Hydromorphone 1 Mg Inj) 1 mg IV NOW ONE Stop: 10/18/21 18:54 Last Admin: 10/18/21 18:59 Dose: 1 mg Documented by: SANIYA Hydromorphone HCl (Hydromorphone 1 Mg Inj) 1 mg IV NOW ONE Stop: 10/18/21 23:51 Last Admin: 10/19/21 00:37 Dose: 1 mg Documented by: NYA Hydroxyzine HCl (Hydroxyzine 50 Mg/Ml Inj) 25 mg IM NOW ONE Stop: 10/18/21 22:15 Last Admin: 10/18/21 22:32 Dose: 25 mg Documented by: LIZA Sodium Chloride (Normal Saline 0.9%) 1,000 mls @ 1,000 mls/hr IV BOLUS ONE Stop: 10/18/21 19:52 Last Infusion: 10/18/21 22:08 Dose: 0 mls/hr Documented by: Admin: 10/18/21 18:59 Dose: 1,000 mls/hr Documented by: SANIYA Sodium Chloride (Normal Saline 0.9%) 1,000 mls @ 1,000 mls/hr IV BOLUS ONE Stop: 10/18/21 23:13 Last Infusion: 10/19/21 00:37 Dose: 0 mls/hr Documented by: Admin: 10/18/21 22:20 Dose: 1,000 mls/hr Documented by: LIZA Lorazepam (Lorazepam 2 Mg/Ml Inj) 1 mg IV NOW ONE Stop: 10/18/21 20:40 Last Admin: 10/18/21 20:48 Dose: 1 mg Documented by: LIZA Ondansetron HCl (Ondansetron 4 Mg/2 Ml Inj) 4 mg IV NOW ONE Stop: 10/18/21 18:54 Last Admin: 10/18/21 18:59 Dose: 4 mg Documented by: SAINYA Pantoprazole Sodium (Pantoprazole 40 Mg Vial) 40 mg IV NOW ONE Stop: 10/18/21 19:27 Last Admin: 10/18/21 19:31 Dose: 40 mg Documented by: SANIYA Vital Signs Vital signs: Vital Signs - 8 hr 10/18/21 18:50 10/18/21 20:25 10/18/21 20:30 Temperature 97.8 F Pulse Rate 87 90 71 Respiratory Rate 17 19 Blood Pressure 132/82 141/66 H Pulse Oximetry 98 97 96 10/18/21 21:00 10/18/21 21:30 10/18/21 22:00 Temperature Pulse Rate 70 65 70 Respiratory Rate 27 H 19 18 Blood Pressure 142/64 H 119/58 L Pulse Oximetry 97 94 95 10/18/21 22:03 10/18/21 22:30 10/18/21 23:00 Temperature Pulse Rate 72 66 75 Respiratory Rate 18 19 17 Blood Pressure 115/56 L Pulse Oximetry 98 97 96 10/18/21 23:01 10/18/21 23:30 10/18/21 23:31 Temperature Pulse Rate 63 69 66 Respiratory Rate 18 18 16 Blood Pressure 123/60 95/50 L Pulse Oximetry 97 95 97 10/19/21 00:00 10/19/21 00:01 10/19/21 00:30 Temperature Pulse Rate 62 61 62 Respiratory Rate 16 17 15 Blood Pressure 125/60 112/55 L Pulse Oximetry 96 98 96 10/19/21 01:00 Temperature Pulse Rate 67 Respiratory Rate 15 Blood Pressure 121/61 Pulse Oximetry 97 Medical Decision Making Lab Data Result diagrams: 10/18/21 20:38 10/18/21 20:38 Labs: Lab Results 10/18/21 10/18/21 10/18/21 Range/Units 19:25 20:38 20:38 WBC 7.1 (4.5-11.0) X10^3/uL RBC 4.54 (4.0-5.2) X10^6/uL Hgb 13.6 (12.0-16.0) g/dL Hct 40.0 (36-46) % MCV 88.1 (80-100) fL MCH 29.9 (26-34) PG MCHC 33.9 (30-36) % RDW 13.2 (11.6-14.8) % Plt Count 234 (150-400) X10^3/uL Neut % (Auto) 82.4 H (50-75) % Lymph % (Auto) 12.0 L (25-40) % [place] % (Auto) 4.7 (3-14) % Eos % (Auto) 0.6 L (2-4) % Baso % (Auto) 0.3 (0-2) % Neut # (Auto) 5900 (2927-5974) /uL Lymph # (Auto) 900 L (3211-2132) /uL [place] # (Auto) 300 (0-900) /uL Eos # (Auto) 0 (0-450) /uL Baso # (Auto) 0 (0-100) /uL Platelet Estimate Adequate on smear RBC Morphology Not Reportable VBG pH 7.43 (7.33-7.43) VBG pCO2 50.2 H (45-50) mmHg VBG pO2 33 L (35-45) mmHg VBG HCO3 33 H (23-28) mmol/L VBG Total CO2 35 H (24-29) mmol/L VBG O2 Saturation 64 L (70-75) % VBG Base Excess 9.0 H (0-4) mmol/L Sodium 139 (137-145) mmol/L Potassium 4.1 (3.4-5.1) mmol/L Chloride 108 H (98-107) mmol/L Carbon Dioxide 28 (22-32) mmol/L BUN 13 (7-17) mg/dL Creatinine 0.73 (0.52-1.04) mg/dL Estimated GFR > 60.0 (>60) mL/min BUN/Creatinine Ratio 17.8 (6-22) Glucose 161 H (80-110) mg/dL Lactate (0.7-2.1) mmol/L Calcium 9.4 (8.4-10.2) mg/dL Phosphorus 3.4 (2.8-4.1) mg/dL Magnesium 1.7 (1.6-2.3) mg/dL Total Bilirubin 0.6 (0.2-1.3) mg/dL AST 34 (14-36) IU/L ALT 29 (<35) IU/L Alkaline Phosphatase 65 (38-126) U/L Total Protein 7.9 (6.3-8.2) g/dL Albumin 4.5 (3.5-5.0) g/dL Globulin 3.4 (1.7-4.1) g/dL Albumin/Globulin Ratio 1.3 (1.0-2.8) Lipase 24 (23-300) U/L Procalcitonin 0.52 H (<0.5) ng/mL Ethyl Alcohol < 10 ( - 10) mg/dL Ketones 0.23 (<0.27) mmol/L 10/18/21 Range/Units 20:38 WBC (4.5-11.0) X10^3/uL RBC (4.0-5.2) X10^6/uL Hgb (12.0-16.0) g/dL Hct (36-46) % MCV (80-100) fL MCH (26-34) PG MCHC (30-36) % RDW (11.6-14.8) % Plt Count (150-400) X10^3/uL Neut % (Auto) (50-75) % Lymph % (Auto) (25-40) % [place] % (Auto) (3-14) % Eos % (Auto) (2-4) % Baso % (Auto) (0-2) % Neut # (Auto) (2162-8412) /uL Lymph # (Auto) (2610-0262) /uL [place] # (Auto) (0-900) /uL Eos # (Auto) (0-450) /uL Baso # (Auto) (0-100) /uL Platelet Estimate RBC Morphology VBG pH (7.33-7.43) VBG pCO2 (45-50) mmHg VBG pO2 (35-45) mmHg VBG HCO3 (23-28) mmol/L VBG Total CO2 (24-29) mmol/L VBG O2 Saturation (70-75) % VBG Base Excess (0-4) mmol/L Sodium (137-145) mmol/L Potassium (3.4-5.1) mmol/L Chloride (98-107) mmol/L Carbon Dioxide (22-32) mmol/L BUN (7-17) mg/dL Creatinine (0.52-1.04) mg/dL Estimated GFR (>60) mL/min BUN/Creatinine Ratio (6-22) Glucose (80-110) mg/dL Lactate 1.0 (0.7-2.1) mmol/L Calcium (8.4-10.2) mg/dL Phosphorus (2.8-4.1) mg/dL Magnesium (1.6-2.3) mg/dL Total Bilirubin (0.2-1.3) mg/dL AST (14-36) IU/L ALT (<35) IU/L Alkaline Phosphatase (38-126) U/L Total Protein (6.3-8.2) g/dL Albumin (3.5-5.0) g/dL Globulin (1.7-4.1) g/dL Albumin/Globulin Ratio (1.0-2.8) Lipase (23-300) U/L Procalcitonin (<0.5) ng/mL Ethyl Alcohol ( - 10) mg/dL Ketones (<0.27) mmol/L Point of Care Testing Glucose POC 90 Point of care testing: Point of Care Testing Glucose POC 90 ECG Data Attestation: I personally reviewed and interpreted this ECG as follows: Interpretation: Sinus rhythm Left axis deviation Normal QRS Normal QTC No ST T wave changes MDM Narrative Medical decision making narrative: Patient is not in DKA. PH of 7.4. Labs relatively unremarkable. Feels better after above therapies. I do feel given her presentation in her history that we can hold on further radiologic studies to include a CT scan. She was advised she needed to contact her primary doctor for follow-up. Discharge Plan Departure Patient Disposition: Home Clinical Impression: Diabetic gastroparesis Instructions: DI for Abdominal Pain-Adult Activity Restrictions/Additional Instructions: I do recommend that you continue all of your medications as directed. Contact your primary doctor for a follow-up. I recommend that you are also under the care of a pharmacist assistant for your chronic symptoms. Return to the emergency department for any new or worsening symptoms Prescriptions: No Action insulin lispro [Humalog U-100 Insulin] 100 UNIT/1 ML solution 0 unit continuous IV infusion DAILY Qty: 0 0RF Domperidone (#DOMPERIDONE) 30 mg PO ACHS Qty: 2 0RF Label Comments: NOT ON PATIENT HOME MED LIST PROVIDED BY SPOUSE 02/14/19 rosuvastatin [Crestor] 10 MG tablet 10 mg PO BEDTIME Qty: 0 0RF pantoprazole [Protonix] 40 MG tablet,delayed release (DR/EC) 40 mg PO DAILY Qty: 0 0RF hydrocortisone 10 MG tablet 10 mg PO DAILY Qty: 0 0RF alendronate 70 mg Tablet 70 mg PO QWEEK 0RF levothyroxine 75 mcg Tablet 75 mcg PO DAILY 0RF Glucagon Emergency Kit (human) 1 mg Recon Soln 1 dose subcut DIRECTED 0RF hydromorphone 4 MG tablet 4 mg PO TID PRN (Reason: PAIN) 0RF diazepam 5 MG tablet 5 mg PO TIDP PRN (Reason: Anxiety) 0RF Label Comments: spouse states probably took this am but vomited after. 02/14/19 promethazine 25 mg suppository [address] Q6H PRN (Reason: nausea and vomiting) Qty: 12 0RF promethazine 25 mg suppository [address] Q4-6H PRN (Reason: nausea and vomiting) Qty: 1 0RF ondansetron HCl [Zofran] 8 mg Tablet 8 mg PO TID PRN (Reason: Nausea) 0RF Referrals: Salvatore Villegas MD [Primary Care Provider] -
[2021-10-18] MEDS: LORazepam 2 MG/ML INJ 1 MG IV (20:48)
[2021-10-18] MEDS: diphenhydrAMINE 50 MG/ML VIAL 25 MG IV (20:54)
[2021-10-18 20:59] LABS: Basophils Absolute Auto 0 /uL (0-100); Basophils Percent Auto 0.3 % (0-2); Eosinophils Absolute Auto 0 /uL (0-450); Eosinophils Percent Auto 0.6 % (2-4); Hemoglobin 13.6 g/dL (12.0-16.0); Lymphocytes Absolute Auto 900 /uL (1100-4500); Mean Corpuscular HGB Conc 33.9 % (30-36); Mean Corpuscular Hemoglobin 29.9 PG (26-34); Mean Corpuscular Volume 88.1 fL (80-100); Monocytes Absolute Auto 300 /uL (0-900); Monocytes Percent Auto 4.7 % (3-14); Neutrophils Absolute Auto 5900 /uL (1500-7000); Neutrophils Percent Auto 82.4 % (50-75); Platelet Count 234 X10^3/uL (150-400); Red Blood Cell Count 4.54 X10^6/uL (4.0-5.2); Red Cell Distribution Width 13.2 % (11.6-14.8); White Blood Cell Count 7.1 X10^3/uL (4.5-11.0)
[2021-10-18 21:03] LABS: Alanine Aminotransferase 29 IU/L (<35); Albumin 4.5 g/dL (3.5-5.0); Albumin Globulin Ratio 1.3 (1.0-2.8); Alkaline Phosphatase 65 U/L (38-126); Aspartate Aminotransferase 34 IU/L (14-36); BUN Creatinine Ratio 17.8 (6-22); Bilirubin Total 0.6 mg/dL (0.2-1.3); Blood Urea Nitrogen 13 mg/dL (7-17); Calcium 9.4 mg/dL (8.4-10.2); Carbon Dioxide 28 mmol/L (22-32); Chloride 108 mmol/L (98-107); Estimated Glomerular Filt Rate > 60.0 mL/min (>60); Globulin 3.4 g/dL (1.7-4.1); Glucose 161 mg/dL (80-110); HEMOLYSIS < 15 (0-50); Lipase 24 U/L (23-300); Magnesium 1.7 mg/dL (1.6-2.3); Phosphorous 3.4 mg/dL (2.8-4.1); Potassium 4.1 mmol/L (3.4-5.1); Sodium 139 mmol/L (137-145); Total Protein 7.9 g/dL (6.3-8.2)
[2021-10-18 21:06] LABS: Ketones (Beta-Hydroxybutyrate) 0.23 mmol/L (<0.27)
[2021-10-18 21:22] LABS: Procalcitonin 0.52 ng/mL (<0.5)
[2021-10-18 21:33] LABS: Add Manual Diff / Slide Review SLIDE REVIEW; Platelet Estimate Adequate on smear
[2021-10-18 21:34] LABS: Ethanol (ETOH) < 10 mg/dL
[2021-10-18] MEDS: hydrOXYzine 50 MG/ML INJ 25 MG IM (22:32)
[2021-10-19] VITALS: PULSE 62; RESP 16; O2SAT 96
[2021-10-19 00:01] VITALS: BP 125/60; PULSE 61; RESP 17; O2SAT 98
[2021-10-19 00:30] VITALS: BP 112/55; PULSE 62; RESP 15; O2SAT 96
[2021-10-19] MEDS: HYDROMORPHONE 1 MG INJ IV (00:37)
[2021-10-19 01:00] VITALS: BP 121/61; PULSE 67; RESP 15; O2SAT 97
[2021-10-19 01:30] VITALS: BP 121/61; PULSE 65; RESP 19; O2SAT 96
== END 2021-10-19 01:34 | disposition home or self-care (01) ==
PROVIDERS: Emergency Provider Emergency Medicine; PCP Internal Medicine
DX: E11.43 Type 2 diabetes mellitus with diabetic autonomic (poly)neuropathy (principal); K31.84 Gastroparesis; Z87.891 Personal history of nicotine dependence; Z79.4 Long term (current) use of insulin
CPT/HCPCS: 36415; 80053; 80320; 82009; 82805; 82962; 83605; 83690; 83735; 84100; 84145; 85025; 93005; 96361; 96374; 96375; 96376; 99284; C9113; J1170; J1200; J2060; J2405; J3410

== ENCOUNTER 2021-11-26 20:13 | Inpatient (IN) | payer OTHER, SELFPAY ==
[2021-11-26] VITALS (8 sets, daily range): BP systolic 131–170; BP diastolic 68–105; PULSE 75–87; RESP 24; TEMP 36.4; O2SAT 95–99
--- NOTE | 2021-11-26 21:44 | ED_ITS ---
HPI - Fall General Chief Complaint: Fall Stated Complaint: reaction to medication, hit head on floor Time Seen by Provider: 11/26/21 21:01 Source: patient and family Mode of arrival: Wheelchair Limitations: no limitations History of Present Illness HPI Narrative: 61-year-old female. Has a longstanding history of insulin-dependent diabetes and also a longstanding history of diabetic gastroparesis. She states she has had gastroparesis for approximately 40 years. She has been seen here in the emergency department multiple times with the symptoms and subsequently been discharged home after symptom control in the ER. She is here today with her . Over the past 24 hours she has had multiple symptoms to include trembling in her arms and legs. Some confusion at times. Abdominal pain. Vomiting. She also had a unwitnessed fall at home where she states she hit the right side of her head. She is not on blood thinners. She was evaluated by EMS earlier in the day and was told that she potentially had a concussion. Was not transported to the ER at that time. Arrives now because of what she describes as her normal gastroparesis pain and nausea and vomiting. Related Data Home Medications Medication Instructions Recorded Confirmed Domperidone (#DOMPERIDONE) 30 mg PO ACHS #2 07/29/12 03/22/19 insulin lispro 100 unit/mL 0 unit CONTINUOUS IV INFUSION 07/29/12 03/22/19 subcutaneous solution (Humalog DAILY #0 U-100 Insulin) rosuvastatin 10 mg tablet (Crestor) 10 mg PO BEDTIME #0 07/29/12 03/22/19 pantoprazole 40 mg tablet,delayed 40 mg PO DAILY #0 10/06/12 03/22/19 release (Protonix) hydrocortisone 10 mg tablet 10 mg PO DAILY #0 05/03/17 03/22/19 alendronate 70 mg tablet 70 mg PO QWEEK 02/03/19 03/22/19 diazepam 5 mg tablet 5 mg PO TIDP PRN 02/03/19 03/22/19 glucagon (human recombinant) 1 mg 1 dose SUBCUT DIRECTED 02/03/19 03/22/19 solution for injection (Glucagon Emergency Kit) hydromorphone 4 mg tablet 4 mg PO TID PRN 02/03/19 03/22/19 levothyroxine 75 mcg tablet 75 mcg PO DAILY 02/03/19 03/22/19 ondansetron HCl 8 mg tablet 8 mg PO TID PRN 03/22/19 03/22/19 (Zofran) Previous Rx's Medication Instructions Recorded promethazine 25 mg rectal 25 mg CO Q6H PRN #12 each 02/03/19 suppository promethazine 25 mg rectal 25 mg CO Q4-6H PRN #1 each 08/31/19 suppository Allergies Allergy/AdvReac Type Severity Reaction Status Date / Time amitriptyline Allergy Intermediate SEIZURES Verified 10/18/21 18:50 droperidol Allergy Intermediate CLONIC Verified 10/18/21 18:50 REACTION metoclopramide Allergy Intermediate CLONIC Verified 10/18/21 18:50 REACTION prochlorperazine Allergy Intermediate CLONIC Verified 10/18/21 18:50 REACTION azithromycin AdvReac Mild N/V Verified 10/18/21 18:50 ciprofloxacin AdvReac Mild N/V Verified 10/18/21 18:50 hydrocodone AdvReac Mild N/V Verified 10/18/21 18:50 ketorolac AdvReac Mild N/V Verified 10/18/21 18:50 Review of Systems Review of Systems ROS Unobtainable: All systems reviewed & are unremarkable except as noted in HPI and below Patient History Medical History Chronic cholecystitis Diabetes Diabetic retinopathy Hyperlipidemia Hypothyroid Osteomyelitis Family History Mother Non Hodgkin's lymphoma Social History marital status: household members: spouse Smoking Status: Former smoker Smoking Status: Former smoker alcohol intake frequency: holidays/special occasions only Substance Use Type: does not use Exam Initial Vital Signs Initial Vital Signs: Vital Signs Temperature 97.5 F L 11/26/21 20:23 Pulse Rate 87 11/26/21 20:23 Respiratory Rate 24 11/26/21 20:23 Pulse Oximetry 97 11/26/21 20:23 Const General: other (Uncomfortable appearing) HENNY Head: normal to inspection, normocephalic, No abrasion, No contusion and No palpable skull fracture Mouth: moist mucous membranes Resp Effort & Inspection: normal respiratory effort Auscultation: clear to auscultation bilaterally Cardio Rate: regular rate Rhythm: regular rhythm GI Inspection: non-distended Palpation: soft and tender (Epigastric region) Skin General: no rashes or lesions noted Neuro General: patient alert, patient awake and moves all extremities Speech: speech normal Extrem General: normal to inspection and capillary refill normal Psych Appearance: grossly normal and well kempt Scores GCS [place] coma scale eye opening: Spontaneous [place] coma scale verbal response: Orientated [place] coma scale motor response: Obey commands Krist[place] coma scale total score: 15 Course Orders Ordered: ED Orders 11/26/21 20:25 Comprehensive Metabolic Panel Stat Lipase Stat 11/26/21 22:20 Complete Blood Count AUTO DIFF Stat Sodium Chloride (Normal Saline 0.9%) 1,000 mls @ 125 mls/hr IV CONT ALEX Discontinued Medications Hydromorphone HCl (Hydromorphone 1 Mg Inj) 1 mg IV NOW ONE Stop: 11/26/21 23:40 Last Admin: 11/26/21 23:48 Dose: 1 mg Documented by: MARCO Hydromorphone HCl (Hydromorphone 1 Mg Inj) 1 mg IV NOW ONE Stop: 11/27/21 00:40 Last Admin: 11/27/21 00:52 Dose: 1 mg Documented by: SUGEY Hydromorphone HCl (Hydromorphone 1 Mg Inj) 1 mg IV NOW ONE Stop: 11/27/21 05:18 Hydroxyzine HCl (Hydroxyzine 50 Mg/Ml Inj) 25 mg IM NOW ONE Stop: 11/27/21 01:27 Last Admin: 11/27/21 02:17 Dose: 25 mg Documented by: SUGEY Sodium Chloride (Normal Saline 0.9%) 1,000 mls @ 1,000 mls/hr IV BOLUS ONE Stop: 11/26/21 22:43 Last Infusion: 11/26/21 23:01 Dose: 0 mls/hr Documented by: Admin: 11/26/21 21:56 Dose: 1,000 mls/hr Documented by: MARCO Lorazepam (Lorazepam 2 Mg/Ml Inj) 1 mg IV NOW ONE Stop: 11/26/21 21:45 Last Admin: 11/26/21 21:56 Dose: 1 mg Documented by: MARCO Pantoprazole Sodium (Pantoprazole 40 Mg Vial) 40 mg IV NOW ONE Stop: 11/26/21 21:56 Last Admin: 11/26/21 21:56 Dose: 40 mg Documented by: MARCO Vital Signs Vital signs: Vital Signs - 8 hr 11/26/21 22:35 11/26/21 22:36 11/26/21 23:00 Pulse Rate 85 77 77 Blood Pressure 131/70 Pulse Oximetry 95 97 97 11/26/21 23:01 11/26/21 23:30 11/26/21 23:31 Pulse Rate 75 84 84 Blood Pressure 156/68 H 147/105 H Pulse Oximetry 99 98 95 11/27/21 00:00 11/27/21 00:30 11/27/21 00:31 Pulse Rate 71 71 73 Blood Pressure 155/69 H 140/65 Pulse Oximetry 94 96 96 11/27/21 01:00 11/27/21 01:30 11/27/21 01:31 Pulse Rate 75 76 79 Blood Pressure 144/83 H 132/62 Pulse Oximetry 96 93 94 MDM - Fall Lab Data Result diagrams: 11/26/21 22:20 11/26/21 20:25 Labs: Lab Results 11/26/21 11/26/21 Range/Units 20:25 22:20 WBC 7.2 (4.5-11.0) X10^3/uL RBC 4.51 (4.0-5.2) X10^6/uL Hgb 13.5 (12.0-16.0) g/dL Hct 40.0 (36-46) % MCV 88.7 (80-100) fL MCH 30.0 (26-34) PG MCHC 33.8 (30-36) % RDW 13.8 (11.6-14.8) % Plt Count Not Reportable Neut % (Auto) 87.5 H (50-75) % Lymph % (Auto) 6.6 L (25-40) % [place] % (Auto) 5.5 (3-14) % Eos % (Auto) 0.2 L (2-4) % Baso % (Auto) 0.2 (0-2) % Neut # (Auto) 6300 (6959-4630) /uL Lymph # (Auto) 500 L (6216-9362) /uL [place] # (Auto) 400 (0-900) /uL Eos # (Auto) 0 (0-450) /uL Baso # (Auto) 0 (0-100) /uL Platelet Estimate Adequate on smear RBC Morphology Normal morphology Sodium 138 (137-145) mmol/L Potassium 4.2 (3.4-5.1) mmol/L Chloride 98 (98-107) mmol/L Carbon Dioxide 30 (22-32) mmol/L BUN 15 (7-17) mg/dL Creatinine 0.94 (0.52-1.04) mg/dL Estimated GFR > 60 (>60) mL/min BUN/Creatinine Ratio 16.0 (6-22) Glucose 256 H (80-110) mg/dL Calcium 10.1 (8.4-10.2) mg/dL Total Bilirubin 0.8 (0.2-1.3) mg/dL AST 70 H (14-36) IU/L ALT 55 H (<35) IU/L Alkaline Phosphatase 113 (38-126) U/L Total Protein 8.2 (6.3-8.2) g/dL Albumin 4.9 (3.5-5.0) g/dL Globulin 3.3 (1.7-4.1) g/dL Albumin/Globulin Ratio 1.5 (1.0-2.8) Lipase 19 L (23-300) U/L [facility] Narrative Medical decision making narrative: Patient has been seen multiple times for gastroparesis and she arrives today for what she describes as symptoms consistent with that. Patient did have a fall earlier however there is no signs of any abrasions on her scalp. No palpable skull fracture. She is alert oriented x3. GCS of 15. Is not on blood thinners. I have low suspicion for intracranial hemorrhage or skull fracture. Cervical spine cleared by nexus criteria. She states that the pain that she is in in the vomiting is more consistent with her gastroparesis so feel that this is unlikely related to any head injury because of this hold on any radiologic studies for now. She reports no other injuries from the fall. Patient is hyperglycemic but not in DKA. Not acidotic per labs. Was given fluids. Multiple doses of pain medication and also other medicine to try to help with her vomiting however we have been unsuccessful a controlling her symptoms. I did discuss the case with Dr. Chacko with Internal Medicine who will admit for further evaluation and treatment. I did discuss the need for admission with the patient. She expressed understanding agreement as well. Discharge Plan Departure Patient Disposition: Admitted as Observation Clinical Impression: Diabetic gastroparesis, Abdominal pain Admit Date/Time: 11/27/21 05:20
[2021-11-26] MEDS: PANTOPRAZOLE 40 MG VIAL IV (21:56)
[2021-11-26] MEDS: SODIUM CHLORIDE 0.9% 1,000 ML 1000 ML IV (21:56)
[2021-11-26] MEDS: LORazepam 2 MG/ML INJ 1 MG IV (21:56)
[2021-11-26 21:58] LABS: Alanine Aminotransferase 55 IU/L (<35); Albumin 4.9 g/dL (3.5-5.0); Albumin Globulin Ratio 1.5 (1.0-2.8); Alkaline Phosphatase 113 U/L (38-126); Aspartate Aminotransferase 70 IU/L (14-36); Bilirubin Total 0.8 mg/dL (0.2-1.3); Blood Urea Nitrogen 15 mg/dL (7-17); Calcium 10.1 mg/dL (8.4-10.2); Carbon Dioxide 30 mmol/L (22-32); Chloride 98 mmol/L (98-107); Estimated Glomerular Filt Rate > 60 mL/min (>60); Globulin 3.3 g/dL (1.7-4.1); Glucose 256 mg/dL (80-110); HEMOLYSIS 16 (0-50); Lipase 19 U/L (23-300); Potassium 4.2 mmol/L (3.4-5.1); Sodium 138 mmol/L (137-145); Total Protein 8.2 g/dL (6.3-8.2)
[2021-11-26 23:20] LABS: Hemoglobin 13.5 g/dL (12.0-16.0); Red Blood Cell Count 4.51 X10^6/uL (4.0-5.2); White Blood Cell Count 7.2 X10^3/uL (4.5-11.0)
[2021-11-26 23:21] LABS: Mean Corpuscular HGB Conc 33.8 % (30-36); Mean Corpuscular Volume 88.7 fL (80-100); Red Cell Distribution Width 13.8 % (11.6-14.8)
[2021-11-26 23:22] LABS: Basophils Percent Auto 0.2 % (0-2); Eosinophils Percent Auto 0.2 % (2-4); Lymphocytes Absolute Auto 500 /uL (1100-4500); Lymphocytes Percent Auto 6.6 % (25-40); Monocytes Percent Auto 5.5 % (3-14); Neutrophils Absolute Auto 6300 /uL (1500-7000); Neutrophils Percent Auto 87.5 % (50-75)
[2021-11-26 23:23] LABS: Add Manual Diff / Slide Review SLIDE REVIEW; Basophils Absolute Auto 0 /uL (0-100); Eosinophils Absolute Auto 0 /uL (0-450); Monocytes Absolute Auto 400 /uL (0-900)
[2021-11-26] MEDS: HYDROMORPHONE 1 MG INJ IV (23:48)
[2021-11-27] VITALS (13 sets, daily range): BP systolic 132–158; BP diastolic 62–83; PULSE 70–79; RESP 14–26; TEMP 36.6–37.7; O2SAT 93–98; BMI 21.2
[2021-11-27] MEDS: HYDROMORPHONE 1 MG INJ IV ×2 (00:52→05:23)
[2021-11-27 01:06] LABS: Platelet Estimate Adequate on smear; RBC Morphology Normal Morphology
[2021-11-27] MEDS: hydrOXYzine 50 MG/ML INJ 25 MG IM ×2 (02:17→20:26)
--- NOTE | 2021-11-27 06:01 | P.HP_ITS ---
History of Present Illness History of Present Illness Date Patient Seen: 11/27/21 Time Patient Seen: 06:00 Chief complaint: reaction to medication, hit head on floor Narrative: Ms. Evans is a 61W with PMH Type 1 DM, hypothyroid, history of adrenal insufficiency, and DM gastroparesis who presents with abdominal pain, vomiting, fall with trembling in her arms/legs. Yesterday she noticed she was having tremors, her has noticed multiple episodes recently of hypoglycemia. She has had intermittent episodes of confusion, unclear if this was related to low blood sugar. She was seen by EMS after the fall and told she may have had a concussion. She came in to the hospital because of worsening nausea, vomiting, and abdominal discomfort which she described as consistent with decades longstanding gastroparesis. She is taking opiates at home and this is l ongstanding. She had no fevers/chills. No chest pain, shortness of breath. No dysuria. In the ED workup was done, vitals notable for mild tachypnea. Labs notable for WBC 7.2, hgb 13.5. creatinine 0.94. Glucose 256. AST/ALT 70/55. She was ordered for IV fluids, she was given pain medications and anti-emetics and unable to keep down liquid. She was admitted for further treatment. Patient History Medical History Chronic cholecystitis Diabetes Diabetic retinopathy Hyperlipidemia Hypothyroid Osteomyelitis Family & Social History Family History Mother Non Hodgkin's lymphoma Social History: household members spouse Tobacco & Substance use: Smoking Status Former smoker alcohol intake frequency holiday/special occasion Substance Use Type does not use Meds Home Medications and Allergies Home Medications Medication Instructions Recorded Confirmed Type Domperidone (#DOMPERIDONE) 30 mg PO ACHS #2 07/29/12 03/22/19 History insulin lispro 100 unit/mL 0 unit CONTINUOUS IV INFUSION 07/29/12 03/22/19 History subcutaneous solution (Humalog DAILY #0 U-100 Insulin) rosuvastatin 10 mg tablet (Crestor) 10 mg PO BEDTIME #0 07/29/12 03/22/19 History pantoprazole 40 mg tablet,delayed 40 mg PO DAILY #0 10/06/12 03/22/19 History release (Protonix) hydrocortisone 10 mg tablet 10 mg PO DAILY #0 05/03/17 03/22/19 History alendronate 70 mg tablet 70 mg PO QWEEK 02/03/19 03/22/19 History diazepam 5 mg tablet 5 mg PO TIDP PRN 02/03/19 03/22/19 History glucagon (human recombinant) 1 mg 1 dose SUBCUT DIRECTED 02/03/19 03/22/19 History solution for injection (Glucagon Emergency Kit) hydromorphone 4 mg tablet 4 mg PO TID PRN 02/03/19 03/22/19 History levothyroxine 75 mcg tablet 75 mcg PO DAILY 02/03/19 03/22/19 History promethazine 25 mg rectal 25 mg PA Q6H PRN #12 each 02/03/19 03/22/19 Rx suppository ondansetron HCl 8 mg tablet 8 mg PO TID PRN 03/22/19 03/22/19 History (Zofran) promethazine 25 mg rectal 25 mg PA Q4-6H PRN #1 each 08/31/19 Rx suppository Allergies Allergy/AdvReac Type Severity Reaction Status Date / Time amitriptyline Allergy Intermediate SEIZURES Verified 10/18/21 18:50 droperidol Allergy Intermediate CLONIC Verified 10/18/21 18:50 REACTION metoclopramide Allergy Intermediate CLONIC Verified 10/18/21 18:50 REACTION prochlorperazine Allergy Intermediate CLONIC Verified 10/18/21 18:50 REACTION azithromycin AdvReac Mild N/V Verified 10/18/21 18:50 ciprofloxacin AdvReac Mild N/V Verified 10/18/21 18:50 hydrocodone AdvReac Mild N/V Verified 10/18/21 18:50 ketorolac AdvReac Mild N/V Verified 10/18/21 18:50 Review of Systems Review of Systems Narrative: 14 systems reviewed and negative aside from what is noted in HPI Exam Vital Signs (past 8 hours): - 11/26/21 22:35 11/26/21 22:36 11/26/21 23:00 Pulse Rate 85 77 77 Respiratory Rate Blood Pressure 131/70 Pulse Oximetry 95 97 97 11/26/21 23:01 11/26/21 23:30 11/26/21 23:31 Pulse Rate 75 84 84 Respiratory Rate Blood Pressure 156/68 H 147/105 H Pulse Oximetry 99 98 95 11/27/21 00:00 11/27/21 00:30 11/27/21 00:31 Pulse Rate 71 71 73 Respiratory Rate Blood Pressure 155/69 H 140/65 Pulse Oximetry 94 96 96 11/27/21 01:00 11/27/21 01:30 11/27/21 01:31 Pulse Rate 75 76 79 Respiratory Rate Blood Pressure 144/83 H 132/62 Pulse Oximetry 96 93 94 11/27/21 05:26 Pulse Rate 75 Respiratory Rate 26 H Blood Pressure 150/65 H Pulse Oximetry 95 Oxygen Delivery Method Room Air Narrative Exam Narrative: GEN: moderate distress, writhing in bed HEENT: moist mucous membranes, PERRL NECK: trachea midline, no JVD CV: regular rate and rhythm, no murmurs PULM: clear bilaterally, no wheezes, rhonchi, rales ABD: soft, nontender, nondistended, no organomegaly, normal bowel sounds EXT: warm and well perfused, no edema NEURO: awake, alert, oriented, no focal deficits Objective Labs Result Diagrams: 11/26/21 22:20 11/26/21 20:25 Labs: Laboratory Results - last 24 hr 11/26/21 11/26/21 20:25 22:20 WBC 7.2 RBC 4.51 Hgb 13.5 Hct 40.0 MCV 88.7 MCH 30.0 MCHC 33.8 RDW 13.8 Plt Count Not Reportable Neut % (Auto) 87.5 H Lymph % (Auto) 6.6 L [place] % (Auto) 5.5 Eos % (Auto) 0.2 L Baso % (Auto) 0.2 Neut # (Auto) 6300 Lymph # (Auto) 500 L [place] # (Auto) 400 Eos # (Auto) 0 Baso # (Auto) 0 Platelet Estimate Adequate on smear RBC Morphology Normal morphology Sodium 138 Potassium 4.2 Chloride 98 Carbon Dioxide 30 BUN 15 Creatinine 0.94 Estimated GFR > 60 BUN/Creatinine Ratio 16.0 Glucose 256 H Calcium 10.1 Total Bilirubin 0.8 AST 70 H ALT 55 H Alkaline Phosphatase 113 Total Protein 8.2 Albumin 4.9 Globulin 3.3 Albumin/Globulin Ratio 1.5 Lipase 19 L Assessment & Plan Assessment & Plan narrative: Ms. Evans is a 61W with PMH DM, gastroparesis who presents wit nausea and vomiting. 1. Nausea and vomiting consistent with known diabetic gastroparesis -careful with PO for now, start on clear fluids -avoid opiates as much as able, likely to make symptoms worse -given pain will continue dilaudid for now -ordered for zofran, ativan, erythromycin, protonix, vistaril -given similarity to previous symptoms do not think abdominal imaging is indicated, but low threshold to further evaluate -will need outpatient close follow up, recommend stopping opiates -will need to keep glucose well controlled, eat small meals, avoid etoh -check UA -low suspicion for ICH given no visualized head injury and symptoms consistent with gastroparesis, but will rule out with CT head -ekg to monitor for qtc prolongation 2. Type 1 Diabetes on insulin, with hyperglycemia -continue insulin pump -check glucose achs, possibly would benefit from improved glycemic control -per patient last a1c 6.8 3. Hypothyroidisim -hold synthroid until can take PO, if not today then switch to IV 4. History of adrenal insufficiency -overall symptoms less consistent with adrenal crisis given normal blood pressure and normal labs -monitor closely and if not improving consider steroids 5. Opiate dependence -recommend not taking opiates as will exacerbate gastroparesis CODE: DNR Proxy: Will Recaitardt, spouse I have utilized all available resources to reconcile the patient's home med ications. Time Spent With Patient Critical Care time: I spent a total of [] minutes of critical care time on this patient's care today; this time is exclusive of procedural time. Quality MIPS - Admit I confirm the patient?s Advance Care Plan is present, Code status is documented, Surrogate decision maker is in patient?s record [If Yes, STOP here]: Yes
[2021-11-27 06:28] LABS: COVID19 -Nasal RAPID Negative (Negative)
[2021-11-27 06:29] LABS: Hemoglobin A1C% w Est Avg Glu 7.6 % (4.0-6.0)
--- NOTE | 2021-11-27 06:40 | DI.CT.S_ITS ---
PROCEDURE: CT HEAD/BRAIN WO CON INDICATIONS: fall, head strike, vomiting TECHNIQUE: Noncontrast 4.5 mm thick angled axial sections acquired from the foramen magnum to the vertex, with coronal and sagittal reformats. For radiation dose reduction, the following was used: automated exposure control, adjustment of mA and/or kV according to patient size. COMPARISON: [facility], CT, CT HEAD/BRAIN WO CON, 10/28/2019, 23:43. FINDINGS: Image quality: Excellent. CSF spaces: Basal cisterns are patent. No extra-axial fluid collections. The ventricles are symmetric in size and shape. Brain: No intracranial bleeds or masses. There is cerebral volume loss for age, with resultant ventricular and sulcal prominence. There are periventricular and deep white matter chronic small vessel ischemic changes. There is intracranial internal carotid artery atherosclerosis. Skull and face: Calvarium and visualized facial bones appear intact, without suspicious lesions. Sinuses: Mild maxillary sinus mucosal thickening bilaterally. Mastoids are clear. IMPRESSION: 1. No acute intracranial abnormalities. 2. Cerebral volume loss and chronic microvascular ischemic changes. 3. Bilateral maxillary sinus disease. No significant discrepancy with the shift leader radiology preliminary report. Dictated by: Babak Archuleta M.D. on 11/27/2021 at 7:53 Approved by: Babak Archuleta M.D. on 11/27/2021 at 7:54
[2021-11-27] MEDS: LORazepam 2 MG/ML INJ 0.5 MG IV ×3 (07:03→18:50)
[2021-11-27] MEDS: SODIUM CHLORIDE 0.9% 1,000 ML 125 ML IV ×3 (07:04→17:53)
[2021-11-27] MEDS: PANTOPRAZOLE 40 MG VIAL IV (08:14)
[2021-11-27] MEDS: HEPARIN 5,000 UNIT/ML VIAL 5000 UNIT SUBCUT ×2 (08:24→20:26)
[2021-11-27] MEDS: LIDOCAINE PATCH 1 EACH ADH..PATCH TOP (08:26)
[2021-11-27] MEDS: SODIUM CHLORIDE 0.9% IV ×2 (10:23→17:51)
[2021-11-27] MEDS: ERYTHROMYCIN IV ×2 (10:23→17:51)
--- NOTE | 2021-11-27 10:28 | CM.DANOTE ---
DCP: Case received, EMR reviewed and met with patient. Introduced self and role. Was able to obtain information regarding patient's baseline activity level at home prior to hospitalization. DCP assessment completed with information currently available. Patient is a 61 year old female who admitted early this morning to the care of the hospitalist team. PCP: Dr. [place] Payer: confirmed: [employer]. Patient came to the hospital via private vehicle secondary to having nausea and vomiting. According to notes, patient has been here before for diabetic gastroparesis, patient is type 1 diabetic. Patient had been noting some trembling to her hands and arms, and had an unwitnessed fall at home where patient indicated she hit the right side of her head. According to notes, patient is hyperglycemic, not in DKA. Her current diagnosis is nausea and vomiting consistent with diabetic gastroparesis During team rounds, Dr. uBstamante indicated that she may be here for another day, she will need EKG today. Met briefly with patient in her room. She was in bed, laying on her side, not feeling well. Confirmed with patient that she resides in [place] with her spouse, Will. She is independent at her baseline. Asked her if she was seeing another provider, since Dr. Villegas retired, and she indicated that she is now seeing Dr. [place]. P: DCP to continue to follow for any needs. Patient should be able to go home when she is deemed medically stable. Ruby Latham RN/Architectural Manager Discharge Planning/Care Management Advanced directive, confirm from FAMILY Start: 11/27/21 06:20 Freq: Q24H Status: Active Protocol: Document 11/27/21 06:20 (Rec: 11/27/21 06:24 [id number]) Advance Directive, confirm on record Time 06:24 Person contacted patient Copy received No CM Discharge Assessment Start: 11/27/21 10:26 Freq: Status: Active Protocol: Document 11/27/21 10:27 (Rec: 11/27/21 10:27 [id number]) Discharge Planning Assessment Assigned Operator Lights Ruby Latham RN/Architectural Manager Advance Directives? Yes Advance Directives on File No History Provided By Patient,Medical Record Household Members spouse Type of transporation used prior to Drives own vehicle admit Independent with ADL's Yes Is patient alert and oriented? Yes Caregiver for Another No Barriers to Discharge No Comment Patient has supportive at home. Discharge Plan Home Transportation Arrangement Spouse Referrals Initiated None needed Whiteboard Updated in Patient Room with Yes name and ext. # of Operator Lights Review Status In Process Next Review Type Continued Stay Review
[2021-11-27] MEDS: ONDANSETRON 4 MG/2 ML INJ IV ×2 (11:50→21:34)
[2021-11-27] MEDS: HYDROMORPHONE 0.5 MG INJ IV ×2 (11:50→19:00)
--- NOTE | 2021-11-27 13:24 | PC.NURSE ---
Addendum entered by Sandee Obrien R.N. 11/27/21 19:17: OUTPUT this shift total 535 ml Addendum entered by Sandee Obrien R.N. 11/27/21 19:07: 1840: BG 153mg/dl - Omnipod admin 0.15 Units Addendum entered by Sandee Obrien R.N. 11/27/21 17:41: 1218: BG 154mg/dl - Omnipod admin 0.15 Units 1640: BG 106mg/dl - Omnipod no administration of Insulin per Insulin pump Original Note: Day shift note: Order obtained for inpatient use of patients own insulin pump per routine/protocol. Patients insulin pump type is Omnipod with Humalog insulin. Agrees to check glucose with [employer] precision Pro, AC/HS and as needed as ordered. Patient will manually add glucose amount obtained by staff into Omnipod. Omnipod will generate insulin amount based on carbohydrate count and entered glucose level. Patients estates 3 Units of Humalog administered continuously in a 24 hour period. Patient will notify amount of insulin administered. Verbalized understanding of s/sx of hypoglycemia. Call light within reach, demonstrated use. Bed alarm active.
[2021-11-27 13:57] LABS: Appearance Urine UA CLOUDY; Bilirubin Urine UA NEGATIVE (NEGATIVE); Color Urine UA YELLOW; Glucose Urine UA 1+ g/dL (Negative); Ketones Urine UA 1+ (NEGATIVE); Leukocyte Esterase Urine UA 1+ (NEGATIVE); Nitrite Urine UA NEGATIVE (Negative); Occult Blood Urine UA 1+ (Negative); Protein Urine UA TRACE (Negative); Specific Gravity Urine UA 1.015 (1.000-1.035); Urobilinogen Urine UA 0.2 E.U./dL (0.2)
[2021-11-27 14:08] LABS: Amorphous Sediment Urine 4+; Bacteria Urine None Seen; RBC Urine 0-1/HPF (0-5/HPF); Squamous Epithelial Cell Urine 1-5 /HPF (0-5/HPF); WBC Urine 0-1/HPF (0-5/HPF)
[2021-11-27 14:09] LABS: Culture Indicated Urine Specimen Cultured
--- NOTE | 2021-11-27 19:23 | PC.NURSE ---
1840: 153 mg/dl via - Omnipod administered 0.15 Units
[2021-11-28] VITALS (7 sets, daily range): BP systolic 137–163; BP diastolic 58–72; PULSE 62–73; RESP 16–18; TEMP 36.6–37.4; O2SAT 95–98
[2021-11-28] MEDS: HYDROMORPHONE 0.5 MG INJ IV ×5 (02:23→21:22)
[2021-11-28] MEDS: ERYTHROMYCIN IV ×3 (02:24→17:16)
[2021-11-28] MEDS: SODIUM CHLORIDE 0.9% IV ×3 (02:24→17:16)
[2021-11-28] MEDS: SODIUM CHLORIDE 0.9% 1,000 ML 125 ML IV ×3 (02:47→21:43)
--- NOTE | 2021-11-28 03:17 | PC.NURSE ---
Addendum entered by Nicol Ghosh R.N. 11/28/21 07:53: Given 1 can of Apple juice as per requested, Pt checked her BG around 3am, was told that was 80's. Original Note: BG 107@ 2054, no insulin was administered per Omnipod at HS.
[2021-11-28] MEDS: HEPARIN 5,000 UNIT/ML VIAL 5000 UNIT SUBCUT ×2 (08:22→21:23)
[2021-11-28] MEDS: ONDANSETRON 4 MG/2 ML INJ IV ×2 (08:22→19:43)
[2021-11-28] MEDS: PANTOPRAZOLE 40 MG VIAL IV (08:22)
[2021-11-28] MEDS: LIDOCAINE PATCH 1 EACH ADH..PATCH TOP (08:22)
[2021-11-28] MEDS: LORazepam 2 MG/ML INJ 0.5 MG IV ×2 (09:47→17:15)
--- NOTE | 2021-11-28 11:11 | CM.DPC ---
DCP Cont: Discussed patient during team rounds. Patient had come in with gastroparesis. Hospitalist indicated that she is improving, but anticipate that she will be here for another day. P: DCP to continue to follow. Patient could be discharged home with spouse if she is medically stable. Ruby Latham RN/Balloon Tester
--- NOTE | 2021-11-28 11:13 | P.PN_ITS ---
Subjective Subjective Interval history: The patient reports continued episodes of n/v throughout the day yesterday. She's been able to keep down some water and juice. She otherwise reports that the meds are helping though. Denies any abd pain, or issues with urination. Exam Vital Signs (past 8 hours): - 11/28/21 03:55 11/28/21 08:00 11/28/21 08:42 Temperature 98.9 F 98.0 F Pulse Rate 73 70 Respiratory Rate 18 16 Blood Pressure 148/68 H 163/72 H Pulse Oximetry 97 98 96 Oxygen Delivery Method Room Air Oxygen Flow Rate 0 Const Other: Patient laying in bed upon my entering the room, somnolent but not in apparent acute distress Eyes Other: No scleral icterus appreciated Neck Other: No carotid bruits appreciated Resp Other: Lungs clear to auscultation bilaterally Cardio Other: RRR, S1 and S2 heart sounds normal, with no extra heart sounds or murmurs appreciated GI Other: Soft, non-distended, non-tender, bowel sounds present Skin Other: No grossly abnormal skin lesions noted Extrem Other: No peripheral edema, palpable dorsalis pedis pulses bilaterally Objective Labs Result Diagrams: 11/26/21 22:20 11/26/21 20:25 Labs: Laboratory Results - last 24 hr 11/27/21 12:45 Urine Color Yellow Urine Appearance Cloudy Urine pH 7.0 Ur Specific [place] 1.015 Urine Protein Trace H Urine Glucose (UA) 1+ H Urine Ketones 1+ H Urine Occult Blood 1+ H Urine Nitrate Negative Urine Bilirubin Negative Urine Urobilinogen 0.2 Ur Leukocyte Esterase 1+ H Urine RBC 0-1/hpf Urine WBC 0-1/hpf Ur Squamous Epith Cells 1-5 /hpf Amorphous Sediment 4+ Urine Bacteria None seen Ur Culture Indicated? Specimen cultured [facility] Medical History Chronic cholecystitis Diabetes Diabetic retinopathy Hyperlipidemia Hypothyroid Osteomyelitis Family History Mother Non Hodgkin's lymphoma Social History marital status: household members: spouse Smoking Status: Former smoker Assessment & Plan Assessment & Plan narrative: Ms. Evans is a 61W with a hx of type 1 DM, gastroparesis who presents wit nausea and vomiting. 1. Nausea and vomiting consistent with known diabetic gastroparesis - Patient is on a trio of medications that she reports helps her the most, IV Dilaudid, erythromycin, and IM hydroxizine - Will have to mindful of potential QTc prolongation given anti-emetic, pro- kinetic regimens 2. Type 1 Diabetes on insulin, with hyperglycemia - A1c 7.6% here, and will continue home insulin pump regimen 3. Hypothyroidisim - Will continue home Synthroid 4. History of adrenal insufficiency - Overall symptoms less consistent with adrenal crisis given normal blood pressure and normal labs 5. Opiate dependence - Discussed with patient the need to limit opiates as much as possible as these can exacerbate gastroparesis CODE: DNR Proxy: Herbert Evans, spouse I have utilized all available resources to reconcile the patient's home medications. Time Spent With Patient Critical Care time: I spent a total of [] minutes of critical care time on this patient's care today; this time is exclusive of procedural time. Quality VTE Deep Vein Thrombosis/Pulmonary Embolism Present on Admission: No MIPS - Admit I confirm the patient?s Advance Care Plan is present, Code status is documented, Surrogate decision maker is in patient?s record [If Yes, STOP here]: Yes
[2021-11-28] MEDS: hydrOXYzine 50 MG/ML INJ 25 MG IM ×2 (12:38→20:19)
--- NOTE | 2021-11-28 15:55 | DIET.CONS ---
Dietary Consultation Note Admission Date: 11/27/2021 05:20 Assessment: 61 y/o F PMH T1Dm and gastroparesis. Very nauseated per report. Not appropriate for education. Also states she is already well educated in gastroparesis. Confirms knowledge of sticking to small frequent meals, low fat, and more liquids. Declines further education at this time. HgA1c 7.6%, higher than previous 6.6-7.5% labs since 2018. Recent BG ranging from 100-160 mg/dL. Currently on clears and poor PO. Using omnipod pump. Ht: 167.64 cm Wt: 59.5 kg BMI: 21.2 Last BM: 11/26/21 (11/27/21 05:24) MNA: 10 Jason Score: 18 Diet: 11/27/21 Breakfast Clear Liquid Diet Diet Modifications: Nutrition Percent Meal Consumed 0% 11/28/21 08:00 Labs: RBC 4.51 X10^6/uL (4.0-5.2) 11/26/21 22:20 Hgb 13.5 g/dL (12.0-16.0) 11/26/21 22:20 Hct 40.0 % (36-46) 11/26/21 22:20 Creatinine 0.94 mg/dL (0.52-1.04) 11/26/21 20:25 Hemoglobin A1c 7.6 % (4.0-6.0) H 11/26/21 22:20 Nutrition Diagnosis: Inadequate PO r/t gastroparesis aeb T1DM hx and nausea/vomiting Interventions: Kitchen will send ensure clear BID Monitoring/Evaluations: Will cont to monitor PO Electronically Signed by: Nuvia Rodriguez 11/28/21 15:55 Clinical Dietitian [address] [address]
[2021-11-29] VITALS (9 sets, daily range): BP systolic 128–155; BP diastolic 59–66; PULSE 57–62; RESP 15–18; TEMP 36.4–37.2; O2SAT 94–99
[2021-11-29] MEDS: LORazepam 2 MG/ML INJ 0.5 MG IV ×2 (00:17→07:02)
[2021-11-29] MEDS: SODIUM CHLORIDE 0.9% IV ×3 (03:40→17:22)
[2021-11-29] MEDS: ERYTHROMYCIN IV ×3 (03:40→17:22)
[2021-11-29] MEDS: hydrOXYzine 50 MG/ML INJ 25 MG IM ×2 (03:41→07:56)
[2021-11-29] MEDS: HYDROMORPHONE 0.5 MG INJ IV ×2 (03:49→07:56)
[2021-11-29] MEDS: SODIUM CHLORIDE 0.9% 1,000 ML 125 ML IV ×2 (07:04→14:54)
--- NOTE | 2021-11-29 07:40 | PC.NURSE ---
Day shift: Dr Reed informed of Pt's BG of 35.
[2021-11-29] MEDS: PANTOPRAZOLE 40 MG VIAL IV (07:56)
[2021-11-29] MEDS: HEPARIN 5,000 UNIT/ML VIAL 5000 UNIT SUBCUT ×2 (07:58→20:34)
[2021-11-29] MEDS: LIDOCAINE PATCH 1 EACH ADH..PATCH TOP (07:58)
[2021-11-29] MEDS: DEXTROSE 10 % IN WATER 250 ML 999 ML IV (07:59)
[2021-11-29] MEDS: ONDANSETRON 4 MG/2 ML INJ IV ×2 (10:14→20:33)
[2021-11-29] MEDS: LORazepam 2 MG/ML INJ 1 MG IV ×3 (11:24→21:10)
[2021-11-29] MEDS: HYDROMORPHONE 1 MG INJ IV ×3 (12:46→21:10)
--- NOTE | 2021-11-29 13:21 | PM.PN.1 ---
Subjective Subjective Date Patient Seen: 11/29/21 Interval history: 61-year-old female admitted to the hospital with gastroparesis. She continues to have nausea and vomiting. He is unable to tolerate anything orally. She continues to feel nauseated. Exam Vital Signs (past 8 hours): - 11/29/21 07:35 11/29/21 08:18 11/29/21 09:03 Temperature 98.4 F Pulse Rate 61 Respiratory Rate 18 Blood Pressure 128/66 Pulse Oximetry 98 96 94 Oxygen Delivery Method Room Air Oxygen Flow Rate 0 Narrative Exam Narrative: Ill-appearing female lying in bed Resp Other: Lungs clear to auscultation Cardio Other: Cardiac exam: Regular rate and rhythm normal S1-S2 GI Other: Abdomen: Soft nontender nondistended Extrem Other: Extremities: No edema Objective Labs Result Diagrams: 11/26/21 22:20 11/26/21 20:25 [facility] Medical History Chronic cholecystitis Diabetes Diabetic retinopathy Hyperlipidemia Hypothyroid Osteomyelitis Family History Mother Non Hodgkin's lymphoma Social History marital status: household members: spouse Smoking Status: Former smoker Assessment & Plan Assessment & Plan narrative: Ms. Evans is a 61W with a hx of type 1 DM, gastroparesis who presents wit nausea and vomiting. 1. Nausea and vomiting consistent with known diabetic gastroparesis ?- Patient is on a trio of medications that she reports helps her the most, IV Dilaudid, erythromycin, and IM hydroxizine ?- Will have to mindful of potential QTc prolongation given anti-emetic, pro-kinetic regimens -will continue IV hydration, continue antiemetics, will slowly advance diet as tolerated 2. Type 1 Diabetes on insulin, with hyperglycemia ?- A1c 7.6% here, and will continue home insulin pump regimen -patient was hypoglycemic this morning, he received half amp of D50, insulin pump was discontinued, and will be restarted 3. Hypothyroidisim ?- Will continue home Synthroid 4. History of adrenal insufficiency ?- Overall symptoms less consistent with adrenal crisis given normal blood pressure and normal labs 5. Opiate dependence ?- Discussed with patient the need to limit opiates as much as possible as these can exacerbate gastroparesis 6. Disposition, home when able to tolerate oral intake CODE: DNR Time Spent With Patient Critical Care time: I spent a total of [] minutes of critical care time on this patient's care today; this time is exclusive of procedural time. Quality VTE Deep Vein Thrombosis/Pulmonary Embolism Present on Admission: No
[2021-11-30] MEDS: SODIUM CHLORIDE 0.9% 1,000 ML 125 ML IV (01:22)
[2021-11-30] MEDS: SODIUM CHLORIDE 0.9% IV (01:22)
[2021-11-30] MEDS: ERYTHROMYCIN IV (01:22)
[2021-11-30 04:25] VITALS: BP 138/60; PULSE 53; RESP 16; TEMP 37.3; O2SAT 97
[2021-11-30] MEDS: HYDROMORPHONE 1 MG INJ IV ×2 (06:16→10:28)
[2021-11-30] MEDS: ONDANSETRON 4 MG/2 ML INJ IV ×2 (06:16→10:34)
[2021-11-30] MEDS: HEPARIN 5,000 UNIT/ML VIAL 5000 UNIT SUBCUT (07:52)
[2021-11-30] MEDS: LIDOCAINE PATCH 1 EACH ADH..PATCH TOP (07:53)
[2021-11-30] MEDS: LORazepam 2 MG/ML INJ 1 MG IV ×2 (07:53→12:16)
[2021-11-30 08:00] VITALS: BP 157/70; PULSE 61; RESP 12; TEMP 36.2; O2SAT 99
--- NOTE | 2021-11-30 09:15 | P.DS_ITS ---
History of Present Illness History of Present Illness Date Patient Seen: 11/30/21 Time Patient Seen: 09:16 Chief complaint: reaction to medication, hit head on floor Narrative: Ms. Evans is a 61W with PMH Type 1 DM, hypothyroid, history of adrenal insufficiency, and DM gastroparesis who presents with abdominal pain, vomiting, fall with trembling in her arms/legs. Yesterday she noticed she was having tremors, her has noticed multiple episodes recently of hypoglycemia. She has had intermittent episodes of confusion, unclear if this was related to low blood sugar. She was seen by EMS after the fall and told she may have had a concussion. She came in to the hospital because of worsening nausea, vomiting, and abdominal discomfort which she described as consistent with decades longstanding gastroparesis. She is taking opiates at home and this is l ongstanding. She had no fevers/chills. No chest pain, shortness of breath. No dysuria. In the ED workup was done, vitals notable for mild tachypnea. Labs notable for WBC 7.2, hgb 13.5. creatinine 0.94. Glucose 256. AST/ALT 70/55. She was ordered for IV fluids, she was given pain medications and anti-emetics and unable to keep down liquid. She was admitted for further treatment. Discharge Providers Provider Date of admission: 11/29/21 16:30 Discharge Date: 11/30/21 Primary care physician: Salvatore Villegas MD Consults: 11/27/21 06:01 Consult to Dietitian, Adult Urgent Comment: Reason For Exam: dm, gastroparesis Discharge provider: Ursula Reed MD Summary Hospital Course Discharge Diagnosis: 1. diabetic gastroparesis 2. hypothyroidism 3. Type 1 diabetes 4. history of adrenal insufficiency 5.hyperlipidemia Hospital Course: Patient was admitted to the hospital of abdominal pain, nausea, and vomiting. She had some tremors associated with hypoglycemia. Patient is on an insulin pump. She has known gastroparesis and reports symptoms are similar to decades of symptoms. She was placed on a clear liquid diet. She had continuous nausea and vomiting. She was placed on IV erythromycin, ativan, zofran, protonix, and vistaril, with fluids. She made slow but steady progress. She was ultimately able to tolerate a clear liquid diet without nausea and vomiting. The patient felt improved and back to her baseline. She was deemed appropriate for discharge home. During her stay she did have one episode of hypoglycemia, her pump was turned off, she recieved one amp of d50 with improvement of her sugars. Overall patient was felt to be well enough for discharge home. Status at Discharge Cognitive/behavioral status at discharge: oriented Functional status at discharge: independent ambulation Overall status at discharge: patient is progressing back to baseline Exam Vital Signs (past 8 hours): - 11/30/21 04:25 11/30/21 08:00 Temperature 99.2 F 97.1 F L Pulse Rate 53 L 61 Respiratory Rate 16 12 Blood Pressure 138/60 157/70 H Pulse Oximetry 97 99 Oxygen Delivery Method Room Air Oxygen Flow Rate 0 Narrative Exam Narrative: ill appearing pleasant female lying in bed in no distress Resp Other: Lungs: clear to auscultation Cardio Other: CV: RRR nl Sl S2 GI Other: Abd: soft/nontender/ non distended Extrem Other: no edema Objective Labs Result Diagrams: 11/26/21 22:20 11/26/21 20:25 [facility] Medical History Chronic cholecystitis Diabetes Diabetic retinopathy Hyperlipidemia Hypothyroid Osteomyelitis Family History Mother Non Hodgkin's lymphoma Social History marital status: household members: spouse Smoking Status: Former smoker Discharge Assessment & Plan Assessment and Plan Assessment: 1.diabetic gastroparesis 2. hypothyroidism 3. Type 1 diabetes 4. history of adrenal insufficiency 5.hyperlipidemia Plan of Treatment: discharge home Discharge Plan Discharge Plan Patient Disposition: Home Discharge orders & Medications Prescriptions: Continued insulin lispro [Humalog U-100 Insulin] 100 UNIT/1 ML solution 0 unit continuous IV infusion DAILY Qty: 0 0RF alendronate 70 mg Tablet 70 mg PO QWEEK 0RF hydromorphone 4 MG tablet 4 mg PO TID PRN (Reason: PAIN) 0RF diazepam 5 MG tablet 5 mg PO TIDP PRN (Reason: Anxiety) 0RF promethazine 25 mg suppository 25 mg CA Q6H PRN (Reason: nausea and vomiting) Qty: 12 0RF Follow up/Referrals: Salvatore Villegas MD [Primary Care Provider] - Discharge Health Status Multidrug resistant organism: No MDRO Diet/Activity/Treatments Diet: Diet as Tolerated Discharge Data Primary Care Provider: Salvatore Villegas VTE Deep Vein Thrombosis/Pulmonary Embolism Present on Admission: No
[2021-11-30 09:58] VITALS: O2SAT 98
--- NOTE | 2021-11-30 10:53 | CM.DPC ---
DCP Discharge Home Per MD, pt is medically stable to d/c home today with no identified barriers to discharge. Per RN, no concerns at this time and d/c instructions to be given. Plan: Patient to d/c home today via POV and no SW needs at this time. PAUL Bowman
[2021-11-30 11:52] VITALS: BP 130/62; PULSE 61; RESP 16; TEMP 36; O2SAT 98
--- NOTE | 2021-11-30 13:04 | PC.NURSE ---
Pt given dilaudid for pain. Ativan and zofran given for nausea. She requested a shower today before leaving. IV removed at time of discharge, pain reported 4/10. Discharge instructions given. arrived to take patient home. No tele on pt. Wheelchair was brought to room to take her downstairs.
== END 2021-11-30 12:55 | disposition home or self-care (01) | DRG 74 ==
LOC: ED 11-27 05:18 → AC 11-27 05:21
PROVIDERS: Admitting Provider Internal Medicine; Emergency Provider Emergency Medicine; PCP Internal Medicine; Referring Provider Emergency Medicine; Visit Provider Internal Medicine
DX: E10.43 Type 1 diabetes mellitus with diabetic autonomic (poly)neuropathy (principal); F11.20 Opioid dependence, uncomplicated; K31.84 Gastroparesis; E10.649 Type 1 diabetes mellitus with hypoglycemia without coma; E10.65 Type 1 diabetes mellitus with hyperglycemia; E03.9 Hypothyroidism, unspecified; R41.0 Disorientation, unspecified; W19.XXXA Unspecified fall, initial encounter; Z66 Do not resuscitate; Z20.822 Contact with and (suspected) exposure to COVID-19; Z79.4 Long term (current) use of insulin; Z87.891 Personal history of nicotine dependence; Z96.41 Presence of insulin pump (external) (internal)
CPT/HCPCS: 70450; 80053; 81001; 82962; 83036; 83690; 85025; 87086; 87635; 93005; 93010; 94760; 96361; 96372; 96374; 96375; 96376; 99284; C9803; G0378; C9113; J1170; J1364; J1644; J2060; J2405; J3410

== ENCOUNTER 2022-01-25 15:20 | Emergency (ER) | payer OTHER, SELFPAY ==
[2021-11-27 05:24] VITALS: BMI 21.2
[2022-01-25 15:23] VITALS: BP 146/80; PULSE 91; RESP 16; TEMP 36; O2SAT 100; BMI 21.3
[2022-01-25 16:57] LABS: Add Manual Diff / Slide Review NO; Basophils Absolute Auto 0 /uL (0-100); Basophils Percent Auto 0.1 % (0-2); Eosinophils Absolute Auto 0 /uL (0-450); Eosinophils Percent Auto 0.1 % (2-4); Hematocrit 42.6 % (36-46); Hemoglobin 14.2 g/dL (12.0-16.0); Lymphocytes Absolute Auto 700 /uL (1100-4500); Lymphocytes Percent Auto 8.2 % (25-40); Mean Corpuscular HGB Conc 33.4 % (30-36); Mean Corpuscular Hemoglobin 29.9 PG (26-34); Mean Corpuscular Volume 89.3 fL (80-100); Monocytes Absolute Auto 300 /uL (0-900); Monocytes Percent Auto 3.1 % (3-14); Neutrophils Absolute Auto 7200 /uL (1500-7000); Neutrophils Percent Auto 88.5 % (50-75); Platelet Count 291 X10^3/uL (150-400); Red Blood Cell Count 4.77 X10^6/uL (4.0-5.2); White Blood Cell Count 8.1 X10^3/uL (4.5-11.0)
[2022-01-25 16:59] LABS: HCO3 VBG 27 mmol/L (23-28); PCO2 VBG 31.6 mmHg (45-50); PO2 VBG 32 mmHg (35-45); pH VBG 7.54 (7.33-7.43)
[2022-01-25 17:00] LABS: Oxygen Saturation VBG 71 % (70-75); Total CO2 VBG 28 mmol/L (24-29)
[2022-01-25 17:04] LABS: Prothrombin Time 11.3 SECONDS (10.1-12.7)
[2022-01-25 17:06] LABS: PTT Partial Thromboplastin Tim 32 SECONDS (26.4-36.2)
[2022-01-25 17:11] LABS: Alanine Aminotransferase 51 IU/L (<35); Albumin 4.6 g/dL (3.5-5.0); Albumin Globulin Ratio 1.2 (1.0-2.8); Alkaline Phosphatase 103 U/L (38-126); Aspartate Aminotransferase 72 IU/L (14-36); BUN Creatinine Ratio 21.9 (6-22); Blood Urea Nitrogen 14 mg/dL (7-17); Calcium 8.6 mg/dL (8.4-10.2); Carbon Dioxide 23 mmol/L (22-32); Chloride 107 mmol/L (98-107); Estimated Glomerular Filt Rate > 60 mL/min (>60); Globulin 3.8 g/dL (1.7-4.1); Glucose 250 mg/dL (80-110); Lipase 20 U/L (23-300); Sodium 136 mmol/L (137-145); Total Protein 8.4 g/dL (6.3-8.2)
[2022-01-25 17:13] LABS: HEMOLYSIS 129 (0-50)
[2022-01-25] MEDS: HYDROMORPHONE 1 MG INJ IV ×2 (17:19→19:51)
[2022-01-25] MEDS: SODIUM CHLORIDE 0.9% 1,000 ML 1000 ML IV (17:20)
[2022-01-25] MEDS: PANTOPRAZOLE 40 MG VIAL IV (17:20)
[2022-01-25] MEDS: ONDANSETRON 4 MG/2 ML INJ IV (17:20)
[2022-01-25 17:49] VITALS: PULSE 78; O2SAT 97
[2022-01-25 17:50] VITALS: BP 175/81; PULSE 79; O2SAT 98
[2022-01-25 18:00] VITALS: BP 171/73; PULSE 78; O2SAT 98
[2022-01-25 18:30] VITALS: BP 164/75; PULSE 86; O2SAT 97
--- NOTE | 2022-01-25 18:48 | ED.NAVMDI ---
HPI - Nausea/Vomiting/Diarrhea <José Berry PA-C - Last Filed: 01/25/22 20:41> General Chief complaint: Nausea/Vomiting/Diarrhea Stated complaint: Vomiting, migraine Time Seen by Provider: 01/25/22 15:50 History of Present Illness HPI Narrative: Patient is a 61-year-old female who with a history type 1 diabetes and gastroparesis presents to the emergency department for evaluation of abdominal pain and headache. Patient explains that she has been evaluated here in the emergency department for similar symptoms, stating that these current symptoms feel similar to those she has experienced during previous visits. She explains that she has been retching and nauseous, stating that they constant retching is exacerbating her headache. She denies any fever, chills, chest pain, cough, shortness of breath, constipation, diarrhea, dysuria, hematuria, or any other concerning symptoms. No further concerns were voiced at this time. Related Data Home Medications Medication Instructions Recorded Confirmed insulin lispro 100 unit/mL 0 unit continuous IV infusion 07/29/12 11/27/21 subcutaneous solution (Humalog DAILY ##0 U-100 Insulin) alendronate 70 mg tablet 70 mg PO QWEEK 02/03/19 11/27/21 diazepam 5 mg tablet 5 mg PO TIDP PRN Anxiety 02/03/19 11/27/21 hydromorphone 4 mg tablet 4 mg PO TID PRN PAIN 02/03/19 11/27/21 Previous Rx's Medication Instructions Recorded promethazine 25 mg rectal 25 mg ND Q6H PRN nausea and 02/03/19 suppository vomiting #12 ea Allergies Allergy/AdvReac Type Severity Reaction Status Date / Time amitriptyline Allergy Intermediate SEIZURES Verified 10/18/21 18:50 droperidol Allergy Intermediate CLONIC Verified 10/18/21 18:50 REACTION metoclopramide Allergy Intermediate CLONIC Verified 10/18/21 18:50 REACTION prochlorperazine Allergy Intermediate CLONIC Verified 10/18/21 18:50 REACTION azithromycin AdvReac Mild N/V Verified 10/18/21 18:50 ciprofloxacin AdvReac Mild N/V Verified 10/18/21 18:50 hydrocodone AdvReac Mild N/V Verified 10/18/21 18:50 ketorolac AdvReac Mild N/V Verified 10/18/21 18:50 Review of Systems <José Berry PA-C - Last Filed: 01/25/22 20:41> Constitutional Constitutional: Denies chills, Denies fatigue, Denies fever(s), Denies frequent falls, Reports headache(s), Denies lethargy and Denies weakness ENT Ears, Nose, Mouth, and Throat: Reports headache(s) and Denies neck pain Cardiovascular Cardiovascular: Denies chest pain, Denies irregular heart rhythm, Denies lightheadedness, Denies palpitations, Denies dyspnea, Denies dyspnea on exertion and Denies orthopnea Respiratory Respiratory: Denies dyspnea and Denies dyspnea on exertion Gastrointestinal Gastrointestinal: Reports abdominal pain, Denies change in bowel habits, Denies diarrhea, Denies nausea and Denies vomiting Genitourinary Genitourinary: Denies hematuria, Denies flank pain, Denies urinary incontinence and Denies urinary urgency Musculoskeletal Musculoskeletal: Denies back pain, Denies muscle weakness, Denies neck pain, Denies numbness and Denies tingling Integumentary/Breasts Skin/Breast: Denies pruritus, Denies erythema, Denies rash and Denies wounds Neurologic Neurologic: Denies frequent falls, Reports headache(s), Denies numbness, Denies tingling and Denies weakness Endocrine Endocrine: Denies fatigue and Denies palpitations Patient History <José Berry PA-C - Last Filed: 01/25/22 20:41> Medical History (Updated 01/25/22 @ 20:29 by José Berry PA-C) Chronic cholecystitis Diabetes Diabetic retinopathy Hyperlipidemia Hypothyroid Osteomyelitis Family History Mother Non Hodgkin's lymphoma Social History marital status: household members: spouse Smoking Status: Former smoker Smoking Status: Former smoker alcohol intake frequency: holidays/special occasions only Substance Use Type: does not use Exam <José Berry PA-C - Last Filed: 01/25/22 20:41> Narrative Exam Narrative: GENERAL: 61 year old patient appears stated age. Well-developed patient, in mild distress. Appears uncomfortable. Wearing sunglasses indoors with a ice pack over her forehead. HEAD: Atraumatic. Normocephalic. EYES: Pupils equal round and reactive. Extraocular motions intact. No scleral icterus. No injection or drainage. ENT: Nose without bleeding, purulent drainage. Throat without erythema, tonsillar hypertrophy or exudate. Airway patent. NECK: Trachea midline. Non tender CARDIOVASCULAR: Regular rate and rhythm without murmurs, gallops, or rubs. RESPIRATORY: Clear to auscultation. Breath sounds equal bilaterally. No wheezes, rales, or rhonchi. GASTROINTESTINAL: Abdomen soft, nondistended. Tenderness to palpation, throughout the abdomen patient clutching at her abdomen on exam. EXTREMITIES: No edema or joint tenderness. BACK: Nontender without deformity or crepitance. No flank tenderness. NEURO: AOx3. SKIN: No rash or erythema of visible areas Initial Vital Signs Initial Vital Signs: Vital Signs Temperature 96.8 F L 01/25/22 15:23 Pulse Rate 91 H 01/25/22 15:23 Respiratory Rate 16 01/25/22 15:23 Blood Pressure 146/80 H 01/25/22 15:23 Pulse Oximetry 100 01/25/22 15:23 Oxygen Delivery Method 01/25/22 15:23 <Renee Gagnon MD - Last Filed: 01/26/22 02:21> Initial Vital Signs Initial Vital Signs: Vital Signs Temperature 96.8 F L 01/25/22 15:23 Pulse Rate 91 H 01/25/22 15:23 Respiratory Rate 16 01/25/22 15:23 Blood Pressure 146/80 H 01/25/22 15:23 Pulse Oximetry 100 01/25/22 15:23 Oxygen Delivery Method 01/25/22 15:23 Course <José Berry PA-C - Last Filed: 01/25/22 20:41> Course Course Narrative: Lab studies within normal limits. Patient explains she is feeling better following course of medications administered here in the emergency department. Orders Ordered: Discontinued Medications Hydromorphone HCl (Hydromorphone 1 Mg Inj) 1 mg IV NOW ONE Stop: 01/25/22 16:57 Last Admin: 01/25/22 17:19 Dose: 1 mg Documented By: KAREN Hydromorphone HCl (Hydromorphone 1 Mg Inj) 1 mg IV NOW ONE Stop: 01/25/22 18:44 Last Admin: 01/25/22 19:51 Dose: 1 mg Documented By: ADALI Hydroxyzine HCl (Hydroxyzine 50 Mg/Ml Inj) 50 mg IM NOW ONE Stop: 01/25/22 16:57 Last Admin: 01/25/22 18:48 Dose: Not Given Documented By: CHEYENNE Sodium Chloride (Normal Saline 0.9%) 1,000 mls @ 1,000 mls/hr IV BOLUS PRN PRN Reason: Fluid replacement Last Infusion: 01/25/22 18:48 Dose: 0 mls/hr Documented By: Admin: 01/25/22 17:20 Dose: 1,000 mls/hr Documented By: KAREN Lorazepam (Lorazepam 2 Mg/Ml Inj) 1 mg IV NOW ONE Stop: 01/25/22 17:53 Last Admin: 01/25/22 18:51 Dose: 1 mg Documented By: CHEYENNE Ondansetron HCl (Ondansetron 4 Mg/2 Ml Inj) 4 mg IV NOW ONE Stop: 01/25/22 16:57 Last Admin: 01/25/22 17:20 Dose: 4 mg Documented By: KAREN Ondansetron HCl (Ondansetron 4 Mg/2 Ml Inj) 4 mg IV NOW ONE Stop: 01/25/22 18:44 Last Admin: 01/25/22 19:19 Dose: Not Given Documented By: KAREN Pantoprazole Sodium (Pantoprazole 40 Mg Vial) 40 mg IV NOW ONE Stop: 01/25/22 16:57 Last Admin: 01/25/22 17:20 Dose: 40 mg Documented By: KAREN Promethazine HCl (Promethazine 25 Mg Tablet) 25 mg PO NOW ONE Stop: 01/25/22 19:42 Last Admin: 01/25/22 20:11 Dose: Not Given Documented By: ADALI Promethazine HCl (Promethazine 25 Mg Supp) 25 mg ND NOW ONE Stop: 01/25/22 19:56 Last Admin: 01/25/22 20:11 Dose: 25 mg Documented By: ADALI Promethazine HCl (Promethazine 25 Mg Supp) 25 mg ND NOW ONE Stop: 01/25/22 20:24 Last Admin: 01/25/22 20:50 Dose: Not Given Documented By: ADALI Vital Signs Vital signs: Vital Signs - 8 hr 01/25/22 18:30 01/25/22 18:30 01/25/22 19:00 Pulse Rate 86 Blood Pressure 164/75 H 199/81 H Pulse Oximetry 97 01/25/22 19:00 Pulse Rate 79 Blood Pressure Pulse Oximetry 99 <Renee Gagnon MD - Last Filed: 01/26/22 02:21> Orders Ordered: Discontinued Medications Hydromorphone HCl (Hydromorphone 1 Mg Inj) 1 mg IV NOW ONE Stop: 01/25/22 16:57 Last Admin: 01/25/22 17:19 Dose: 1 mg Documented By: KAREN Hydromorphone HCl (Hydromorphone 1 Mg Inj) 1 mg IV NOW ONE Stop: 01/25/22 18:44 Last Admin: 01/25/22 19:51 Dose: 1 mg Documented By: ADALI Hydroxyzine HCl (Hydroxyzine 50 Mg/Ml Inj) 50 mg IM NOW ONE Stop: 01/25/22 16:57 Last Admin: 01/25/22 18:48 Dose: Not Given Documented By: CHEYENNE Sodium Chloride (Normal Saline 0.9%) 1,000 mls @ 1,000 mls/hr IV BOLUS PRN PRN Reason: Fluid replacement Last Infusion: 01/25/22 18:48 Dose: 0 mls/hr Documented By: Admin: 01/25/22 17:20 Dose: 1,000 mls/hr Documented By: KAREN Lorazepam (Lorazepam 2 Mg/Ml Inj) 1 mg IV NOW ONE Stop: 01/25/22 17:53 Last Admin: 01/25/22 18:51 Dose: 1 mg Documented By: CHEYENNE Ondansetron HCl (Ondansetron 4 Mg/2 Ml Inj) 4 mg IV NOW ONE Stop: 01/25/22 16:57 Last Admin: 01/25/22 17:20 Dose: 4 mg Documented By: KAREN Ondansetron HCl (Ondansetron 4 Mg/2 Ml Inj) 4 mg IV NOW ONE Stop: 01/25/22 18:44 Last Admin: 01/25/22 19:19 Dose: Not Given Documented By: KAREN Pantoprazole Sodium (Pantoprazole 40 Mg Vial) 40 mg IV NOW ONE Stop: 01/25/22 16:57 Last Admin: 01/25/22 17:20 Dose: 40 mg Documented By: KAREN Promethazine HCl (Promethazine 25 Mg Tablet) 25 mg PO NOW ONE Stop: 01/25/22 19:42 Last Admin: 01/25/22 20:11 Dose: Not Given Documented By: ADALI Promethazine HCl (Promethazine 25 Mg Supp) 25 mg ND NOW ONE Stop: 01/25/22 19:56 Last Admin: 01/25/22 20:11 Dose: 25 mg Documented By: ADALI Promethazine HCl (Promethazine 25 Mg Supp) 25 mg ND NOW ONE Stop: 01/25/22 20:24 Last Admin: 01/25/22 20:50 Dose: Not Given Documented By: ADALI Vital Signs Vital signs: Vital Signs - 8 hr 01/25/22 18:30 01/25/22 18:30 01/25/22 19:00 Pulse Rate 86 Blood Pressure 164/75 H 199/81 H Pulse Oximetry 97 01/25/22 19:00 Pulse Rate 79 Blood Pressure Pulse Oximetry 99 MDM - Nausea/Vomiting/Diarrhea <José Berry PA-C - Last Filed: 01/25/22 20:41> Lab Data Result diagrams: 01/25/22 16:43 01/25/22 16:43 Labs: Lab Results 01/25/22 01/25/22 01/25/22 Range/Units 16:40 16:43 16:43 WBC 8.1 (4.5-11.0) X10^3/uL RBC 4.77 (4.0-5.2) X10^6/uL Hgb 14.2 (12.0-16.0) g/dL Hct 42.6 (36-46) % MCV 89.3 (80-100) fL MCH 29.9 (26-34) PG MCHC 33.4 (30-36) % RDW 13.0 (11.6-14.8) % Plt Count 291 (150-400) X10^3/uL Neut % (Auto) 88.5 H (50-75) % Lymph % (Auto) 8.2 L (25-40) % [place] % (Auto) 3.1 (3-14) % Eos % (Auto) 0.1 L (2-4) % Baso % (Auto) 0.1 (0-2) % Neut # (Auto) 7200 H (5985-3165) /uL Lymph # (Auto) 700 L (4172-9889) /uL [place] # (Auto) 300 (0-900) /uL Eos # (Auto) 0 (0-450) /uL Baso # (Auto) 0 (0-100) /uL PT 11.3 (10.1-12.7) SECONDS INR 1.0 (0.9-1.3) APTT 32 (26.4-36.2) SECONDS VBG pH 7.54 H (7.33-7.43) VBG pCO2 31.6 L (45-50) mmHg VBG pO2 32 L (35-45) mmHg VBG HCO3 27 (23-28) mmol/L VBG Total CO2 28 (24-29) mmol/L VBG O2 Saturation 71 (70-75) % VBG Base Excess 4.0 (0-4) mmol/L Sodium (137-145) mmol/L Potassium (3.4-5.1) mmol/L Chloride (98-107) mmol/L Carbon Dioxide (22-32) mmol/L BUN (7-17) mg/dL Creatinine (0.52-1.04) mg/dL Estimated GFR (>60) mL/min BUN/Creatinine Ratio (6-22) Glucose (80-110) mg/dL Calcium (8.4-10.2) mg/dL Total Bilirubin (0.2-1.3) mg/dL AST (14-36) IU/L ALT (<35) IU/L Alkaline Phosphatase (38-126) U/L Total Protein (6.3-8.2) g/dL Albumin (3.5-5.0) g/dL Globulin (1.7-4.1) g/dL Albumin/Globulin Ratio (1.0-2.8) Lipase (23-300) U/L 01/25/22 Range/Units 16:43 WBC (4.5-11.0) X10^3/uL RBC (4.0-5.2) X10^6/uL Hgb (12.0-16.0) g/dL Hct (36-46) % MCV (80-100) fL MCH (26-34) PG MCHC (30-36) % RDW (11.6-14.8) % Plt Count (150-400) X10^3/uL Neut % (Auto) (50-75) % Lymph % (Auto) (25-40) % [place] % (Auto) (3-14) % Eos % (Auto) (2-4) % Baso % (Auto) (0-2) % Neut # (Auto) (1797-5556) /uL Lymph # (Auto) (0082-9754) /uL [place] # (Auto) (0-900) /uL Eos # (Auto) (0-450) /uL Baso # (Auto) (0-100) /uL PT (10.1-12.7) SECONDS INR (0.9-1.3) APTT (26.4-36.2) SECONDS VBG pH (7.33-7.43) VBG pCO2 (45-50) mmHg VBG pO2 (35-45) mmHg VBG HCO3 (23-28) mmol/L VBG Total CO2 (24-29) mmol/L VBG O2 Saturation (70-75) % VBG Base Excess (0-4) mmol/L Sodium 136 L (137-145) mmol/L Potassium 5.0 (3.4-5.1) mmol/L Chloride 107 (98-107) mmol/L Carbon Dioxide 23 (22-32) mmol/L BUN 14 (7-17) mg/dL Creatinine 0.64 (0.52-1.04) mg/dL Estimated GFR > 60 (>60) mL/min BUN/Creatinine Ratio 21.9 (6-22) Glucose 250 H (80-110) mg/dL Calcium 8.6 (8.4-10.2) mg/dL Total Bilirubin 1.0 (0.2-1.3) mg/dL AST 72 H (14-36) IU/L ALT 51 H (<35) IU/L Alkaline Phosphatase 103 (38-126) U/L Total Protein 8.4 H (6.3-8.2) g/dL Albumin 4.6 (3.5-5.0) g/dL Globulin 3.8 (1.7-4.1) g/dL Albumin/Globulin Ratio 1.2 (1.0-2.8) Lipase 20 L (23-300) U/L Point of Care Testing Glucose POC 266 MDM Narrative Medical decision making narrative: Differential diagnosis to consider but not limited to gastroparesis versus migraine versus ischemic colitis versus cluster headache versus tension headache. Patient symptoms seem to resolve following administration of multiple medication regimens in the emergency department. Urged the patient to follow-up with primary care for further management of her symptoms. She expresses understanding and agrees to plan. Strict return precautions were discussed with the patient prior to discharge. <Renee Gagnon MD - Last Filed: 01/26/22 02:21> Lab Data Labs: Lab Results 01/25/22 01/25/22 01/25/22 Range/Units 16:40 16:43 16:43 WBC 8.1 (4.5-11.0) X10^3/uL RBC 4.77 (4.0-5.2) X10^6/uL Hgb 14.2 (12.0-16.0) g/dL Hct 42.6 (36-46) % MCV 89.3 (80-100) fL MCH 29.9 (26-34) PG MCHC 33.4 (30-36) % RDW 13.0 (11.6-14.8) % Plt Count 291 (150-400) X10^3/uL Neut % (Auto) 88.5 H (50-75) % Lymph % (Auto) 8.2 L (25-40) % [place] % (Auto) 3.1 (3-14) % Eos % (Auto) 0.1 L (2-4) % Baso % (Auto) 0.1 (0-2) % Neut # (Auto) 7200 H (7242-6018) /uL Lymph # (Auto) 700 L (7827-6678) /uL [place] # (Auto) 300 (0-900) /uL Eos # (Auto) 0 (0-450) /uL Baso # (Auto) 0 (0-100) /uL PT 11.3 (10.1-12.7) SECONDS INR 1.0 (0.9-1.3) APTT 32 (26.4-36.2) SECONDS VBG pH 7.54 H (7.33-7.43) VBG pCO2 31.6 L (45-50) mmHg VBG pO2 32 L (35-45) mmHg VBG HCO3 27 (23-28) mmol/L VBG Total CO2 28 (24-29) mmol/L VBG O2 Saturation 71 (70-75) % VBG Base Excess 4.0 (0-4) mmol/L Sodium (137-145) mmol/L Potassium (3.4-5.1) mmol/L Chloride (98-107) mmol/L Carbon Dioxide (22-32) mmol/L BUN (7-17) mg/dL Creatinine (0.52-1.04) mg/dL Estimated GFR (>60) mL/min BUN/Creatinine Ratio (6-22) Glucose (80-110) mg/dL Calcium (8.4-10.2) mg/dL Total Bilirubin (0.2-1.3) mg/dL AST (14-36) IU/L ALT (<35) IU/L Alkaline Phosphatase (38-126) U/L Total Protein (6.3-8.2) g/dL Albumin (3.5-5.0) g/dL Globulin (1.7-4.1) g/dL Albumin/Globulin Ratio (1.0-2.8) Lipase (23-300) U/L 01/25/22 Range/Units 16:43 WBC (4.5-11.0) X10^3/uL RBC (4.0-5.2) X10^6/uL Hgb (12.0-16.0) g/dL Hct (36-46) % MCV (80-100) fL MCH (26-34) PG MCHC (30-36) % RDW (11.6-14.8) % Plt Count (150-400) X10^3/uL Neut % (Auto) (50-75) % Lymph % (Auto) (25-40) % [place] % (Auto) (3-14) % Eos % (Auto) (2-4) % Baso % (Auto) (0-2) % Neut # (Auto) (7921-9891) /uL Lymph # (Auto) (9007-7251) /uL [place] # (Auto) (0-900) /uL Eos # (Auto) (0-450) /uL Baso # (Auto) (0-100) /uL PT (10.1-12.7) SECONDS INR (0.9-1.3) APTT (26.4-36.2) SECONDS VBG pH (7.33-7.43) VBG pCO2 (45-50) mmHg VBG pO2 (35-45) mmHg VBG HCO3 (23-28) mmol/L VBG Total CO2 (24-29) mmol/L VBG O2 Saturation (70-75) % VBG Base Excess (0-4) mmol/L Sodium 136 L (137-145) mmol/L Potassium 5.0 (3.4-5.1) mmol/L Chloride 107 (98-107) mmol/L Carbon Dioxide 23 (22-32) mmol/L BUN 14 (7-17) mg/dL Creatinine 0.64 (0.52-1.04) mg/dL Estimated GFR > 60 (>60) mL/min BUN/Creatinine Ratio 21.9 (6-22) Glucose 250 H (80-110) mg/dL Calcium 8.6 (8.4-10.2) mg/dL Total Bilirubin 1.0 (0.2-1.3) mg/dL AST 72 H (14-36) IU/L ALT 51 H (<35) IU/L Alkaline Phosphatase 103 (38-126) U/L Total Protein 8.4 H (6.3-8.2) g/dL Albumin 4.6 (3.5-5.0) g/dL Globulin 3.8 (1.7-4.1) g/dL Albumin/Globulin Ratio 1.2 (1.0-2.8) Lipase 20 L (23-300) U/L Point of Care Testing Glucose POC 266 Discharge Plan Departure Patient Disposition: Home Clinical Impression: Diabetic gastroparesis, Abdominal pain, Migraine Instructions: DI for Abdominal Pain-Adult Activity Restrictions/Additional Instructions: *You have been diagnosed with diabetic gastroparesis, migraine, abdominal pain *What to do: *Please continue to take your regular medications as directed. [ ] New medication prescriptions sent to your pharmacy: [ ] [ ] New medication written as a paper prescription [X] No new medications given You were evaluated in the emergency department today for abdominal pain and migraine. I am glad that we were able to get her pain under control. Please ensure the follow-up with primary care for further evaluation and management. Please do not hesitate to return to the emergency department if you experience worsening pain, persistent vomiting, fever, or any other concerning symptoms. *Please follow up with your primary care provider in 2-3 days, call for an appointment. Let them know you were seen in the Emergency Department and that we ask that you be seen in follow up. We will electronically transmit a record of today's note if your PCP is in our system *If you do not have a primary care provider please contact the [facility] Resource line at [phone]. They will ask some questions about your medical history and help get you set up with a doctor in the community. *Return to Emergency Department if you should have any new, worsening or concerning symptoms, such as [fever greater than 101 F, shaking chills, worsening pain, persistent vomiting or other bothersome symptoms] Prescriptions: No Action insulin lispro [Humalog U-100 Insulin] 100 UNIT/1 ML solution 0 unit continuous IV infusion DAILY Qty: 0 alendronate 70 mg Tablet 70 mg PO QWEEK hydromorphone 4 MG tablet 4 mg PO TID PRN (Reason: PAIN) diazepam 5 MG tablet 5 mg PO TIDP PRN (Reason: Anxiety) promethazine 25 mg suppository 25 mg ND Q6H PRN (Reason: nausea and vomiting) Qty: 12 0RF Referrals: Salvatore Villegas MD [Primary Care Provider] - Visit Report Forms: Patient Portal/API <Renee Gagnon MD - Last Filed: 01/26/22 02:21> Cosign ED Attending Cosjakeature Attestation: I was immediately available in the department for consultation throughout this patient's visit. I agree with documentation as above. Renee Gagnon MD
[2022-01-25] MEDS: LORazepam 2 MG/ML INJ 1 MG IV (18:51)
[2022-01-25 19:00] VITALS: BP 199/81; PULSE 79; O2SAT 99
--- NOTE | 2022-01-25 19:21 | PC.NURSE ---
Vistaril not avail through Pharm. MARKIE dottie with d/c med order.
[2022-01-25] MEDS: PROMETHAZINE 25 MG SUPP PR (20:11)
== END 2022-01-25 20:58 | disposition home or self-care (01) ==
PROVIDERS: Emergency Provider Physician Assistant; PCP Internal Medicine
DX: E11.43 Type 2 diabetes mellitus with diabetic autonomic (poly)neuropathy (principal); R10.9 Unspecified abdominal pain; G43.909 Migraine, unspecified, not intractable, without status migrainosus
CPT/HCPCS: 36415; 80053; 82805; 82962; 83690; 85025; 85610; 85730; 93005; 93010; 96361; 96374; 96375; 96376; 99284; C9113; J1170; J2060; J2405

== ENCOUNTER 2022-03-24 15:29 | Emergency (ER) | payer OTHER, SELFPAY ==
[2021-11-27 05:24] VITALS: BMI 21.2
[2022-03-24] VITALS (12 sets, daily range): BP systolic 124–155; BP diastolic 58–71; PULSE 66–84; RESP 18; TEMP 36; O2SAT 94–99
[2022-03-24] MEDS: ONDANSETRON 4 MG/2 ML INJ IV (17:17)
[2022-03-24] MEDS: HYDROMORPHONE 1 MG INJ IV ×3 (17:18→21:03)
[2022-03-24] MEDS: SODIUM CHLORIDE 0.9% 1,000 ML 1000 ML IV ×2 (17:18→21:03)
[2022-03-24 17:51] LABS: Add Manual Diff / Slide Review NO; Basophils Absolute Auto 0 /uL (0-100); Basophils Percent Auto 0.6 % (0-2); Eosinophils Absolute Auto 0 /uL (0-450); Eosinophils Percent Auto 0.1 % (2-4); Hematocrit 40.2 % (36-46); Hemoglobin 13.6 g/dL (12.0-16.0); Lymphocytes Absolute Auto 600 /uL (1100-4500); Lymphocytes Percent Auto 9.7 % (25-40); Mean Corpuscular Hemoglobin 30.1 PG (26-34); Mean Corpuscular Volume 88.7 fL (80-100); Monocytes Absolute Auto 300 /uL (0-900); Monocytes Percent Auto 4.5 % (3-14); Neutrophils Absolute Auto 5200 /uL (1500-7000); Neutrophils Percent Auto 85.1 % (50-75); Platelet Count 223 X10^3/uL (150-400); Red Blood Cell Count 4.53 X10^6/uL (4.0-5.2); Red Cell Distribution Width 13.2 % (11.6-14.8); White Blood Cell Count 6.1 X10^3/uL (4.5-11.0)
[2022-03-24] MEDS: PANTOPRAZOLE 40 MG VIAL IV (17:54)
[2022-03-24 18:05] LABS: Alanine Aminotransferase 23 IU/L (<35); Albumin 4.2 g/dL (3.5-5.0); Albumin Globulin Ratio 1.3 (1.0-2.8); Alkaline Phosphatase 91 U/L (38-126); Aspartate Aminotransferase 31 IU/L (14-36); BUN Creatinine Ratio 14.3 (6-22); Bilirubin Total 0.7 mg/dL (0.2-1.3); Blood Urea Nitrogen 11 mg/dL (7-17); Calcium 8.6 mg/dL (8.4-10.2); Carbon Dioxide 29 mmol/L (22-32); Chloride 105 mmol/L (98-107); Estimated Glomerular Filt Rate > 60 mL/min (>60); Globulin 3.2 g/dL (1.7-4.1); Glucose 233 mg/dL (80-110); HEMOLYSIS 28 (0-50); Lipase 24 U/L (23-300); Potassium 4.1 mmol/L (3.4-5.1); Sodium 137 mmol/L (137-145); Total Protein 7.4 g/dL (6.3-8.2)
[2022-03-24] MEDS: hydrOXYzine 50 MG/ML INJ 25 MG IM (18:11)
--- NOTE | 2022-03-24 18:33 | ED.ABDPAIN ---
HPI - Abdominal Pain <ANNA Goodwin - Last Filed: 03/24/22 20:29> General Chief Complaint: Abdominal Pain Stated Complaint: Unable to stop throwing up Time Seen by Provider: 03/24/22 16:54 Source: patient Mode of arrival: Wheelchair History of Present Illness HPI narrative: 61-year-old female, former smoker with history of diabetic gastroparesis, presents emergency with persistent nausea and vomiting and abdominal pain since 0700 today. Patient has been seen multiple times in this emergency department for identical symptoms. Patient is writhing in bed with at bedside. Patient has a insulin pump and manages with her hand-held computer. Related Data Home Medications Medication Instructions Recorded Confirmed insulin lispro 100 unit/mL 0 unit continuous IV infusion 07/29/12 11/27/21 subcutaneous solution (Humalog DAILY ##0 U-100 Insulin) alendronate 70 mg tablet 70 mg PO QWEEK 02/03/19 11/27/21 diazepam 5 mg tablet 5 mg PO TIDP PRN Anxiety 02/03/19 11/27/21 hydromorphone 4 mg tablet 4 mg PO TID PRN PAIN 02/03/19 11/27/21 Previous Rx's Medication Instructions Recorded promethazine 25 mg rectal 25 mg IN Q6H PRN nausea and 02/03/19 suppository vomiting #12 ea Allergies Allergy/AdvReac Type Severity Reaction Status Date / Time amitriptyline Allergy Intermediate SEIZURES Verified 03/24/22 15:32 droperidol Allergy Intermediate CLONIC Verified 03/24/22 15:32 REACTION metoclopramide Allergy Intermediate CLONIC Verified 03/24/22 15:32 REACTION prochlorperazine Allergy Intermediate CLONIC Verified 03/24/22 15:32 REACTION azithromycin AdvReac Mild N/V Verified 03/24/22 15:32 ciprofloxacin AdvReac Mild N/V Verified 03/24/22 15:32 hydrocodone AdvReac Mild N/V Verified 03/24/22 15:32 ketorolac AdvReac Mild N/V Verified 03/24/22 15:32 Review of Systems <ANNA Goodwin - Last Filed: 03/24/22 20:29> Review of Systems Narrative: Narrative: GENERAL: Denies chills, fatigue, fever, sweats. See HPI HEENT: Denies sinus pain, ear pain, sore throat, difficulty swallowing, dizziness. RESPIRATORY: Denies dyspnea, cough, wheezing, sputum. CARDIOVASCULAR: Denies chest pain, palpitations, edema. GASTROINTESTINAL: Endorses nausea, vomiting and abdominal pain. : Denies dysuria, frequency, incontinence, hematuria, urinary retention, flank pain. MSK: Denies weakness, joint pain, or bony pain. SKIN: Endorses rash on back. NEUROLOGIC: Denies weakness, dizziness, headache, numbness, confusion. PSYCHIATRIC: No concerning psychosocial issues. Patient History <ANNA Goodwin - Last Filed: 03/24/22 20:29> Medical History (Updated 03/24/22 @ 19:37 by ANNA Goodwin) Chronic cholecystitis Diabetes Diabetic retinopathy Hyperlipidemia Hypothyroid Osteomyelitis Family History Mother Non Hodgkin's lymphoma Social History marital status: household members: spouse Smoking Status: Former smoker Smoking Status: Former smoker alcohol intake frequency: holidays/special occasions only Substance Use Type: does not use Exam <ANNA Goodwin - Last Filed: 03/24/22 20:29> Narrative Exam Narrative: Exam Narrative: GENERAL: This is a well-nourished, well-developed patient, in acute distress HEAD: Atraumatic. Normocephalic. NECK: Trachea midline. No JVD or lymphadenopathy. Nontender. CARDIOVASCULAR: Regular rate and rhythm without murmurs, peripheral pulses intact, cap refill <2 sec. RESPIRATORY: Breath sounds equal and clear bilaterally. No wheezes, rales, or rhonchi. No cough. No increased respiratory effort. No accessory muscle use. GASTROINTESTINAL: Abdomen soft, generalized tenderness, nondistended without guarding or rebound. No suprapubic pain. MSK: Moves all extremities. Normal range of motion, no clubbing or edema. Neurovascularly intact. NEURO: A&O x 3. SKIN: Warm, dry. Red rash on her back with a ruptured blister. Initial Vital Signs Initial Vital Signs: Vital Signs Temperature 96.8 F L 03/24/22 15:32 Pulse Rate 84 03/24/22 15:32 Respiratory Rate 18 03/24/22 15:32 Blood Pressure 155/71 H 03/24/22 15:32 Pulse Oximetry 97 03/24/22 15:32 Oxygen Delivery Method 03/24/22 15:32 Reviewed <Santosh Fishman MD - Last Filed: 03/24/22 23:08> Initial Vital Signs Initial Vital Signs: Vital Signs Temperature 96.8 F L 03/24/22 15:32 Pulse Rate 84 03/24/22 15:32 Respiratory Rate 18 03/24/22 15:32 Blood Pressure 155/71 H 03/24/22 15:32 Pulse Oximetry 97 03/24/22 15:32 Oxygen Delivery Method 03/24/22 15:32 Course <ANNA Goodwin - Last Filed: 03/24/22 20:29> Orders Ordered: ED Orders 03/24/22 15:38 EKG-12 Lead Stat 03/24/22 17:35 Complete Blood Count AUTO DIFF Stat Comprehensive Metabolic Panel Stat Lipase Stat Discontinued Medications Diazepam (Diazepam 10 Mg/2 Ml Syringe) 5 mg IV NOW ONE Stop: 03/24/22 19:33 Last Admin: 03/24/22 20:09 Dose: Not Given Documented By: NR Diphenhydramine HCl (Diphenhydramine 50 Mg/Ml Vial) 25 mg IV NOW ONE Stop: 03/24/22 20:51 Last Admin: 03/24/22 21:03 Dose: 25 mg Documented By: NR Haloperidol (Haloperidol 5 Mg/Ml Vial) 2 mg IV NOW ONE Stop: 03/24/22 20:06 Last Admin: 03/24/22 20:15 Dose: 2 mg Documented By: NR Hydromorphone HCl (Hydromorphone 1 Mg Inj) 1 mg IV NOW ONE Stop: 03/24/22 17:09 Last Admin: 03/24/22 17:18 Dose: 1 mg Documented By: NR Hydromorphone HCl (Hydromorphone 1 Mg Inj) 1 mg IV NOW ONE Stop: 03/24/22 18:39 Last Admin: 03/24/22 18:55 Dose: 1 mg Documented By: NR Hydromorphone HCl (Hydromorphone 1 Mg Inj) 1 mg IV NOW ONE Stop: 03/24/22 20:51 Last Admin: 03/24/22 21:03 Dose: 1 mg Documented By: NR Hydroxyzine HCl (Hydroxyzine 50 Mg/Ml Inj) 25 mg IM NOW ONE Stop: 03/24/22 17:49 Last Admin: 03/24/22 18:11 Dose: 25 mg Documented By: NR Sodium Chloride (Normal Saline 0.9%) 1,000 mls @ 1,000 mls/hr IV BOLUS ONE Stop: 03/24/22 18:07 Last Infusion: 03/24/22 18:55 Dose: 0 mls/hr Documented By: Admin: 03/24/22 17:18 Dose: 1,000 mls/hr Documented By: NR Sodium Chloride (Normal Saline 0.9%) 1,000 mls @ 1,000 mls/hr IV BOLUS ONE Stop: 03/24/22 21:49 Last Infusion: 03/24/22 22:03 Dose: 0 mls/hr Documented By: Admin: 03/24/22 21:03 Dose: 1,000 mls/hr Documented By: EVA Ondansetron HCl (Ondansetron 4 Mg/2 Ml Inj) 4 mg IV NOW ONE Stop: 03/24/22 17:09 Last Admin: 03/24/22 17:17 Dose: 4 mg Documented By: NR Pantoprazole Sodium (Pantoprazole 40 Mg Vial) 40 mg IV NOW ONE Stop: 03/24/22 17:36 Last Admin: 03/24/22 17:54 Dose: 40 mg Documented By: NR Vital Signs Vital signs: Vital Signs - 8 hr 03/24/22 15:32 03/24/22 16:13 03/24/22 16:14 Temperature 96.8 F L Pulse Rate 84 77 Respiratory Rate 18 Blood Pressure 155/71 H 143/67 H Pulse Oximetry 97 99 Oxygen Delivery Method Room Air 03/24/22 16:14 03/24/22 17:31 03/24/22 18:00 Temperature Pulse Rate 79 77 75 Respiratory Rate Blood Pressure Pulse Oximetry 98 99 98 Oxygen Delivery Method 03/24/22 18:30 03/24/22 19:00 03/24/22 19:30 Temperature Pulse Rate 78 75 74 Respiratory Rate Blood Pressure Pulse Oximetry 98 96 98 Oxygen Delivery Method 03/24/22 20:00 03/24/22 20:30 03/24/22 20:43 Temperature Pulse Rate 73 66 74 Respiratory Rate Blood Pressure Pulse Oximetry 98 96 94 Oxygen Delivery Method 03/24/22 20:44 Temperature Pulse Rate Respiratory Rate Blood Pressure 124/58 L Pulse Oximetry Oxygen Delivery Method <Santosh Fishman MD - Last Filed: 03/24/22 23:08> Course Course Narrative: 8:30 p.m.. Sign out from physician photography assistant. Patient improving. May need more medications prior to discharge. Orders Ordered: ED Orders 03/24/22 15:38 EKG-12 Lead Stat 03/24/22 17:35 Complete Blood Count AUTO DIFF Stat Comprehensive Metabolic Panel Stat Lipase Stat Discontinued Medications Diazepam (Diazepam 10 Mg/2 Ml Syringe) 5 mg IV NOW ONE Stop: 03/24/22 19:33 Last Admin: 03/24/22 20:09 Dose: Not Given Documented By: NR Diphenhydramine HCl (Diphenhydramine 50 Mg/Ml Vial) 25 mg IV NOW ONE Stop: 03/24/22 20:51 Last Admin: 03/24/22 21:03 Dose: 25 mg Documented By: NR Haloperidol (Haloperidol 5 Mg/Ml Vial) 2 mg IV NOW ONE Stop: 03/24/22 20:06 Last Admin: 03/24/22 20:15 Dose: 2 mg Documented By: NR Hydromorphone HCl (Hydromorphone 1 Mg Inj) 1 mg IV NOW ONE Stop: 03/24/22 17:09 Last Admin: 03/24/22 17:18 Dose: 1 mg Documented By: EVA Hydromorphone HCl (Hydromorphone 1 Mg Inj) 1 mg IV NOW ONE Stop: 03/24/22 18:39 Last Admin: 03/24/22 18:55 Dose: 1 mg Documented By: EVA Hydromorphone HCl (Hydromorphone 1 Mg Inj) 1 mg IV NOW ONE Stop: 03/24/22 20:51 Last Admin: 03/24/22 21:03 Dose: 1 mg Documented By: NR Hydroxyzine HCl (Hydroxyzine 50 Mg/Ml Inj) 25 mg IM NOW ONE Stop: 03/24/22 17:49 Last Admin: 03/24/22 18:11 Dose: 25 mg Documented By: NR Sodium Chloride (Normal Saline 0.9%) 1,000 mls @ 1,000 mls/hr IV BOLUS ONE Stop: 03/24/22 18:07 Last Infusion: 03/24/22 18:55 Dose: 0 mls/hr Documented By: Admin: 03/24/22 17:18 Dose: 1,000 mls/hr Documented By: NR Sodium Chloride (Normal Saline 0.9%) 1,000 mls @ 1,000 mls/hr IV BOLUS ONE Stop: 03/24/22 21:49 Last Infusion: 03/24/22 22:03 Dose: 0 mls/hr Documented By: Admin: 03/24/22 21:03 Dose: 1,000 mls/hr Documented By: NR Ondansetron HCl (Ondansetron 4 Mg/2 Ml Inj) 4 mg IV NOW ONE Stop: 03/24/22 17:09 Last Admin: 03/24/22 17:17 Dose: 4 mg Documented By: NR Pantoprazole Sodium (Pantoprazole 40 Mg Vial) 40 mg IV NOW ONE Stop: 03/24/22 17:36 Last Admin: 03/24/22 17:54 Dose: 40 mg Documented By: NR Reevaluation(s) Reevaluation #1: 8:50 p.m.. Spoke with patient and results. Patient is improving but not resolved. They agree for 1 more L normal saline repeat pain medication with Benadryl and should be ready for discharge home Time: 20:52 Vital Signs Vital signs: Vital Signs - 8 hr 03/24/22 15:32 03/24/22 16:13 03/24/22 16:14 Temperature 96.8 F L Pulse Rate 84 77 Respiratory Rate 18 Blood Pressure 155/71 H 143/67 H Pulse Oximetry 97 99 Oxygen Delivery Method Room Air 03/24/22 16:14 03/24/22 17:31 03/24/22 18:00 Temperature Pulse Rate 79 77 75 Respiratory Rate Blood Pressure Pulse Oximetry 98 99 98 Oxygen Delivery Method 03/24/22 18:30 03/24/22 19:00 03/24/22 19:30 Temperature Pulse Rate 78 75 74 Respiratory Rate Blood Pressure Pulse Oximetry 98 96 98 Oxygen Delivery Method 03/24/22 20:00 03/24/22 20:30 03/24/22 20:43 Temperature Pulse Rate 73 66 74 Respiratory Rate Blood Pressure Pulse Oximetry 98 96 94 Oxygen Delivery Method 03/24/22 20:44 Temperature Pulse Rate Respiratory Rate Blood Pressure 124/58 L Pulse Oximetry Oxygen Delivery Method MDM - Abdominal Pain <ANNA Goodwin - Last Filed: 03/24/22 20:29> Differential Diagnosis Differential diagnosis: Likely abdominal pain and other (Diabetic gastroparesis) Lab Data Result diagrams: 03/24/22 17:35 03/24/22 17:35 Labs: Lab Results 03/24/22 03/24/22 Range/Units 17:35 17:35 WBC 6.1 (4.5-11.0) X10^3/uL RBC 4.53 (4.0-5.2) X10^6/uL Hgb 13.6 (12.0-16.0) g/dL Hct 40.2 (36-46) % MCV 88.7 (80-100) fL MCH 30.1 (26-34) PG MCHC 34.0 (30-36) % RDW 13.2 (11.6-14.8) % Plt Count 223 (150-400) X10^3/uL Neut % (Auto) 85.1 H (50-75) % Lymph % (Auto) 9.7 L (25-40) % [place] % (Auto) 4.5 (3-14) % Eos % (Auto) 0.1 L (2-4) % Baso % (Auto) 0.6 (0-2) % Neut # (Auto) 5200 (8059-3689) /uL Lymph # (Auto) 600 L (3407-1558) /uL [place] # (Auto) 300 (0-900) /uL Eos # (Auto) 0 (0-450) /uL Baso # (Auto) 0 (0-100) /uL Sodium 137 (137-145) mmol/L Potassium 4.1 (3.4-5.1) mmol/L Chloride 105 (98-107) mmol/L Carbon Dioxide 29 (22-32) mmol/L BUN 11 (7-17) mg/dL Creatinine 0.77 (0.52-1.04) mg/dL Estimated GFR > 60 (>60) mL/min BUN/Creatinine Ratio 14.3 (6-22) Glucose 233 H (80-110) mg/dL Calcium 8.6 (8.4-10.2) mg/dL Total Bilirubin 0.7 (0.2-1.3) mg/dL AST 31 (14-36) IU/L ALT 23 (<35) IU/L Alkaline Phosphatase 91 (38-126) U/L Total Protein 7.4 (6.3-8.2) g/dL Albumin 4.2 (3.5-5.0) g/dL Globulin 3.2 (1.7-4.1) g/dL Albumin/Globulin Ratio 1.3 (1.0-2.8) Lipase 24 (23-300) U/L Point of care testing: Point of Care Testing Glucose POC 218 MDM Narrative Medical decision making narrative: 61-year-old female with history of diabetic gastroparesis presents emergency department with uncontrolled nausea, vomiting and abdominal pain. Patient given multiple medications to control her pain and nausea. <Santosh Fishman MD - Last Filed: 03/24/22 23:08> Lab Data Labs: Lab Results 03/24/22 03/24/22 Range/Units 17:35 17:35 WBC 6.1 (4.5-11.0) X10^3/uL RBC 4.53 (4.0-5.2) X10^6/uL Hgb 13.6 (12.0-16.0) g/dL Hct 40.2 (36-46) % MCV 88.7 (80-100) fL MCH 30.1 (26-34) PG MCHC 34.0 (30-36) % RDW 13.2 (11.6-14.8) % Plt Count 223 (150-400) X10^3/uL Neut % (Auto) 85.1 H (50-75) % Lymph % (Auto) 9.7 L (25-40) % [place] % (Auto) 4.5 (3-14) % Eos % (Auto) 0.1 L (2-4) % Baso % (Auto) 0.6 (0-2) % Neut # (Auto) 5200 (7387-2148) /uL Lymph # (Auto) 600 L (3513-5178) /uL [place] # (Auto) 300 (0-900) /uL Eos # (Auto) 0 (0-450) /uL Baso # (Auto) 0 (0-100) /uL Sodium 137 (137-145) mmol/L Potassium 4.1 (3.4-5.1) mmol/L Chloride 105 (98-107) mmol/L Carbon Dioxide 29 (22-32) mmol/L BUN 11 (7-17) mg/dL Creatinine 0.77 (0.52-1.04) mg/dL Estimated GFR > 60 (>60) mL/min BUN/Creatinine Ratio 14.3 (6-22) Glucose 233 H (80-110) mg/dL Calcium 8.6 (8.4-10.2) mg/dL Total Bilirubin 0.7 (0.2-1.3) mg/dL AST 31 (14-36) IU/L ALT 23 (<35) IU/L Alkaline Phosphatase 91 (38-126) U/L Total Protein 7.4 (6.3-8.2) g/dL Albumin 4.2 (3.5-5.0) g/dL Globulin 3.2 (1.7-4.1) g/dL Albumin/Globulin Ratio 1.3 (1.0-2.8) Lipase 24 (23-300) U/L Point of care testing: Point of Care Testing Glucose POC 218 ECG Data Interpretation: Normal sinus rhythm rate [address] elevation or depression. MDM Narrative Medical decision making narrative: 61-year-old female with history of diabetic gastroparesis presents emergency department with uncontrolled nausea, vomiting and abdominal pain. Patient given multiple medications to control her pain and nausea. Appropriate for discharge home. Laboratories are reassuring. No imaging indicated at this time. Patient has history of gastroparesis cyclic vomiting. This is not new. Patient and state they are in work with primary care getting a new tire changer. They were seeing provider at [facility] but that is too far away. Chemistries reassuring other than slightly high glucose of 233 but bicarb is normal sodium potassium normal. BUN creatinine normal Discharge Plan Departure Patient Disposition: Home Clinical Impression: Diabetic gastroparesis Instructions: DI for Abdominal Pain-Adult, DI for Gastroparesis Activity Restrictions/Additional Instructions: No driving or operating machinery tonight. Please continue with your family doctor to find tire changer for management of gastroparesis. Return if worse or if any questions or concerns. May continue home medications. Return if worse if any questions or concerns Prescriptions: No Action insulin lispro [Humalog U-100 Insulin] 100 UNIT/1 ML solution 0 unit continuous IV infusion DAILY Qty: 0 alendronate 70 mg Tablet 70 mg PO QWEEK hydromorphone 4 MG tablet 4 mg PO TID PRN (Reason: PAIN) diazepam 5 MG tablet 5 mg PO TIDP PRN (Reason: Anxiety) promethazine 25 mg suppository 25 mg IN Q6H PRN (Reason: nausea and vomiting) Qty: 12 0RF Referrals: Salvatore Villegas MD [Primary Care Provider] - Visit Report Forms: Patient Portal/API <Santosh Fishman MD - Last Filed: 03/24/22 23:08> Cosign ED Attending Cosignature Attestation: I was immediately available in the department for consultation. ?This documentation has been reviewed and I agree with assessment and plan. I did see patient and examined and evaluated patient as well. Supervised by Santosh Fishman MD
[2022-03-24] MEDS: HALOPERIDOL 5 MG/ML VIAL 2 MG IV (20:15)
[2022-03-24] MEDS: diphenhydrAMINE 50 MG/ML VIAL 25 MG IV (21:03)
== END 2022-03-24 22:09 | disposition home or self-care (01) ==
PROVIDERS: Emergency Medicine; Emergency Provider Emergency Medicine; PCP Internal Medicine
DX: E11.43 Type 2 diabetes mellitus with diabetic autonomic (poly)neuropathy (principal); R11.2 Nausea with vomiting, unspecified
CPT/HCPCS: 36415; 80053; 82962; 83690; 85025; 93005; 93010; 96361; 96372; 96374; 96375; 96376; 99284; C9113; J1170; J1200; J1630; J2405; J3410

== ENCOUNTER 2022-05-09 04:28 | Inpatient (IN) | payer OTHER, SELFPAY ==
[2021-11-27 05:24] VITALS: BMI 21.2
[2022-05-09] VITALS (16 sets, daily range): BP systolic 97–181; BP diastolic 42–114; PULSE 52–85; RESP 16–22; TEMP 35.9–36.5; O2SAT 92–98; BMI 21.3
--- NOTE | 2022-05-09 05:40 | DI.RAD.S_ITS ---
PROCEDURE: XR CHEST 1V INDICATIONS: chest pain TECHNIQUE: One view of the chest was acquired. COMPARISON: [facility], CR, XR CHEST 2VW, 08/22/2016, 12:48. [facility], CR, CHEST 1 VIEW, 06/22/2014, 9:49. FINDINGS: Surgical changes and devices: Thoracolumbar fixation hardware is partially seen. Cholecystectomy clips are seen. Lungs and pleura: On this semiupright portable chest examination, no large pneumothorax or large pleural effusions are seen. No focal infiltrates are seen. Low lung volumes are noted. This causes a crowded appearance to the lung markings and limits evaluation. Mediastinum: Mediastinal contours appear normal. Heart size is normal. Bones and chest wall: Mildly displaced right inferolateral rib fractures are seen involving the 7th and 8th ribs. Age-appropriate bony degenerative changes are seen. No suspicious bony lesions. Overlying soft tissues appear unremarkable. IMPRESSION: Mildly displaced right inferolateral rib fractures, which are not seen in 2017. Limited portable chest examination, without a significant cardiopulmonary abnormality identified. Postoperative and degenerative changes are seen. Note: No significant discrepancy from the preliminary report. Dictated by: Harrison Chun M.D. on 05/09/2022 at 7:23 Approved by: Harrison Chun M.D. on 05/09/2022 at 7:25
--- NOTE | 2022-05-09 05:50 | ED_ITS ---
HPI - Nausea/Vomiting/Diarrhea <DO Kelli Campbell Last Filed: 05/11/22 16:45> General Chief complaint: Nausea/Vomiting/Diarrhea Stated complaint: throwing up, migraine, back pain Time Seen by Provider: 05/09/22 05:37 Source: patient Mode of arrival: Ambulatory History of Present Illness HPI Narrative: Patient is a 61-year-old female with longstanding insulin-dependent diabetes, gastroparesis migraine headaches presenting today with migraine headache ongoing for last 18 hours. She has been vomiting unable to stop she is complaining of back pain this has she wants to because the pain is so bad. Crawled on the floor the triage room. She is very tearful sensitive to light. Moving all extremities. Related Data Home Medications Medication Instructions Recorded Confirmed insulin lispro 100 unit/mL 0 unit continuous IV infusion 07/29/12 05/09/22 subcutaneous solution (Humalog DAILY ##0 U-100 Insulin) alendronate 70 mg tablet 70 mg PO QWEEK 02/03/19 05/09/22 diazepam 5 mg tablet 5 mg PO TIDP PRN Anxiety 02/03/19 05/09/22 hydromorphone 4 mg tablet 4 mg PO TID PRN PAIN 02/03/19 05/09/22 Previous Rx's Medication Instructions Recorded promethazine 25 mg rectal 25 mg WV Q6H PRN nausea and 02/03/19 suppository vomiting #12 ea Allergies Allergy/AdvReac Type Severity Reaction Status Date / Time amitriptyline Allergy Intermediate SEIZURES Verified 05/09/22 04:57 droperidol Allergy Intermediate CLONIC Verified 05/09/22 04:57 REACTION metoclopramide Allergy Intermediate CLONIC Verified 05/09/22 04:57 REACTION prochlorperazine Allergy Intermediate CLONIC Verified 05/09/22 04:57 REACTION azithromycin AdvReac Mild N/V Verified 05/09/22 04:57 ciprofloxacin AdvReac Mild N/V Verified 05/09/22 04:57 hydrocodone AdvReac Mild N/V Verified 05/09/22 04:57 ketorolac AdvReac Mild N/V Verified 05/09/22 04:57 Review of Systems <DO Kelli Campbell Last Filed: 05/11/22 16:45> Review of Systems Narrative: See HPI Patient History <Yoanna Watt DO - Last Filed: 05/11/22 16:45> Medical History (Updated 05/10/22 @ 00:54 by OSKAR Ramires-KATERINE) Adrenal insufficiency Charcot foot due to diabetes mellitus Chronic cholecystitis Chronic, continuous use of opioids Diabetes Diabetic retinopathy History of [place] thyroiditis History of kidney stones History of osteomyelitis History of septic arthritis History of venous thrombosis Hyperlipidemia Hypothyroid Osteomyelitis Surgical History (Updated 05/10/22 @ 00:54 by MARLEEN Ramires) History of cholecystectomy History of left hip replacement History of spinal fusion Family History Mother Non Hodgkin's lymphoma Social History marital status: household members: spouse Smoking Status: Former smoker Smoking Status: Former smoker alcohol intake frequency: holidays/special occasions only Substance Use Type: does not use Exam <Yoanna Watt DO - Last Filed: 05/11/22 16:45> Initial Vital Signs Initial Vital Signs: Vital Signs Temperature 97 F L 05/09/22 04:57 Pulse Rate 85 05/09/22 04:57 Respiratory Rate 22 05/09/22 04:57 Blood Pressure 151/114 H 05/09/22 04:57 Pulse Oximetry 96 05/09/22 04:57 Oxygen Delivery Method 05/09/22 04:57 GENERAL: Tearful 61-year-old female and in no acute distress. HEENT: Head atraumatic,EOMI, pupils reactive, face symmetric, moist mucous membranes NECK: Supple CARDIOVASCULAR: Regular rate and rhythm without murmurs, rubs or gallops. RESPIRATORY: Breath sounds equal bilaterally, no wheezes rales or rhonchi. ABDOMEN: Soft, nontender. Normoactive bowel sounds all 4 quadrants. No guarding or rebound. EXTREMITIES: Normal range of motion, no clubbing or edema. Neurovascularly intact NEUROLOGICAL: Alert and oriented x4. Moving all extremities SKIN: Warm, dry, no laceration, no petechiae, no rashes or lesions. <Renee Gagnon MD - Last Filed: 05/09/22 13:41> Initial Vital Signs Initial Vital Signs: Vital Signs Temperature 97 F L 05/09/22 04:57 Pulse Rate 85 05/09/22 04:57 Respiratory Rate 22 05/09/22 04:57 Blood Pressure 151/114 H 05/09/22 04:57 Pulse Oximetry 96 05/09/22 04:57 Oxygen Delivery Method 05/09/22 04:57 GENERAL: Tearful 61-year-old female and in no acute distress. HEENT: Head atraumatic,EOMI, pupils reactive, face symmetric, moist mucous membranes NECK: Supple CARDIOVASCULAR: Regular rate and rhythm without murmurs, rubs or gallops. RESPIRATORY: Breath sounds equal bilaterally, no wheezes rales or rhonchi. ABDOMEN: Soft, nontender. Normoactive bowel sounds all 4 quadrants. No gua rding or rebound. EXTREMITIES: Normal range of motion, no clubbing or edema. Neurovascularly intact NEUROLOGICAL: Alert and oriented x4. Moving all extremities SKIN: Warm, dry, no laceration, no petechiae, erythema ab igne over entire thoracic portion of back due to chronic heating pad use Course <Yoanna Watt DO - Last Filed: 05/11/22 16:45> Orders Ordered: Acetaminophen (Acetaminophen 325 Mg Tablet) 650 mg PO Q6HR PRN PRN Reason: Fever/Mild Pain (1-3) Lidocaine HCl 30 ml/ Al Hydrox /Mg Hydrox/Simethicone 30 ml/Nystatin 3,000,000 unit 0 ml MM Q4H PRN PRN Reason: Mouth Irritation Last Admin: 05/11/22 16:08 Dose: 5 ml Documented By: Admin: 05/11/22 08:07 Dose: 5 ml Documented By: Admin: 05/10/22 17:09 Dose: 5 ml Documented By: FATIMAH Dextrose (Dextrose 50 % In Water 25 Gm/50 Ml Syringe) 25 gm IV PRN PRN PRN Reason: Hypoglycemia Diazepam (Diazepam 10 Mg/2 Ml Syringe) 5 mg IV Q6HR PRN PRN Reason: Anxiety Last Admin: 05/11/22 14:54 Dose: 5 mg Documented By: Admin: 05/11/22 05:25 Dose: 5 mg Documented By: Admin: 05/10/22 23:18 Dose: 5 mg Documented By: Admin: 05/10/22 16:49 Dose: 5 mg Documented By: Admin: 05/10/22 10:45 Dose: 5 mg Documented By: FATIMAH Enoxaparin Sodium (Enoxaparin 40 Mg/0.4 Ml Syringe) 40 mg SUBCUT DAILY [facility] Last Admin: 05/11/22 08:13 Dose: 40 mg Documented By: Admin: 05/10/22 09:32 Dose: 40 mg Documented By: Admin: 05/09/22 16:12 Dose: 40 mg Documented By: JONY Fentanyl (Fentanyl 25 Mcg/Patch) 25 mcg TOP Q72H [facility] Hydrocortisone (Hydrocortisone 100 Mg/2 Ml Vial) 50 mg IV Q6HR [facility] Last Admin: 05/11/22 11:56 Dose: 50 mg Documented By: Admin: 05/11/22 05:30 Dose: 50 mg Documented By: Admin: 05/10/22 23:23 Dose: 50 mg Documented By: Admin: 05/10/22 17:04 Dose: 50 mg Documented By: Admin: 05/10/22 12:41 Dose: 50 mg Documented By: FATIMAH Hydromorphone HCl (Hydromorphone 1 Mg Inj) 1 mg IV Q3H PRN PRN Reason: Pain, Moderate (4-6) Last Admin: 05/11/22 16:07 Dose: 1 mg Documented By: Admin: 05/11/22 11:57 Dose: 1 mg Documented By: Admin: 05/11/22 08:14 Dose: 1 mg Documented By: Admin: 05/11/22 05:29 Dose: 1 mg Documented By: Admin: 05/10/22 23:35 Dose: 1 mg Documented By: Admin: 05/10/22 20:34 Dose: 1 mg Documented By: Admin: 05/10/22 16:13 Dose: 1 mg Documented By: Admin: 05/10/22 12:25 Dose: 1 mg Documented By: Admin: 05/10/22 09:31 Dose: 1 mg Documented By: FATIMAH Sodium Chloride (Normal Saline 0.9%) 1,000 mls @ 80 mls/hr IV CONT [facility] Last Admin: 05/11/22 11:55 Dose: 80 mls/hr Documented By: Infusion: 05/11/22 11:01 Dose: 80 mls/hr Documented By: Admin: 05/10/22 22:31 Dose: 80 mls/hr Documented By: Lidocaine (Lidocaine Patch 1 Each Adh..Patch) 1 each TOP DAILY [facility]LEX Last Admin: 05/11/22 09:00 Dose: Not Given Documented By: CONY Morphine Sulfate (Morphine 2 Mg/Ml Inj) 2 mg IV Q4HR PRN PRN Reason: Pain, Moderate (4-6) Last Admin: 05/09/22 20:23 Dose: 2 mg Documented By: Admin: 05/09/22 16:12 Dose: 2 mg Documented By: JONY Insulin Pump 0 each SUBCUT CONT [facility] Last Admin: 05/10/22 12:32 Dose: Not Given Documented By: FATIMAH Domperidone 10mg 3 each PO ACHS [facility] Last Admin: 05/11/22 16:09 Dose: 3 each Documented By: Admin: 05/11/22 11:56 Dose: 3 each Documented By: Admin: 05/11/22 08:07 Dose: 3 each Documented By: Admin: 05/10/22 20:34 Dose: 3 each Documented By: Admin: 05/10/22 17:10 Dose: 3 each Documented By: Admin: 05/10/22 13:31 Dose: 3 each Documented By: FATIMAH Olanzapine (Olanzapine Odt 10 Mg Tab) 10 mg PO DAILY [facility] Ondansetron HCl (Ondansetron 4 Mg/2 Ml Inj) 4 mg IV Q6HR [facility] Last Admin: 05/11/22 11:56 Dose: 4 mg Documented By: Admin: 05/11/22 05:27 Dose: 4 mg Documented By: Admin: 05/10/22 23:23 Dose: 4 mg Documented By: Admin: 05/10/22 17:05 Dose: 4 mg Documented By: Admin: 05/10/22 12:41 Dose: 4 mg Documented By: Admin: 05/10/22 06:03 Dose: 4 mg Documented By: Admin: 05/10/22 00:39 Dose: 4 mg Documented By: Admin: 05/09/22 18:00 Dose: 4 mg Documented By: JONY Pantoprazole Sodium (Pantoprazole 40 Mg Vial) 20 mg IV BID [facility] Last Admin: 05/11/22 08:14 Dose: 20 mg Documented By: Admin: 05/10/22 20:34 Dose: 20 mg Documented By: Polyethylene Glycol (Polyethylene Glycol 3350 17 Gm Powd.Pack) 17 gm PO DAILY PRN PRN Reason: Constipation Promethazine HCl (Promethazine 12.5 Mg Supp) 12.5 mg WV Q6HR PRN PRN Reason: Nausea And Vomiting Last Admin: 05/10/22 03:34 Dose: 12.5 mg Documented By: Admin: 05/09/22 20:23 Dose: 12.5 mg Documented By: ROHIT Sennosides (Sennosides 8.6 Mg Tablet) 8.6 mg PO BID PRN PRN Reason: Constipation Discontinued Medications Dexamethasone (Dexamethasone 4 Mg/Ml Vial) 4 mg IV NOW ONE Stop: 05/09/22 08:25 Last Admin: 05/09/22 09:21 Dose: 4 mg Documented By: CHEYENNE Dihydroergotamine Mesylate (Dihydroergotamine 1 Mg/Ml Ampul) 1 mg IV NOW ONE Stop: 05/09/22 08:25 Last Admin: 05/09/22 09:21 Dose: 1 mg Documented By: CHEYENNE Hydrocortisone (Hydrocortisone 100 Mg/2 Ml Vial) 50 mg IV NOW ONE Stop: 05/10/22 00:09 Last Admin: 05/10/22 00:39 Dose: 50 mg Documented By: ROHIT Hydrocortisone (Hydrocortisone 100 Mg/2 Ml Vial) 25 mg IV Q6HR [facility] Stop: 05/11/22 05:59 Last Admin: 05/10/22 06:02 Dose: 25 mg Documented By: ROHIT Hydrocortisone (Hydrocortisone 100 Mg/2 Ml Vial) 25 mg IV TID [facility] Stop: 05/12/22 08:59 Hydrocortisone (Hydrocortisone 100 Mg/2 Ml Vial) 25 mg IV Q12HR [facility] Stop: 05/13/22 11:59 Hydrocortisone (Hydrocortisone 10 Mg Tablet) 20 mg PO DAILY [facility] Hydromorphone HCl (Hydromorphone 1 Mg Inj) 1 mg IV NOW ONE Stop: 05/09/22 05:40 Last Admin: 05/09/22 05:57 Dose: 1 mg Documented By: LAURA Hydromorphone HCl (Hydromorphone 1 Mg Inj) 1 mg IV NOW ONE Stop: 05/09/22 10:51 Last Admin: 05/09/22 11:09 Dose: 1 mg Documented By: CHEYENNE Hydromorphone HCl (Hydromorphone 1 Mg Inj) 1 mg IV NOW ONE Stop: 05/09/22 10:53 Last Admin: 05/09/22 11:42 Dose: 1 mg Documented By: AT Hydromorphone HCl (Hydromorphone 0.5 Mg Inj) 0.25 mg IV Q6HR [facility] Stop: 05/11/22 05:59 Hydromorphone HCl (Hydromorphone 2 Mg Inj) 0.25 mg IV Q6H PRN PRN Reason: Pain, Severe (7-10) Hydromorphone HCl (Hydromorphone 0.5 Mg Inj) 0.25 mg IV Q6H PRN PRN Reason: Pain, Severe (7-10) Last Admin: 05/10/22 03:19 Dose: 0.25 mg Documented By: AGW Hydromorphone HCl (Hydromorphone 0.5 Mg Inj) 0.5 mg IV Q6H PRN PRN Reason: Pain, Severe (7-10) Last Admin: 05/10/22 07:07 Dose: 0.5 mg Documented By: ROHIT Hydroxyzine HCl (Hydroxyzine 50 Mg/Ml Inj) 50 mg IM NOW ONE Stop: 05/09/22 08:25 Last Admin: 05/09/22 09:21 Dose: 50 mg Documented By: CTS Sodium Chloride (Normal Saline 0.9%) 1,000 mls @ 1,000 mls/hr IV CONT [facility]LEX Last Infusion: 05/09/22 07:13 Dose: 0 mls/hr Documented By: Admin: 05/09/22 05:57 Dose: 1,000 mls/hr Documented By: KMW Sodium Chloride (Normal Saline 0.9%) 1,000 mls @ 1,000 mls/hr IV BOLUS ONE Stop: 05/09/22 09:23 Last Infusion: 05/09/22 11:00 Dose: 0 mls/hr Documented By: Admin: 05/09/22 09:21 Dose: 1,000 mls/hr Documented By: CTS Sodium Chloride (Normal Saline 0.9%) 1,000 mls @ 150 mls/hr IV CONT [facility]LEX Last Infusion: 05/10/22 06:23 Dose: 0 mls/hr Documented By: Infusion: 05/09/22 15:01 Dose: 150 mls/hr Documented By: Admin: 05/09/22 13:06 Dose: 150 mls/hr Documented By: AT Sodium Chloride (Normal Saline 0.9%) 1,000 mls @ 100 mls/hr IV CONT [facility] Stop: 05/10/22 03:29 Last Admin: 05/09/22 20:35 Dose: 100 mls/hr Documented By: Infusion: 05/09/22 20:35 Dose: 100 mls/hr Documented By: Admin: 05/09/22 16:11 Dose: 100 mls/hr Documented By: JONY Sodium Chloride (Normal Saline 0.9%) 500 mls @ 80 mls/hr IV CONT ALEX Last Infusion: 05/10/22 20:38 Dose: 0 mls/hr Documented By: Admin: 05/10/22 13:32 Dose: 80 mls/hr Documented By: Infusion: 05/10/22 12:39 Dose: 80 mls/hr Documented By: Admin: 05/10/22 06:24 Dose: 80 mls/hr Documented By: ROHIT Sodium Chloride (Normal Saline 0.9%) 1,000 mls @ 80 mls/hr IV CONT [facility] Insulin Glargine (Insulin Glargine 100 Unit/Ml 3ml Pen) 10 unit SUBCUT DAILY [facility] Last Admin: 05/10/22 09:43 Dose: 10 unit Documented By: FATIMAH Co-signed By: JASPER Insulin Human Regular (Insulin Regular 100 Unit/Ml 3 Ml Vial) 0 unit SUBCUT Q6H ALEX; Protocol Last Admin: 05/10/22 03:28 Dose: 1 unit Documented By: ROHIT Co-signed By: ANNA Admin: 05/09/22 22:18 Dose: 3 unit Documented By: ROHIT Co-signed By: TERRI Admin: 05/09/22 16:50 Dose: 1 unit Documented By: JONY Co-signed By: JOSE MANUEL Insulin Human Regular (Insulin Regular 100 Unit/Ml 3 Ml Vial) 0 unit SUBCUT Q6H ALEX; Protocol Last Admin: 05/10/22 09:39 Dose: 5 unit Documented By: FATIMAH Co-signed By: JASPER Lidocaine (Lidocaine Patch 1 Each Adh..Patch) 1 each TOP DAILY [facility] Last Admin: 05/11/22 08:13 Dose: 1 each Documented By: Admin: 05/10/22 17:46 Dose: 1 each Documented By: FATIMAH Lorazepam (Lorazepam 2 Mg/Ml Inj) 1 mg IV NOW ONE Stop: 05/09/22 05:40 Last Admin: 05/09/22 05:57 Dose: 1 mg Documented By: LAURA Lorazepam (Lorazepam 2 Mg/Ml Inj) 1 mg IV NOW ONE Stop: 05/09/22 05:54 Last Admin: 05/09/22 05:58 Dose: 1 mg Documented By: LAURA Olanzapine (Olanzapine 10 Mg Vial) 5 mg IM NOW ONE Stop: 05/09/22 15:20 Last Admin: 05/09/22 16:50 Dose: 5 mg Documented By: JONY Olanzapine (Olanzapine 10 Mg Vial) 5 mg IM TID PRN PRN Reason: Nausea And Vomiting Olanzapine (Olanzapine Odt 10 Mg Tab) 5 mg PO NOW ONE Stop: 05/10/22 03:32 Last Admin: 05/10/22 03:44 Dose: 5 mg Documented By: ROHIT Olanzapine (Olanzapine Odt 10 Mg Tab) 10 mg PO NOW ONE Stop: 05/11/22 09:05 Last Admin: 05/11/22 10:51 Dose: 10 mg Documented By: CONY Ondansetron HCl (Ondansetron 4 Mg/2 Ml Inj) 4 mg IV NOW ONE Stop: 05/09/22 08:26 Last Admin: 05/09/22 09:21 Dose: 4 mg Documented By: CHEYENNE Pantoprazole Sodium (Pantoprazole 40 Mg Vial) 40 mg IV NOW ONE Stop: 05/09/22 05:54 Last Admin: 05/09/22 06:04 Dose: 40 mg Documented By: LAURA Pantoprazole Sodium (Pantoprazole 40 Mg Vial) 20 mg IV NOW ONE Stop: 05/10/22 16:47 Last Admin: 05/10/22 17:05 Dose: 20 mg Documented By: FATIMAH Vital Signs Vital signs: Vital Signs - 8 hr 05/09/22 11:08 05/09/22 11:09 05/09/22 11:09 Pulse Rate 60 62 Blood Pressure 181/75 H 181/75 H Pulse Oximetry 98 98 Oxygen Delivery Method 05/09/22 11:30 05/09/22 12:00 05/09/22 12:30 Pulse Rate 57 L 54 L 54 L Blood Pressure Pulse Oximetry 93 92 92 Oxygen Delivery Method Room Air Room Air 05/09/22 13:00 Pulse Rate 58 L Blood Pressure Pulse Oximetry 95 Oxygen Delivery Method Room Air <Renee Gagnno MD - Last Filed: 05/09/22 13:41> Orders Ordered: Acetaminophen (Acetaminophen 325 Mg Tablet) 650 mg PO Q6HR PRN PRN Reason: Fever/Mild Pain (1-3) Lidocaine HCl 30 ml/ Al Hydrox /Mg Hydrox/Simethicone 30 ml/Nystatin 3,000,000 unit 0 ml MM Q4H PRN PRN Reason: Mouth Irritation Last Admin: 05/11/22 16:08 Dose: 5 ml Documented By: Admin: 05/11/22 08:07 Dose: 5 ml Documented By: Admin: 05/10/22 17:09 Dose: 5 ml Documented By: FATIMAH Dextrose (Dextrose 50 % In Water 25 Gm/50 Ml Syringe) 25 gm IV PRN PRN PRN Reason: Hypoglycemia Diazepam (Diazepam 10 Mg/2 Ml Syringe) 5 mg IV Q6HR PRN PRN Reason: Anxiety Last Admin: 05/11/22 14:54 Dose: 5 mg Documented By: Admin: 05/11/22 05:25 Dose: 5 mg Documented By: Admin: 05/10/22 23:18 Dose: 5 mg Documented By: Admin: 05/10/22 16:49 Dose: 5 mg Documented By: Admin: 05/10/22 10:45 Dose: 5 mg Documented By: FATIMAH Enoxaparin Sodium (Enoxaparin 40 Mg/0.4 Ml Syringe) 40 mg SUBCUT DAILY [facility] Last Admin: 05/11/22 08:13 Dose: 40 mg Documented By: Admin: 05/10/22 09:32 Dose: 40 mg Documented By: Admin: 05/09/22 16:12 Dose: 40 mg Documented By: JONY Fentanyl (Fentanyl 25 Mcg/Patch) 25 mcg TOP Q72H [facility] Hydrocortisone (Hydrocortisone 100 Mg/2 Ml Vial) 50 mg IV Q6HR [facility] Last Admin: 05/11/22 11:56 Dose: 50 mg Documented By: Admin: 05/11/22 05:30 Dose: 50 mg Documented By: Admin: 05/10/22 23:23 Dose: 50 mg Documented By: Admin: 05/10/22 17:04 Dose: 50 mg Documented By: Admin: 05/10/22 12:41 Dose: 50 mg Documented By: FATIMAH Hydromorphone HCl (Hydromorphone 1 Mg Inj) 1 mg IV Q3H PRN PRN Reason: Pain, Moderate (4-6) Last Admin: 05/11/22 16:07 Dose: 1 mg Documented By: Admin: 05/11/22 11:57 Dose: 1 mg Documented By: Admin: 05/11/22 08:14 Dose: 1 mg Documented By: Admin: 05/11/22 05:29 Dose: 1 mg Documented By: Admin: 05/10/22 23:35 Dose: 1 mg Documented By: Admin: 05/10/22 20:34 Dose: 1 mg Documented By: Admin: 05/10/22 16:13 Dose: 1 mg Documented By: Admin: 05/10/22 12:25 Dose: 1 mg Documented By: Admin: 05/10/22 09:31 Dose: 1 mg Documented By: FATIMAH Sodium Chloride (Normal Saline 0.9%) 1,000 mls @ 80 mls/hr IV CONT [facility] Last Admin: 05/11/22 11:55 Dose: 80 mls/hr Documented By: Infusion: 05/11/22 11:01 Dose: 80 mls/hr Documented By: Admin: 05/10/22 22:31 Dose: 80 mls/hr Documented By: Lidocaine (Lidocaine Patch 1 Each Adh..Patch) 1 each TOP DAILY [facility] Last Admin: 05/11/22 09:00 Dose: Not Given Documented By: CONY Morphine Sulfate (Morphine 2 Mg/Ml Inj) 2 mg IV Q4HR PRN PRN Reason: Pain, Moderate (4-6) Last Admin: 05/09/22 20:23 Dose: 2 mg Documented By: Admin: 05/09/22 16:12 Dose: 2 mg Documented By: JONY Insulin Pump 0 each SUBCUT CONT [facility] Last Admin: 05/10/22 12:32 Dose: Not Given Documented By: FATIMAH Domperidone 10mg 3 each PO ACHS [facility] Last Admin: 05/11/22 16:09 Dose: 3 each Documented By: Admin: 05/11/22 11:56 Dose: 3 each Documented By: Admin: 05/11/22 08:07 Dose: 3 each Documented By: Admin: 05/10/22 20:34 Dose: 3 each Documented By: Admin: 05/10/22 17:10 Dose: 3 each Documented By: Admin: 05/10/22 13:31 Dose: 3 each Documented By: FATIMAH Olanzapine (Olanzapine Odt 10 Mg Tab) 10 mg PO DAILY [facility] Ondansetron HCl (Ondansetron 4 Mg/2 Ml Inj) 4 mg IV Q6HR [facility] Last Admin: 05/11/22 11:56 Dose: 4 mg Documented By: Admin: 05/11/22 05:27 Dose: 4 mg Documented By: Admin: 05/10/22 23:23 Dose: 4 mg Documented By: Admin: 05/10/22 17:05 Dose: 4 mg Documented By: Admin: 05/10/22 12:41 Dose: 4 mg Documented By: Admin: 05/10/22 06:03 Dose: 4 mg Documented By: Admin: 05/10/22 00:39 Dose: 4 mg Documented By: Admin: 05/09/22 18:00 Dose: 4 mg Documented By: JONY Pantoprazole Sodium (Pantoprazole 40 Mg Vial) 20 mg IV BID [facility] Last Admin: 05/11/22 08:14 Dose: 20 mg Documented By: Admin: 05/10/22 20:34 Dose: 20 mg Documented By: Polyethylene Glycol (Polyethylene Glycol 3350 17 Gm Powd.Pack) 17 gm PO DAILY PRN PRN Reason: Constipation Promethazine HCl (Promethazine 12.5 Mg Supp) 12.5 mg WV Q6HR PRN PRN Reason: Nausea And Vomiting Last Admin: 05/10/22 03:34 Dose: 12.5 mg Documented By: Admin: 05/09/22 20:23 Dose: 12.5 mg Documented By: ROHIT Sennosides (Sennosides 8.6 Mg Tablet) 8.6 mg PO BID PRN PRN Reason: Constipation Discontinued Medications Dexamethasone (Dexamethasone 4 Mg/Ml Vial) 4 mg IV NOW ONE Stop: 05/09/22 08:25 Last Admin: 05/09/22 09:21 Dose: 4 mg Documented By: CHEYENNE Dihydroergotamine Mesylate (Dihydroergotamine 1 Mg/Ml Ampul) 1 mg IV NOW ONE Stop: 05/09/22 08:25 Last Admin: 05/09/22 09:21 Dose: 1 mg Documented By: CHEYENNE Hydrocortisone (Hydrocortisone 100 Mg/2 Ml Vial) 50 mg IV NOW ONE Stop: 05/10/22 00:09 Last Admin: 05/10/22 00:39 Dose: 50 mg Documented By: ROHIT Hydrocortisone (Hydrocortisone 100 Mg/2 Ml Vial) 25 mg IV Q6HR [facility] Stop: 05/11/22 05:59 Last Admin: 05/10/22 06:02 Dose: 25 mg Documented By: ROHIT Hydrocortisone (Hydrocortisone 100 Mg/2 Ml Vial) 25 mg IV TID [facility] Stop: 05/12/22 08:59 Hydrocortisone (Hydrocortisone 100 Mg/2 Ml Vial) 25 mg IV Q12HR [facility] Stop: 05/13/22 11:59 Hydrocortisone (Hydrocortisone 10 Mg Tablet) 20 mg PO DAILY [facility] Hydromorphone HCl (Hydromorphone 1 Mg Inj) 1 mg IV NOW ONE Stop: 05/09/22 05:40 Last Admin: 05/09/22 05:57 Dose: 1 mg Documented By: LAURA Hydromorphone HCl (Hydromorphone 1 Mg Inj) 1 mg IV NOW ONE Stop: 05/09/22 10:51 Last Admin: 05/09/22 11:09 Dose: 1 mg Documented By: CHEYENNE Hydromorphone HCl (Hydromorphone 1 Mg Inj) 1 mg IV NOW ONE Stop: 05/09/22 10:53 Last Admin: 05/09/22 11:42 Dose: 1 mg Documented By: GUEVARA Hydromorphone HCl (Hydromorphone 0.5 Mg Inj) 0.25 mg IV Q6HR [facility] Stop: 05/11/22 05:59 Hydromorphone HCl (Hydromorphone 2 Mg Inj) 0.25 mg IV Q6H PRN PRN Reason: Pain, Severe (7-10) Hydromorphone HCl (Hydromorphone 0.5 Mg Inj) 0.25 mg IV Q6H PRN PRN Reason: Pain, Severe (7-10) Last Admin: 05/10/22 03:19 Dose: 0.25 mg Documented By: ROHIT Hydromorphone HCl (Hydromorphone 0.5 Mg Inj) 0.5 mg IV Q6H PRN PRN Reason: Pain, Severe (7-10) Last Admin: 05/10/22 07:07 Dose: 0.5 mg Documented By: ROHIT Hydroxyzine HCl (Hydroxyzine 50 Mg/Ml Inj) 50 mg IM NOW ONE Stop: 05/09/22 08:25 Last Admin: 05/09/22 09:21 Dose: 50 mg Documented By: CHEYENNE Sodium Chloride (Normal Saline 0.9%) 1,000 mls @ 1,000 mls/hr IV CONT ALEX Last Infusion: 05/09/22 07:13 Dose: 0 mls/hr Documented By: Admin: 05/09/22 05:57 Dose: 1,000 mls/hr Documented By: KMW Sodium Chloride (Normal Saline 0.9%) 1,000 mls @ 1,000 mls/hr IV BOLUS ONE Stop: 05/09/22 09:23 Last Infusion: 05/09/22 11:00 Dose: 0 mls/hr Documented By: Admin: 05/09/22 09:21 Dose: 1,000 mls/hr Documented By: CTS Sodium Chloride (Normal Saline 0.9%) 1,000 mls @ 150 mls/hr IV CONT ALEX Last Infusion: 05/10/22 06:23 Dose: 0 mls/hr Documented By: Infusion: 05/09/22 15:01 Dose: 150 mls/hr Documented By: Admin: 05/09/22 13:06 Dose: 150 mls/hr Documented By: AT Sodium Chloride (Normal Saline 0.9%) 1,000 mls @ 100 mls/hr IV CONT ALEX Stop: 05/10/22 03:29 Last Admin: 05/09/22 20:35 Dose: 100 mls/hr Documented By: Infusion: 05/09/22 20:35 Dose: 100 mls/hr Documented By: Admin: 05/09/22 16:11 Dose: 100 mls/hr Documented By: JONY Sodium Chloride (Normal Saline 0.9%) 500 mls @ 80 mls/hr IV CONT ALEX Last Infusion: 05/10/22 20:38 Dose: 0 mls/hr Documented By: Admin: 05/10/22 13:32 Dose: 80 mls/hr Documented By: Infusion: 05/10/22 12:39 Dose: 80 mls/hr Documented By: Admin: 05/10/22 06:24 Dose: 80 mls/hr Documented By: ROHIT Sodium Chloride (Normal Saline 0.9%) 1,000 mls @ 80 mls/hr IV CONT ALEX Insulin Glargine (Insulin Glargine 100 Unit/Ml 3ml Pen) 10 unit SUBCUT DAILY [facility] Last Admin: 05/10/22 09:43 Dose: 10 unit Documented By: FATIMAH Co-signed By: JASPER Insulin Human Regular (Insulin Regular 100 Unit/Ml 3 Ml Vial) 0 unit SUBCUT Q6H [facility]; Protocol Last Admin: 05/10/22 03:28 Dose: 1 unit Documented By: ROHIT Co-signed By: ANNA Admin: 05/09/22 22:18 Dose: 3 unit Documented By: ROHIT Co-signed By: TERRI Admin: 05/09/22 16:50 Dose: 1 unit Documented By: JONY Co-signed By: JOSE MANUEL Insulin Human Regular (Insulin Regular 100 Unit/Ml 3 Ml Vial) 0 unit SUBCUT Q6H [facility]; Protocol Last Admin: 05/10/22 09:39 Dose: 5 unit Documented By: FATIMAH Co-signed By: JASPER Lidocaine (Lidocaine Patch 1 Each Adh..Patch) 1 each TOP DAILY [facility] Last Admin: 05/11/22 08:13 Dose: 1 each Documented By: Admin: 05/10/22 17:46 Dose: 1 each Documented By: FATIMAH Lorazepam (Lorazepam 2 Mg/Ml Inj) 1 mg IV NOW ONE Stop: 05/09/22 05:40 Last Admin: 05/09/22 05:57 Dose: 1 mg Documented By: LAURA Lorazepam (Lorazepam 2 Mg/Ml Inj) 1 mg IV NOW ONE Stop: 05/09/22 05:54 Last Admin: 05/09/22 05:58 Dose: 1 mg Documented By: LAURA Olanzapine (Olanzapine 10 Mg Vial) 5 mg IM NOW ONE Stop: 05/09/22 15:20 Last Admin: 05/09/22 16:50 Dose: 5 mg Documented By: JONY Olanzapine (Olanzapine 10 Mg Vial) 5 mg IM TID PRN PRN Reason: Nausea And Vomiting Olanzapine (Olanzapine Odt 10 Mg Tab) 5 mg PO NOW ONE Stop: 05/10/22 03:32 Last Admin: 05/10/22 03:44 Dose: 5 mg Documented By: ROHIT Olanzapine (Olanzapine Odt 10 Mg Tab) 10 mg PO NOW ONE Stop: 05/11/22 09:05 Last Admin: 05/11/22 10:51 Dose: 10 mg Documented By: CONY Ondansetron HCl (Ondansetron 4 Mg/2 Ml Inj) 4 mg IV NOW ONE Stop: 05/09/22 08:26 Last Admin: 05/09/22 09:21 Dose: 4 mg Documented By: CHEYENNE Pantoprazole Sodium (Pantoprazole 40 Mg Vial) 40 mg IV NOW ONE Stop: 05/09/22 05:54 Last Admin: 05/09/22 06:04 Dose: 40 mg Documented By: LAURA Pantoprazole Sodium (Pantoprazole 40 Mg Vial) 20 mg IV NOW ONE Stop: 05/10/22 16:47 Last Admin: 05/10/22 17:05 Dose: 20 mg Documented By: FATIMAH Vital Signs Vital signs: Vital Signs - 8 hr 05/09/22 11:08 05/09/22 11:09 05/09/22 11:09 Pulse Rate 60 62 Blood Pressure 181/75 H 181/75 H Pulse Oximetry 98 98 Oxygen Delivery Method 05/09/22 11:30 05/09/22 12:00 05/09/22 12:30 Pulse Rate 57 L 54 L 54 L Blood Pressure Pulse Oximetry 93 92 92 Oxygen Delivery Method Room Air Room Air 05/09/22 13:00 Pulse Rate 58 L Blood Pressure Pulse Oximetry 95 Oxygen Delivery Method Room Air MDM - Nausea/Vomiting/Diarrhea <Yoanna Watt, - Last Filed: 05/11/22 16:45> Lab Data Result diagrams: 05/11/22 07:22 05/11/22 07:22 Labs: Lab Results 05/09/22 05/09/22 05/09/22 Range/Units 05:35 05:35 05:35 WBC 5.6 (4.5-11.0) X10^3/uL RBC 4.62 (4.0-5.2) X10^6/uL Hgb 13.9 (12.0-16.0) g/dL Hct 41.7 (36-46) % MCV 90.2 (80-100) fL MCH 30.0 (26-34) PG MCHC 33.3 (30-36) % RDW 12.9 (11.6-14.8) % Plt Count 216 (150-400) X10^3/uL Neut % (Auto) 76.8 H (50-75) % Lymph % (Auto) 14.5 L (25-40) % [place] % (Auto) 6.6 (3-14) % Eos % (Auto) 1.6 L (2-4) % Baso % (Auto) 0.5 (0-2) % Neut # (Auto) 4300 (2437-3306) /uL Lymph # (Auto) 800 L (6008-8387) /uL [place] # (Auto) 400 (0-900) /uL Eos # (Auto) 100 (0-450) /uL Baso # (Auto) 0 (0-100) /uL Sodium 140 (137-145) mmol/L Potassium 4.0 (3.4-5.1) mmol/L Chloride 102 (98-107) mmol/L Carbon Dioxide 25 (22-32) mmol/L BUN 11 (7-17) mg/dL Creatinine 0.85 (0.52-1.04) mg/dL Estimated GFR > 60 (>60) mL/min BUN/Creatinine Ratio 12.9 (6-22) Glucose 202 H (80-110) mg/dL Hemoglobin A1c (4.0-6.0) % Lactate 1.1 (0.7-2.1) mmol/L Calcium 9.0 (8.4-10.2) mg/dL Magnesium (1.6-2.3) mg/dL Total Bilirubin 0.7 (0.2-1.3) mg/dL AST 44 H (14-36) IU/L ALT 39 H (<35) IU/L Alkaline Phosphatase 98 (38-126) U/L Total Creatine Kinase 106 (30-135) U/L CK-MB (CK-2) 1.78 (<2.37) ng/mL CK-MB (CK-2) Rel Index 1.7 (1.5-5.0) % Troponin I < 0.012 (0.01-0.034) ng/mL Total Protein 8.0 (6.3-8.2) g/dL Albumin 4.5 (3.5-5.0) g/dL Globulin 3.5 (1.7-4.1) g/dL Albumin/Globulin Ratio 1.3 (1.0-2.8) Lipase 16 L (23-300) U/L TSH (0.47-4.68) uIU/mL Ketones (<0.27) mmol/L SARS-CoV-2 (PCR) (Negative) 05/09/22 05/09/22 05/09/22 Range/Units 05:35 05:35 05:35 WBC (4.5-11.0) X10^3/uL RBC (4.0-5.2) X10^6/uL Hgb (12.0-16.0) g/dL Hct (36-46) % MCV (80-100) fL MCH (26-34) PG MCHC (30-36) % RDW (11.6-14.8) % Plt Count (150-400) X10^3/uL Neut % (Auto) (50-75) % Lymph % (Auto) (25-40) % [place] % (Auto) (3-14) % Eos % (Auto) (2-4) % Baso % (Auto) (0-2) % Neut # (Auto) (3816-6861) /uL Lymph # (Auto) (8800-1360) /uL [place] # (Auto) (0-900) /uL Eos # (Auto) (0-450) /uL Baso # (Auto) (0-100) /uL Sodium (137-145) mmol/L Potassium (3.4-5.1) mmol/L Chloride (98-107) mmol/L Carbon Dioxide (22-32) mmol/L BUN (7-17) mg/dL Creatinine (0.52-1.04) mg/dL Estimated GFR (>60) mL/min BUN/Creatinine Ratio (6-22) Glucose (80-110) mg/dL Hemoglobin A1c 7.2 H (4.0-6.0) % Lactate (0.7-2.1) mmol/L Calcium (8.4-10.2) mg/dL Magnesium 2.3 (1.6-2.3) mg/dL Total Bilirubin (0.2-1.3) mg/dL AST (14-36) IU/L ALT (<35) IU/L Alkaline Phosphatase (38-126) U/L Total Creatine Kinase (30-135) U/L CK-MB (CK-2) (<2.37) ng/mL CK-MB (CK-2) Rel Index (1.5-5.0) % Troponin I (0.01-0.034) ng/mL Total Protein (6.3-8.2) g/dL Albumin (3.5-5.0) g/dL Globulin (1.7-4.1) g/dL Albumin/Globulin Ratio (1.0-2.8) Lipase (23-300) U/L TSH (0.47-4.68) uIU/mL Ketones 1.12 H (<0.27) mmol/L SARS-CoV-2 (PCR) (Negative) 05/09/22 05/09/22 Range/Units 05:35 12:52 WBC (4.5-11.0) X10^3/uL RBC (4.0-5.2) X10^6/uL Hgb (12.0-16.0) g/dL Hct (36-46) % MCV (80-100) fL MCH (26-34) PG MCHC (30-36) % RDW (11.6-14.8) % Plt Count (150-400) X10^3/uL Neut % (Auto) (50-75) % Lymph % (Auto) (25-40) % [place] % (Auto) (3-14) % Eos % (Auto) (2-4) % Baso % (Auto) (0-2) % Neut # (Auto) (7558-9376) /uL Lymph # (Auto) (4126-1594) /uL [place] # (Auto) (0-900) /uL Eos # (Auto) (0-450) /uL Baso # (Auto) (0-100) /uL Sodium (137-145) mmol/L Potassium (3.4-5.1) mmol/L Chloride (98-107) mmol/L Carbon Dioxide (22-32) mmol/L BUN (7-17) mg/dL Creatinine (0.52-1.04) mg/dL Estimated GFR (>60) mL/min BUN/Creatinine Ratio (6-22) Glucose (80-110) mg/dL Hemoglobin A1c (4.0-6.0) % Lactate (0.7-2.1) mmol/L Calcium (8.4-10.2) mg/dL Magnesium (1.6-2.3) mg/dL Total Bilirubin (0.2-1.3) mg/dL AST (14-36) IU/L ALT (<35) IU/L Alkaline Phosphatase (38-126) U/L Total Creatine Kinase (30-135) U/L CK-MB (CK-2) (<2.37) ng/mL CK-MB (CK-2) Rel Index (1.5-5.0) % Troponin I (0.01-0.034) ng/mL Total Protein (6.3-8.2) g/dL Albumin (3.5-5.0) g/dL Globulin (1.7-4.1) g/dL Albumin/Globulin Ratio (1.0-2.8) Lipase (23-300) U/L TSH 1.13 (0.47-4.68) uIU/mL Ketones (<0.27) mmol/L SARS-CoV-2 (PCR) Positive H (Negative) Point of Care Testing Glucose POC 148 <Renee Gagnon MD - Last Filed: 05/09/22 13:41> Lab Data Labs: Lab Results 05/09/22 05/09/22 05/09/22 Range/Units 05:35 05:35 05:35 WBC 5.6 (4.5-11.0) X10^3/uL RBC 4.62 (4.0-5.2) X10^6/uL Hgb 13.9 (12.0-16.0) g/dL Hct 41.7 (36-46) % MCV 90.2 (80-100) fL MCH 30.0 (26-34) PG MCHC 33.3 (30-36) % RDW 12.9 (11.6-14.8) % Plt Count 216 (150-400) X10^3/uL Neut % (Auto) 76.8 H (50-75) % Lymph % (Auto) 14.5 L (25-40) % [place] % (Auto) 6.6 (3-14) % Eos % (Auto) 1.6 L (2-4) % Baso % (Auto) 0.5 (0-2) % Neut # (Auto) 4300 (5964-9737) /uL Lymph # (Auto) 800 L (7778-9168) /uL [place] # (Auto) 400 (0-900) /uL Eos # (Auto) 100 (0-450) /uL Baso # (Auto) 0 (0-100) /uL Sodium 140 (137-145) mmol/L Potassium 4.0 (3.4-5.1) mmol/L Chloride 102 (98-107) mmol/L Carbon Dioxide 25 (22-32) mmol/L BUN 11 (7-17) mg/dL Creatinine 0.85 (0.52-1.04) mg/dL Estimated GFR > 60 (>60) mL/min BUN/Creatinine Ratio 12.9 (6-22) Glucose 202 H (80-110) mg/dL Hemoglobin A1c (4.0-6.0) % Lactate 1.1 (0.7-2.1) mmol/L Calcium 9.0 (8.4-10.2) mg/dL Magnesium (1.6-2.3) mg/dL Total Bilirubin 0.7 (0.2-1.3) mg/dL AST 44 H (14-36) IU/L ALT 39 H (<35) IU/L Alkaline Phosphatase 98 (38-126) U/L Total Creatine Kinase 106 (30-135) U/L CK-MB (CK-2) 1.78 (<2.37) ng/mL CK-MB (CK-2) Rel Index 1.7 (1.5-5.0) % Troponin I < 0.012 (0.01-0.034) ng/mL Total Protein 8.0 (6.3-8.2) g/dL Albumin 4.5 (3.5-5.0) g/dL Globulin 3.5 (1.7-4.1) g/dL Albumin/Globulin Ratio 1.3 (1.0-2.8) Lipase 16 L (23-300) U/L TSH (0.47-4.68) uIU/mL Ketones (<0.27) mmol/L SARS-CoV-2 (PCR) (Negative) 05/09/22 05/09/22 05/09/22 Range/Units 05:35 05:35 05:35 WBC (4.5-11.0) X10^3/uL RBC (4.0-5.2) X10^6/uL Hgb (12.0-16.0) g/dL Hct (36-46) % MCV (80-100) fL MCH (26-34) PG MCHC (30-36) % RDW (11.6-14.8) % Plt Count (150-400) X10^3/uL Neut % (Auto) (50-75) % Lymph % (Auto) (25-40) % [place] % (Auto) (3-14) % Eos % (Auto) (2-4) % Baso % (Auto) (0-2) % Neut # (Auto) (7058-2739) /uL Lymph # (Auto) (9846-1688) /uL [place] # (Auto) (0-900) /uL Eos # (Auto) (0-450) /uL Baso # (Auto) (0-100) /uL Sodium (137-145) mmol/L Potassium (3.4-5.1) mmol/L Chloride (98-107) mmol/L Carbon Dioxide (22-32) mmol/L BUN (7-17) mg/dL Creatinine (0.52-1.04) mg/dL Estimated GFR (>60) mL/min BUN/Creatinine Ratio (6-22) Glucose (80-110) mg/dL Hemoglobin A1c 7.2 H (4.0-6.0) % Lactate (0.7-2.1) mmol/L Calcium (8.4-10.2) mg/dL Magnesium 2.3 (1.6-2.3) mg/dL Total Bilirubin (0.2-1.3) mg/dL AST (14-36) IU/L ALT (<35) IU/L Alkaline Phosphatase (38-126) U/L Total Creatine Kinase (30-135) U/L CK-MB (CK-2) (<2.37) ng/mL CK-MB (CK-2) Rel Index (1.5-5.0) % Troponin I (0.01-0.034) ng/mL Total Protein (6.3-8.2) g/dL Albumin (3.5-5.0) g/dL Globulin (1.7-4.1) g/dL Albumin/Globulin Ratio (1.0-2.8) Lipase (23-300) U/L TSH (0.47-4.68) uIU/mL Ketones 1.12 H (<0.27) mmol/L SARS-CoV-2 (PCR) (Negative) 05/09/22 05/09/22 Range/Units 05:35 12:52 WBC (4.5-11.0) X10^3/uL RBC (4.0-5.2) X10^6/uL Hgb (12.0-16.0) g/dL Hct (36-46) % MCV (80-100) fL MCH (26-34) PG MCHC (30-36) % RDW (11.6-14.8) % Plt Count (150-400) X10^3/uL Neut % (Auto) (50-75) % Lymph % (Auto) (25-40) % [place] % (Auto) (3-14) % Eos % (Auto) (2-4) % Baso % (Auto) (0-2) % Neut # (Auto) (7739-1628) /uL Lymph # (Auto) (8279-1546) /uL [place] # (Auto) (0-900) /uL Eos # (Auto) (0-450) /uL Baso # (Auto) (0-100) /uL Sodium (137-145) mmol/L Potassium (3.4-5.1) mmol/L Chloride (98-107) mmol/L Carbon Dioxide (22-32) mmol/L BUN (7-17) mg/dL Creatinine (0.52-1.04) mg/dL Estimated GFR (>60) mL/min BUN/Creatinine Ratio (6-22) Glucose (80-110) mg/dL Hemoglobin A1c (4.0-6.0) % Lactate (0.7-2.1) mmol/L Calcium (8.4-10.2) mg/dL Magnesium (1.6-2.3) mg/dL Total Bilirubin (0.2-1.3) mg/dL AST (14-36) IU/L ALT (<35) IU/L Alkaline Phosphatase (38-126) U/L Total Creatine Kinase (30-135) U/L CK-MB (CK-2) (<2.37) ng/mL CK-MB (CK-2) Rel Index (1.5-5.0) % Troponin I (0.01-0.034) ng/mL Total Protein (6.3-8.2) g/dL Albumin (3.5-5.0) g/dL Globulin (1.7-4.1) g/dL Albumin/Globulin Ratio (1.0-2.8) Lipase (23-300) U/L TSH 1.13 (0.47-4.68) uIU/mL Ketones (<0.27) mmol/L SARS-CoV-2 (PCR) Positive H (Negative) Point of Care Testing Glucose POC 148 ECG Data Interpretation: Sinus rhythm at a rate of [address] T wave changes No acute ischemic changes MDM Narrative Medical decision making narrative: 61-year-old woman with a history of diabetic gastroparesis, chronic back pain and recurrent migraines currently has multiple medications at home to help with both of these none of which have been effective with her migraine that started at 11:00 p.m. last night. So far she has gotten a L of fluid, 2 mg of Ativan, 1 mg of Dilaudid and 40 mg of IV pantoprazole. She feels that her symptoms are somewhat improved however continues to have significant headache, photophobia, abdominal and back pain that she typically experiences with her gastroparesis. She has used all of her medications at home and has not found them affective at this time. In the past she has found IM Vistaril, Zofran occasionally, DHEA have all been helpful in controlling headaches. 1050 patient states she does not actually feel any better. She is still nauseated still complaining of head pain. She does need to avoid. Will go ahead and give her another dose of Dilaudid, at this point I do not have many other options to help with either the abdominal pain or the headache. She is dehydrated but there is no evidence of DKA. 1240 re-evaluated. She states that the headache is somewhat improved, the nausea continues to be so significant that she is concerned that more than a single ice chips will cause her to vomit. Her chronic back and shoulder pain is slightly improved. We talked about options at this point, given the persistent nausea secondary to her diabetic gastroparesis and allergies to many of the anti emetics she is unable to eat and given the fact that she is a type 1 diabetic her risk for going into DKA goes up significantly. In the past she has required hospitalization when her constellation of symptoms are all this severe. Will talk to the hospitalist service to discuss observation admission for continued IV hydration until nausea has improved as well as assistance with pain control for her migraine and chronic back issues. She is having continued passive suicidal ideation due to the severity of her suffering with her chronic diseases. She does not have an active plan. Care is reviewed with the hospitalist who agrees to hospital admission. Screening COVID test actually comes back positive. This may well explain the severity of her headache as well as the nausea that is not well controlled. She is not symptomatic in terms of respiratory standpoint and observation is even more appropriate at this time. Discharge Plan Departure Patient Disposition: Admitted as Observation Clinical Impression: Migraine, Diabetic gastroparesis, COVID Chronic back pain Qualifiers: Back pain location: low back pain Back pain laterality: bilateral Sciatica presence: without sciatica Qualified Code(s): M54.50 - Low back pain, unspecified Admit Date/Time: 05/09/22 13:40 Admit Provider: Hector Guadarrama
[2022-05-09] MEDS: LORazepam 2 MG/ML INJ 1 MG IV ×2 (05:57→05:58)
[2022-05-09] MEDS: SODIUM CHLORIDE 0.9% 1,000 ML 1000 ML IV ×2 (05:57→09:21)
[2022-05-09] MEDS: HYDROMORPHONE 1 MG INJ IV ×3 (05:57→11:42)
[2022-05-09 06:00] LABS: Lactate (Lactic Acid) 1.1 mmol/L (0.7-2.1)
[2022-05-09 06:01] LABS: Alanine Aminotransferase 39 IU/L (<35); Albumin 4.5 g/dL (3.5-5.0); Albumin Globulin Ratio 1.3 (1.0-2.8); Alkaline Phosphatase 98 U/L (38-126); Aspartate Aminotransferase 44 IU/L (14-36); BUN Creatinine Ratio 12.9 (6-22); Bilirubin Total 0.7 mg/dL (0.2-1.3); Blood Urea Nitrogen 11 mg/dL (7-17); Carbon Dioxide 25 mmol/L (22-32); Chloride 102 mmol/L (98-107); Creatine Kinase 106 U/L (30-135); Estimated Glomerular Filt Rate > 60 mL/min (>60); Globulin 3.5 g/dL (1.7-4.1); Glucose 202 mg/dL (80-110); HEMOLYSIS 17 (0-50); Lipase 16 U/L (23-300); Sodium 140 mmol/L (137-145)
[2022-05-09] MEDS: PANTOPRAZOLE 40 MG VIAL IV (06:04)
[2022-05-09 06:13] LABS: Troponin I < 0.012 ng/mL (0.01-0.034)
[2022-05-09 06:16] LABS: CKMB % Relative Index 1.7 % (1.5-5.0); Creatine Kinase MB 1.78 ng/mL (<2.37)
[2022-05-09 06:27] LABS: Ketones (Beta-Hydroxybutyrate) 1.12 mmol/L (<0.27)
[2022-05-09 06:38] LABS: Add Manual Diff / Slide Review NO; Basophils Absolute Auto 0 /uL (0-100); Basophils Percent Auto 0.5 % (0-2); Eosinophils Absolute Auto 100 /uL (0-450); Eosinophils Percent Auto 1.6 % (2-4); Hematocrit 41.7 % (36-46); Hemoglobin 13.9 g/dL (12.0-16.0); Lymphocytes Absolute Auto 800 /uL (1100-4500); Lymphocytes Percent Auto 14.5 % (25-40); Mean Corpuscular HGB Conc 33.3 % (30-36); Mean Corpuscular Volume 90.2 fL (80-100); Monocytes Absolute Auto 400 /uL (0-900); Monocytes Percent Auto 6.6 % (3-14); Neutrophils Absolute Auto 4300 /uL (1500-7000); Neutrophils Percent Auto 76.8 % (50-75); Platelet Count 216 X10^3/uL (150-400); Red Blood Cell Count 4.62 X10^6/uL (4.0-5.2); Red Cell Distribution Width 12.9 % (11.6-14.8); White Blood Cell Count 5.6 X10^3/uL (4.5-11.0)
--- NOTE | 2022-05-09 08:28 | PC.NURSE ---
pt states she started having increased back pain (she has had surgery in the area) which has increased her nausea. pt has chronic back and abd pain that she takes dilaudid at home for.
[2022-05-09] MEDS: hydrOXYzine 50 MG/ML INJ IM (09:21)
[2022-05-09] MEDS: ONDANSETRON 4 MG/2 ML INJ IV ×2 (09:21→18:00)
[2022-05-09] MEDS: DIHYDROERGOTAMINE 1 MG/ML AMPUL IV (09:21)
[2022-05-09] MEDS: DEXAMETHASONE 4 MG/ML VIAL IV (09:21)
--- NOTE | 2022-05-09 12:17 | PC.NURSE ---
Pt reports nausea, Dr. Gagnon notified, pt offered fluid and ice chips for fluid challenge, pt states she tolerated a single ice chip and not up to attempt more.
[2022-05-09] MEDS: SODIUM CHLORIDE 0.9% 1,000 ML 150 ML IV (13:06)
[2022-05-09 14:59] LABS: COVID19 -Nasal RAPID POSITIVE (Negative)
[2022-05-09] MEDS: SODIUM CHLORIDE 0.9% 1,000 ML 100 ML IV ×2 (16:11→20:35)
[2022-05-09] MEDS: MORPHINE 2 MG/ML INJ IV ×2 (16:12→20:23)
[2022-05-09] MEDS: ENOXAPARIN 40 MG/0.4 ML SYRINGE SUBCUT (16:12)
[2022-05-09 16:15] LABS: Magnesium 2.3 mg/dL (1.6-2.3)
[2022-05-09 16:16] LABS: Hemoglobin A1C% w Est Avg Glu 7.2 % (4.0-6.0)
[2022-05-09 16:47] LABS: TSH w/ Reflex to FT4 1.13 uIU/mL (0.47-4.68)
[2022-05-09] MEDS: OLANZapine 10 MG VIAL 5 MG IM (16:50)
[2022-05-09] MEDS: INSULIN REGULAR 100 UNIT/ML 3 ML VIAL SUBCUT ×2 (16:50→22:18)
--- NOTE | 2022-05-09 17:49 | PC.NURSE ---
Pt is AxOx4, needs STA and cooperative. VSS, pt c/o pain and recieved PRN IV Morphine with somewhat effective. Pt c/o feeling nauseas so pt recieved her scheduled IM Zyprexia for that. Pt has poor appetitie and just eating ice chips one at a time. Otherwise, no problem. Pt is now Covid positive and started droplet precaution.
[2022-05-09] MEDS: PROMETHAZINE 12.5 MG SUPP PR (20:23)
--- NOTE | 2022-05-10 00:01 | P.HP_ITS ---
History of Present Illness History of Present Illness Date Patient Seen: 05/09/22 Time Patient Seen: 15:25 Chief complaint: throwing up, migraine, back pain Narrative: Ms. Evans is a 61W with PMH Type 1 DM with retinopathy and gastroparesis, Characot foot, history of venous thrombosis following PICC line placement, osteomyelitis T12/L1 following spinal fusion, Jefferson's thyroiditis, hypothyroid, left shoulder septic arthritis, chronic opiate dependence, m igraines, and adrenal insufficiency who presenting today with migraine headache, nausea, and vomiting ongoing for last 18 hours.? In ED she complained of intractable nausea, vomiting and back pain, and verbalized that she wanted to because the pain was so bad and crawled on the floor in the triage room, very tearful sensitive to light, but moving all extremities. Patient currently has multiple medications at home to tx her migraines nausea & vomting, none of which have been effective with her migraine that started at 11:00 p.m. last night.? In ED she received a L of fluid, multiple doses of ativan & Dilaudid and 40 mg of IV pantoprazole.? She felt that her symptoms are somewhat improved however continued to have significant headache, photophobia, abdominal and back pain that she typically experiences with her gastroparesis.? She has used all of her medications at home and has not found them affective at this time.? In the past she has found IM Vistaril, Zofran occasionally, DHEA have all been helpful in controlling headaches.Patient takes 4 mg oral Dilaudid TID at home for migra brisa. Patient initially presented to the ED with hypertensive urgency 181/75, 151/114, and was slightly tachypneic with a respiratory rate of 22. Upon admit patient is sleeping initially, in no distress or discomfort. Upon waking patient denies chest pain, shortness of breath, TOUSSAINT, photophobia, abdominal pain, back pain,no vomiting since admit, fever, body aches, chills, diarrhea, constipation, blood in stool or urine, urinary symptoms, cough or upper respiratory symptoms, denies any recent illness injury or trauma. It should be noted that patient has a history of adrenal insufficiency and continues to take opiates but is not on steroid management. Patient does state that nausea persists though she quickly falls back to sleep following exam. Patient's vitals are stable upon admit, though after reviewing previous admission in November of 2021 patient appears mildly hypotensive: Temp 96.6?, BP 97/42, HR 52, RR 17, 97% on room air. Patient was positive for COVID but is asymptomatic and requires no oxygenation. Patient's CBC and CMP are within normal limits, diabetes well controlled with an A1c 7.2, not in DKA, lactate, troponin, lipase, and TSH are all normal. elevated ketones 1.12, patient's chest x-ray was negative for any acute cardiopulmonary processes but a noted change from previous chest x-ray: mildly displaced right introlateral rib fracture. Patient admitted for intractable nausea vomiting, migraine, and COVID. Patient History Medical History (Updated 05/10/22 @ 00:54 by MARLEEN Ramires) Adrenal insufficiency Charcot foot due to diabetes mellitus Chronic cholecystitis Chronic, continuous use of opioids Diabetes Diabetic retinopathy History of Jefferson thyroiditis History of kidney stones History of osteomyelitis History of septic arthritis History of venous thrombosis Hyperlipidemia Hypothyroid Osteomyelitis Surgical History (Updated 05/10/22 @ 00:54 by OSKAR Ramires-KATERINE) History of cholecystectomy History of left hip replacement History of spinal fusion Comment: None reported Family & Social History Family History Mother Non Hodgkin's lymphoma Social History: household members spouse Safety & Behavioral: Feels Safe in Current Yes Environment Tobacco & Substance use: Smoking Status Former smoker alcohol intake frequency holiday/special occasion Substance Use Type does not use Meds Home Medications and Allergies Home Medications Medication Instructions Recorded Confirmed Type insulin lispro 100 unit/mL 0 unit continuous IV infusion 07/29/12 05/09/22 History subcutaneous solution (Humalog DAILY ##0 U-100 Insulin) alendronate 70 mg tablet 70 mg PO QWEEK 02/03/19 05/09/22 History diazepam 5 mg tablet 5 mg PO TIDP PRN Anxiety 02/03/19 05/09/22 History hydromorphone 4 mg tablet 4 mg PO TID PRN PAIN 02/03/19 05/09/22 History promethazine 25 mg rectal 25 mg OK Q6H PRN nausea and 02/03/19 05/09/22 Rx suppository vomiting #12 ea Allergies Allergy/AdvReac Type Severity Reaction Status Date / Time amitriptyline Allergy Intermediate SEIZURES Verified 05/09/22 04:57 droperidol Allergy Intermediate CLONIC Verified 05/09/22 04:57 REACTION metoclopramide Allergy Intermediate CLONIC Verified 05/09/22 04:57 REACTION prochlorperazine Allergy Intermediate CLONIC Verified 05/09/22 04:57 REACTION azithromycin AdvReac Mild N/V Verified 05/09/22 04:57 ciprofloxacin AdvReac Mild N/V Verified 05/09/22 04:57 hydrocodone AdvReac Mild N/V Verified 05/09/22 04:57 ketorolac AdvReac Mild N/V Verified 05/09/22 04:57 Review of Systems Review of Systems Narrative: All 12 point systems reviewed with the patient and are negative except otherwise documented. Exam Vital Signs (past 8 hours): - 05/09/22 17:50 Temperature 96.6 F L Pulse Rate 52 L Respiratory Rate 17 Blood Pressure 97/42 L Pulse Oximetry 97 Oxygen Flow Rate 0 Oxygen Delivery Method Room Air Oxygen Flow Rate 0 Narrative Exam Narrative: General: Patient is a well-developed, well-nourished, pale, appears dehydrated, heavily medicated, in no distress at this time. HEENT: Normocephalic, atraumatic, mucous membranes are dry. Neck is supple and symmetric, trachea is midline, no adenopathy, no thyroid enlargement, nontender, no masses palpated. Negative for JVD Chest: Normal AP diameter and contour without kyphoscoliosis, no nasal flaring, retractions, or tachypneic labored breathing. Lungs: Auscultation of all lung clements are clear without adventitious sounds, wheezes, rhonchi, or rales. Cardio: regular rate and rhythm without murmur, rubs, or gallops, no carotid bruit, no cardiac pulsations present. Abdomen: Soft, mild tenderness with palpation, negative for organomegaly, or masses. Bowel sounds are hypoactive present in all 4 quadrants without guarding or rebound, no CVA tenderness. Musculoskeletal: Muscle strength and tone appear within normal limits, no deformity, crepitus, effusions, cyanosis, clubbing or edema present. Full range of motion, intact radial and pedal pulses are normal. Skin: Cold to touch, dry and intact without rashes, ulcerations or petechiae. Neuro: Alert and orientated x3, extremely sleepy from ED medications, moves all extremities, sensation to touch intact, no gross deficits noted of cranial nerves. Psych: Patient is groggy from being heavily medicated, answers questions appropriately, mental status attitude thought context and judgment appear appropriate for age. Objective Labs Result Diagrams: 05/09/22 05:35 05/09/22 05:35 Labs: Laboratory Results - last 24 hr 05/09/22 05/09/22 05/09/22 05:35 05:35 05:35 WBC 5.6 RBC 4.62 Hgb 13.9 Hct 41.7 MCV 90.2 MCH 30.0 MCHC 33.3 RDW 12.9 Plt Count 216 Neut % (Auto) 76.8 H Lymph % (Auto) 14.5 L [place] % (Auto) 6.6 Eos % (Auto) 1.6 L Baso % (Auto) 0.5 Neut # (Auto) 4300 Lymph # (Auto) 800 L [place] # (Auto) 400 Eos # (Auto) 100 Baso # (Auto) 0 Sodium 140 Potassium 4.0 Chloride 102 Carbon Dioxide 25 BUN 11 Creatinine 0.85 Estimated GFR > 60 BUN/Creatinine Ratio 12.9 Glucose 202 H Hemoglobin A1c Lactate 1.1 Calcium 9.0 Magnesium Total Bilirubin 0.7 AST 44 H ALT 39 H Alkaline Phosphatase 98 Total Creatine Kinase 106 CK-MB (CK-2) 1.78 CK-MB (CK-2) Rel Index 1.7 Troponin I < 0.012 Total Protein 8.0 Albumin 4.5 Globulin 3.5 Albumin/Globulin Ratio 1.3 Lipase 16 L TSH Ketones SARS-CoV-2 (PCR) 05/09/22 05/09/22 05/09/22 05:35 05:35 05:35 WBC RBC Hgb Hct MCV MCH MCHC RDW Plt Count Neut % (Auto) Lymph % (Auto) [place] % (Auto) Eos % (Auto) Baso % (Auto) Neut # (Auto) Lymph # (Auto) [place] # (Auto) Eos # (Auto) Baso # (Auto) Sodium Potassium Chloride Carbon Dioxide BUN Creatinine Estimated GFR BUN/Creatinine Ratio Glucose Hemoglobin A1c 7.2 H Lactate Calcium Magnesium 2.3 Total Bilirubin AST ALT Alkaline Phosphatase Total Creatine Kinase CK-MB (CK-2) CK-MB (CK-2) Rel Index Troponin I Total Protein Albumin Globulin Albumin/Globulin Ratio Lipase TSH Ketones 1.12 H SARS-CoV-2 (PCR) 05/09/22 05/09/22 05:35 12:52 WBC RBC Hgb Hct MCV MCH MCHC RDW Plt Count Neut % (Auto) Lymph % (Auto) [place] % (Auto) Eos % (Auto) Baso % (Auto) Neut # (Auto) Lymph # (Auto) [place] # (Auto) Eos # (Auto) Baso # (Auto) Sodium Potassium Chloride Carbon Dioxide BUN Creatinine Estimated GFR BUN/Creatinine Ratio Glucose Hemoglobin A1c Lactate Calcium Magnesium Total Bilirubin AST ALT Alkaline Phosphatase Total Creatine Kinase CK-MB (CK-2) CK-MB (CK-2) Rel Index Troponin I Total Protein Albumin Globulin Albumin/Globulin Ratio Lipase TSH 1.13 Ketones SARS-CoV-2 (PCR) Positive H Assessment & Plan Assessment & Plan narrative: Ms. Evans is a 61W with PMH Type 1 DM with retinopathy and gastroparesis, Characot foot, history of venous thrombosis following PICC line placement, osteomyelitis T12/L1 following spinal fusion, Jefferson's thyroiditis, hypothy roid, left shoulder septic arthritis, chronic opiate dependence, migraines, and adrenal insufficiency who presenting today with migraine headache, abd pain, nausea, and vomiting ongoing for the last 18 hours, that due to her complex medical history and risk of serious complications, morbidity, mortality has been admitted for observation. Patient frequently fails outpatient management has had 5 emergency room visits in 2021 and 1 admission in November of 2021 for intractable nausea and vomiting. Patient has long-time type 1 diabetes with significant complications, putting her at very high risk of DKA, sepsis , or septic shock, complicated by a positive COVID PCR. Patient also has a history of adrenal insufficiency which is likely secondary to chronic opiate use. Though she is not on any steroid management. Her chronic hospitalizations due to intractable nausea vomiting and abdominal pain coupled with her presentation of hypotension patient is likely suffering from a combination of both diabetic gastroparesis and untreated adrenal insufficiency at risk of a adrenal crisis. 1. Intractable Nausea, vomiting, Abd Pain, acute on chronic, secondary to diabetic gastroparesis, untreated adrenal insufficiency, acute on chronic, present on admission -NPO Advance diet as tolerated begin with clear liquids. -given pain and long opiate use will continue dilaudid for now: IV Dilaudid 0.025 q.6 as needed =4mg PO (approximately) to change to p.o. Home Dose (Dilaudid 4 mg p.o. t.i.d.) as soon as patient can tolerate. -patient has an intolerance or has failed multiple other antiemetics: a trial of Zyprexa was initiated 5 mg which seemed to relieve patient's symptoms will continue IV 5 mg Zyprexa t.i.d.PRN until patient can tolerate p.o., this is off-label use of Zyprexa for nausea vomiting gastroparesis symptomatic treatment. As -given similarity to previous symptoms do not think abdominal imaging is indicated, but low threshold to further evaluate -Patient needs PCP re-evaluation of medications and management- will need outpatient close follow up, recommend tappering off opiates-as this is likely the cause of adrenal insufficiency, of which she needs to treat. -hydrocortisone daily maintenance dose: 12-25mg daily split in 1-3 daily doses : Stress Doses 2-4 times daily dose. Patient education/Handouts on adrenal insufficiency beyond the basics/sick day management. -will need to keep glucose well controlled, eat small meals, avoid etoh -suspect patient is suffering from untreated adrenal insufficiency: Will initiate hydrocortisone 50 mg IV now then Day 1: 25 mg IV Q6HR, Day 2: 25mgIV t.i.d., Day 3: 25 mg IV b.i.d., Day 4: 20 PO QD I am providing initially IV due to the intractable nausea and vomiting, and gastroparesis will likely inhibit proper absorption of oral hydrocortisone. Because the patient is hemodynamically stable at this time, will initiate stress dosing which is 3-4 times a normal maintenance dose of hydrocortisone. Will jean up if needed. If she responds well will jean her down over 4 days to a maintenance dose of 20 mg. - Patient does need to follow-up with an rock contractor regarding continued management of her adrenal insufficiency, as her gastroparesis will impede absorption of oral hydrocortisone, and as long as she continues on her opiates. -low suspicion for ICH given no head injury, or s/s. -ekg to monitor for qtc prolongation 2. SARs COVID 2, acute, asymptomatic, present on admission -positive COVID PCR 05/09/2022 -patient is asymptomatic and does not meet criteria of for treatment protocol at this time. -Monitor for development of symptoms 3. Insulin-dependent type 1 diabetes, acute on chronic, with hyperglycemia, retinopathy, gastroparesis, present on admission-well controlled -patient removed insulin pump temporarily, because she is NPO: BS q.6, with low- dose sliding scale- -Once taking PO :continue insulin pump, BS ACHS -admit blood sugar 2O2, A1c 7.2 4. Hypothyroidisim, secondary to Jefferson's thyroiditis, chronic, present on admission -hold synthroid until can take PO, if not today then switch to IV -TSH: 1.13 5. Migraines, chronic, with Opiate dependence, chronic, present on admission -recommend outpatient tapering off of opiates as will exacerbate gastroparesis. -opiates of also not been found to be effective regarding migraine management, PCP evaluation for other management medications and strategies of migraines. 6. Rib fracture, mildly displaced right, as found on chest x-ray, acute, present on admission -patient is currently asymptomatic, unknown when this occurred. -Monitor for complications. CODE: DNR Surrogate decision maker: Herbert Leanncaitjeremiah, spouse ABY PCR: POSITIVE 05/09/2022 DVT/VTE prophylaxis: Lovenox and SCDs Disposition: Patient admitted for observation, rehydration, steroid management, and resolution of intractable nausea vomiting. Expected length of stay less than 2 midnights. I have utilized all available immediate resources to obtain, update, or review the patient's current medications. I confirmed that the patient's advanced care plan is present, Code status is documented and/or surrogate decision maker is listed in the patient's medical re cord. Time Spent With Patient Critical Care time: I spent a total of [] minutes of critical care time on this patient's care t lillian; this time is exclusive of procedural time. Quality VTE Deep Vein Thrombosis/Pulmonary Embolism Present on Admission: No
[2022-05-10] MEDS: HYDROCORTISONE 100 MG/2 ML VIAL 50 MG IV ×4 (00:39→23:23)
[2022-05-10] MEDS: ONDANSETRON 4 MG/2 ML INJ IV ×5 (00:39→23:23)
[2022-05-10 00:47] VITALS: BP 114/48; PULSE 58; RESP 16; TEMP 36.2; O2SAT 97
[2022-05-10] MEDS: HYDROMORPHONE 0.5 MG INJ 0.25 MG IV (03:19)
[2022-05-10] MEDS: INSULIN REGULAR 100 UNIT/ML 3 ML VIAL SUBCUT ×2 (03:28→09:39)
[2022-05-10] MEDS: PROMETHAZINE 12.5 MG SUPP PR (03:34)
[2022-05-10] MEDS: OLANZapine ODT 10 MG TAB 5 MG PO (03:44)
[2022-05-10] MEDS: HYDROCORTISONE 100 MG/2 ML VIAL 25 MG IV (06:02)
[2022-05-10] MEDS: SODIUM CHLORIDE 0.9% 500 ML 80 ML IV ×2 (06:24→13:32)
[2022-05-10] MEDS: HYDROMORPHONE 0.5 MG INJ IV (07:07)
--- NOTE | 2022-05-10 07:38 | P.PN_ITS ---
Subjective Subjective Date Patient Seen: 05/10/22 Time Patient Seen: 10:00 Interval history: Patient notes improvement of NV with zyprexa. Currently on valium which is also helping. Still feeling poorly though. Exam Vital Signs (past 8 hours): - 05/10/22 00:47 Temperature 97.1 F L Pulse Rate 58 L Respiratory Rate 16 Blood Pressure 114/48 L Pulse Oximetry 97 Oxygen Flow Rate 0 Oxygen Delivery Method Room Air Oxygen Flow Rate 0 Narrative Exam Narrative: General: Patient is a well-developed, well-nourished, pale, appears dehydrated, heavily medicated, in no distress at this time. HEENT: Normocephalic, atraumatic, mucous membranes are dry. Neck is supple and symmetric, trachea is midline, no adenopathy, no thyroid enlargement, nontender, no masses palpated. Negative for JVD Chest: Normal AP diameter and contour without kyphoscoliosis, no nasal flaring, retractions, or tachypneic labored breathing. Lungs: Auscultation of all lung clements are clear without adventitious sounds, wheezes, rhonchi, or rales. Cardio: regular rate and rhythm without murmur, rubs, or gallops, no carotid bruit, no cardiac pulsations present. Abdomen: Soft, mild tenderness with palpation, negative for organomegaly, or masses. Bowel sounds are hypoactive present in all 4 quadrants without guarding or rebound, no CVA tenderness. Musculoskeletal: Muscle strength and tone appear within normal limits, no deformity, crepitus, effusions, cyanosis, clubbing or edema present. Full range of motion, intact radial and pedal pulses are normal. Skin: Cold to touch, dry and intact without rashes, ulcerations or petechiae. Neuro: Alert and orientated x3, extremely sleepy from ED medications, moves all extremities, sensation to touch intact, no gross deficits noted of cranial nerves. Psych: Patient is groggy from being heavily medicated, answers questions appropriately, mental status attitude thought context and judgment appear appropriate for age. Objective Labs Result Diagrams: 05/10/22 09:50 05/10/22 09:50 Labs: Laboratory Results - last 24 hr 05/09/22 05/09/22 05/09/22 05:35 05:35 05:35 Hemoglobin A1c 7.2 H Magnesium 2.3 TSH 1.13 SARS-CoV-2 (PCR) 05/09/22 12:52 Hemoglobin A1c Magnesium TSH SARS-CoV-2 (PCR) Positive H [facility] Medical History (Updated 05/10/22 @ 00:54 by OSKAR Ramires-KATERINE) Adrenal insufficiency Charcot foot due to diabetes mellitus Chronic cholecystitis Chronic, continuous use of opioids Diabetes Diabetic retinopathy History of Jefferson thyroiditis History of kidney stones History of osteomyelitis History of septic arthritis History of venous thrombosis Hyperlipidemia Hypothyroid Osteomyelitis Surgical History (Updated 05/10/22 @ 00:54 by OSKAR Ramires-KATERINE) History of cholecystectomy History of left hip replacement History of spinal fusion Family History Mother Non Hodgkin's lymphoma Social History marital status: household members: spouse Smoking Status: Former smoker Assessment & Plan Assessment & Plan narrative: Ms. Evans is a 61W with PMH Type 1 DM with retinopathy and gastroparesis, Characot foot, history of venous thrombosis following PICC line placement, osteomyelitis T12/L1 following spinal fusion, Jefferson's thyroiditis, hypothyroid, left shoulder septic arthritis, chronic opiate dependence, migraines, and adrenal insufficiency who presenting today with migraine headache, abd pain, nausea, and vomiting ongoing for the last 18 hours, that due to her complex medical history and risk of serious complications, morbidity, mortality has been admitted for observation. Patient frequently fails outpatient management has had 5 emergency room visits in 2021 and 1 admission in November of 2021 for intractable nausea and vomiting. Patient has long-time type 1 diabetes with significant complications, putting her at very high risk of DKA, sepsis , or septic shock, complicated by a positive COVID PCR. Patient also has a history of adrenal insufficiency which is likely secondary to chronic opiate use. Though she is not on any steroid management. Her chronic hospitalizations due to intractable nausea vomiting and abdominal pain coupled with her presentation of hypotension patient is likely suffering from a combination of both diabetic gastroparesis and untreated adrenal insufficiency at risk of a adrenal crisis. 1. Intractable Nausea with acute active vomiting, Abd Pain, acute on chronic, secondary to diabetic gastroparesis, untreated adrenal insufficiency, acute on chronic, present on admission -NPO Advance diet as tolerated begin with clear liquids -given pain and long opiate use will continue dilaudid for now: IV Dilaudid 0 .025 q.6 as needed =4mg PO (approximately) to change to p.o. Home Dose (Dilaudid 4 mg p.o. t.i.d.) as soon as patient can tolerate. -patient has an intolerance or has failed multiple other antiemetics: a trial of Zyprexa was initiated 5 mg which seemed to relieve patient's symptoms will continue IV 5 mg Zyprexa t.i.d.PRN until patient can tolerate p.o., this is off-label use of Zyprexa for nausea vomiting gastroparesis symptomatic treatment. As -given similarity to previous symptoms do not think abdominal imaging is indicated, but low threshold to further evaluate -Patient needs PCP re-evaluation of medications and management- will need outpatient close follow up, recommend tappering off opiates-as this is likely the cause of adrenal insufficiency, of which she needs to treat. -hydrocortisone daily maintenance dose: 12-25mg daily split in 1-3 daily doses : Stress Doses 2-4 times daily dose. Patient education/Handouts on adrenal insufficiency beyond the basics/sick day management. -will need to keep glucose well controlled, eat small meals, avoid etoh -suspect patient is suffering from untreated adrenal insufficiency: Will initiate hydrocortisone 50 mg IV now then Day 1: 25 mg IV Q6HR, Day 2: 25mgIV t.i.d., Day 3: 25 mg IV b.i.d., Day 4: 20 PO QD I am providing initially IV due to the intractable nausea and vomiting, and gastroparesis will likely inhibit proper absorption of oral hydrocortisone. Because the patient is hemodynamically stable at this time, will initiate stress dosing which is 3-4 times a normal maintenance dose of hydrocortisone. Will jean up if needed. If she responds well will jean her down over 4 days to a maintenance dose of 20 mg. - Patient does need to follow-up with an operating theatre technician regarding continued management of her adrenal insufficiency, as her gastroparesis will impede absorption of oral hydrocortisone, and as long as she continues on her opiates. -low suspicion for ICH given no head injury, or s/s -ekg to monitor for qtc prolongation 2. SARs COVID 2, acute, asymptomatic, present on admission -positive COVID PCR 05/09/2022 -patient is asymptomatic and does not meet criteria of for treatment protocol at this time. -Monitor for development of symptoms 3. Insulin-dependent type 1 diabetes, acute on chronic, with hyperglycemia, retinopathy, gastroparesis, present on admission-well controlled -patient removed insulin pump temporarily, because she is NPO: BS q.6, with low- dose sliding scale- -Once taking PO :continue insulin pump, BS ACHS -admit blood sugar 2O2, A1c 7.2 4. Hypothyroidisim, secondary to Jefferson's thyroiditis, chronic, present on admission -hold synthroid until can take PO, if not today then switch to IV -TSH: 1.13 5. Migraines, chronic, with Opiate dependence, chronic, present on admission -recommend outpatient tapering off of opiates as will exacerbate gastroparesis. -opiates of also not been found to be effective regarding migraine management, PCP evaluation for other management medications and strategies of migraines. 6. Rib fracture, mildly displaced right, as found on chest x-ray, acute, present on admission -patient is currently asymptomatic, unknown when this occurred. -Monitor for complications. CODE: DNR Surrogate decision maker: Herbert Evans, spouse COVID PCR: POSITIVE 05/09/2022 DVT/VTE prophylaxis: Lovenox and SCDs Dispo: 1-2 days until improvement of nausea Time Spent With Patient Critical Care time: I spent a total of [] minutes of critical care time on this patient's care today ; this time is exclusive of procedural time. Quality VTE Deep Vein Thrombosis/Pulmonary Embolism Present on Admission: No
[2022-05-10] MEDS: HYDROMORPHONE 1 MG INJ IV ×5 (09:31→23:35)
[2022-05-10] MEDS: ENOXAPARIN 40 MG/0.4 ML SYRINGE SUBCUT (09:32)
[2022-05-10] MEDS: INSULIN GLARGINE 100 UNIT/ML 3ML PEN 10 UNIT SUBCUT (09:43)
[2022-05-10 10:03] LABS: Add Manual Diff / Slide Review NO; Basophils Absolute Auto 0 /uL (0-100); Basophils Percent Auto 0.1 % (0-2); Eosinophils Absolute Auto 0 /uL (0-450); Hematocrit 41.5 % (36-46); Hemoglobin 13.9 g/dL (12.0-16.0); Lymphocytes Absolute Auto 300 /uL (1100-4500); Lymphocytes Percent Auto 3.8 % (25-40); Mean Corpuscular HGB Conc 33.6 % (30-36); Mean Corpuscular Hemoglobin 30.4 PG (26-34); Mean Corpuscular Volume 90.5 fL (80-100); Monocytes Absolute Auto 100 /uL (0-900); Monocytes Percent Auto 0.9 % (3-14); Neutrophils Absolute Auto 6900 /uL (1500-7000); Neutrophils Percent Auto 95.2 % (50-75); Platelet Count 190 X10^3/uL (150-400); Red Blood Cell Count 4.58 X10^6/uL (4.0-5.2); Red Cell Distribution Width 13.2 % (11.6-14.8); White Blood Cell Count 7.2 X10^3/uL (4.5-11.0)
[2022-05-10 10:29] LABS: Alanine Aminotransferase 30 IU/L (<35); Albumin Globulin Ratio 1.4 (1.0-2.8); Alkaline Phosphatase 84 U/L (38-126); Aspartate Aminotransferase 43 IU/L (14-36); Bilirubin Total 0.6 mg/dL (0.2-1.3); Blood Urea Nitrogen 14 mg/dL (7-17); Carbon Dioxide 17 mmol/L (22-32); Chloride 107 mmol/L (98-107); Estimated Glomerular Filt Rate > 60 mL/min (>60); Globulin 2.8 g/dL (1.7-4.1); Glucose 310 mg/dL (80-110); HEMOLYSIS < 15 (0-50); Potassium 4.4 mmol/L (3.4-5.1); Sodium 139 mmol/L (137-145); Total Protein 6.8 g/dL (6.3-8.2)
--- NOTE | 2022-05-10 10:39 | CM.DANOTE ---
Patient is a 61 yo female who was admitted on 05/09/22 for Intractable N/V. Pt has [employer] for insurance and her PCP is Dr. Salvatore Villegas at the [facility]. EMR was reviewed. Per MD, pt with a complex medical hx and many ED visits for similar symptoms and admitted with n/v and migraine as well as rib fx found on imaging and pt COVID+ but asymptomatic. Pt lives in [place] with her spouse and is independent at baseline with ADL's but has many ED visits without having to be admitted for symptom management very often. Pt currently independent in room but continues to have some vomiting and ongoing nausea and unable to keep oral intake down. MD anticipates pt may need a 2-3 days before stable for discharge home. Needs unclear at this time. Plan: SW to follow closely once pt more medically stable towards determining any d/c planning needs and confirm safe plan of home with spouse when stable. PAUL Bowman Discharge Planning/Care Management Advanced directive, confirm from FAMILY Start: 05/09/22 17:27 Freq: Q24H Status: Active Protocol: Document 05/09/22 17:27 AGW (Rec: 05/09/22 21:50 AGW [id number]) Advance Directive, confirm on record Time 20:30 Person contacted patient Copy received No CM Discharge Assessment Start: 05/10/22 10:37 Freq: Status: Active Protocol: Document 05/10/22 10:37 BF (Rec: 05/10/22 10:38 BF [id number]) Discharge Planning Assessment Assigned News Agent PAUL García DPOA/Assigned Designee Name spouse Will Contact Information [phone] Advance Directives? Yes Advance Directives on File No History Provided By Patient,Medical Record Has Patient been admitted in last 30 No days? Prior Living Arrangements House Household Members spouse Type of transporation used prior to Relies on Others admit Independent with ADL's Yes Is patient alert and oriented? Yes Caregiver for Another No Barriers to Discharge No Comment Patient has supportive at home. Discharge Plan Home Transportation Arrangement Spouse Referrals Initiated None needed Review Status In Process Please Provide Date Initial DC 05/09/22 Assessment Was Performed Next Review Type Continued Stay Review
[2022-05-10] MEDS: diazePAM 10 MG/2 ML SYRINGE 5 MG IV ×3 (10:45→23:18)
[2022-05-10 11:53] VITALS: BP 127/54; PULSE 82; RESP 17; TEMP 37.1; O2SAT 97
[2022-05-10] MEDS: DOMPERIDONE 10MG 3 EACH PO ×3 (13:31→20:34)
--- NOTE | 2022-05-10 13:38 | PC.NURSE ---
Pt bg 194. Pt rechecked now with a result of 171. Basal rate set at 30 by Pt. Pt appears to be doing better. Calm, not nauseated, able to take a po med, and states pain has improved.
--- NOTE | 2022-05-10 15:58 | PC.NURSE ---
3133 Pt expressed wishes to use her own Insulin pump which she is very practiced in using. Agreeable to still have us checking her blood sugars but would like to use her own pump and basal rate. Spoke with Dr. Guadarrama and Ioana from PHarmacy as well as Madelaine HOOVER and this was approved. Pt checking her blood sugars as well but we are checking ACHS and whenever needed.
[2022-05-10] MEDS: PANTOPRAZOLE 40 MG VIAL 20 MG IV ×2 (17:05→20:34)
[2022-05-10] MEDS: LIDOCAINE VISCOUS 2% 30 ML, MAG HYDROX/ALUMINUM/SIMETH SUS 30 ML, NYSTATIN SUSP 3,000,0... MM (17:09)
[2022-05-10] MEDS: LIDOCAINE PATCH 1 EACH ADH..PATCH TOP (17:46)
[2022-05-10 17:47] VITALS: BP 106/40; PULSE 62; RESP 17; TEMP 36.4; O2SAT 98
[2022-05-10 20:45] VITALS: BP 133/51; PULSE 57; RESP 14; TEMP 36.5; O2SAT 98
[2022-05-10] MEDS: SODIUM CHLORIDE 0.9% 1,000 ML 80 ML IV (22:31)
[2022-05-11 04:45] VITALS: BP 130/56; PULSE 62; RESP 12; TEMP 36.5; O2SAT 98
[2022-05-11] MEDS: diazePAM 10 MG/2 ML SYRINGE 5 MG IV ×3 (05:25→23:42)
[2022-05-11] MEDS: ONDANSETRON 4 MG/2 ML INJ IV ×4 (05:27→23:43)
[2022-05-11] MEDS: HYDROMORPHONE 1 MG INJ IV ×6 (05:29→23:42)
[2022-05-11] MEDS: HYDROCORTISONE 100 MG/2 ML VIAL 50 MG IV ×4 (05:30→23:43)
[2022-05-11 07:37] LABS: Add Manual Diff / Slide Review NO; Basophils Absolute Auto 0 /uL (0-100); Basophils Percent Auto 0.1 % (0-2); Eosinophils Absolute Auto 0 /uL (0-450); Hematocrit 34.3 % (36-46); Hemoglobin 11.6 g/dL (12.0-16.0); Lymphocytes Absolute Auto 500 /uL (1100-4500); Mean Corpuscular HGB Conc 33.9 % (30-36); Mean Corpuscular Hemoglobin 30.6 PG (26-34); Mean Corpuscular Volume 90.2 fL (80-100); Monocytes Absolute Auto 200 /uL (0-900); Monocytes Percent Auto 3.9 % (3-14); Neutrophils Absolute Auto 5200 /uL (1500-7000); Platelet Count 174 X10^3/uL (150-400); Red Blood Cell Count 3.81 X10^6/uL (4.0-5.2); Red Cell Distribution Width 13.3 % (11.6-14.8)
[2022-05-11 07:49] LABS: Alanine Aminotransferase 24 IU/L (<35); Albumin 3.2 g/dL (3.5-5.0); Albumin Globulin Ratio 1.2 (1.0-2.8); Alkaline Phosphatase 53 U/L (38-126); Aspartate Aminotransferase 36 IU/L (14-36); BUN Creatinine Ratio 22.4 (6-22); Bilirubin Total 0.3 mg/dL (0.2-1.3); Blood Urea Nitrogen 13 mg/dL (7-17); Calcium 7.2 mg/dL (8.4-10.2); Carbon Dioxide 26 mmol/L (22-32); Chloride 107 mmol/L (98-107); Estimated Glomerular Filt Rate > 60 mL/min (>60); Globulin 2.7 g/dL (1.7-4.1); Glucose 206 mg/dL (80-110); HEMOLYSIS 20 (0-50); Potassium 3.6 mmol/L (3.4-5.1); Sodium 138 mmol/L (137-145); Total Protein 5.9 g/dL (6.3-8.2)
[2022-05-11 08:00] VITALS: BP 150/57; PULSE 64; RESP 18; TEMP 36.4; O2SAT 96
[2022-05-11] MEDS: LIDOCAINE VISCOUS 2% 30 ML, MAG HYDROX/ALUMINUM/SIMETH SUS 30 ML, NYSTATIN SUSP 3,000,0... MM ×2 (08:07→16:08)
[2022-05-11] MEDS: DOMPERIDONE 10MG 3 EACH PO ×4 (08:07→20:22)
[2022-05-11] MEDS: ENOXAPARIN 40 MG/0.4 ML SYRINGE SUBCUT (08:13)
[2022-05-11] MEDS: LIDOCAINE PATCH 1 EACH ADH..PATCH TOP (08:13)
[2022-05-11] MEDS: PANTOPRAZOLE 40 MG VIAL 20 MG IV ×2 (08:14→20:21)
[2022-05-11] MEDS: OLANZapine ODT 10 MG TAB PO (10:51)
[2022-05-11] MEDS: SODIUM CHLORIDE 0.9% 1,000 ML 80 ML IV (11:55)
[2022-05-11] MEDS: fentaNYL 25 MCG/PATCH TOP (17:16)
[2022-05-11 19:25] VITALS: BP 150/53; PULSE 50; RESP 19; TEMP 36.4; O2SAT 98
--- NOTE | 2022-05-11 19:46 | PM.PN.1 ---
Subjective Subjective Date Patient Seen: 05/11/22 Interval history: Patient notes improvement of NV with zyprexa. Still feels poorly and worse in the AM. Has chronic pain which is uncontrolled. Exam Vital Signs (past 8 hours): Oxygen Delivery Method Room Air Oxygen Flow Rate 0 Narrative Exam Narrative: General: Patient is a well-developed, well-nourished, pale, appears dehydrated, heavily medicated, in no distress at this time. HEENT: Normocephalic, atraumatic, mucous membranes are dry. Neck is supple and symmetric, trachea is midline, no adenopathy, no thyroid enlargement, nontender, no masses palpated. Negative for JVD Chest: Normal AP diameter and contour without kyphoscoliosis, no nasal flaring, retractions, or tachypneic labored breathing. Lungs: Auscultation of all lung clements are clear without adventitious sounds, wheezes, rhonchi, or rales. Cardio: regular rate and rhythm without murmur, rubs, or gallops, no carotid bruit, no cardiac pulsations present. Abdomen: Soft, mild tenderness with palpation, negative for organomegaly, or masses. Bowel sounds are hypoactive present in all 4 quadrants without guarding or rebound, no CVA tenderness. Musculoskeletal: Muscle strength and tone appear within normal limits, no deformity, crepitus, effusions, cyanosis, clubbing or edema present. Full range of motion, intact radial and pedal pulses are normal. Skin: Cold to touch, dry and intact without rashes, ulcerations or petechiae. Neuro: Alert and orientated x3, extremely sleepy from ED medications, moves all extremities, sensation to touch intact, no gross deficits noted of cranial nerves. Psych: Patient is groggy from being heavily medicated, answers questions appropriately, mental status attitude thought context and judgment appear appropriate for age. Objective Labs Result Diagrams: 05/11/22 07:05/11/22 07:22 Labs: Laboratory Results - last 24 hr 05/11/22 05/11/22 07:22 07:22 WBC 6.0 RBC 3.81 L Hgb 11.6 L Hct 34.3 L MCV 90.2 MCH 30.6 MCHC 33.9 RDW 13.3 Plt Count 174 Neut % (Auto) 87.0 H Lymph % (Auto) 9.0 L [place] % (Auto) 3.9 Eos % (Auto) 0.0 L Baso % (Auto) 0.1 Neut # (Auto) 5200 Lymph # (Auto) 500 L [place] # (Auto) 200 Eos # (Auto) 0 Baso # (Auto) 0 Sodium 138 Potassium 3.6 Chloride 107 Carbon Dioxide 26 BUN 13 Creatinine 0.58 Estimated GFR > 60 BUN/Creatinine Ratio 22.4 H Glucose 206 H D Calcium 7.2 L Total Bilirubin 0.3 AST 36 ALT 24 Alkaline Phosphatase 53 Total Protein 5.9 L Albumin 3.2 L Globulin 2.7 Albumin/Globulin Ratio 1.2 [facility] Medical History (Updated 05/10/22 @ 00:54 by OSKAR Ramires-KATERINE) Adrenal insufficiency Charcot foot due to diabetes mellitus Chronic cholecystitis Chronic, continuous use of opioids Diabetes Diabetic retinopathy History of Jefferson thyroiditis History of kidney stones History of osteomyelitis History of septic arthritis History of venous thrombosis Hyperlipidemia Hypothyroid Osteomyelitis Surgical History (Updated 05/10/22 @ 00:54 by MARLEEN Ramires) History of cholecystectomy History of left hip replacement History of spinal fusion Family History Mother Non Hodgkin's lymphoma Social History marital status: household members: spouse Smoking Status: Former smoker Assessment & Plan Assessment & Plan narrative: Ms. Evans is a 61W with PMH Type 1 DM with retinopathy and gastroparesis, Characot foot, history of venous thrombosis following PICC line placement, osteomyelitis T12/L1 following spinal fusion, Jefferson's thyroiditis, hypothyroid, left shoulder septic arthritis, chronic opiate dependence, migraines, and adrenal insufficiency who presenting today with migraine headache, abd pain, nausea, and vomiting ongoing for the last 18 hours, that due to her complex medical history and risk of serious complications, morbidity, mortality has been admitted for observation. Patient frequently fails outpatient management has had 5 emergency room visits in 2021 and 1 admission in November of 2021 for intractable nausea and vomiting. Patient has long-time type 1 diabetes with significant complications, putting her at very high risk of DKA, sepsis , or septic shock, complicated by a positive COVID PCR. Patient also has a history of adrenal insufficiency which is likely secondary to chronic opiate use. Though she is not on any steroid management. Her chronic hospitalizations due to intractable nausea vomiting and abdominal pain coupled with her presentation of hypotension patient is likely suffering from a combination of both diabetic gastroparesis and untreated adrenal insufficiency at risk of a adrenal crisis. 1. Intractable Nausea with acute active vomiting, Abd Pain, acute on chronic, secondary to diabetic gastroparesis, untreated adrenal insufficiency, acute on chronic, present on admission -continue to advance diet as tolerated -chronic opiate use with back pain, trial fentanyl patch to see if improvement in AM symptoms. -continue olanzapine 10 mg daily, seems to offer significant benefit. -given similarity to previous symptoms do not think abdominal imaging is indicated, but low threshold to further evaluate -Patient needs PCP re-evaluation of medications and management- will need outpatient close follow up, recommend tappering off opiates if possible. -hydrocortisone daily maintenance dose: 12-25mg daily split in 1-3 daily doses : Stress Doses 2-4 times daily dose. Patient education/Handouts on adrenal insufficiency beyond the basics/sick day management. -will need to keep glucose well controlled, eat small meals, avoid etoh -suspect patient is suffering from untreated adrenal insufficiency: Will initiate hydrocortisone 50 mg IV now then Day 1: 25 mg IV Q6HR, Day 2: 25mgIV t.i.d., Day 3: 25 mg IV b.i.d., Day 4: 20 PO QD I am providing initially IV due to the intractable nausea and vomiting, and gastroparesis will likely inhibit proper absorption of oral hydrocortisone. Because the patient is hemodynamically stable at this time, will initiate stress dosing which is 3-4 times a normal maintenance dose of hydrocortisone. Will jean up if needed. If she responds well will jean her down over 4 days to a maintenance dose of 20 mg. - Patient does need to follow-up with an forge heater regarding continued management of her adrenal insufficiency, as her gastroparesis will impede absorption of oral hydrocortisone, and as long as she continues on her opiates. -low suspicion for ICH given no head injury, or s/s -ekg to monitor for qtc prolongation 2. SARs COVID 2, acute, asymptomatic, present on admission -positive COVID PCR 05/09/2022 -patient is asymptomatic and does not meet criteria of for treatment protocol at this time. -Monitor for development of symptoms 3. Insulin-dependent type 1 diabetes, acute on chronic, with hyperglycemia, retinopathy, gastroparesis, present on admission-well controlled -now on insulin pump therapy, hyperglycemic. 4. Hypothyroidisim, secondary to Jefferson's thyroiditis, chronic, present on admission -continue home synthroid -TSH: 1.13 5. Migraines, chronic, with Opiate dependence, chronic, present on admission -recommend outpatient tapering off of opiates as will exacerbate gastroparesis. -opiates of also not been found to be effective regarding migraine management, PCP evaluation for other management medications and strategies of migraines. 6. Rib fracture, mildly displaced right, as found on chest x-ray, acute, present on admission -patient is currently asymptomatic, unknown when this occurred. -Monitor for complications. CODE: DNR Surrogate decision maker: Herbert Vergarajeremiah, spouse ABY PCR: POSITIVE 05/09/2022 DVT/VTE prophylaxis: Lovenox and SCDs Dispo: 1-2 days until improvement of nausea Time Spent With Patient Critical Care time: I spent a total of [] minutes of critical care time on this patient's care today; this time is exclusive of procedural time. Quality VTE Deep Vein Thrombosis/Pulmonary Embolism Present on Admission: No
[2022-05-11] MEDS: hydrOXYzine pamoate 25 MG CAPSULE PO (20:22)
[2022-05-12 01:53] VITALS: BP 130/41; PULSE 44; RESP 15; TEMP 36.6; O2SAT 92
[2022-05-12] MEDS: SODIUM CHLORIDE 0.9% 1,000 ML 80 ML IV (02:12)
[2022-05-12] MEDS: hydrOXYzine pamoate 25 MG CAPSULE PO ×2 (02:12→09:01)
[2022-05-12] MEDS: ONDANSETRON 4 MG/2 ML INJ IV ×2 (05:19→12:51)
[2022-05-12] MEDS: HYDROMORPHONE 1 MG INJ IV ×3 (05:19→12:50)
[2022-05-12] MEDS: HYDROCORTISONE 100 MG/2 ML VIAL 50 MG IV ×2 (05:19→12:51)
[2022-05-12] MEDS: diazePAM 10 MG/2 ML SYRINGE 5 MG IV ×2 (05:20→13:50)
[2022-05-12 06:46] LABS: Add Manual Diff / Slide Review NO; Basophils Absolute Auto 0 /uL (0-100); Basophils Percent Auto 0.2 % (0-2); Eosinophils Absolute Auto 0 /uL (0-450); Hematocrit 36.6 % (36-46); Hemoglobin 12.5 g/dL (12.0-16.0); Lymphocytes Absolute Auto 500 /uL (1100-4500); Mean Corpuscular HGB Conc 34.1 % (30-36); Mean Corpuscular Hemoglobin 30.5 PG (26-34); Mean Corpuscular Volume 89.4 fL (80-100); Monocytes Absolute Auto 200 /uL (0-900); Monocytes Percent Auto 4.8 % (3-14); Neutrophils Absolute Auto 3700 /uL (1500-7000); Platelet Count 168 X10^3/uL (150-400); Red Blood Cell Count 4.09 X10^6/uL (4.0-5.2); Red Cell Distribution Width 13.1 % (11.6-14.8); White Blood Cell Count 4.4 X10^3/uL (4.5-11.0)
[2022-05-12 06:55] LABS: Alanine Aminotransferase 26 IU/L (<35); Albumin 3.4 g/dL (3.5-5.0); Albumin Globulin Ratio 1.2 (1.0-2.8); Alkaline Phosphatase 52 U/L (38-126); Aspartate Aminotransferase 30 IU/L (14-36); BUN Creatinine Ratio 21.2 (6-22); Bilirubin Total 0.2 mg/dL (0.2-1.3); Blood Urea Nitrogen 11 mg/dL (7-17); Calcium 7.5 mg/dL (8.4-10.2); Carbon Dioxide 28 mmol/L (22-32); Chloride 106 mmol/L (98-107); Estimated Glomerular Filt Rate > 60 mL/min (>60); Globulin 2.9 g/dL (1.7-4.1); Glucose 151 mg/dL (80-110); HEMOLYSIS < 15 (0-50); Potassium 3.1 mmol/L (3.4-5.1); Sodium 139 mmol/L (137-145); Total Protein 6.3 g/dL (6.3-8.2)
[2022-05-12] MEDS: PANTOPRAZOLE 40 MG VIAL 20 MG IV (08:55)
[2022-05-12] MEDS: OLANZapine ODT 10 MG TAB PO (08:55)
[2022-05-12] MEDS: DOMPERIDONE 10MG 3 EACH PO ×2 (08:55→12:54)
[2022-05-12] MEDS: ENOXAPARIN 40 MG/0.4 ML SYRINGE SUBCUT (08:56)
[2022-05-12] MEDS: LIDOCAINE PATCH 1 EACH ADH..PATCH TOP (08:56)
[2022-05-12] MEDS: POTASSIUM CHLORIDE IN WATER 10 MEQ/100 ML PIGGYBACK 100 MEQ IV ×3 (10:15→12:51)
[2022-05-12] MEDS: LIDOCAINE VISCOUS 2% 30 ML, MAG HYDROX/ALUMINUM/SIMETH SUS 30 ML, NYSTATIN SUSP 3,000,0... MM (10:25)
[2022-05-12 12:00] VITALS: BP 133/75; BP 177/73; PULSE 58; PULSE 72; RESP 16; RESP 18; TEMP 36.2; TEMP 36.4; O2SAT 95; O2SAT 96
--- NOTE | 2022-05-12 13:52 | PM.DS.1 ---
History of Present Illness History of Present Illness Date Patient Seen: 05/12/22 Chief complaint: throwing up, migraine, back pain Narrative: Per Waleska Tai, CORRECTIONS LIEUTENANT-: Ms. Evans is a 61W with PMH Type 1 DM with retinopathy and gastroparesis, Characot foot, history of venous thrombosis following PICC line placement, osteomyelitis T12/L1 following spinal fusion, Jefferson's thyroiditis, hypothyroid, left shoulder septic arthritis, chronic opiate dependence, migraines, and adrenal insufficiency who presenting today with migraine headache, nausea, and vomiting ongoing for last 18 hours.? In ED she complained of intractable nausea, vomiting and back pain, and verbalized that she wanted to because the pain was so bad and crawled on the floor in the triage room, very tearful sensitive to light, but moving all extremities. Patient currently has multiple medications at home to tx her migraines nausea & vomting, none of which have been effective with her migraine that started at 11:00 p.m. last night.? In ED she received a L of fluid, multiple doses of ativan & Dilaudid and 40 mg of IV pantoprazole.? She felt that her symptoms are somewhat improved however continued to have significant headache, photophobia, abdominal and back pain that she typically experiences with her gastroparesis.? She has used all of her medications at home and has not found them affective at this time.? In the past she has found IM Vistaril, Zofran occasionally, DHEA have all been helpful in controlling headaches.Patient takes 4 mg oral Dilaudid TID at home for migraines. Patient initially presented to the ED with hypertensive urgency 181/75, 151/114, and was slightly tachypneic with a respiratory rate of 22. Upon admit patient is sleeping initially, in no distress or discomfort. Upon waking patient denies chest pain, shortness of breath, TOUSSAINT, photophobia, abdominal pain, back pain,no vomiting since admit, fever, body aches, chills, diarrhea, constipation, blood in stool or urine, urinary symptoms, cough or upper respiratory symptoms, denies any recent illness injury or trauma. It should be noted that patient has a history of adrenal insufficiency and continues to take opiates but is not on steroid management. Patient does state that nausea persists though she quickly falls back to sleep following exam. Patient's vitals are stable upon admit, though after reviewing previous admission in November of 2021 patient appears mildly hypotensive: Temp 96.6?, BP 97/42, HR 52, RR 17, 97% on room air. Patient was positive for COVID but is asymptomatic and requires no oxygenation. Patient's CBC and CMP are within normal limits, diabetes well controlled with an A1c 7.2, not in DKA, lactate, troponin, lipase, and TSH are all normal. elevated ketones 1.12, patient's chest x-ray was negative for any acute cardiopulmonary processes but a noted change from previous chest x-ray: mildly displaced right introlateral rib fracture. Patient admitted for intractable nausea vomiting, migraine, and COVID. Discharge Providers Provider Date of admission: 05/09/22 13:40 Discharge Date: 05/12/22 Primary care physician: Salvatore Villegas MD Discharge provider: Juliocesar Garcia DO Summary Hospital Course Discharge Diagnosis: Please see hospital course by problem list noted below. Hospital Course: ?Ms. Evans is a 61W with PMH Type 1 DM with retinopathy and gastroparesis, Characot foot, history of venous thrombosis following PICC line placement, osteomyelitis T12/L1 following spinal fusion, Jefferson's thyroiditis, hypothyroid, left shoulder septic arthritis, chronic opiate dependence, migraines, and adrenal insufficiency who presented with migraine headache, abd pain, nausea, and vomiting. Patient frequently fails outpatient management has had 5 emergency room visits in 2021 and 1 admission in November of 2021 for intractable nausea and vomiting.? Patient has long-time type 1 diabetes with significant complications, complicated by a positive COVID PCR.? Patient also has a history of adrenal insufficiency in the past. 1. Intractable Nausea with acute active vomiting, Abd Pain, acute on chronic, secondary to diabetic gastroparesis, untreated adrenal insufficiency, acute on chronic, present on admission -continued to advance diet as tolerated until she was able to keep down adequate nutrition. -chronic opiate use with back pain, trialed fentanyl patch and this seemingly did help with nausea control and pain control. -continue olanzapine 10 mg daily as an outpatient, seems to offer significant benefit during admission. -Patient needs PCP re-evaluation of medications and management- will need outpatient close follow up. -discharged on hydrocortisone given history of adrenal insufficiency, she was treated with stress dosing during her stay. - Patient does need to follow-up with an proposal analyst regarding continued management of her adrenal insufficiency, as her gastroparesis will impede absorption of oral hydrocortisone, and as long as she continues on her opiates. 2. SARS COVID 2, acute, asymptomatic, present on admission -positive COVID PCR 05/09/2022 -patient is asymptomatic and does not meet criteria of for treatment protocol at this time. She may have had worsening nausea as a result of her infection. -Monitor for development of symptoms 3. Insulin-dependent type 1 diabetes, acute on chronic, with hyperglycemia, retinopathy, gastroparesis, present on admission-well controlled -now on insulin pump therapy, hyperglycemic. 4. Hypothyroidisim, secondary to Jefferson's thyroiditis, chronic, present on admission -continue home synthroid -TSH:? 1.13 5. Migraines, chronic, with Opiate dependence, chronic, present on admission - improved with above therapies. 6. Rib fracture, mildly displaced right, as found on chest x-ray, acute, present on admission -patient is currently asymptomatic, unknown when this occurred. -Monitor for complications. Time Spent with Patient Time spent: Greater than 30 minutes Exam Vital Signs (past 8 hours): - 05/12/22 12:00 Temperature 97.1 F L Pulse Rate 72 Respiratory Rate 16 Blood Pressure 133/75 Pulse Oximetry 96 Oxygen Flow Rate 0 Oxygen Delivery Method Room Air Oxygen Flow Rate 0 Narrative Exam Narrative: General: Patient is a well-developed, well-nourished, pale, appears dehydrated, heavily medicated, in no distress at this time. HEENT: Normocephalic, atraumatic, mucous membranes are dry. Neck is supple and symmetric, trachea is midline, no adenopathy, no thyroid enlargement, nontender, no masses palpated. Negative for JVD Chest: Normal AP diameter and contour without kyphoscoliosis, no nasal flaring, retractions, or tachypneic labored breathing. Lungs: Auscultation of all lung clements are clear without adventitious sounds, wheezes, rhonchi, or rales. Cardio: regular rate and rhythm without murmur, rubs, or gallops, no carotid bruit, no cardiac pulsations present. Abdomen: Soft, mild tenderness with palpation, negative for organomegaly, or masses. Bowel sounds are hypoactive present in all 4 quadrants without guarding or rebound, no CVA tenderness. Musculoskeletal: Muscle strength and tone appear within normal limits, no deformity, crepitus, effusions, cyanosis, clubbing or edema present. Full range of motion, intact radial and pedal pulses are normal. Skin: Cold to touch, dry and intact without rashes, ulcerations or petechiae. Neuro: Alert and orientated x3, extremely sleepy from ED medications, moves all extremities, sensation to touch intact, no gross deficits noted of cranial nerves. Psych: Patient is groggy from being heavily medicated, answers questions appropriately, mental status attitude thought context and judgment appear appropriate for age. Objective Labs Result Diagrams: 05/12/22 06:26 05/12/22 06:26 Labs: Laboratory Results - last 24 hr 05/12/22 05/12/22 06: 06:26 WBC 4.4 L RBC 4.09 Hgb 12.5 Hct 36.6 MCV 89.4 MCH 30.5 MCHC 34.1 RDW 13.1 Plt Count 168 Neut % (Auto) 84.0 H Lymph % (Auto) 11.0 L [place] % (Auto) 4.8 Eos % (Auto) 0.0 L Baso % (Auto) 0.2 Neut # (Auto) 3700 Lymph # (Auto) 500 L [place] # (Auto) 200 Eos # (Auto) 0 Baso # (Auto) 0 Sodium 139 Potassium 3.1 L Chloride 106 Carbon Dioxide 28 BUN 11 Creatinine 0.52 Estimated GFR > 60 BUN/Creatinine Ratio 21.2 Glucose 151 H Calcium 7.5 L Total Bilirubin 0.2 AST 30 ALT 26 Alkaline Phosphatase 52 Total Protein 6.3 Albumin 3.4 L Globulin 2.9 Albumin/Globulin Ratio 1.2 [facility] Medical History (Updated 05/10/22 @ 00:54 by MARLEEN Ramires) Adrenal insufficiency Charcot foot due to diabetes mellitus Chronic cholecystitis Chronic, continuous use of opioids Diabetes Diabetic retinopathy History of Jefferson thyroiditis History of kidney stones History of osteomyelitis History of septic arthritis History of venous thrombosis Hyperlipidemia Hypothyroid Osteomyelitis Surgical History (Updated 05/10/22 @ 00:54 by MARLEEN Ramires) History of cholecystectomy History of left hip replacement History of spinal fusion Family History Mother Non Hodgkin's lymphoma Social History marital status: household members: spouse Smoking Status: Former smoker Discharge Plan Discharge Plan Patient Disposition: Home Provider Discharge Comment: You were admitted to the hospital with nausea and vomiting. A number of things were tried which included steroids for possible adrenal insufficiency, and pain control. I recommend you follow up for further testing for possible adrenal insufficiency with your proposal analyst, and PCP follow up very shortly, ideally this week, for review of medication and pain medications. Discharge orders & Medications Prescriptions: New lidocaine 5 % Adhesive Patch,Medicated 1 ea topical DAILY 30 Days Qty: 30 0RF olanzapine [Zyprexa Zydis] 10 mg Tablet,Disintegrating 10 mg PO DAILY 30 Days Qty: 30 0RF hydroxyzine pamoate 25 mg Capsule 25 mg PO Q6HR PRN (Reason: Nausea) 30 Days Qty: 30 0RF pantoprazole 20 mg tablet,delayed release (DR/EC) 20 mg PO DAILY 30 Days Qty: 30 0RF ondansetron 4 mg tablet,disintegrating 4 mg PO Q8H PRN (Reason: nausea and vomiting) 30 Days Qty: 30 0RF hydrocortisone 20 mg tablet 20 mg PO DAILY 30 Days Qty: 30 0RF fentanyl 25 mcg/hr patch 72 hour 1 patch transdermal Q72H 15 Days Qty: 5 0RF Continued insulin lispro [Humalog U-100 Insulin] 100 UNIT/1 ML solution 0 unit continuous IV infusion DAILY Qty: 0 alendronate 70 mg Tablet 70 mg PO QWEEK hydromorphone 4 MG tablet 4 mg PO TID PRN (Reason: PAIN) diazepam 5 MG tablet 5 mg PO TIDP PRN (Reason: Anxiety) promethazine 25 mg suppository 25 mg PA Q6H PRN (Reason: nausea and vomiting) Qty: 12 0RF Follow up/Referrals: Salvatore Villegas MD [Primary Care Provider] - Diet/Activity/Treatments Diet: Diet as Tolerated and Carb-consistent/Diabetic Activity: As tolerated Visit Report/Discharge Packet Instructions: DI for Migraine, DI for Prescription Opioid Use, DI for Gastroparesis Discharge Data Primary Care Provider: Salvatore Villegas Quality VTE Deep Vein Thrombosis/Pulmonary Embolism Present on Admission: No
--- NOTE | 2022-05-12 14:49 | CM.DPC ---
DCP Cont: Per MD, pt is medically stable for discharge. Pt to discharge home via family POV. Joaquina Kumar RN/DCP
--- NOTE | 2022-05-12 14:54 | PC.NURSE ---
Addendum entered by Lucille Saucedo R.N. 05/12/22 15:42: Patient taken out via wheel chair by [employer] AGENT. Original Note: Pt IV removed and no tele. Discussed discharge instructions with pt and answered questions. Discussed stroke s/s, gastroparesis, migraines, opioids, and prescriptions to take at home. New prescription sent electronically to the pts preferred pharmacy. Returned pts prescription domperidone to the patient. Pt dressed and ready for discharge to be transported via POV with .
== END 2022-05-12 15:00 | disposition home or self-care (01) | DRG 73 ==
LOC: ED 12:43 → AC 05-10 11:32
PROVIDERS: Emergency Medicine; Admitting Provider Student in an Organized Health Care Education/Training Program; Emergency Provider Emergency Medicine; PCP Internal Medicine; Referring Provider Emergency Medicine; Visit Provider Student in an Organized Health Care Education/Training Program
DX: E10.43 Type 1 diabetes mellitus with diabetic autonomic (poly)neuropathy (principal); U07.1 COVID-19; K31.84 Gastroparesis; S22.31XA Fracture of one rib, right side, initial encounter for closed fracture; E27.3 Drug-induced adrenocortical insufficiency; F11.20 Opioid dependence, uncomplicated; T40.2X5A Adverse effect of other opioids, initial encounter; E06.3 Autoimmune thyroiditis; G43.909 Migraine, unspecified, not intractable, without status migrainosus; X58.XXXA Exposure to other specified factors, initial encounter; Z66 Do not resuscitate; Z87.891 Personal history of nicotine dependence; Z96.41 Presence of insulin pump (external) (internal)
CPT/HCPCS: 36415; 71045; 80053; 82009; 82550; 82553; 82962; 83036; 83605; 83690; 83735; 84443; 84484; 85025; 87635; 93005; 96372; 96374; 96375; 96376; 99284; C9803; C9113; J1100; J1110; J1170; J1650; J1720; J2060; J2270; J2405; J3360; J3410; S0166

== ENCOUNTER 2022-07-24 12:49 | Inpatient (IN) | payer OTHER, SELFPAY ==
[2022-05-09 13:47] VITALS: BMI 21.3
[2022-07-24] VITALS (19 sets, daily range): BP systolic 133–188; BP diastolic 60–91; PULSE 65–86; RESP 17–18; TEMP 36.1–37.2; O2SAT 93–99; BMI 21.7
--- NOTE | 2022-07-24 13:37 | ED.NAVMDI ---
HPI - Nausea/Vomiting/Diarrhea General Chief complaint: Nausea/Vomiting/Diarrhea Stated complaint: HX diabetic gastro preset is V Time Seen by Provider: 07/24/22 13:32 Source: patient Mode of arrival: Ambulatory History of Present Illness HPI Narrative: 62-year-old female. Insulin-dependent diabetic. Known to myself. Has been to the emergency department multiple times for gastroparesis issues. She has been taking all of her medications as directed. Is here because at approximately 0600 hours in the morning she started to have nausea vomiting and abdominal pain that is consistent with her history of gastroparesis. She was not vomiting last night but states she did not feel very well. She denies chest pain. No urinary symptoms. No fevers. No headache. Related Data Home Medications Medication Instructions Recorded Confirmed insulin lispro 100 unit/mL 0 unit continuous IV infusion 07/29/12 05/09/22 subcutaneous solution (Humalog DAILY ##0 U-100 Insulin) alendronate 70 mg tablet 70 mg PO QWEEK 02/03/19 05/09/22 diazepam 5 mg tablet 5 mg PO TIDP PRN Anxiety 02/03/19 05/09/22 hydromorphone 4 mg tablet 4 mg PO TID PRN PAIN 02/03/19 05/09/22 Previous Rx's Medication Instructions Recorded promethazine 25 mg rectal 25 mg [place] Q6H PRN nausea and 02/03/19 suppository vomiting #12 ea Allergies Allergy/AdvReac Type Severity Reaction Status Date / Time amitriptyline Allergy Intermediate SEIZURES Verified 07/24/22 12:58 droperidol Allergy Intermediate CLONIC Verified 07/24/22 12:58 REACTION metoclopramide Allergy Intermediate CLONIC Verified 07/24/22 12:58 REACTION prochlorperazine Allergy Intermediate CLONIC Verified 07/24/22 12:58 REACTION azithromycin AdvReac Mild N/V Verified 07/24/22 12:58 ciprofloxacin AdvReac Mild N/V Verified 07/24/22 12:58 hydrocodone AdvReac Mild N/V Verified 07/24/22 12:58 ketorolac AdvReac Mild N/V Verified 07/24/22 12:58 Review of Systems Constitutional Constitutional: Reports system reviewed and no additional complaints, except as documented Cardiovascular Cardiovascular: Reports system reviewed and no additional complaints, except as documented Respiratory Respiratory: Reports system reviewed and no additional complaints, except as documented Gastrointestinal Gastrointestinal: Reports system reviewed and no additional complaints, except as documented Genitourinary Genitourinary: Reports system reviewed and no additional complaints, except as documented Integumentary/Breasts Skin/Breast: Reports system reviewed and no additional complaints, except as documented Neurologic Neurologic: Reports system reviewed and no additional complaints, except as documented Hematologic/Lymphatic On Anticoagulants: No Patient History Medical History Adrenal insufficiency Charcot foot due to diabetes mellitus Chronic cholecystitis Chronic, continuous use of opioids Diabetes Diabetic retinopathy History of Jefferson thyroiditis History of kidney stones History of osteomyelitis History of septic arthritis History of venous thrombosis Hyperlipidemia Hypothyroid Osteomyelitis Surgical History (Updated 05/10/22 @ 00:54 by MARLEEN Ramires) History of cholecystectomy History of left hip replacement History of spinal fusion Family History Mother Non Hodgkin's lymphoma Social History marital status: household members: spouse Smoking Status: Former smoker Smoking Status: Former smoker alcohol intake frequency: holidays/special occasions only Substance Use Type: does not use Exam Initial Vital Signs Initial Vital Signs: Vital Signs Temperature 97.0 F L 07/24/22 12:58 Pulse Rate 75 07/24/22 12:58 Respiratory Rate 17 07/24/22 12:58 Blood Pressure 164/74 H 07/24/22 12:58 Pulse Oximetry 97 07/24/22 12:58 Oxygen Delivery Method 07/24/22 12:58 Const General: cooperative and No ill appearing [facility] Head: normal to inspection and normocephalic Resp Effort & Inspection: normal respiratory effort Auscultation: clear to auscultation bilaterally Cardio Rate: regular rate Rhythm: regular rhythm GI Inspection: normal to inspection, no edema and non-distended Palpation: soft and No firm Back/Spine/Pelvis Back: No CVA tenderness Skin General: no rashes or lesions noted Extrem General: normal to inspection Psych Appearance: grossly normal and well kempt Course Orders Ordered: ED Orders 07/24/22 14:11 Complete Blood Count AUTO DIFF Stat Comprehensive Metabolic Panel Stat Ethanol (ETOH) Stat Ketones (Beta-Hydroxybutyrate) Stat Lipase Stat 07/24/22 18:01 COVID19 -Nasal RAPID/Pre-Proc Stat Discontinued Medications Haloperidol (Haloperidol 5 Mg/Ml Vial) 5 mg IV NOW ONE Stop: 07/24/22 13:48 Last Admin: 07/24/22 14:19 Dose: 5 mg Documented By: CLAUS Hydromorphone HCl (Hydromorphone 1 Mg Inj) 1 mg IV NOW ONE Stop: 07/24/22 13:48 Last Admin: 07/24/22 14:22 Dose: 1 mg Documented By: CLAUS Hydromorphone HCl (Hydromorphone 1 Mg Inj) 1 mg IV NOW ONE Stop: 07/24/22 16:44 Last Admin: 07/24/22 16:51 Dose: 1 mg Documented By: CLAUS Sodium Chloride (Normal Saline 0.9%) 1,000 mls @ 1,000 mls/hr IV BOLUS ONE Stop: 07/24/22 14:36 Last Infusion: 07/24/22 15:47 Dose: 0 mls/hr Documented By: Admin: 07/24/22 14:30 Dose: 1,000 mls/hr Documented By: CLAUS Ondansetron HCl (Ondansetron 4 Mg/2 Ml Inj) 4 mg IV NOW ONE Stop: 07/24/22 15:50 Last Admin: 07/24/22 16:13 Dose: 4 mg Documented By: CLAUS Pantoprazole Sodium (Pantoprazole 40 Mg Vial) 40 mg IV NOW ONE Stop: 07/24/22 14:04 Last Admin: 07/24/22 14:26 Dose: 40 mg Documented By: CLAUS Vital Signs Vital signs: Vital Signs - 8 hr 07/24/22 12:58 07/24/22 13:29 07/24/22 13:30 Temperature 97.0 F L Pulse Rate 75 85 75 Respiratory Rate 17 Blood Pressure 164/74 H Pulse Oximetry 97 96 98 Oxygen Delivery Method Room Air Room Air Room Air 07/24/22 13:32 07/24/22 13:32 07/24/22 13:35 Temperature Pulse Rate 73 Respiratory Rate Blood Pressure 188/91 H 179/77 H Pulse Oximetry 96 Oxygen Delivery Method Room Air 07/24/22 13:35 07/24/22 14:00 07/24/22 14:30 Temperature Pulse Rate 74 74 70 Respiratory Rate Blood Pressure Pulse Oximetry 97 97 94 Oxygen Delivery Method Room Air Room Air 07/24/22 14:31 07/24/22 14:31 07/24/22 15:00 Temperature Pulse Rate 72 Respiratory Rate Blood Pressure 133/67 142/64 H Pulse Oximetry 96 Oxygen Delivery Method Room Air 07/24/22 15:00 07/24/22 15:30 07/24/22 15:31 Temperature Pulse Rate 74 70 Respiratory Rate Blood Pressure 149/60 H Pulse Oximetry 99 95 Oxygen Delivery Method Room Air Room Air 07/24/22 15:31 07/24/22 16:00 07/24/22 16:00 Temperature Pulse Rate 70 72 Respiratory Rate Blood Pressure 155/70 H Pulse Oximetry 99 97 Oxygen Delivery Method Room Air 07/24/22 16:30 07/24/22 16:30 07/24/22 17:00 Temperature Pulse Rate 65 Respiratory Rate Blood Pressure 148/64 H 141/64 H Pulse Oximetry 97 Oxygen Delivery Method Room Air 07/24/22 17:00 07/24/22 17:30 07/24/22 17:30 Temperature Pulse Rate 69 68 Respiratory Rate Blood Pressure 165/71 H Pulse Oximetry 94 93 Oxygen Delivery Method Room Air MDM - Nausea/Vomiting/Diarrhea Medical Records Attestation: I reviewed the patient's medical records. Lab Data Attestation: I reviewed the patient's lab results. Result diagrams: 07/24/22 14:11 07/24/22 14:11 Labs: Lab Results 07/24/22 07/24/22 Range/Units 14:11 14:11 WBC 7.1 (4.5-11.0) X10^3/uL RBC 4.63 (4.0-5.2) X10^6/uL Hgb 13.7 (12.0-16.0) g/dL Hct 41.0 (36-46) % MCV 88.5 (80-100) fL MCH 29.6 (26-34) PG MCHC 33.4 (30-36) % RDW 13.3 (11.6-14.8) % Plt Count 233 (150-400) X10^3/uL Neut % (Auto) 85.1 H (50-75) % Lymph % (Auto) 9.7 L (25-40) % [place] % (Auto) 4.1 (3-14) % Eos % (Auto) 0.5 L (2-4) % Baso % (Auto) 0.6 (0-2) % Neut # (Auto) 6000 (3343-4926) /uL Lymph # (Auto) 700 L (7508-3448) /uL [place] # (Auto) 300 (0-900) /uL Eos # (Auto) 0 (0-450) /uL Baso # (Auto) 0 (0-100) /uL Sodium 138 (137-145) mmol/L Potassium 4.2 (3.4-5.1) mmol/L Chloride 101 (98-107) mmol/L Carbon Dioxide 27 (22-32) mmol/L BUN 22 H (7-17) mg/dL Creatinine 0.84 (0.52-1.04) mg/dL Estimated GFR > 60 (>60) mL/min BUN/Creatinine Ratio 26.2 H (6-22) Glucose 238 H (80-110) mg/dL Calcium 8.7 (8.4-10.2) mg/dL Total Bilirubin 0.5 (0.2-1.3) mg/dL AST 49 H (14-36) IU/L ALT 47 H (<35) IU/L Alkaline Phosphatase 98 (38-126) U/L Total Protein 7.8 (6.3-8.2) g/dL Albumin 4.5 (3.5-5.0) g/dL Globulin 3.3 (1.7-4.1) g/dL Albumin/Globulin Ratio 1.4 (1.0-2.8) Lipase 26 (23-300) U/L Ethyl Alcohol < 10 ( - 10) mg/dL Ketones 0.12 (<0.27) mmol/L Point of Care Testing Glucose POC 228 MDM Narrative Medical decision making narrative: Multiple medications administered and patient still is having discomfort and vomiting. Received fluids. Is hyperglycemic but not in DKA. Given her presentation her history will admit for further evaluation. Discussed case with Dr. Guadarrama who will admit for further evaluation and treatment. Discharge Plan Departure Patient Disposition: Admitted as Observation Clinical Impression: Diabetic gastroparesis
[2022-07-24] MEDS: HALOPERIDOL 5 MG/ML VIAL IV (14:19)
[2022-07-24] MEDS: HYDROMORPHONE 1 MG INJ IV ×2 (14:22→16:51)
[2022-07-24 14:23] LABS: Add Manual Diff / Slide Review NO; Basophils Absolute Auto 0 /uL (0-100); Basophils Percent Auto 0.6 % (0-2); Eosinophils Absolute Auto 0 /uL (0-450); Eosinophils Percent Auto 0.5 % (2-4); Hemoglobin 13.7 g/dL (12.0-16.0); Lymphocytes Absolute Auto 700 /uL (1100-4500); Lymphocytes Percent Auto 9.7 % (25-40); Mean Corpuscular HGB Conc 33.4 % (30-36); Mean Corpuscular Hemoglobin 29.6 PG (26-34); Mean Corpuscular Volume 88.5 fL (80-100); Monocytes Absolute Auto 300 /uL (0-900); Monocytes Percent Auto 4.1 % (3-14); Neutrophils Absolute Auto 6000 /uL (1500-7000); Neutrophils Percent Auto 85.1 % (50-75); Platelet Count 233 X10^3/uL (150-400); Red Blood Cell Count 4.63 X10^6/uL (4.0-5.2); Red Cell Distribution Width 13.3 % (11.6-14.8); White Blood Cell Count 7.1 X10^3/uL (4.5-11.0)
[2022-07-24] MEDS: PANTOPRAZOLE 40 MG VIAL IV (14:26)
[2022-07-24] MEDS: SODIUM CHLORIDE 0.9% 1,000 ML 1000 ML IV (14:30)
[2022-07-24 15:18] LABS: Alanine Aminotransferase 47 IU/L (<35); Albumin 4.5 g/dL (3.5-5.0); Albumin Globulin Ratio 1.4 (1.0-2.8); Alkaline Phosphatase 98 U/L (38-126); Aspartate Aminotransferase 49 IU/L (14-36); BUN Creatinine Ratio 26.2 (6-22); Bilirubin Total 0.5 mg/dL (0.2-1.3); Blood Urea Nitrogen 22 mg/dL (7-17); Calcium 8.7 mg/dL (8.4-10.2); Carbon Dioxide 27 mmol/L (22-32); Chloride 101 mmol/L (98-107); Estimated Glomerular Filt Rate > 60 mL/min (>60); Ethanol (ETOH) < 10 mg/dL; Globulin 3.3 g/dL (1.7-4.1); Glucose 238 mg/dL (80-110); Lipase 26 U/L (23-300); Potassium 4.2 mmol/L (3.4-5.1); Sodium 138 mmol/L (137-145); Total Protein 7.8 g/dL (6.3-8.2)
[2022-07-24 15:28] LABS: HEMOLYSIS 22 (0-50); Ketones (Beta-Hydroxybutyrate) 0.12 mmol/L (<0.27)
[2022-07-24] MEDS: ONDANSETRON 4 MG/2 ML INJ IV ×2 (16:13→21:09)
[2022-07-24 18:22] LABS: COVID19 -Nasal RAPID Negative (Negative)
--- NOTE | 2022-07-24 19:05 | PC.NURSE ---
Pt arrived via ED by stretcher accompanied by and two ED PCT's. Pt transferred to ACU bed. Vss, Pulse OX 98%. Discussed Insulin pump policy and Pt removed device. Told Pt DR. Chacko will be writing orders tonight and looking in on her after report. Pt settled to bed with warm blankets and an ice pack for her neck. Pt presently laying supine holding nausea bag with eyes closed.
[2022-07-24] MEDS: HYDROMORPHONE 0.5 MG INJ 0.25 MG IV (21:08)
[2022-07-24] MEDS: DEXTROSE 5%-0.9% NS 1,000 ML 100 ML IV (21:11)
[2022-07-24] MEDS: LORazepam 2 MG/ML INJ 0.5 MG IV (21:11)
[2022-07-24] MEDS: hydrOXYzine 50 MG/ML INJ 25 MG IM (22:47)
--- NOTE | 2022-07-24 23:11 | PM.HP.1 ---
History of Present Illness History of Present Illness Date Patient Seen: 07/24/22 Time Patient Seen: 22:00 Chief complaint: HX diabetic gastro preset is V Narrative: Ms. Evans is a 62W with PMH Type 1 DM, hypothyroid, history of adrenal insufficiency, and DM gastroparesis who presents with abdominal pain, vomiting, nausea. She has frequent episodes of gastroparesis and inability to tolerate any oral intake starting earlier today. She states this feels this is exactly like all her gastroparesis episodes. She has been advised, on multiple admissions as well, that the hospital policy is to turn off her insulin pump and has declined. She is taking opiates at home and this is longstanding. She had no fevers/chills. No chest pain, shortness of breath. No dysuria. Patient History Medical History Adrenal insufficiency Charcot foot due to diabetes mellitus Chronic cholecystitis Chronic, continuous use of opioids Diabetes Diabetic retinopathy History of Jefferson thyroiditis History of kidney stones History of osteomyelitis History of septic arthritis History of venous thrombosis Hyperlipidemia Hypothyroid Osteomyelitis Surgical History History of cholecystectomy History of left hip replacement History of spinal fusion Family & Social History Family History Mother Non Hodgkin's lymphoma Social History: household members spouse Prior Living Arrangements House Safety & Behavioral: Feels Safe in Current Yes Environment Been Physically Hurt or No Threatened By a Person Tobacco & Substance use: Smoking Status Former smoker alcohol intake frequency holiday/special occasion Substance Use Type does not use Meds Home Medications and Allergies Home Medications Medication Instructions Recorded Confirmed Type insulin lispro 100 unit/mL 0 unit continuous IV infusion 07/29/12 07/24/22 History subcutaneous solution (Humalog DAILY ##0 U-100 Insulin) alendronate 70 mg tablet 70 mg PO QWEEK 02/03/19 07/24/22 History diazepam 5 mg tablet 5 mg PO TIDP PRN Anxiety 02/03/19 07/24/22 History hydromorphone 4 mg tablet 4 mg PO TID PRN PAIN 02/03/19 07/24/22 History promethazine 25 mg rectal 25 mg [place] Q6H PRN nausea and 02/03/19 07/24/22 Rx suppository vomiting #12 ea Allergies Allergy/AdvReac Type Severity Reaction Status Date / Time amitriptyline Allergy Intermediate SEIZURES Verified 07/24/22 12:58 droperidol Allergy Intermediate CLONIC Verified 07/24/22 12:58 REACTION metoclopramide Allergy Intermediate CLONIC Verified 07/24/22 12:58 REACTION prochlorperazine Allergy Intermediate CLONIC Verified 07/24/22 12:58 REACTION azithromycin AdvReac Mild N/V Verified 07/24/22 12:58 ciprofloxacin AdvReac Mild N/V Verified 07/24/22 12:58 hydrocodone AdvReac Mild N/V Verified 07/24/22 12:58 ketorolac AdvReac Mild N/V Verified 07/24/22 12:58 Review of Systems Review of Systems Narrative: 14 systems reviewed and negative aside from what is noted in HPI Exam Vital Signs (past 8 hours): - 07/24/22 15:30 07/24/22 15:31 07/24/22 15:31 Temperature Pulse Rate 70 70 Respiratory Rate Blood Pressure 149/60 H Pulse Oximetry 95 99 Oxygen Delivery Method Room Air 07/24/22 16:00 07/24/22 16:00 07/24/22 16:30 Temperature Pulse Rate 72 Respiratory Rate Blood Pressure 155/70 H 148/64 H Pulse Oximetry 97 Oxygen Delivery Method Room Air 07/24/22 16:30 07/24/22 17:00 07/24/22 17:00 Temperature Pulse Rate 65 69 Respiratory Rate Blood Pressure 141/64 H Pulse Oximetry 97 94 Oxygen Delivery Method Room Air 07/24/22 17:30 07/24/22 17:30 07/24/22 18:00 Temperature Pulse Rate 68 Respiratory Rate Blood Pressure 165/71 H 162/68 H Pulse Oximetry 93 Oxygen Delivery Method Room Air 07/24/22 18:00 07/24/22 18:30 07/24/22 18:30 Temperature Pulse Rate 72 75 Respiratory Rate Blood Pressure 157/71 H Pulse Oximetry 96 98 Oxygen Delivery Method Room Air Room Air 07/24/22 19:11 Temperature 99 F Pulse Rate 75 Respiratory Rate 18 Blood Pressure 153/72 H Pulse Oximetry 98 Oxygen Delivery Method Room Air Oxygen Delivery Method Room Air Narrative Exam Narrative: GEN: in distress, nauseous, writhing in bed HEENT: moist mucous membranes, PERRL NECK: trachea midline, no JVD CV: regular rate and rhythm, no murmurs PULM: clear bilaterally, no wheezes, rhonchi, rales ABD: soft, nontender, nondistended EXT: warm and well perfused with no edema NEURO: awake, alert, no focal deficits Objective Labs Result Diagrams: 07/24/22 14:11 07/24/22 14:11 Labs: Laboratory Results - last 24 hr 07/24/22 07/24/22 07/24/22 14:11 14:11 18:00 WBC 7.1 RBC 4.63 Hgb 13.7 Hct 41.0 MCV 88.5 MCH 29.6 MCHC 33.4 RDW 13.3 Plt Count 233 Neut % (Auto) 85.1 H Lymph % (Auto) 9.[address] [place] % (Auto) 4.1 Eos % (Auto) 0.5 L Baso % (Auto) 0.6 Neut # (Auto) 6000 Lymph # (Auto) [address] [place] # (Auto) 300 Eos # (Auto) 0 Baso # (Auto) 0 Sodium 138 Potassium 4.2 Chloride 101 Carbon Dioxide 27 BUN 22 H Creatinine 0.84 Estimated GFR > 60 BUN/Creatinine Ratio 26.2 H Glucose 238 H Calcium 8.7 Total Bilirubin 0.5 AST 49 H ALT 47 H Alkaline Phosphatase 98 Total Protein 7.8 Albumin 4.5 Globulin 3.3 Albumin/Globulin Ratio 1.4 Lipase 26 Ethyl Alcohol < 10 Ketones 0.12 SARS-CoV-2 (PCR) Negative Assessment & Plan Assessment & Plan narrative: 1. Nausea and vomiting consistent with known diabetic gastroparesis -NPO for now -IV d5ns while npo -avoid opiates as much as able -given pain will continue dilaudid for now as this is home medication -ordered for zofran, ativan, erythromycin, protonix, vistaril -given similarity to previous symptoms do not think abdominal imaging is indicated -will need outpatient close follow up, recommend stopping opiates -will need to keep glucose well controlled, eat small meals, avoid etoh -ekg to monitor for qtc prolongation in AM 2. Type 1 Diabetes on insulin, with hyperglycemia -has declined repeatedly turning off pump -check glucose q6 -ordered insulin sliding scale 3. Hypothyroidisim -hold synthroid until can take PO, if not today then switch to IV 4. History of adrenal insufficiency -overall symptoms less consistent with adrenal crisis given normal blood pressure and normal labs -monitor closely and if not improving consider steroids 5. Opiate dependence -low dose IV dilaudid while not taking PO CODE: DNR Proxy: Herbert Evans, spouse I have utilized all available resources to reconcile the patient's home medications. Time Spent With Patient Critical Care time: I spent a total of [] minutes of critical care time on this patient's care today; this time is exclusive of procedural time.
[2022-07-25] MEDS: HYDROMORPHONE 0.5 MG INJ 0.25 MG IV ×2 (01:31→06:04)
[2022-07-25] MEDS: LORazepam 2 MG/ML INJ 0.5 MG IV ×3 (01:31→19:37)
[2022-07-25] MEDS: INSULIN GLARGINE 100 UNIT/ML 3ML PEN 12 UNIT SUBCUT ×2 (01:58→20:38)
[2022-07-25] MEDS: INSULIN LISPRO 100 UNIT/ML 3ML VIAL SUBCUT ×4 (01:59→20:37)
[2022-07-25] MEDS: SODIUM CHLORIDE 0.9% 1,000 ML 100 ML IV ×2 (02:02→08:54)
[2022-07-25 04:48] VITALS: BP 138/62; PULSE 87; RESP 18; TEMP 37.3; O2SAT 97
[2022-07-25 05:05] LABS: Add Manual Diff / Slide Review NO; Basophils Absolute Auto 0 /uL (0-100); Basophils Percent Auto 0.4 % (0-2); Eosinophils Absolute Auto 0 /uL (0-450); Eosinophils Percent Auto 0.1 % (2-4); Hematocrit 38.1 % (36-46); Hemoglobin 12.8 g/dL (12.0-16.0); Lymphocytes Absolute Auto 700 /uL (1100-4500); Lymphocytes Percent Auto 8.1 % (25-40); Mean Corpuscular HGB Conc 33.5 % (30-36); Mean Corpuscular Hemoglobin 29.6 PG (26-34); Mean Corpuscular Volume 88.2 fL (80-100); Monocytes Absolute Auto 300 /uL (0-900); Monocytes Percent Auto 2.9 % (3-14); Neutrophils Absolute Auto 8000 /uL (1500-7000); Neutrophils Percent Auto 88.5 % (50-75); Platelet Count 235 X10^3/uL (150-400); Red Blood Cell Count 4.31 X10^6/uL (4.0-5.2); Red Cell Distribution Width 12.9 % (11.6-14.8)
[2022-07-25 05:20] LABS: BUN Creatinine Ratio 27.4 (6-22); Blood Urea Nitrogen 20 mg/dL (7-17); Calcium 7.8 mg/dL (8.4-10.2); Carbon Dioxide 20 mmol/L (22-32); Chloride 107 mmol/L (98-107); Estimated Glomerular Filt Rate > 60 mL/min (>60); Glucose 269 mg/dL (80-110); HEMOLYSIS 18 (0-50); Magnesium 1.9 mg/dL (1.6-2.3); Potassium 3.8 mmol/L (3.4-5.1); Sodium 137 mmol/L (137-145)
[2022-07-25 07:45] VITALS: O2SAT 96
[2022-07-25 08:00] VITALS: BP 145/63; PULSE 82; RESP 18; TEMP 37.1; O2SAT 96
[2022-07-25] MEDS: PANTOPRAZOLE 40 MG VIAL IV (08:07)
[2022-07-25] MEDS: ENOXAPARIN 40 MG/0.4 ML SYRINGE SUBCUT (08:08)
[2022-07-25] MEDS: ERYTHROMYCIN BASE 250 MG TABLET PO ×3 (08:26→16:31)
[2022-07-25] MEDS: HYDROMORPHONE 0.5 MG INJ IV ×4 (08:51→23:41)
[2022-07-25 12:00] VITALS: BP 129/64; PULSE 87; RESP 16; TEMP 36.5; O2SAT 98
[2022-07-25] MEDS: hydrOXYzine 50 MG/ML INJ 25 MG IM ×2 (12:14→23:24)
--- NOTE | 2022-07-25 12:14 | CM.DANOTE ---
DCP: Case received, EMR reviewed and met with patient. Introduced self and role. Was able to obtain information regarding patient's baseline activity level at home prior to hospitalization. DCP assessment completed with information currently available. Patient is a 62 year old female who admitted yesterday afternoon to the care of the hospitalist team. PCP: Dr. [place]. Payer: confirmed: [employer]. Patient came to the hospital via private vehicle secondary to having nausea, vomiting, abdominal pain. Patient is a type 1 diabetic with an insulin pump. She has been here before for gastroparesis issues. Patient was admitted for diabetic gastroparesis. Met with patient in her room. She was laying in bed, complaining of some nausea. Confirmed that she resides in [place] with spouse, Will. She goes to the [facility] here in [place] for her primary care needs. At her baseline, she is independent, and has an insulin pump. P: DCP to continue to follow. Patient should be able to go home when she is deemed medically stable. Ruby Latham RN/Managed Services Sales Consultant Discharge Planning/Care Management CM Discharge Assessment Start: 07/25/22 11:35 Freq: Status: Active Protocol: Document 07/25/22 11:36 (Rec: 07/25/22 11:39 [id number]) Discharge Planning Assessment Assigned Menu Planner Ruby Latham RN/Managed Services Sales Consultant Advance Directives? Yes Advance Directives on File No History Provided By Patient,Medical Record Prior Living Arrangements House Household Members spouse Type of transporation used prior to Drives own vehicle admit Independent with ADL's Yes Is patient alert and oriented? Yes Caregiver for Another No Comment Patient has supportive at home. Discharge Plan Home Transportation Arrangement Spouse Referrals Initiated None needed Whiteboard Updated in Patient Room with Yes name and ext. # of Menu Planner Review Status In Process Next Review Type Continued Stay Review
--- NOTE | 2022-07-25 15:14 | PM.PN.1 ---
Subjective Subjective Interval history: 62-year-old female with type 1 diabetes complicated by gastroparesis, hypothyroidism, and adrenal insufficiency who was admitted overnight with abdominal pain, nausea, and vomiting. Patient reports she is feeling a bit better today. She is not had any vomiting since yesterday. She did have a large bowel movement this afternoon and states she is feeling improved again. She is asking for sips of clear liquids. She did take off her pump and is frustrated with her blood sugars being poorly controlled. Her basal rate on her pump is 0.55 units/hour. Exam Vital Signs (past 8 hours): - 07/25/22 08:00 07/25/22 07:45 07/25/22 12:00 Temperature 98.8 F 97.7 F Pulse Rate 82 87 Respiratory Rate 18 16 Blood Pressure 145/63 H 129/64 Pulse Oximetry 96 96 98 Oxygen Delivery Method Room Air Oxygen Flow Rate 0 0 Oxygen Delivery Method Room Air Oxygen Flow Rate 0 Narrative Exam Narrative: GEN: Pleasant middle-aged female, Alert and oriented x 3, NAD HEENT:NC, Face symmetric CHEST: Respiratory excursions symmetric, CTAB CV: RRR, no M/R/G ABD: Soft, mildly diffusely tender/ND, BT hypoactive in all 4 quadrants, no organomegaly or masses EXTR: warm, well perfused, no C/C/E SKIN: warm and dry, no rash NEURO: Alert and oriented x 3, nonfocal Objective Labs Result Diagrams: 07/25/22 04:49 07/25/22 04:49 Labs: Laboratory Results - last 24 hr 07/24/22 07/24/22 07/25/22 14:11 18:00 04:49 WBC 9.0 RBC 4.31 Hgb 12.8 Hct 38.1 MCV 88.2 MCH 29.6 MCHC 33.5 RDW 12.9 Plt Count 235 Neut % (Auto) 88.5 H Lymph % (Auto) 8.1 L [place] % (Auto) 2.9 L Eos % (Auto) 0.1 L Baso % (Auto) 0.4 Neut # (Auto) 8000 H Lymph # (Auto) 700 L [place] # (Auto) 300 Eos # (Auto) 0 Baso # (Auto) 0 Sodium 138 Potassium 4.2 Chloride 101 Carbon Dioxide 27 BUN 22 H Creatinine 0.84 Estimated GFR > 60 BUN/Creatinine Ratio 26.2 H Glucose 238 H Calcium 8.7 Magnesium Total Bilirubin 0.5 AST 49 H ALT 47 H Alkaline Phosphatase 98 Total Protein 7.8 Albumin 4.5 Globulin 3.3 Albumin/Globulin Ratio 1.4 Lipase 26 Ethyl Alcohol < 10 Ketones 0.12 SARS-CoV-2 (PCR) Negative 07/25/22 04:49 WBC RBC Hgb Hct MCV MCH MCHC RDW Plt Count Neut % (Auto) Lymph % (Auto) [place] % (Auto) Eos % (Auto) Baso % (Auto) Neut # (Auto) Lymph # (Auto) [place] # (Auto) Eos # (Auto) Baso # (Auto) Sodium 137 Potassium 3.8 Chloride 107 Carbon Dioxide 20 L BUN 20 H Creatinine 0.73 Estimated GFR > 60 BUN/Creatinine Ratio 27.4 H Glucose 269 H Calcium 7.8 L Magnesium 1.9 Total Bilirubin AST ALT Alkaline Phosphatase Total Protein Albumin Globulin Albumin/Globulin Ratio Lipase Ethyl Alcohol Ketones SARS-CoV-2 (PCR) [facility] Medical History Adrenal insufficiency Charcot foot due to diabetes mellitus Chronic cholecystitis Chronic, continuous use of opioids Diabetes Diabetic retinopathy History of [place] thyroiditis History of kidney stones History of osteomyelitis History of septic arthritis History of venous thrombosis Hyperlipidemia Hypothyroid Osteomyelitis Surgical History History of cholecystectomy History of left hip replacement History of spinal fusion Family History Mother Non Hodgkin's lymphoma Social History marital status: household members: spouse Smoking Status: Former smoker Assessment & Plan Assessment & Plan narrative: 1. Nausea and vomiting consistent with exacerbation of known diabetes induced gastroparesis Continues IV fluids, NPO status. Continue Zofran, lorazepam, Protonix, Vistaril, and erythromycin. She is not had much relief with hydromorphone at 0.25 mg dosing. Discussed the risk of this worsening the gastroparesis, but did approve a higher dose at 0.[address] on sips and chips diet. 2. Type 1 diabetes Patient does have an insulin pump but declined to remove it. Continue q.6 glucose checks. Blood sugars are not well controlled ranging from 187-376. 3. Hypothyroidism Restart Synthroid 4. History of adrenal insufficiency As patient was not admitted with sepsis, or other acute significant illness, stress dose steroids were not initiated. Will continue monitoring. 5. Opioid dependence As noted, continue sparing use of hydromorphone. Code status DNR Prophylaxis Disposition Home once improving Time Spent With Patient Critical Care time: I spent a total of [] minutes of critical care time on this patient's care today; this time is exclusive of procedural time.
[2022-07-25] MEDS: diazePAM 5 MG TABLET PO (17:22)
[2022-07-25 18:00] VITALS: BP 151/55; PULSE 68; RESP 12; TEMP 36.6; O2SAT 98
[2022-07-25] MEDS: ONDANSETRON 4 MG/2 ML INJ IV (18:41)
[2022-07-25] MEDS: SODIUM CHLORIDE 0.9% FLUSH 10 ML IV ×2 (19:38→23:42)
[2022-07-25 20:15] VITALS: BP 150/57; PULSE 68; RESP 16; TEMP 36.9; O2SAT 97
--- NOTE | 2022-07-25 21:55 | PC.NURSE ---
Patient is alert and oriented. Breath sounds CTA with RA sat of 97%. HRR w/BP elevated at 150/57. Complaining of continued nausea so was medicated with Ativan (had Zofran on previous shift); no emesis. Complaining of 6/10 sharp pain across upper abdomen and was medicated with Dilaudid. Abdomen is soft but tender w/positive BT; reports having had BM earlier today. Denies dysuria, frequency or urgency with urination and is continent. Able to move herself in bed. Up to bathroom with SBA. Fall risk score is moderate but patient calls for assistance appropriately so bed alarm is not activated.
[2022-07-26] VITALS (7 sets, daily range): BP systolic 110–153; BP diastolic 53–68; PULSE 64–75; RESP 14–17; TEMP 36.4–36.9; O2SAT 96–100
[2022-07-26] MEDS: INSULIN LISPRO 100 UNIT/ML 3ML VIAL SUBCUT ×4 (02:56→20:14)
--- NOTE | 2022-07-26 05:47 | PM.PN.1 ---
Subjective Subjective Interval history: 62-year-old female with type 1 diabetes complicated by gastroparesis, hypothyroidism, and adrenal insufficiency who was admitted overnight with abdominal pain, nausea, and vomiting. Patient reports she is feeling gross again today. She was having more nausea. She states she drank some tea and believes that she ?overdid it?. She is quite tearful this morning. She looks uncomfortable. She is been unable to tolerate any intake today. Exam Vital Signs (past 8 hours): - 07/26/22 00:00 07/26/22 00:00 07/26/22 04:31 Temperature 98.1 F 98.5 F Pulse Rate 75 69 Respiratory Rate 17 16 Blood Pressure 137/61 110/53 L Pulse Oximetry 100 100 96 Oxygen Delivery Method Room Air Oxygen Flow Rate 0 Oxygen Delivery Method Room Air Oxygen Flow Rate 0 Narrative Exam Narrative: GEN:? Pleasant middle-aged female, Alert and oriented x 3, tearful, appears uncomfortable HEENT:NC, Face symmetric CHEST: Respiratory excursions symmetric, CTAB CV: RRR, no M/R/G ABD: Soft, mildly diffusely tender/ND, BT hypoactive in all 4 quadrants, no organomegaly or masses EXTR: warm, well perfused, no C/C/E SKIN: warm and dry, no rash NEURO: Alert and oriented x 3, nonfocal Objective Labs Result Diagrams: 07/25/22 04:49 07/25/22 04:49 [facility] Medical History Adrenal insufficiency Charcot foot due to diabetes mellitus Chronic cholecystitis Chronic, continuous use of opioids Diabetes Diabetic retinopathy History of Jefferson thyroiditis History of kidney stones History of osteomyelitis History of septic arthritis History of venous thrombosis Hyperlipidemia Hypothyroid Osteomyelitis Surgical History History of cholecystectomy History of left hip replacement History of spinal fusion Family History Mother Non Hodgkin's lymphoma Social History marital status: household members: spouse Smoking Status: Former smoker Assessment & Plan Assessment & Plan narrative: 1. Nausea and vomiting consistent with exacerbation of known diabetes induced gastroparesis IV was saline locked yesterday and diet was advanced to clear liquid sips and chips. Unfortunately, she has not tolerated that. We will resume IV fluids. She remains on Zofran, lorazepam, Protonix, Vistaril, and erythromycin.? She received a total of 5 doses of hydromorphone 0.5 mg in the last 24 hours. Does report getting benefit from Benadryl in the past. Low-dose 12.5 mg IV q.4 hours as needed has been ordered. I would also hope to add IV Phenergan as other antiemetics she is been receiving has not been effective. Unfortunately, it is not available in IV form here. She would prefer receiving it orally as opposed to rectally and this has been ordered. 2. Type 1 diabetes Patient usually wears a pump. This has been discontinued since admission. Blood sugars remain poorly controlled. Blood sugars have ranged from 192 2 339 in the past 24 hours. Will give an additional 5 units of Lantus now and increase her dose to 15 units at HS. 3. Hypothyroidism Attempted to restart Synthroid, but it is not listed in her Mar. I am asking pharmacy to help clarify this and will restart once dose clarified. 4. History of adrenal insufficiency As patient was not admitted with sepsis, or other acute significant illness, stress dose steroids were not initiated.? Will continue monitoring. 5. Opioid dependence Continue sparing use of hydromorphone. Would encourage decreasing doses as quickly as able as it is likely going to exacerbate her gastroparesis. Code status DNR Prophylaxis Continue Lovenox Disposition Home once improving Time Spent With Patient Critical Care time: I spent a total of [] minutes of critical care time on this patient's care today; this time is exclusive of procedural time.
[2022-07-26] MEDS: hydrOXYzine 50 MG/ML INJ 25 MG IM ×3 (07:18→22:49)
[2022-07-26] MEDS: HYDROMORPHONE 0.5 MG INJ IV ×5 (07:21→22:41)
[2022-07-26] MEDS: SODIUM CHLORIDE 0.9% FLUSH 10 ML IV ×4 (07:22→18:42)
[2022-07-26] MEDS: ERYTHROMYCIN BASE 250 MG TABLET PO ×3 (07:22→17:23)
[2022-07-26] MEDS: PANTOPRAZOLE 40 MG VIAL IV (09:37)
[2022-07-26] MEDS: ENOXAPARIN 40 MG/0.4 ML SYRINGE SUBCUT (09:37)
[2022-07-26] MEDS: INSULIN GLARGINE 100 UNIT/ML 3ML PEN SUBCUT (09:39)
[2022-07-26] MEDS: SODIUM CHLORIDE 0.9% 1,000 ML 100 ML IV ×2 (09:43→18:33)
[2022-07-26] MEDS: PROMETHAZINE 25 MG TABLET 12.5 MG PO (09:46)
[2022-07-26] MEDS: ONDANSETRON 4 MG/2 ML INJ IV ×2 (09:49→22:50)
[2022-07-26] MEDS: diphenhydrAMINE 50 MG/ML VIAL 12.5 MG IV (11:16)
[2022-07-26] MEDS: LORazepam 2 MG/ML INJ 0.5 MG IV ×2 (13:30→20:15)
[2022-07-26] MEDS: INSULIN GLARGINE 100 UNIT/ML 3ML PEN 15 UNIT SUBCUT (20:14)
[2022-07-27] VITALS: BP 115/37; PULSE 63; RESP 16; TEMP 36.9; O2SAT 97
[2022-07-27 00:44] VITALS: BP 117/52; PULSE 56
[2022-07-27] MEDS: SODIUM CHLORIDE 0.9% 1,000 ML 100 ML IV ×2 (05:07→16:00)
[2022-07-27 06:00] VITALS: BP 132/65; PULSE 59; RESP 16; TEMP 36; O2SAT 97
[2022-07-27 06:13] LABS: Blood Urea Nitrogen 11 mg/dL (7-17); Calcium 7.5 mg/dL (8.4-10.2); Carbon Dioxide 26 mmol/L (22-32); Chloride 109 mmol/L (98-107); Estimated Glomerular Filt Rate > 60 mL/min (>60); Glucose 74 mg/dL (80-110); HEMOLYSIS 19 (0-50); Magnesium 1.8 mg/dL (1.6-2.3); Potassium 3.3 mmol/L (3.4-5.1); Sodium 136 mmol/L (137-145)
[2022-07-27] MEDS: ONDANSETRON 4 MG/2 ML INJ IV ×2 (08:58→15:59)
[2022-07-27] MEDS: hydrOXYzine 50 MG/ML INJ 25 MG IM ×2 (08:58→14:37)
[2022-07-27] MEDS: HYDROMORPHONE 0.5 MG INJ IV ×4 (08:58→17:51)
[2022-07-27] MEDS: PANTOPRAZOLE 40 MG VIAL IV (08:59)
[2022-07-27] MEDS: ENOXAPARIN 40 MG/0.4 ML SYRINGE SUBCUT (08:59)
[2022-07-27] MEDS: SODIUM CHLORIDE 0.9% FLUSH 10 ML IV (09:00)
[2022-07-27 09:09] VITALS: BP 116/57; PULSE 63; RESP 18; TEMP 37.1; O2SAT 98
--- NOTE | 2022-07-27 09:48 | P.PN_ITS ---
Subjective Subjective Date Patient Seen: 07/27/22 Interval history: Still having persistant nausea but has improved some with hydroxyzine, dilaudid and zofran. Exam Vital Signs (past 8 hours): - 07/27/22 06:00 07/27/22 09:09 Temperature 96.8 F L 98.7 F Pulse Rate 59 L 63 Respiratory Rate 16 18 Blood Pressure 132/65 116/57 L Pulse Oximetry 97 98 Oxygen Flow Rate 0 Oxygen Delivery Method Room Air Oxygen Flow Rate 0 Narrative Exam Narrative: GEN:? Pleasant middle-aged female, Alert and oriented x 3, tearful, appears uncomfortable HEENT:NC, Face symmetric CHEST: Respiratory excursions symmetric, CTAB CV: RRR, no M/R/G ABD: Soft, mildly diffusely tender/ND, BT hypoactive in all 4 quadrants, no org anomegaly or masses EXTR: warm, well perfused, no C/C/E SKIN: warm and dry, no rash NEURO: Alert and oriented x 3, nonfocal Objective Labs Result Diagrams: 07/25/22 04:49 07/27/22 05:16 Labs: Laboratory Results - last 24 hr 07/27/22 05:16 Sodium 136 L Potassium 3.3 L Chloride 109 H Carbon Dioxide 26 BUN 11 Creatinine 0.55 Estimated GFR > 60 BUN/Creatinine Ratio 20.0 Glucose 74 L D Calcium 7.5 L Magnesium 1.8 PFSH Medical History Adrenal insufficiency Charcot foot due to diabetes mellitus Chronic cholecystitis Chronic, continuous use of opioids Diabetes Diabetic retinopathy History of Jefferson thyroiditis History of kidney stones History of osteomyelitis History of septic arthritis History of venous thrombosis Hyperlipidemia Hypothyroid Osteomyelitis Surgical History History of cholecystectomy History of left hip replacement History of spinal fusion Family History Mother Non Hodgkin's lymphoma Social History marital status: household members: spouse Smoking Status: Former smoker Assessment & Plan Assessment & Plan narrative: 1. Nausea and vomiting consistent with exacerbation of known diabetes induced gastroparesis IV was saline locked yesterday and diet was advanced to clear liquid sips and chips. Unfortunately, she has not tolerated that. We will resume IV fluids. She remains on Zofran, lorazepam, Protonix, Vistaril, and erythromycin.? She received a total of 5 doses of hydromorphone 0.5 mg in the last 24 hours. Does report getting benefit from Benadryl in the past. Low-dose 12.5 mg IV q.4 hours as needed has been ordered. I would also hope to add IV Phenergan as other antiemetics she is been receiving has not been effective. Unfortunately, it is not available in IV form here. She would prefer receiving it orally as opposed to rectally and this has been ordered. She is requesting thorazine as outpatient. 2. Type 1 diabetes Patient usually wears a pump. This has been discontinued since admission. Blood sugars remain poorly controlled. Blood sugars have ranged from 192 2 339 in the past 24 hours. Will give an additional 5 units of Lantus now and increase her dose to 15 units at HS. 3. Hypothyroidism Attempted to restart Synthroid, but it is not listed in her Mar. I am asking pharmacy to help clarify this and will restart once dose clarified. 4. History of adrenal insufficiency As patient was not admitted with sepsis, or other acute significant illness, stress dose steroids were not initiated.? Will continue monitoring. 5. Opioid dependence Continue sparing use of hydromorphone. Would encourage decreasing doses as quickly as able as it is likely going to exacerbate her gastroparesis. Code status DNR Prophylaxis Continue Lovenox Disposition Home once improving Time Spent With Patient Critical Care time: I spent a total of [] minutes of critical care time on this patient's care today; this time is exclusive of procedural time.
[2022-07-27] MEDS: LORazepam 2 MG/ML INJ 0.5 MG IV ×2 (10:33→17:04)
[2022-07-27] MEDS: POTASSIUM CHLORIDE IN WATER 10 MEQ/100 ML PIGGYBACK 100 MEQ IV (11:12)
[2022-07-27] MEDS: diphenhydrAMINE 50 MG/ML VIAL 12.5 MG IV (12:49)
[2022-07-27] MEDS: POTASSIUM CHLORIDE 20 MEQ/15 ML UDC 40 MEQ PO (14:38)
[2022-07-27 15:26] VITALS: BP 159/66; PULSE 64; RESP 16; TEMP 36.4; O2SAT 98
[2022-07-27] MEDS: POTASSIUM CHLORIDE 20 MEQ TAB 40 MEQ PO (17:51)
[2022-07-27 17:55] LABS: Albumin 3.4 g/dL (3.5-5.0)
[2022-07-27 20:23] VITALS: BP 153/73; PULSE 62; RESP 18; TEMP 36.8; O2SAT 98
--- NOTE | 2022-07-27 20:43 | P.DS_ITS ---
History of Present Illness History of Present Illness Chief complaint: HX diabetic gastro preset is V Narrative: Ms. Evans is a 62W with PMH Type 1 DM, hypothyroid, history of adrenal insufficiency, and DM gastroparesis who presents with abdominal pain, vomiting, nausea. She has frequent episodes of gastroparesis and inability to tolerate any oral intake starting earlier today. She states this feels this is exactly like all her gastroparesis episodes. She has been advised, on multiple admissions as well, that the hospital policy is to turn off her insulin pump and has declined. She is taking opiates at home and this is longstanding. She had no fevers/chills. No chest pain, shortness of breath. No dysuria. Discharge Providers Provider Date of admission: 07/26/22 10:00 Discharge Date: 07/27/22 Primary care physician: Pavel Colorado MD Discharge provider: Devon Chacko MD Summary Hospital Course Discharge Diagnosis: 1. Intractable nausea and vomiting 2. Diabetic gastroparesis 3. Type 1 Diabetes 4. Hypothyroidism 5. History of adrenal insufficiency Hospital Course: Ms. Evans was admitted with a flare of her gastroparesis. This is a regular occurrence for her. She improved slowly, but on day of discharge she was feeling improved, tolerating oral intake and requesting discharge. She was sent with a prescription for zofran and should follow up with PCP this week. Exam Vital Signs (past 8 hours): - 07/27/22 20:23 Temperature 98.3 F Pulse Rate 62 Respiratory Rate 18 Blood Pressure 153/73 H Pulse Oximetry 98 Oxygen Delivery Method Room Air Oxygen Flow Rate 0 Narrative Exam Narrative: GEN: no acute distress HEENT: moist mucous membranes Objective Labs Result Diagrams: 07/25/22 04:49 07/27/22 05:16 Labs: Laboratory Results - last 24 hr 07/27/22 07/27/22 05:16 17:35 Sodium 136 L Potassium 3.3 L Chloride 109 H Carbon Dioxide 26 BUN 11 Creatinine 0.55 Estimated GFR > 60 BUN/Creatinine Ratio 20.0 Glucose 74 L D Calcium 7.5 L Magnesium 1.8 Albumin 3.4 L [facility] Medical History Adrenal insufficiency Charcot foot due to diabetes mellitus Chronic cholecystitis Chronic, continuous use of opioids Diabetes Diabetic retinopathy History of [place] thyroiditis History of kidney stones History of osteomyelitis History of septic arthritis History of venous thrombosis Hyperlipidemia Hypothyroid Osteomyelitis Surgical History History of cholecystectomy History of left hip replacement History of spinal fusion Family History Mother Non Hodgkin's lymphoma Social History marital status: household members: spouse Smoking Status: Former smoker Discharge Plan Discharge Plan Patient Disposition: Home Provider Discharge Comment: Ms. Evans was admitted with vomiting, nausea and a flare of her gastroparesis. She felt better after a few days of getting medications and felt good enough to be able to be discharged home. Discharge orders & Medications Prescriptions: New ondansetron 4 mg tablet,disintegrating 4 mg PO Q8H PRN (Reason: nausea and vomiting) Qty: 20 0RF Continued insulin lispro [Humalog U-100 Insulin] 100 UNIT/1 ML solution 0 unit continuous IV infusion DAILY Qty: 0 alendronate 70 mg Tablet 70 mg PO QWEEK hydromorphone 4 MG tablet 4 mg PO TID PRN (Reason: PAIN) diazepam 5 MG tablet 5 mg PO TIDP PRN (Reason: Anxiety) promethazine 25 mg suppository 25 mg AL Q6H PRN (Reason: nausea and vomiting) Qty: 12 0RF Follow up/Referrals: Pavel Colorado MD [Primary Care Provider] - Diet/Activity/Treatments Diet: Regular Discharge Data Primary Care Provider: Pavel Colorado
--- NOTE | 2022-07-27 21:17 | PC.NURSE ---
discharge Note- Patient d/c'ed home per MD. Discharge instructions and educations reviewed and signed with patient. IV line removed and bandaid applied. Patient dressed self and packed up personal items. Patient taken to private car via wheelchair with spouse at [id number].
== END 2022-07-27 21:17 | disposition home or self-care (01) | DRG 74 ==
LOC: ED 18:00 → AC 18:18 → ICU 18:53 → AC 18:55
PROVIDERS: Family Medicine; Internal Medicine; Admitting Provider Student in an Organized Health Care Education/Training Program; Emergency Provider Emergency Medicine; PCP Internal Medicine; Referring Provider Emergency Medicine; Visit Provider Student in an Organized Health Care Education/Training Program
DX: E10.43 Type 1 diabetes mellitus with diabetic autonomic (poly)neuropathy (principal); F11.20 Opioid dependence, uncomplicated; K31.84 Gastroparesis; E03.9 Hypothyroidism, unspecified; Z96.41 Presence of insulin pump (external) (internal); Z86.39 Personal history of other endocrine, nutritional and metabolic disease; Z87.891 Personal history of nicotine dependence; Z20.822 Contact with and (suspected) exposure to COVID-19; Z66 Do not resuscitate
CPT/HCPCS: 36415; 80048; 80053; 80320; 82009; 82040; 82962; 83690; 83735; 85025; 87635; 96374; 96375; 96376; 99284; C9803; G0378; A9270; C9113; J1170; J1200; J1630; J1650; J1815; J2060; J2405; J3410

== ENCOUNTER 2022-09-29 14:35 | Emergency (ER) | payer OTHER, SELFPAY ==
[2022-07-24 21:43] VITALS: BMI 21.7
[2022-09-29] VITALS (26 sets, daily range): BP systolic 138–173; BP diastolic 65–86; PULSE 74–84; RESP 17; TEMP 37.1; O2SAT 92–100; BMI 22.6
--- NOTE | 2022-09-29 14:46 | ED_ITS ---
HPI - General Adult General Chief complaint: Nausea/Vomiting/Diarrhea Stated complaint: Gastroparesis/throwing up since 5am Time Seen by Provider: 09/29/22 14:40 History of Present Illness HPI narrative: 62-year-old female former smoker well-known to myself and emergency department staff with history of diabetic gastroparesis, cyclic vomiting, abdominal pain and migraines presents with her in the chief complaint of persistent vomiting since about 5:00 a.m. this morning. She has generalized abdominal pain that is worse when she moves and improves with rest. She denies any change in her medications and denies missing any doses of any of her medications. She states that she had gone to bed last night in her normal state of health and woke up this morning 1st with vomiting, multiple times and then followed by generalized abdominal pain and now she is developed a general headache. She denies any recent injury or exposure to ill persons. She is had no runny nose, sore throat or cough. She denies any chest pain or shortness of breath. She is been managed by GI at [place] and has had no significant changes in the approach to her chronic illness Related Data Home Medications Medication Instructions Recorded Confirmed insulin lispro 100 unit/mL 0 unit continuous IV infusion 07/29/12 07/24/22 subcutaneous solution (Humalog DAILY ##0 U-100 Insulin) alendronate 70 mg tablet 70 mg PO QWEEK 02/03/19 07/24/22 diazepam 5 mg tablet 5 mg PO TIDP PRN Anxiety 02/03/19 07/24/22 hydromorphone 4 mg tablet 4 mg PO TID PRN PAIN 02/03/19 07/24/22 Previous Rx's Medication Instructions Recorded promethazine 25 mg rectal 25 mg NH Q6H PRN nausea and 02/03/19 suppository vomiting #12 ea ondansetron 4 mg disintegrating 4 mg PO Q8H PRN nausea and 07/27/22 tablet vomiting #20 tabs Allergies Allergy/AdvReac Type Severity Reaction Status Date / Time amitriptyline Allergy Intermediate SEIZURES Verified 09/29/22 14:51 droperidol Allergy Intermediate CLONIC Verified 09/29/22 14:51 REACTION metoclopramide Allergy Intermediate CLONIC Verified 09/29/22 14:51 REACTION prochlorperazine Allergy Intermediate CLONIC Verified 09/29/22 14:51 REACTION azithromycin AdvReac Mild N/V Verified 09/29/22 14:51 ciprofloxacin AdvReac Mild N/V Verified 09/29/22 14:51 hydrocodone AdvReac Mild N/V Verified 09/29/22 14:51 ketorolac AdvReac Mild N/V Verified 09/29/22 14:51 Review of Systems Review of Systems Narrative: GENERAL: See HPI HEENT: Denies sinus pain, ear pain, sore throat, difficulty swallowing, dizziness. RESPIRATORY: Denies dyspnea, cough, wheezing, hemoptysis, sputum. CARDIOVASCULAR: Denies chest pain, palpitations, orthopnea, edema, GASTROINTESTINAL see HPI. : Denies dysuria, frequency, incontinence, hematuria, urinary retention. MUSCULOSKELETAL: denies weakness, joint pain, or bony pain SKIN: Denies rash, skin lesions, or other NEUROLOGIC: See HPI PSYCHIATRIC: No concerning psychosocial issues. 12 point review of systems is negative except for those stated above Patient History Medical History Adrenal insufficiency Charcot foot due to diabetes mellitus Chronic cholecystitis Chronic, continuous use of opioids Diabetes Diabetic retinopathy History of [place] thyroiditis History of kidney stones History of osteomyelitis History of septic arthritis History of venous thrombosis Hyperlipidemia Hypothyroid Osteomyelitis Surgical History History of cholecystectomy History of left hip replacement History of spinal fusion Family History Mother Non Hodgkin's lymphoma Social History marital status: household members: spouse Smoking Status: Former smoker Smoking Status: Former smoker alcohol intake frequency: holidays/special occasions only Substance Use Type: does not use Exam Narrative Exam Narrative: GENERAL: [62] year old patient appears stated age. Well-developed patient, in mild distress. Obviously uncomfortable HEAD: Atraumatic. Normocephalic. EYES: Pupils equal round and reactive. Extraocular motions intact. No scleral icterus. No injection or drainage. ENT: Nose without bleeding, purulent drainage. Throat without erythema, tonsillar hypertrophy or exudate. Airway patent. NECK: Trachea midline. Non tender CARDIOVASCULAR: Regular rate and rhythm without murmurs, gallops, or rubs. RESPIRATORY: Clear to auscultation. Breath sounds equal bilaterally. No wheezes, rales, or rhonchi. GASTROINTESTINAL: Abdomen soft, mild generalized tenderness, nondistended. EXTREMITIES: No edema or joint tenderness. BACK: Nontender without deformity or crepitance. No flank tenderness. NEURO: AOx3. Cranial nerves 2-12 grossly intact SKIN: No rash or erythema of visible areas Initial Vital Signs Initial Vital Signs: Vital Signs Temperature 98.8 F 09/29/22 14:40 Pulse Rate 82 09/29/22 14:40 Respiratory Rate 17 09/29/22 14:40 Blood Pressure 161/77 H 09/29/22 14:40 Pulse Oximetry 98 09/29/22 14:40 Oxygen Delivery Method 09/29/22 14:40 Course Orders Ordered: Discontinued Medications Haloperidol (Haloperidol 5 Mg/Ml Vial) 5 mg IV NOW ONE Stop: 09/29/22 14:41 Last Admin: 09/29/22 15:04 Dose: 5 mg Documented By: RB Hydromorphone HCl (Hydromorphone 1 Mg Inj) 1 mg IV NOW ONE Stop: 09/29/22 15:24 Last Admin: 09/29/22 15:40 Dose: 1 mg Documented By: RB Hydromorphone HCl (Hydromorphone 1 Mg Inj) 1 mg IV NOW ONE Stop: 09/29/22 16:32 Last Admin: 09/29/22 16:39 Dose: 1 mg Documented By: RB Hydroxyzine HCl (Hydroxyzine 50 Mg/Ml Inj) 50 mg IM NOW ONE Stop: 09/29/22 18:00 Last Admin: 09/29/22 18:16 Dose: 50 mg Documented By: RB Lactated Ringer's (Lactated Ringers) 1,000 mls @ 1,000 mls/hr IV BOLUS ONE Stop: 09/29/22 15:39 Last Infusion: 09/29/22 16:38 Dose: 0 mls/hr Documented By: Admin: 09/29/22 14:57 Dose: 1,000 mls/hr Documented By: RB Lactated Ringer's (Lactated Ringers) 1,000 mls @ 1,000 mls/hr IV BOLUS ONE Stop: 09/29/22 17:30 Last Infusion: 09/29/22 17:55 Dose: 0 mls/hr Documented By: Admin: 09/29/22 16:40 Dose: 1,000 mls/hr Documented By: RB Lorazepam (Lorazepam 2 Mg/Ml Inj) 1 mg IV NOW ONE Stop: 09/29/22 15:24 Last Admin: 09/29/22 15:39 Dose: 1 mg Documented By: RB Pantoprazole Sodium (Pantoprazole 40 Mg Vial) 40 mg IV NOW ONE Stop: 09/29/22 14:41 Last Admin: 09/29/22 14:57 Dose: 40 mg Documented By: RB Vital Signs Vital signs: Vital Signs - 8 hr 09/29/22 14:40 09/29/22 14:42 09/29/22 14:42 Temperature 98.8 F Pulse Rate 82 77 Respiratory Rate 17 Blood Pressure 161/77 H 161/77 H Pulse Oximetry 98 97 Oxygen Delivery Method Room Air 09/29/22 15:18 09/29/22 15:30 09/29/22 15:44 Temperature Pulse Rate 84 79 Respiratory Rate Blood Pressure 173/86 H Pulse Oximetry 99 99 Oxygen Delivery Method 09/29/22 15:44 09/29/22 16:00 09/29/22 16:10 Temperature Pulse Rate 78 76 78 Respiratory Rate Blood Pressure Pulse Oximetry 98 92 95 Oxygen Delivery Method Medical Decision Making Lab Data 09/29/22 15:00 09/29/22 15:00 Labs: Lab Results 09/29/22 09/29/22 09/29/22 Range/Units 14:59 15:00 15:00 WBC 8.8 (4.5-11.0) X10^3/uL RBC 5.02 (4.0-5.2) X10^6/uL Hgb 14.9 (12.0-16.0) g/dL Hct 43.4 (36-46) % MCV 86.5 (80-100) fL MCH 29.6 (26-34) PG MCHC 34.3 (30-36) % RDW 13.5 (11.6-14.8) % Plt Count 238 (150-400) X10^3/uL Neut % (Auto) Not Reportable Lymph % (Auto) Not Reportable [place] % (Auto) Not Reportable Eos % (Auto) Not Reportable Baso % (Auto) Not Reportable Lymph # (Auto) Not Reportable [place] # (Auto) Not Reportable Baso # (Auto) Not Reportable Total Counted 100 Seg Neutrophils % 93.0 H (38-70) % Lymphocytes % (Manual) 4.0 L (25-45) % Atypical Lymphs % 2.0 H ( - 0) % Monocytes % (Manual) 1.0 L (2-11) % Neutrophils # (Manual) 8184 H (8783-8757) /uL RBC Morphology Normal morphology VBG pH 7.43 (7.33-7.43) VBG pCO2 47.8 (45-50) mmHg VBG pO2 33 L (35-45) mmHg VBG HCO3 32 H (24-28) mmol/L VBG Total CO2 33 H (24-29) mmol/L VBG O2 Saturation 65 L (70-75) % VBG Base Excess 7.0 H (0-4) mmol/L FiO2 21 Sodium (137-145) mmol/L Potassium (3.4-5.1) mmol/L Chloride (98-107) mmol/L Carbon Dioxide (22-32) mmol/L BUN (7-17) mg/dL Creatinine (0.52-1.04) mg/dL Estimated GFR (>60) mL/min BUN/Creatinine Ratio (6-22) Glucose (80-110) mg/dL Lactate (0.7-2.1) mmol/L Calcium (8.4-10.2) mg/dL Magnesium (1.6-2.3) mg/dL Total Bilirubin (0.2-1.3) mg/dL AST (14-36) IU/L ALT (<35) IU/L Alkaline Phosphatase (38-126) U/L Total Protein (6.3-8.2) g/dL Albumin (3.5-5.0) g/dL Globulin (1.7-4.1) g/dL Albumin/Globulin Ratio (1.0-2.8) Lipase (23-300) U/L Urine RBC (0-5/HPF) Urine WBC (0-5/HPF) Amorphous Sediment Urine Bacteria (None) Ur Culture Indicated? Ketones 0.95 H (<0.27) mmol/L 09/29/22 09/29/22 09/29/22 Range/Units 15:00 15:00 17:11 WBC (4.5-11.0) X10^3/uL RBC (4.0-5.2) X10^6/uL Hgb (12.0-16.0) g/dL Hct (36-46) % MCV (80-100) fL MCH (26-34) PG MCHC (30-36) % RDW (11.6-14.8) % Plt Count (150-400) X10^3/uL Neut % (Auto) Lymph % (Auto) [place] % (Auto) Eos % (Auto) Baso % (Auto) Lymph # (Auto) [place] # (Auto) Baso # (Auto) Total Counted Seg Neutrophils % (38-70) % Lymphocytes % (Manual) (25-45) % Atypical Lymphs % ( - 0) % Monocytes % (Manual) (2-11) % Neutrophils # (Manual) (9029-2494) /uL RBC Morphology VBG pH (7.33-7.43) VBG pCO2 (45-50) mmHg VBG pO2 (35-45) mmHg VBG HCO3 (24-28) mmol/L VBG Total CO2 (24-29) mmol/L VBG O2 Saturation (70-75) % VBG Base Excess (0-4) mmol/L FiO2 Sodium 136 L (137-145) mmol/L Potassium 4.7 (3.4-5.1) mmol/L Chloride 96 L (98-107) mmol/L Carbon Dioxide 27 (22-32) mmol/L BUN 14 (7-17) mg/dL Creatinine 0.77 (0.52-1.04) mg/dL Estimated GFR > 60 (>60) mL/min BUN/Creatinine Ratio 18.2 (6-22) Glucose 332 H (80-110) mg/dL Lactate 1.0 (0.7-2.1) mmol/L Calcium 9.7 (8.4-10.2) mg/dL Magnesium 2.0 (1.6-2.3) mg/dL Total Bilirubin 1.0 (0.2-1.3) mg/dL AST 40 H (14-36) IU/L ALT 50 H (<35) IU/L Alkaline Phosphatase 97 (38-126) U/L Total Protein 9.0 H (6.3-8.2) g/dL Albumin 5.2 H (3.5-5.0) g/dL Globulin 3.8 (1.7-4.1) g/dL Albumin/Globulin Ratio 1.4 (1.0-2.8) Lipase 19 L (23-300) U/L Urine RBC 0-1/hpf (0-5/HPF) Urine WBC None seen (0-5/HPF) Amorphous Sediment 2+ Urine Bacteria None seen (None) Ur Culture Indicated? Cult not indicated Ketones (<0.27) mmol/L Point of Care Testing Glucose POC 311 Urine Dip Bedside Urine Glucose 1000 mg/dl Bedside Urine Bilirubin - Negative Bedside Urine Ketone ++ 40 Urine Specific [place] 1.015 Bedside Urine Occult Blood + Bedside Urine pH 7.5 Bedside Urine Protein - Negative Bedside Urine Urobilinogen - Negative Bedside Urine Nitrite - Negative Bedside Urine Leukocytes - Negative Esterase Point of care testing: Point of Care Testing Glucose POC 311 Urine Dip Bedside Urine Glucose 1000 mg/dl Bedside Urine Bilirubin - Negative Bedside Urine Ketone ++ 40 Urine Specific [place] 1.015 Bedside Urine Occult Blood + Bedside Urine pH 7.5 Bedside Urine Protein - Negative Bedside Urine Urobilinogen - Negative Bedside Urine Nitrite - Negative Bedside Urine Leukocytes - Negative Esterase MDM Narrative Medical decision making narrative: CC: 62-year-old female with persistent nausea, vomiting, generalized abdominal pain and now mild headache Complicating co-morbidities: Diabetes, gastroparesis, Data collected from: Patient Medical records reviewed: Multiple prior visits for similar reviewed Differential considered, but not limited to: Exam documented above, pertinent findings include: Lab Test results independently reviewed as above. Pertinent findings: No significant findings, notably no anion gap, acidosis, reassuring VBG Treatments: Fluids, Dilaudid, Haldol, Ativan Re-evaluations: Significant improvement in above-stated therapies Discussion: Patient with nausea, vomiting and abdominal pain has had multiple prior visits for the same. Labs are very reassuring, response to therapies reassuring, pain well controlled, vomiting controlled, patient tolerating orals at appropriate for discharge Disposition: see below, along with detailed discharge instructions that have been reviewed with patient as well as indications for ED re-evaluation and additional outpatient follow up Discharge Plan Departure Patient Disposition: Home Clinical Impression: Diabetic gastroparesis, Abdominal pain Instructions: DI for Abdominal Pain-Adult, DI for Vomiting -- Adult Activity Restrictions/Additional Instructions: *You have been diagnosed with [abdominal pain and vomiting likely due to gastroparesis] * As we discussed your history and physical exam as well as labs and imaging are very reassuring. There is no evidence of any severe diagnoses that would require a specific or immediate intervention. *What to do: *Please continue to take your regular medications as directed. *Please follow up with your primary care provider in 2-3 days, call for an appointment. Let them know you were seen in the Emergency Department and that we ask that you be seen in follow up. We will electronically transmit a record of today's note if your PCP is in our system *Please consider a clear liquid diet for the next 24-48 hours and then slowly advance to regular as tolerated. Also, try to avoid alcohol, nicotine, caffeine, spicy, acidic or fatty foods as this may worsen your symptoms *If you do not have a primary care provider please contact the [facility] Resource line at [phone]. They will ask some questions about your medical history and help get you set up with a doctor in the community. *Return to Emergency Department if you should have any new, worsening or concerning symptoms, such as [fever greater than 101 F, shaking chills, worsening pain, persistent vomiting or other bothersome symptoms] Prescriptions: No Action insulin lispro [Humalog U-100 Insulin] 100 UNIT/1 ML solution 0 unit continuous IV infusion DAILY Qty: 0 alendronate 70 mg Tablet 70 mg PO QWEEK hydromorphone 4 MG tablet 4 mg PO TID PRN (Reason: PAIN) diazepam 5 MG tablet 5 mg PO TIDP PRN (Reason: Anxiety) promethazine 25 mg suppository 25 mg NH Q6H PRN (Reason: nausea and vomiting) Qty: 12 0RF ondansetron 4 mg tablet,disintegrating 4 mg PO Q8H PRN (Reason: nausea and vomiting) Qty: 20 0RF Referrals: Pavel Colorado MD [Primary Care Provider] - Stand Alone Forms: Patient Portal/API
[2022-09-29] MEDS: PANTOPRAZOLE 40 MG VIAL IV (14:57)
[2022-09-29] MEDS: LACTATED RINGERS 1,000 ML 1000 ML IV ×2 (14:57→16:40)
[2022-09-29] MEDS: HALOPERIDOL 5 MG/ML VIAL IV (15:04)
[2022-09-29 15:12] LABS: HCO3 VBG 32 mmol/L (24-28); Oxygen Saturation VBG 65 % (70-75); PCO2 VBG 47.8 mmHg (45-50); PO2 VBG 33 mmHg (35-45); Total CO2 VBG 33 mmol/L (24-29)
[2022-09-29 15:13] LABS: Fractionated Inspired Oxygen 21; pH VBG 7.43 (7.33-7.43)
[2022-09-29 15:16] LABS: Hematocrit 43.4 % (36-46); Hemoglobin 14.9 g/dL (12.0-16.0); Mean Corpuscular HGB Conc 34.3 % (30-36); Mean Corpuscular Hemoglobin 29.6 PG (26-34); Mean Corpuscular Volume 86.5 fL (80-100); Platelet Count 238 X10^3/uL (150-400); Red Blood Cell Count 5.02 X10^6/uL (4.0-5.2); Red Cell Distribution Width 13.5 % (11.6-14.8); White Blood Cell Count 8.8 X10^3/uL (4.5-11.0)
[2022-09-29 15:17] LABS: Add Manual Diff / Slide Review YES
[2022-09-29 15:28] LABS: Neutrophils Absolute Manual 8184 /uL (3000-5900); RBC Morphology Normal Morphology; Total Cells Counted 100
[2022-09-29 15:38] LABS: Alanine Aminotransferase 50 IU/L (<35); Albumin 5.2 g/dL (3.5-5.0); Albumin Globulin Ratio 1.4 (1.0-2.8); Alkaline Phosphatase 97 U/L (38-126); Aspartate Aminotransferase 40 IU/L (14-36); BUN Creatinine Ratio 18.2 (6-22); Blood Urea Nitrogen 14 mg/dL (7-17); Calcium 9.7 mg/dL (8.4-10.2); Carbon Dioxide 27 mmol/L (22-32); Chloride 96 mmol/L (98-107); Estimated Glomerular Filt Rate > 60 mL/min (>60); Globulin 3.8 g/dL (1.7-4.1); Glucose 332 mg/dL (80-110); HEMOLYSIS 22 (0-50); Lipase 19 U/L (23-300); Potassium 4.7 mmol/L (3.4-5.1); Sodium 136 mmol/L (137-145)
[2022-09-29] MEDS: LORazepam 2 MG/ML INJ 1 MG IV (15:39)
[2022-09-29] MEDS: HYDROMORPHONE 1 MG INJ IV ×2 (15:40→16:39)
[2022-09-29 15:48] LABS: Ketones (Beta-Hydroxybutyrate) 0.95 mmol/L (<0.27)
[2022-09-29 17:41] LABS: Amorphous Sediment Urine 2+; Bacteria Urine None Seen; Culture Indicated Urine Cult Not Indicated; RBC Urine 0-1/HPF (0-5/HPF); WBC Urine None Seen (0-5/HPF)
[2022-09-29] MEDS: hydrOXYzine 50 MG/ML INJ IM (18:16)
== END 2022-09-29 19:24 | disposition home or self-care (01) ==
PROVIDERS: Emergency Provider Emergency Medicine; PCP Internal Medicine
DX: E11.43 Type 2 diabetes mellitus with diabetic autonomic (poly)neuropathy (principal); K31.84 Gastroparesis; R10.84 Generalized abdominal pain
CPT/HCPCS: 36415; 80053; 81003; 81015; 82009; 82805; 82962; 83605; 83690; 83735; 85007; 85025; 96361; 96372; 96374; 96375; 96376; 99284; C9113; J1170; J1630; J2060; J3410

== ENCOUNTER → 2025-02-28 17:40 | Outpatient (CLI) | payer OTHER, SELFPAY ==
[2022-07-24 21:43] VITALS: BMI 21.7
--- NOTE | 2025-02-28 17:42 | DI.MG.S_ITS ---
MM screening mammo BI: 02/28/2025. BI-RADS: 1 CLINICAL: 64-year old female for bilateral screening mammogram. Tyrer-Cuzick lifetime risk of 6.1%. No personal or first-degree family history of breast cancer. PRIOR EXAMS 06/19/2019, 05/17/2018. MAMMOGRAPHY TECHNIQUE: 2D and 3D (tomosynthesis) digital mammographic views obtained, with additional images as needed for full coverage. Current study was also evaluated with a Computer Aided Detection (CAD) system. DENSITY C. The breasts are heterogeneously dense, which may obscure small masses. MAMMOGRAPHY FINDINGS Bilateral: No suspicious mass, asymmetry, microcalcification, or other abnormality seen. No significant change from comparison. IMPRESSION: * No evidence of malignancy. RECOMMENDATIONS Bilateral * Annual screening mammography. OVERALL ASSESSMENT CATEGORY BI-RADS-1: Negative. The [employer] recommends annual screening mammography beginning at age 40 for women with average risk of breast cancer. ELECTRONICALLY SIGNED: Brooks Fuentes M.D. on 03/01/2025 at 10:26:22 AM PT Interpreting Station ID: [id number]
== END ==
PROVIDERS: PCP Internal Medicine; Referring Provider Family Medicine; Visit Provider Family Medicine
DX: Z12.31 Encounter for screening mammogram for malignant neoplasm of breast (principal); R92.333 Mammographic heterogeneous density, bilateral breasts
CPT/HCPCS: 77063; 77067